=== PATIENT | male | born 1960 | race Caucasian/White ===

== ENCOUNTER 2016-10-20 00:04 | Inpatient (IN) | payer OTHER ==
[2016-10-20] VITALS (7 sets, daily range): BP systolic 72–180; BP diastolic 50–110
[~2016-10-20] VITALS: Ht 182.9 cm; Wt 85.7 kg
[~2016-10-20 00:04] MED LIST: FLUOXETINE HCL20 M2 PO; GABAPENTIN300 M2 PO; HYDROCHLOROTHIA25 M1 PO; HYDROXYZINE PAM25 M2 PO; LISINOPRIL40 M1 PO; MOTRIN IB200 M1 PO; NORVASC10 M1 PO; PERCOCET 5-3251 EACH PO; UNASYN 3 GM VIAL3 GM IV
--- NOTE | 2016-10-20 00:13 | NUR ---
PT MEDICATED WITH 4MG ATIVAN IV PER EMAR FOR SEIZURE
--- NOTE | 2016-10-20 00:13 | ED AMS/SEIZURE/WEAK/DIZZY ---
History of Present Illness General Chief Complaint: Seizure Stated Complaint: "BIBA SEIZURE" Source: EMS Exam Limitations: unable to give history Vital Signs & Intake/Output Vital Signs & Intake/Output Vital Signs Date Time Temp Pulse Resp B/P Pulse O2 O2 Flow FiO2 Ox Delivery Rate 10/20 0242 96.8 93 20 146/86 99 Nasal 4.0L Cannula 10/20 0123 96.6 108 20 153/99 94 Nasal 4.0L Cannula 10/20 0055 110 20 159/93 97 Nasal 2.0L Cannula 10/20 0018 96.6 152 24 212/122 98 Nasal 5.0L Cannula 10/20 000 98 Nasal 4.0L Cannula 10/20 000 99 Nasal 4.0L Cannula Allergies Coded Allergies: NO KNOWN ALLERGIES (03/31/16) Reconcile Medications Amlodipine Besylate (Norvasc) 10 MG TABLET 1 TAB PO DAILY BLOOD PRESSURE Fluoxetine HCl 20 MG CAPSULE 1 CAP PO DAILY ANXIETY (Reported) Gabapentin 300 MG CAPSULE 2 CAP PO BID PERIPHERAL NEUROPATHY (Reported) Hydrochlorothiazide 25 MG TABLET 1 TAB PO DAILY BLOOD PRESSURE Hydroxyzine Pamoate 25 MG CAPSULE 1 CAP PO TIDPRN ANXIETY (Reported) Lisinopril 40 MG TABLET 1 TAB PO DAILY HIGH BLOOD PRESSURE (Reported) Triage Nurses Notes Reviewed? yes HPI: According to EMS the patient presents for evaluation of alcohol withdrawal seizures. Patient himself is unable to provide history as he had a seizure on the EMS stretcher as he was being placed onto the ED stretcher. Past History Travel History Traveled to [place] past 21 day No Medical History Any Pertinent Medical History? 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 No Review of Systems Review of Systems Constitutional: Reports: see HPI. 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 Eyes: Normal inspection bilaterally Ears: Normal inspection bilaterally Nose: Normal inspection Throat/mouth : Moist mucosa Neck: Supple, full range of motion, no goiter Heart: Regular rate and rhythm, no murmurs rubs or gallops Lungs: Clear to auscultation bilaterally with normal air entry Chest: Nontender Back: Normal range of motion Abdomen: nondistended, normal bowel sounds Extremities: Normal range of motion grossly, equal radial pulses, no cyanosis clubbing or edema Neurologic: Cranial nerves grossly intact, unable to assess speech Skin: Diaphoretic Psychiatric: Unable to assess Core Measures ACS in differential dx? No CVA/TIA Diagnosis: No Severe Sepsis Present: No Septic Shock Present: No Progress Differential Diagnosis: DELIRIUM TREMENS, HEAD TRAUMA, cva, INTRACRANIAL BLEED, OVERDOSE Plan of Care: Orders Procedure Date/time Status Admit to inpatient 10/20 245 Active Saline Lock 10/20 10 Active Patient Safety Monitor 10/20 10 Active Seizure Precautions 10/20 10 Active URINE DRUG SCREEN FOR ER ONLY 10/20 10 Complete URINALYSIS 10/20 10 Complete ACETOMINOPHEN 10/20 10 Complete THYROID STIMULATING HORMONE 10/20 10 Complete SALICYLATE 10/20 10 Complete PHOSPHORUS 10/20 10 Complete MAGNESIUM 10/20 10 Complete ETHANOL 10/20 10 Complete COMPREHENSIVE METABOLIC PANEL 10/20 10 Complete CBC WITHOUT DIFFERENTIAL 10/20 10 Complete EKG 10/20 0005 Active Current Medications Sig/Nora Start time Last Medication Dose Stop Time Status Admin Lorazepam 50 MG ONCE ONE 10/20 244 UNir (Ativan Drip) 10/20 245 Sodium Chloride 500 ML (Normal Saline 0.9%) Laboratory Tests 10/20/16 0050: Urine Opiates Screen < 100.00, Methadone Screen < 40, Barbiturate Screen < 60, Ur Phencyclidine Scrn < 6.00, Amphetamines Screen < 100, U Benzodiazepines Scrn < 85, Urine Cocaine Screen < 50, Urine Cannabis Screen < 5.00 10/20/16 0050: Anion Gap 24 H, Estimated GFR > 60, BUN/Creatinine Ratio 15.7, Glucose 191 H, Calcium 9.4, Phosphorus 3.5, Magnesium 1.7, Total Bilirubin 1.4 H, AST 138 H, ALT 49, Alkaline Phosphatase 152 H, Total Protein 8.5 H, Albumin 4.6, Globulin 3.9, Albumin/Globulin Ratio 1.2, TSH 1.220, CBC w Diff NO MAN DIFF REQ, RBC 4.32 L, MCV 106.8 H, MCH 35.7 H, RDW 16.0 H, MPV 9.4, Gran % 87.9 H, Lymphocytes % 5.5 L, Monocytes % 6.0, Eosinophils % 0, Basophils % 0.6, Absolute Granulocytes 9.4 H, Absolute Lymphocytes 0.6 L, Absolute Monocytes 0.6, Absolute Eosinophils 0, Absolute Basophils 0.1, PUBS MCHC 33.4, Salicylates < 1.0, Acetaminophen < 10.0 L, Serum Alcohol < 10.0, Urinalysis MOD H, Urine Color YEL, Urine Clarity CLEAR, Urine pH 7.0, Ur Specific Brenham 1.025, Urine Protein >=300 H, Urine Ketones 40 H, Urine Nitrite NEG, Urine Bilirubin NEG, Urine Urobilinogen 2.0 H, Ur Leukocyte Esterase NEG, Ur Microscopic SEDIMENT EXAMINED, Urine RBC 1-3, Urine WBC 3-5 H, Ur Epithelial Cells FEW, Urine Bacteria FEW H, Urine Hemoglobin MOD H, Urine Glucose NEG Diagnostic Imaging: Discussed w/RAD: CT Scan. Radiology Impression: PATIENT: ALBA BURTON PRESENT AGE: 56 PATIENT ACCOUNT NO: [id number] : 62 LOCATION: [facility] ORDERING PHYSICIAN: LUCIANA LOAIZA MD SERVICE DATE: 10/20/16 EXAM TYPE: CAT - CT HEAD WO IV CONTRAST EXAMINATION: CT HEAD WITHOUT CONTRAST CLINICAL INFORMATION: Trauma. COMPARISON: CT head 05/07/2016 TECHNIQUE: Contiguous axial imaging was performed from the skull base to vertex without intravenous administration of contrast. DLP: 672.25 mGy-cm FINDINGS: There is no evidence of acute intracranial hemorrhage or territorial infarction. No abnormal mass effect or midline shift is seen. [place] to white matter differentiation is well preserved. No extra-axial fluid collections are identified. The ventricles are normal in size. There is no abnormal attenuation within the brain parenchyma. The osseous structures and soft tissues are normal. Small amount of fluid in the left mastoid air cells similar prior CAT scan IMPRESSION: No acute intracranial pathology. 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 <Electronically signed in Other Vendor System> SIGNED BY: KRISTA VICTORIA MD 10/20/16 0251 Initial ED EKG: SINUS TACHYCARDIA WITH HR OF 105, NS ST CHANGES Prior EKG: changed (NOT TACHY ON PRIOR) Comments: 10/20/2016 12:50:42 AM after a total of 6 mg of Ativan, IM Haldol and IV Benadryl the patient has now settled down and is no longer resisting treatment. 10/20/2016 2:48:41 AM other than a 2 mg IV Versed dose for compliance with CAT scan, patient has remained stable and without signs of seizures. His mental status is improving despite generous doses of IV Ativan. Departure Departure Disposition: STILL A PATIENT Condition: Stable Clinical Impression Primary Impression: Delirium tremens Secondary Impressions: Alcohol withdrawal seizure Qualifiers: Complication of substance-induced condition: with delirium Qualified Code: F10.231 - Alcohol dependence with withdrawal delirium Referrals: JUAN FRANCISCO ESCALANTE MD (PCP/Family) Departure Forms: Customer Survey General Discharge Information Admission Note Spoke With: TAWNY ALVAREZ MD Documentation of Exam: Documentation of any treatments & extenuating circumstances including Concerns Regarding Discharge (functional status, medication knowledge or non-compliance, living conditions, etc.) that warrant an admission rather than observation: Patient has suffered alcohol withdrawal seizures and appears to be currently experiencing delirium tremens. This patient has a high mortality risk now requires ICU level care, Ativan drip and close clinical monitoring of neurological status. He will need a tapering dose of Ativan to prevent further withdrawal seizures and to detoxify him from alcohol. He will be at high risk of withdrawal seizures and DTs for the next 3-5 days. I do not feel he can be adequately treated as an outpatient under the circumstances. He would likely return in worse clinical condition. This patient will require a multiple day hospitalization. Critical Care Note Critical Care Note Critical Care Time: 30-74 min
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
--- NOTE | 2016-10-20 00:30 | NUR ---
PT MEDICATED WITH 2MG ATIVAN IV PER EMAR.
--- NOTE | 2016-10-20 00:45 | NUR ---
PT MEDICATED WITH 50MG BENADRYL IV AND 10MG HALDOL IV PER EMAR FOR AGGRESSIVE/SEIZURE BEHAVIOR PER EMAR BY ALEJANDRA COCHRAN.
--- NOTE | 2016-10-20 00:46 | NUR ---
IV ACCESS ESTABLISHED BY THIS RN #18 RFA, LABS DRAWN (SST, BRAUN, BLUE, LAV) OJEDA CATHETER IN PLACE 14FR, URINE TRIO SENT TO LAB.
[2016-10-20 00:58] LABS: ABSOLUTE BASOPHIL COUNT 0.1 /CUMM (0.0-0.2); ABSOLUTE EOSINOPHIL COUNT 0 /CUMM (0.0-0.7); ABSOLUTE GRANULOCYTE CT 9.4 /CUMM (1.4-6.5); ABSOLUTE LYMPH COUNT 0.6 /CUMM (1.2-3.4); ABSOLUTE MONOCYTE COUNT 0.6 /CUMM (0.10-0.60); BASOPHIL % 0.6 % (0.0-2.0); EOSINOPHIL % 0 % (0-5); HEMATOCRIT 46.1 % (42-52); MEAN CORPUSCULAR HGB 35.7 PG (27.0-31.0); MEAN CORPUSCULAR HGB CONC 33.4 G/DL (33.0-37.0); MEAN CORPUSCULAR VOLUME 106.8 FL (80.0-94.0); MEAN PLATELET VOLUME 9.4 FL (7.4-10.4); PLATELET COUNT 143 /CUMM (130-400); RED BLOOD CELL CT 4.32 /CUMM (4.70-6.10)
[2016-10-20 00:59] LABS: GRANULOCYTE % 87.9 % (42.2-75.2)
--- NOTE | 2016-10-20 01:11 | NUR ---
DR LOAIZA REMOVED PTS SOFT RESTRAINTS ON ANKLES, PT HAS 2 SOFT RESTRAINTS ON BILATERAL WRISTS FOR SAFETY OF STAFF, PT AND IV INTERVENTIONS.
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
--- NOTE | 2016-10-20 01:18 | NUR ---
PT NOTED TO BE SEIZING AT THIS TIME, PALE, DIAPHORETIC.
--- NOTE | 2016-10-20 01:22 | NUR ---
PTS BLOOD SUGAR 136, PT HAS RED FALL WRIST BAND APPLIED AND RED FALL RISK SOCKS,
[2016-10-20 01:29] LABS: WHITE BLOOD CELL COUNT 10.7 /CUMM (4.8-10.8)
--- NOTE | 2016-10-20 01:35 | NUR ---
PTS CALLED JULIENNE ([phone])
--- NOTE | 2016-10-20 01:35 | History & Physical ---
General Information and HPI Allergies/Medications Allergies: Coded Allergies: NO KNOWN ALLERGIES (03/31/16) Home Med list Amlodipine Besylate (Norvasc) 10 MG TABLET 1 TAB PO DAILY BLOOD PRESSURE Fluoxetine HCl 20 MG CAPSULE 1 CAP PO DAILY ANXIETY (Reported) Gabapentin 300 MG CAPSULE 2 CAP PO BID PERIPHERAL NEUROPATHY (Reported) Hydrochlorothiazide 25 MG TABLET 1 TAB PO DAILY BLOOD PRESSURE Hydroxyzine Pamoate 25 MG CAPSULE 1 CAP PO TIDPRN ANXIETY (Reported) Lisinopril 40 MG TABLET 1 TAB PO DAILY HIGH BLOOD PRESSURE (Reported) Past History Travel History Traveled to [place] past 21 day No Medical History Neurological: peripheral neuropathy EENT: NONE Cardiovascular: hypertension Respiratory: NONE Gastrointestinal: NONE Hepatic: NONE Renal: NONE Musculoskeletal: osteomyelitis of the left femur treated with 4 weeks of IV antibiotics four years prior to admission Psychiatric: anxiety Endocrine: NONE Blood Disorders: NONE Cancer(s): NONE 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
--- NOTE | 2016-10-20 02:12 | NUR ---
PT AT CT SCAN AT THIS TIME.
--- NOTE | 2016-10-20 02:20 | NUR ---
PT MEDICATED WITH 2MG ATIVAN IV PER EMAR FOR AGGRESSIVE BEHAVIOR ON THE CT SCAN TABLE, THIS RN WITH PT AND PLACED ON MONITOR, PT HAS BANANA BAG INFUSING AT 125ML/HR PER EMAR. PT HAS (1) VALUABLES BAG LOCKED IN MED RM SAFE.
--- NOTE | 2016-10-20 02:30 | NUR ---
PT MEDICATED WITH 2MG VERSED PER EMAR FOR AGGRESSIVE BEHAVIOR SINCE ATIVAN WAS NOT EFFECTIVE.
--- NOTE | 2016-10-20 02:42 | NUR ---
PT COMPLETED CT SCAN, BACK IN AWAITING HOUSE STAFF EVAL
--- NOTE | 2016-10-20 02:51 | CT SCAN REPORT ---
EXAMINATION: CT HEAD WITHOUT CONTRAST CLINICAL INFORMATION: Trauma. COMPARISON: CT head 05/07/2016 TECHNIQUE: Contiguous axial imaging was performed from the skull base to vertex without intravenous administration of contrast. DLP: 672.25 mGy-cm FINDINGS: There is no evidence of acute intracranial hemorrhage or territorial infarction. No abnormal mass effect or midline shift is seen. [place] to white matter differentiation is well preserved. No extra-axial fluid collections are identified. The ventricles are normal in size. There is no abnormal attenuation within the brain parenchyma. The osseous structures and soft tissues are normal. Small amount of fluid in the left mastoid air cells similar prior CAT scan IMPRESSION: No acute intracranial pathology.
--- NOTE | 2016-10-20 02:57 | NUR ---
PHARMACY CALLED FOR RICHARD LARRY
--- NOTE | 2016-10-20 03:04 | History & Physical ---
JEANETH MOHAN,[facility] 10/20/16 0303: General Information and HPI MD Statement: I have seen and personally examined ALBA BURTON and documented this H&P. The patient is a 56 year old M who presented with a patient stated chief complaint of [altered mental status and alcohol withdrawal seizure]. Source of Information: EMS, records from the ED, also ED staff. Exam Limitations: unable to give history, not alert/orientated, clinical condition, confusion History of Present Illness: Patient is a 56-year-old gentleman with PMH of alcoholism, hypertension, peripheral neuropathy, anxiety, recent hospitalization for left foot osteomyelitis after a dog bite in March 2016, who was brought in by EMS when his girlfriend found him unresponsive on the floor at home and seizing. When we saw the patient he was not responding to verbal, tactile or painful stimuli. ( We tried to contact her girlfriend but was unsuccessful, the phone number in the system did not go through) According to the records and information obtained from the ED staff, the patient had tonic-clonic seizures on the way to the hospital. He has been drinking a pint of vodka daily until two days ago when started to feel unwell and threw up. Since then he has not been able to drink. He also had a dog bite that happened about two days ago on the right hand. Patient became more alert after 1 hour in the ED and partially responded to a few of the questions. He denied chest pain, palpitation, SOB, abdominal pain, nausea, vomiting. Allergies/Medications Allergies: Coded Allergies: NO KNOWN ALLERGIES (03/31/16) Home Med list Amlodipine Besylate (Norvasc) 10 MG TABLET 1 TAB PO DAILY BLOOD PRESSURE Fluoxetine HCl 20 MG CAPSULE 1 CAP PO DAILY ANXIETY (Reported) Gabapentin 300 MG CAPSULE 2 CAP PO BID PERIPHERAL NEUROPATHY (Reported) Hydrochlorothiazide 25 MG TABLET 1 TAB PO DAILY BLOOD PRESSURE Hydroxyzine Pamoate 25 MG CAPSULE 1 CAP PO TIDPRN ANXIETY (Reported) Lisinopril 40 MG TABLET 1 TAB PO DAILY HIGH BLOOD PRESSURE (Reported) Past History Travel History Traveled to [place] past 21 day No Medical History Neurological: peripheral neuropathy EENT: NONE Cardiovascular: hypertension Respiratory: NONE Gastrointestinal: NONE Hepatic: NONE Renal: NONE Musculoskeletal: osteomyelitis of the left femur treated with 4 weeks of IV antibiotics four years prior to admission Psychiatric: anxiety Endocrine: NONE Blood Disorders: NONE Cancer(s): NONE AIRCRAFT REFUELLER/Reproductive: NONE History of MRSA: No History of VRE: No History of CDIFF: No Isolation History: Standard Tetanus Vaccine: 03/31/16 Surgical History Surgical History: non-contributory Past Family/Social History Family History Relations & Conditions if any Relation not specified for: *No pertinent family history Psychosocial History Services at Home: None ETOH Use: heavy use Review of Systems Review of Systems Constitutional: Denies: chills, fever. Cardiovascular: Denies: chest pain, palpitations. Respiratory: Denies: cough, short of breath. GI: Denies: abdominal pain, changes in stool. Genitourinary: Reports: no symptoms. Musculoskeletal: Reports: no symptoms. Exam & Diagnostic Data Last 24 Hrs of Vital Signs/I&O Vital Signs Date Time Temp Pulse Resp B/P Pulse O2 O2 Flow FiO2 Ox Delivery Rate 10/20 0514 100 190/107 10/20 0439 97.7 90 20 161/97 10/20 0438 97.7 90 20 161/97 98 Nasal 4.0L Cannula 10/20 0436 86 162/98 10/20 0434 84 158/96 10/20 0432 83 156/107 10/20 0422 97.2 89 20 164/108 99 Nasal 4.0L Cannula 10/20 0242 96.8 93 20 146/86 99 Nasal 4.0L Cannula 10/20 0123 96.6 108 20 153/99 94 Nasal 4.0L Cannula 10/20 0055 110 20 159/93 97 Nasal 2.0L Cannula 10/20 0018 96.6 152 24 212/122 98 Nasal 5.0L Cannula 10/20 0007 98 Nasal 4.0L Cannula 10/20 0006 99 Nasal 4.0L Cannula Intake & Output 10/20 0800 10/20 0000 10/19 1600 Intake Total 0 Output Total 50 Balance -50 Intake, Oral 0 Output, Urine 50 Physical Exam General Appearance Mild Distress, diaphoretic Skin cold, diaphoretic on the forehead. HEENT PERRLA, Mucous Membr. moist/pink Neck Supple, No JVD Cardiovascular Regular Rate, Normal S1, Normal S2, No Murmurs Lungs Clear to Auscultation, Normal Air Movement Abdomen Soft, No Tenderness, non distended Neurological Normal Tone, not able to cooperate for a neurologic examination Extremities lacerations on the palmar and dorsal aspects of the right hand Vascular Pulses Symmetrical Last 24 Hrs of Labs/Edi: Laboratory Tests 10/20/16 0545: Anion Gap 11, Estimated GFR > 60, Glucose 92, Calcium 9.2, Phosphorus 2.1 L, Magnesium 2.0, Total Bilirubin 1.2, AST 92 H, ALT 46, Albumin 4.2, CBC w Diff NO MAN DIFF REQ, RBC 4.03 L, MCV 105.8 H, MCH 35.6 H, RDW 15.7 H, MPV 9.2, Gran % 84.0 H, Lymphocytes % 7.0 L, Monocytes % 8.7, Eosinophils % 0, Basophils % 0.3, Absolute Granulocytes 7.1 H, Absolute Lymphocytes 0.6 L, Absolute Monocytes 0.7 H, Absolute Eosinophils 0, Absolute Basophils 0, PUBS MCHC 33.6 10/20/16 0050: Urine Opiates Screen < 100.00, Methadone Screen < 40, Barbiturate Screen < 60, Ur Phencyclidine Scrn < 6.00, Amphetamines Screen < 100, U Benzodiazepines Scrn < 85, Urine Cocaine Screen < 50, Urine Cannabis Screen < 5.00 10/20/16 0050: Anion Gap 24 H, Estimated GFR > 60, BUN/Creatinine Ratio 15.7, Glucose 191 H, Calcium 9.4, Phosphorus 3.5, Magnesium 1.7, Total Bilirubin 1.4 H, AST 138 H, ALT 49, Alkaline Phosphatase 152 H, Troponin I < 0.01, Total Protein 8.5 H, Albumin 4.6, Globulin 3.9, Albumin/Globulin Ratio 1.2, Lipase 67, Vitamin B12 443, Folate 3.9, TSH 1.220, CBC w Diff NO MAN DIFF REQ, RBC 4.32 L, MCV 106.8 H, MCH 35.7 H, RDW 16.0 H, MPV 9.4, Gran % 87.9 H, Lymphocytes % 5.5 L, Monocytes % 6.0, Eosinophils % 0, Basophils % 0.6, Absolute Granulocytes 9.4 H, Absolute Lymphocytes 0.6 L, Absolute Monocytes 0.6, Absolute Eosinophils 0, Absolute Basophils 0.1, PUBS MCHC 33.4, Salicylates < 1.0, Acetaminophen < 10.0 L, Serum Alcohol < 10.0, Urinalysis MOD H, Urine Color YEL, Urine Clarity CLEAR , Urine pH 7.0, Ur Specific [place] 1.025, Urine Protein >=300 H, Urine Ketones 40 H, Urine Nitrite NEG, Urine Bilirubin NEG, Urine Urobilinogen 2.0 H, Ur Leukocyte Esterase NEG, Ur Microscopic SEDIMENT EXAMINED, Urine RBC 1-3, Urine WBC 3-5 H, Ur Epithelial Cells FEW, Urine Bacteria FEW H, Urine Hemoglobin MOD H, Urine Glucose NEG Microbiology 10/20 640 URINE ROUT: Urine Culture - ORD 10/20 640 BLOOD: Blood Culture - ORD 10/20 640 BLOOD: Blood Culture - ORD Assessment/Plan Assessment: Patient is a 56-year-old male with PMH of alcoholism, hypertension, peripheral neuropathy, anxiety, recent osteomyelitis of left foot after a dog bite in March 2016, who is brought in by EMS after he was found unresponsive and seizing at home. Patient was given ativan, benadryl, haldol and midazolam in the ED. He is admitted to the ICU on ativan drip for close monitoring Altered mental status with seizures Most likely etiology is alcohol intoxication CT of the head negative for acute intracranial pathology. MCV of 106, anion gap of 24, bicarbonate 20, total bilirubin 1.4, elevated AST 138 (>2 times AST), elevated alkaline phosphatase (152), urine analysis is positive for proteins and ketones, urine toxicology WNL, low serum alcohol level. * NPO * neurochecks Q2 hours * seizure precautions * continue ativan drip * IV multivitamins, folic acid, high dose thiamine * neurology consult placed for the morning * BEP check and replete electrolytes accordingly * check lipase * monitor LFTs, consider RUQ US * CXR Metabolic acidosis with elevated anion gap, increased ketones in the urine. possible etiology is starvation ketosis * check lactic acid * continue IV fluids Right hand cellulitis Reported dog bite 2 days ago. currently afebrile. Work up in the ED showed slightly elevated WBC of 10.7 with left shift (granulocyte 87%). * blood culture * IV unasyn * tetanus vaccine and Immunoglobulin if he has not received within past five years or unknown * hand Xray * plastic sx consult placed Full code (code status will need to be confirmed later when the patient becomes more alert or his NOK - female friend - is available) As Ranked By This Provider Problem List: 1. Alcohol withdrawal seizure Qualifiers Complication of substance-induced condition: with delirium Qualified Code: F10.231 - Alcohol dependence with withdrawal delirium 2. Dog bite Core Measures/Miscellaneous Acute Coronary Syndrome ACS Diagnosis: No Cerebrovascular Accident CVA/TIA Diagnosis: No Congestive Heart Failure CHF Diagnosis: No Venous Thromboembolism VTE Risk Factors: Acute medical illness, Age > 40 No [facility] VTE prophylaxis d/t: No contraindications No VTE Pharm Prophylaxis d/t: No contraindications VTE Diagnosis: No VTE Type: NONE VTE Confirmed by (Test): NONE Severe Sepsis Severe Sepsis Present: No Septic Shock Septic Shock Present: No Miscellaneous Documentation Attending Case Discussed With: TAWNY ALVAREZ MD Primary Care Physician: JUAN FRANCISCO ESCALANTE MD Patient sees these Specialists none Level of Patient Care: Critical Care (CRI) LAYO ZAMORA 10/20/16 0329: Resident Review Statement Resident Statement: examined this patient, discussed with wireless internet installer, agreed with wireless internet installer, reviewed EMR data (avail), discussed with nursing, reviewed images, amended to note Other Findings: This is 56-year-old man last medical history of hypertension, left fourth osteomyelitis was treated with IV Unasyn for total of 4 week on 2015, anxiety, peripheral neuropathy. Presented to the emergency department via EMS. His girlfriend found him unresponsive followed by having seizures. Patient is not providing details. According to his girlfriend Patient drinks 1 pint of vodka almost every day, did not drink since last 2 days, not feeling well, today he tried to drink some and had vomiting. The history that was gathered from the patient girlfriend done by the ED team, we try to contact the his girlfriend over the phone but wasn't successful. Also the EMS report that the patient had tonic-clonic seizure when he was transferred from home to the ED. Physical examination, imaging and lab as above Assessment: -Encephalopathy: Most likely due to alcohol withdrawal, as the patient presented to the emergency department with a seizure. Patient will need Ativan drip as the patient received multiple IV Ativan dose in the ED without any significant effect. -Seizure: Most likely secondary to the alcohol withdrawal, patient will need neurology consultation the morning, also he will need to be on seizure precaution. -Anion gap metabolic acidosis: This could be secondary to starvation ketoacidosis -Right hand wound with cellulitis: The patient admits to do bite happened couple of days ago, patient will need antibiotic coverage with consultation, as the patient had history of recent left fourth osteomyelitis that was treated with Unasyn. Plan: -Admit patient to the ICU -Vitals every shift, strict LEXIE's, seizure and aspiration precaution -Continue the patient Ativan drip -Continue banana bag, start the patient on high-thiamine dose -Start the patient on IV Unasyn 3 g every 6 -Obtain blood, urine culture and chest x-ray, check lactic acid -Obtain right hand x-ray, plastic surgery consultation -Keep patient nothing by mouth -The patient 1 g of magnesium supplement and check the patient basic panel electrolyte a.m. replete accordingly -Neurology consultation a.m. -Repeat CBC and ICU bundle in a.m. -Pain pathway -DVT prophylaxis: Subcutaneous heparin -Full code ANTONIO,AARTEE 10/20/16 0438: Attending MD Review Statement Attending Statement Attending MD Statement: examined this patient, discuss w/resident/PA/AUTOMATIC SHIRRING MACHINE OPERATOR, agreed w/resident/PA/AUTOMATIC SHIRRING MACHINE OPERATOR, reviewed EMR data (avail), reviewed images, amended to note Attending Assessment/Plan: CC: Seizure PMH: HTN Patient was brought to ER through EMS because his girlfriend found him unresponsive followed by having seizures. Patient is not providing details, nods his head occasionally for some questions, history provided by girlfriend to ER nurse. Patient drinks 1 pint of vodka almost every day, did not drink since last 2 days, not feeling well, today he tried to drink some and had vomiting. Otherwise patient was not complaining anything to girlfriend. On ROS patient denied any chest pain, abdominal pain, urinary symptoms, headache, nausea, vomiting. Vitals: Afebrile, temperature 96.6, tachycardic at 150 at presentation decreased up to 93, tachypneic at 24, blood pressure 212/122 decreased to 146/86, saturating 98% on 2 L nasal cannula. On exam: Arousable with deep pain, follows instructions after waking up, pupils dilated, reactive, neck supple, no lymphadenopathy, mucosa dry, no obvious tongue bites, no ear discharge, eardrum normal. CVS: S1-S2, RRR. RS: Clear to auscultate bilaterally basis. Abdomen: Soft, NT, ND, no guarding, no rigidity, no Rodriges sign, bowel sounds present. Difficult to do neuro examination secondary to patient's mental status, spontaneously moves all extremities. Currently under 4 point Restraints, patient has 2 lacerations wants one on the palmar and one on the dorsal aspect of right hand near thenar eminence (this appears 1-2 day old bite), dirty, and healing scars on wrist. With secondary redness, warmth of hand, joint movements normal. Labs: WBC 10.7, granulocyte 87%, MCV 106, bicarbonate 20, anion gap 24, glucose 191, total bilirubin 1.4, AST 138, AST 49, alkaline phosphatase 152, total protein 8.5. Urine positive for proteins and ketones, U tox unremarkable. Alcohol level less than 10. CT head: No acute intracranial pathology. A and P #1 Encephalopathy: Probably Alcohol withdrawal, patient did not drink alcohol in the last 2 days. Patient was having seizure in ER, followed by aggressive and combative behavior. Patient received 10 mg haloperidol, 6 mg Ativan. It was followed by another 2 mg of IV Ativan and 2 mg of IV midazolam for CT scan as patient was still combative, in this situation patient would benefit from IV Ativan drip, ICU admission, closely monitoring vitals, high-dose thiamine, banana bag, nothing by mouth, chest x-ray, obtain blood cultures, UA urine cultures. Neck is supple, no obvious ear or nose discharge, no signs of meningeal irritation. #2 seizures: Probable Alcohol related. No other cause identified at this point, CT head negative, obtain EEG in a.m., continue Ativan drip, when necessary Ativan pushes if patient has repeat seizures, neurologic consult in a.m. #3 right hand laceration wound with secondary cellulitis: Upon probing patient admits a dog bite happened couple of days back, but patient is still altered and unreliable historian. The wounds look Dirty, wound irrigation, blood culture, IV Unasyn, x-ray right hand, plastic surgery consult in a.m., wound care consult. Vaccination status of the dog is unknown that is to be confirmed, check history of tetanus vaccination, if not recent patient with need to tetanus vaccine. ( Multiple dog bites in the past, requiring left toe amputation) #4 unknown gap metabolic acidosis: Gap 24, patient is negative for alcohol level in blood, urine ketone positive, ? Starvation ketosis, check lactic acid, continue IV hydration, check urine culture blood culture. #5 transaminitis with elevated bilirubin: Probably secondary to alcohol again, repeat BMP, LFT in morning, if alkaline phosphatase persistently trending up, obtain limited right upper quadrant ultrasound. TTS: 40 min
--- NOTE | 2016-10-20 04:15 | NUR ---
ATIVAN DRIP ADMINISTERED BY THIS RN, ALEJANDRA COCHRAN WAS THE SECOND RN TO CHECK THE DOSE AND RATE. DR ALVAREZ AND DR LOAIZA BOTH STATED THAT THE ATIVAN DRIP SHOULD BE STARTED AT 2MG/HR INFUSING AT 20ML/HR.
--- NOTE | 2016-10-20 04:18 | NUR ---
THIS RN SPOKE WITH RESIDENT VASQUES WHO STATED THAT PT NO LONGER NEEDS A SITTER DUE TO NO MORE AGGRESSIVE OR COMBATIVE BEHAVIOR. SITTER ORDER WILL BE D/C'D.
--- NOTE | 2016-10-20 04:32 | NUR ---
PT MEDICATED WITH 1.25MG VASOTEC PER EMAR FOR HTN.
--- NOTE | 2016-10-20 04:40 | Admission Certification ---
Admission Certification Certification Statement - As attending physician, I certify that at the time of - admission, based on clinical presentation, severity of - symptoms, need for further diagnostic testing and - therapeutic interventions, and risk of adverse outcomes - without in-hospital treatment, in my clinical assessment, - this patient requires an acute hospital stay for a minimum - of two nights or longer. I have also considered psychsocial - factors such as support system, advanced age, financial - issues, cognitive issues, and failed out-patient treatments, - past re-admission history, safety of patient, and lack of - compliance as applicable. Specific rationale supporting this admission is: Encephalopathy, seizure, alcohol withdrawal, right hand wound
--- NOTE | 2016-10-20 04:47 | RADIOLOGY REPORT ---
EXAMINATION: XR HAND, RIGHT CLINICAL INFORMATION: Dog bite. Wound. Colitis. COMPARISON: None TECHNIQUE: AP and lateral views of the right hand. FINDINGS: No osseous abnormality. Bone and joints are normal. No radiopaque foreign body. No air in the soft tissues. IMPRESSION: Normal right hand.
[2016-10-20 06:03] LABS: ABSOLUTE BASOPHIL COUNT 0 /CUMM (0.0-0.2); ABSOLUTE EOSINOPHIL COUNT 0 /CUMM (0.0-0.7); ABSOLUTE GRANULOCYTE CT 7.1 /CUMM (1.4-6.5); ABSOLUTE LYMPH COUNT 0.6 /CUMM (1.2-3.4); ABSOLUTE MONOCYTE COUNT 0.7 /CUMM (0.10-0.60); BASOPHIL % 0.3 % (0.0-2.0); EOSINOPHIL % 0 % (0-5); HEMATOCRIT 42.7 % (42-52); MEAN CORPUSCULAR HGB 35.6 PG (27.0-31.0); MEAN CORPUSCULAR HGB CONC 33.6 G/DL (33.0-37.0); MEAN CORPUSCULAR VOLUME 105.8 FL (80.0-94.0); MEAN PLATELET VOLUME 9.2 FL (7.4-10.4); PLATELET COUNT 137 /CUMM (130-400); RBC DISTRIBUTION WIDTH 15.7 % (11.5-14.5); RED BLOOD CELL CT 4.03 /CUMM (4.70-6.10)
--- NOTE | 2016-10-20 06:03 | NUR ---
REPORT GIVEN TO ALEJANDRA VENTURA.
--- NOTE | 2016-10-20 06:08 | NUR ---
PT MEDIATED WITH 10MG NORVASC PO PER RESIDENT LAYO EVEN THOUGH MEDICATION SCHEDULED FOR 1000.
[2016-10-20 06:30] LABS: WHITE BLOOD CELL COUNT 8.4 /CUMM (4.8-10.8)
--- NOTE | 2016-10-20 07:54 | NUR ---
pt received from er at 0615. blue but not to command yesika ativan gtt at 2mg/hour. monitor st bp 205/105 dr mirza aware. blood cultures x 2 done urine c/s obtained from rachel draining paula urine. 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 Dr mirza aware of wounds on r arm dog bite.
--- NOTE | 2016-10-20 08:03 | Cons- CRCU ---
NICOLÁS ZAVALA MD 10/20/16 0803: General Information and HPI Consulting Request Date of Consult: 10/20/16 Requested By: Dr. Calixto Reason for Consult: Alcohol withdrawal seizure Source of Information: patient, old records Exam Limitations: not alert/orientated History of Present Illness: Pt was found seizing at home by his fiance, Nancy. He is currently on ativan drip. Still confused and not oriented. He was started on unasyn for dog bite on the right hand. Noted edematous tongue, ENT was called. Dr. Tejada came to evaluate the patient (note on the chart). Noted 2 sites where he bit his tongue, drooling blood tinged saliva. He cannot speak most likely due to tongue swelling and disorientation. Although currently he is in no respiratory distress, the likelihood that he will deteriorate is high. I spoke to his fiance, Nancy, on the phone and she would like to go ahead with the intubation. Anesthesia was called and pt was taken to the OR for intubation and possible trachetomy. Pt has now been successfully intubated, and will be sedated with propofol. Lab reviewed this morning wbc 10.7 to 8.4, na 138 to 136, k 4.4 to 3.5, phos 3.5 to 2.1, alk phos 152 to 130, ast 138 to 92, t bili 1.4 to 1.2. K phos given. Allergies/Medications Allergies: Coded Allergies: NO KNOWN ALLERGIES (03/31/16) Home Med List: Amlodipine Besylate (Norvasc) 10 MG TABLET 1 TAB PO DAILY BLOOD PRESSURE Fluoxetine HCl 20 MG CAPSULE 1 CAP PO DAILY ANXIETY (Reported) Gabapentin 300 MG CAPSULE 2 CAP PO BID PERIPHERAL NEUROPATHY (Reported) Hydrochlorothiazide 25 MG TABLET 1 TAB PO DAILY BLOOD PRESSURE Hydroxyzine Pamoate 25 MG CAPSULE 1 CAP PO TIDPRN ANXIETY (Reported) Lisinopril 40 MG TABLET 1 TAB PO DAILY HIGH BLOOD PRESSURE (Reported) Review of Systems Review of Systems Constitutional: Reports: see HPI. Past History Travel History Traveled to [place] past 21 day No Medical History Neurological: peripheral neuropathy EENT: NONE Cardiovascular: hypertension Respiratory: NONE Gastrointestinal: NONE Hepatic: NONE Renal: NONE Musculoskeletal: osteomyelitis of the left femur treated with 4 weeks of IV antibiotics four years prior to admission Psychiatric: anxiety Endocrine: NONE Blood Disorders: NONE Cancer(s): NONE SEPARATIONS SCIENTIST/Reproductive: NONE Surgical History Surgical History: non-contributory Family History Relations & Conditions If Any: Relation not specified for: *No pertinent family history Psychosocial History Services at Home: None ETOH Use: heavy use Exam & Diagnostic Data Last 24 Hrs of Vital Signs/I&O Vital Signs Date Time Temp Pulse Resp B/P Pulse O2 O2 Flow FiO2 Ox Delivery Rate 10/20 0514 100 190/107 10/20 0439 97.7 90 20 161/97 10/20 0438 97.7 90 20 161/97 98 Nasal 4.0L Cannula 10/20 0436 86 162/98 10/20 0434 84 158/96 10/20 0432 83 156/107 10/20 0422 97.2 89 20 164/108 99 Nasal 4.0L Cannula 10/20 0242 96.8 93 20 146/86 99 Nasal 4.0L Cannula 10/20 0123 96.6 108 20 153/99 94 Nasal 4.0L Cannula 10/20 0055 110 20 159/93 97 Nasal 2.0L Cannula 10/20 0018 96.6 152 24 212/122 98 Nasal 5.0L Cannula 10/20 0007 98 Nasal 4.0L Cannula 10/20 0006 99 Nasal 4.0L Cannula Intake & Output 10/20 1600 10/20 0800 10/20 0000 Intake Total 0 Output Total 50 Balance -50 Intake, Oral 0 Output, Urine 50 Physical Exam General Appearance: not oriented confused unable to speak Head: edematous tongue , drooling blood tinged saliva Respiratory: normal breath sounds Cardiovascular: regular rate/rhythm Last 48 Hrs of Labs/Edi: Laboratory Tests 10/20/16 0545: Anion Gap 11, Estimated GFR > 60, Glucose 92, Calcium 9.2, Phosphorus 2.1 L, Magnesium 2.0, Total Bilirubin 1.2, AST 92 H, ALT 46, Alkaline Phosphatase 130 H, Albumin 4.2, CBC w Diff NO MAN DIFF REQ, RBC 4.03 L, MCV 105.8 H, MCH 35.6 H, RDW 15.7 H, MPV 9.2, Gran % 84.0 H, Lymphocytes % 7.0 L, Monocytes % 8.7, Eosinophils % 0, Basophils % 0.3, Absolute Granulocytes 7.1 H, Absolute Lymphocytes 0.6 L, Absolute Monocytes 0.7 H, Absolute Eosinophils 0, Absolute Basophils 0, PUBS MCHC 33.6 10/20/16 0050: Urine Opiates Screen < 100.00, Methadone Screen < 40, Barbiturate Screen < 60, Ur Phencyclidine Scrn < 6.00, Amphetamines Screen < 100, U Benzodiazepines Scrn < 85, Urine Cocaine Screen < 50, Urine Cannabis Screen < 5.00 10/20/16 0050: Anion Gap 24 H, Estimated GFR > 60, BUN/Creatinine Ratio 15.7, Glucose 191 H, Calcium 9.4, Phosphorus 3.5, Magnesium 1.7, Total Bilirubin 1.4 H, AST 138 H, ALT 49, Alkaline Phosphatase 152 H, Troponin I < 0.01, Total Protein 8.5 H, Albumin 4.6, Globulin 3.9, Albumin/Globulin Ratio 1.2, Lipase 67, Vitamin B12 443, Folate 3.9, TSH 1.220, CBC w Diff NO MAN DIFF REQ, RBC 4.32 L, MCV 106.8 H, MCH 35.7 H, RDW 16.0 H, MPV 9.4, Gran % 87.9 H, Lymphocytes % 5.5 L, Monocytes % 6.0, Eosinophils % 0, Basophils % 0.6, Absolute Granulocytes 9.4 H, Absolute Lymphocytes 0.6 L, Absolute Monocytes 0.6, Absolute Eosinophils 0, Absolute Basophils 0.1, PUBS MCHC 33.4, Salicylates < 1.0, Acetaminophen < 10.0 L, Serum Alcohol < 10.0, Urinalysis MOD H, Urine Color YEL, Urine Clarity CLEAR , Urine pH 7.0, Ur Specific [place] 1.025, Urine Protein >=300 H, Urine Ketones 40 H, Urine Nitrite NEG, Urine Bilirubin NEG, Urine Urobilinogen 2.0 H, Ur Leukocyte Esterase NEG, Ur Microscopic SEDIMENT EXAMINED, Urine RBC 1-3, Urine WBC 3-5 H, Ur Epithelial Cells FEW, Urine Bacteria FEW H, Urine Hemoglobin MOD H, Urine Glucose NEG Assessment/Plan Impression/Plan: 56-year-old male with PMH of alcoholism, hypertension, peripheral neuropathy, anxiety, recent osteomyelitis of left foot after a dog bite in March 2016, who is brought in by EMS after he was found unresponsive and seizing at home, drinks 1 pint vodka a day, last alcohol drink 48 hours prior to admission. Patient was having seizure in ER, followed by aggressive and combative behavior. Patient received 10 mg haloperidol, 6 mg Ativan. It was followed by another 2 mg of IV Ativan and 2 mg of IV midazolam for CT scan as patient was still combative. He was admitted to the ICU on ativan drip for close monitoring. Tongue was noted to be edematous with laceration most likely due to tongue biting during his seizure episode. ENT called and pt was subsequently intubated due to high risk of respiratory failure and challenging intubation if his swelling were to progress. Pt successfully intubated in the OR on 10/20/16 with consent obtained from his nikoanceNancy. Problem list: # Alcohol withdrawal seizure # Tongue laceration secondary to seizure # Hypertensive urgency # Right hand cellulitis due to dog bite Uriarte day #1 Intubated day # 1 UE restrain day # 1 # Alcohol withdrawal seizure - CT of the head negative for acute intracranial pathology. - Work up in the ED showed slightly elevated WBC of 10.7 with left shift ( granulocyte 87%), MCV of 106, anion gap of 24, bicarbonate 20, total bilirubin 1.4, elevated AST 138 (>2 times AST), elevated alkaline phosphatase (152), urine analysis is positive for proteins and ketones, urine toxicology WNL, low serum alcohol level (last drink reportedly 48 hours prior to presentation) * Continue ativan drip , propofol started, will wean down ativan if OK with propofol * Neurology consulted * Continue banana bag and thiamine * Replete electrolytes as needed * Aspiration precaution # Tongue laceration secondary to seizure, causing severe tongue swelling - Intubated on 10/20/2016 in the OR * ENT on board, will follow * IV ppi started * NO OG TUBE as it might dislodge the ET tube if misplaced * Benadryl around the clock. If the patient's tongue swelling worsens, we'll start IV steroids. # Hypertensive urgency * Give IV pushes of hydralazine if needed # Right hand cellulitis due to dog bite - Right hand laceration wound with secondary cellulitis, patient admits a dog bite happened couple of days back, but patient was altered and unreliable historian. The wounds look dirty. 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 Continue unaysn day # 1 * Plastic surgery consulted * F/U cultures * F/U hand xray * Wound irrigation and wound care consult Diet: NPO (intubated) IVF: D51/2Ns + 20meq KCl at 100ml/hr DVT ppx: alps , heparin FULL CODE Consult Acknowledgment - Thank you for your consult request. Bernabe RAMIREZ MD RAYNA 10/20/16 1248: General Information and HPI Consulting Request Date of Consult: 10/20/16 Allergies/Medications Current Medications: Current Medications Sig/Nora Start time Last Medication Dose Route Stop Time Status Admin Acetaminophen 500 MG Q24 PRN 10/20 0330 AC IV Amlodipine Besylate 10 MG DAILY 10/20 1000 AC 10/20 PO 0607 Amlodipine Besylate 0 .STK-MED ONE 10/20 0608 DC PO Ampicillin Sodium/ 3,000 MG Q6 10/20 0600 AC 10/20 Sulbactam Sodium IV 0807 Sodium Chloride 100 ML Cyanocobalamin/ 1 BAG ONCE ONE 10/20 0145 DC 10/20 Thiamine/Pyridoxine IV 10/20 0944 0239 Sodium Chloride 1,000 ML Dextrose 25 GM ONCE ONE 10/20 1130 DC 10/20 IV 10/20 1131 1123 Diphenhydramine HCl 0 .STK-MED ONE 10/20 0046 DC .ROUTE Diphenhydramine HCl 50 MG ONCE ONE 10/20 0045 DC / IV 10/20 0046 0045 Enalaprilat 0 .STK-MED ONE 10/20 0432 DC IV Enalaprilat 1.25 MG ONCE ONE 10/20 0430 DC 10/20 IV 10/20 0431 0439 Haloperidol 10 MG ONCE ONE 10/20 0045 DC 04/ IM 10/20 0046 0045 Haloperidol 0 .STK-MED ONE 10/20 0042 DC .ROUTE Heparin Sodium 5,000 UNIT Q8 10/20 0600 AC 10/20 (Porcine) SC 0807 Hydralazine HCl 50 MG ONCE ONE 10/20 1215 CAN IV 10/20 1216 Lorazepam 50 MG ONCE ONE 10/20 0330 DC 10/20 Sodium Chloride 500 ML IV 10/21 0329 0415 Lorazepam 50 MG Q24H 10/20 0330 AC Dextrose/Water 500 ML IV Lorazepam 2 MG ONE ONE 10/20 0230 DC / IV 10/20 0231 0239 Lorazepam 0 .STK-MED ONE 10/20 0222 DC .ROUTE Lorazepam 0 .STK-MED ONE 10/20 0033 DC .ROUTE Lorazepam 2 MG ONE ONE 10/20 0030 DC 04/ IV 10/20 0031 0030 Lorazepam 2 MG ONE ONE 10/20 0015 DC / IV 10/20 0016 0012 Lorazepam 2 MG ONE ONE 10/20 0015 DC / IV 10/20 0016 0012 Lorazepam 0 .STK-MED ONE 10/20 0009 DC .ROUTE Magnesium Sulfate 1 GM ONCE ONE 10/20 0330 DC Dextrose/Water 100 ML IV 10/20 0729 Midazolam HCl 2 MG ONCE ONE 10/20 0230 DC 10/20 IV 10/20 023 023 Morphine Sulfate 2 MG Q4P PRN 10/20 033 AC IV Non-Formulary 0 SEE ADMIN CRITERIA 10/20 1030 DC Medication ANY Potassium Chloride 20 MEQ Q10H 10/20 0800 AC Dextrose/Sodium 1,000 ML IV Chloride Potassium Phosphate 15 mMol ONE ONE 10/20 0800 DC 10/20 Dextrose/Water 250 ML IV 10/20 1203 1212 Propofol 1,000 MG Q12H 10/20 1200 AC 10/20 N/A 100 ML IV 1211 Thiamine HCl 500 MG TID 10/20 1000 AC 10/20 Sodium Chloride 100 ML IV 10/22 2302 1113 Thiamine HCl 0 .STK-MED ONE 10/20 0200 DC .ROUTE Review of Systems Comments Review of systems is unable to be obtained due to clinical status and airway issue. Exam & Diagnostic Data Last 24 Hrs of Vital Signs/I&O Vital Signs Date Time Temp Pulse Resp B/P Pulse O2 O2 Flow FiO2 Ox Delivery Rate 10/20 1114 40 10/20 0514 100 190/107 10/20 043 97.7 90 20 161/97 10/20 0438 97.7 90 20 161/97 98 Nasal 4.0L Cannula 10/20 0436 86 162/98 10/20 0434 84 158/96 10/20 043 83 156/107 10/20 0422 97.2 89 20 164/108 99 Nasal 4.0L Cannula 10/20 024 96.8 93 20 146/86 99 Nasal 4.0L Cannula 10/20 0123 96.6 108 20 153/99 94 Nasal 4.0L Cannula 10/20 0055 110 20 159/93 97 Nasal 2.0L Cannula 10/20 0018 96.6 152 24 212/122 98 Nasal 5.0L Cannula 10/20 0007 98 Nasal 4.0L Cannula 10/20 0006 99 Nasal 4.0L Cannula Intake & Output 10/20 1600 10/20 0800 10/20 0000 Intake Total 0 Output Total 50 Balance -50 Intake, Oral 0 Output, Urine 50 Patient 190 lb Weight Assessment/Plan Other Findings/Comments: I have personally seen and examined the patient and agree with the resident's assessment, exam and plan as above. The history is taken from the chart due to the patient's clinical condition. The patient is a 56-year-old male with a past medical history significant for alcoholism, hypertension, peripheral neuropathy, anxiety, and osteomyelitis of the left foot following a dog bite (March 2016 ). The patient drinks 1 pint of vodka per day. His last alcohol intake was 48 hours prior to admission. The patient was found unresponsive at home and seizing. The patient was brought to the emergency department by EMS, and it was reported he was seizing in the ambulance. The patient was also seizing in the emergency department. He reportedly also demonstrated very agitated and aggressive behavior noting the patient received 10 mg of haloperidol and 8 mg of IV and 2 mg of midazolam. He then required an Ativan drip for control. The patient also was reported to sustain a dog bite (his own dog at home, rabies vaccinated) (patient's tetnus shot is up to date) to the right wrist 2 days prior to admission. The patient had a head CT that was negative for any acute intracranial pathology. He was placed on IV Unasyn. The patient was eventually transferred up to the critical care unit for an Ativan drip. Upon my evaluation earlier this morning, the patient was somnolent and not able to provide any history. During my evaluation, I found the patient to have severe tongue swelling secondary which appeared to be secondary to trauma during his seizure. An urgent ENT consult was called. After the ENT evaluation, the patient was taken to the OR and successfully intubated without the necessity of a tracheostomy which they were prepared for. The patient currently is intubated, sedated on propofol, and remained hemodynamically stable. A plastic surgery consult was called for the right wrist dog bite as well. Impression: 1. Alcohol withdrawal seizures. 2. Tongue laceration and severe swelling with airway compromise secondary to tongue biting. 3. Hypertensive urgency, improved on sedation. 4. Right hand cellulitis due to dog bite. The patient's dog is vaccinated against rabies and his tetanus vaccine is up-to-date. Hand x-ray showed no air in the soft tissues or and was normal overall. Previous cultures were positive for pasteurella staph aureus. 5. Transaminitis, likely related to EtOH. 6. Elevated AG acidosis, likely related to seizures, improved. Plan: * Continue propofol for an SAS of 2-3. * Continue current ventilator settings. * Monitor for seizures. * Neurology consult requested. * Please call neurology to notify them if seizures recur. * Replete electrolytes as needed. * IV hydralazine as needed for blood pressure control. * Continue empiric IV Unasyn, ensure the patient has been pancultured (include sputum due to possible aspiration). * Give 1 dose of vancomycin today. * Give IV Benadryl 25 mg [id number]. * If the patient's tongue swelling worsens, we'll start IV steroids. Will hold off for now as the patient's airway is secured and he has probable cellulitis. * Continue multivitamin, thiamine and folate. * Plastic surgery was consulted for evaluation of the right wrist and hand dog bite. * Per anesthesia, avoid placing an OG tube due to increased risk of dislodging the endotracheal tube. * While the patient is nothing by mouth, start D5 normal saline at 100 ml per hour. * Begin ventilator bundle with DVT and GI prophylaxis. * Will follow-up ENT and neurology recommendations, appreciate input. * Monitor closely, the patient has potential for decompensation. * I discussed the plan of care with the housestaff and asked him to contact me should the patient's condition change or deteriorate. * The patient's family was updated by housestaff. TTS 180 Consult Acknowledgment - Thank you for your consult request.
--- NOTE | 2016-10-20 10:05 | NUR ---
PT NOTED TO HAVE LARGE SWELLING TONGUE, ENT AT BEDSIDE REQUESTING PT BE INTUBATED WITH POSSIBLE NEED FOR TRACH, ANESTHESIA CALLED TO BEDSIDE, PT TO O.R FOR INTUBATION WITH POSSIBLE TRACH PLACEMENT WITH ENT AND ANESTHESIA. WILL MONITOR.
--- NOTE | 2016-10-20 11:23 | NUR ---
PT'S BLOOD SUGAR 69. 1 AMP D50 GIVEN AT THIS TIME, WILL MONITOR.
--- NOTE | 2016-10-20 12:25 | RADIOLOGY REPORT ---
EXAMINATION: XR PORTABLE CHEST CLINICAL INFORMATION: 56-year-old man post intubation. COMPARISON: 10/20/2016 chest radiograph TECHNIQUE: Portable AP view of the chest was obtained. FINDINGS: There has been interval placement of an endotracheal tube, the tip of which projects over the trachea about 7 cm above the karoline. Visualized portions of the lungs are well expanded and clear. IMPRESSION: A new endotracheal tube is noted with the tip seen about 7 cm above the karoline.
--- NOTE | 2016-10-20 13:32 | RADIOLOGY REPORT ---
EXAMINATION: XR PORTABLE CHEST CLINICAL INFORMATION: Seizures. Aspiration. COMPARISON: May 07, 2016 and studies dating back October 31, 2014 TECHNIQUE: Portable AP portable view of the chest was obtained. FINDINGS: No significant abnormality is noted involving the heart, lungs, mediastinum, bony thorax or soft tissues. Most lateral aspect costophrenic angles not included on study. IMPRESSION: No acute disease.
[2016-10-20 16:05] LABS: PTT 33 SEC (25-37)
--- NOTE | 2016-10-20 19:46 | NUR ---
SHIFT NOTE [id number]: RECEIVED PT IN BED. DROWSY AROUSABLE, FOLLOWING COMMANDS. SAS 4-5. ST ON MONITOR. B/P HIGH 180/110, MD ZAVALA AWARE. AFEBRILE. LUNGS CLEAR, ON 2L NC, PT NOTED TO HAVE LOTS OF ORAL SECRETIONS, UPON EXAMINING MOUTH WITH DR RAMIREZ, PT'S TONGUE NOTED TO BE GROSSLY SWOLLEN WITH 2 SMALL BITE BANDA ON THE BOTTOM. ENT CONSULT CALLED. ENT CART PLACED OUTSIDE OF ROOM. ABDOMEN D/S +BS, UNKNOWN LAST BM. OJEDA IN PLACE DRAINING TEA/JOSE MARIA COLORED URINE. RIGHT HAND/WRIST PUNCTURES FROM DOG BITE. DRESSING PLACED TO RIGHT WRIST, XEROFORM/TELFA AND PAPER TAPE. RIGHT HAND NOTED TO BE WARM/RED/SWOLLEN. REDNESS EXTENDING UP TO FOREARM. SKIN OTHERWISE INTACT. BED ALARM IN PLACE. ALPS ON. UPON ENT ASSESSMENT PT TAKEN TO O.R FOR SUCCESSFUL INTUBATION. #8 TO THE RIGHT AT 23CM, SEE FLOW SHEET FOR VENT SETTINGS. ANESTHESIA ATTEMPTED 5 TIMES TO GET AN NGT IN PLACE, PER ANESTHESIA AND DR RAMIREZ NO ONE IS TO TRY AND ATTEMPT TO PLACE AN NGT OR AN OGT DUE TO PT'S SWOLLEN TONGUE. PER DR RAMIREZ KEEP PT'S SAS BETWEEN 2-3. ATIVAN GTT RUNNING AT 1MG/HR, PROPOFOL TITRATED, SEE FLOW SHEET, AT END OF SHIFT PROPOFOL AT 30MCG OR 15.5ML. PER DR RAMIREZ TITRATE PROPOFOL BEFORE ATIVAN. PT ALSO RECEIVED A BANANA BAG, IV UNASYN, IV THIAMINE, 1 TIME IV VANCO, D5 1/2NS W/20 MEQ KCL @ 100. [address], 1 PRE [facility] TO . PT RECEIVED ONE DOSE OF K PHOS. 3 AMPS OF D-50. PT'S BLOOD SUGAR REMAINS LOW, 69-102. SEE FINGERSTICK INTERVENTION FOR BLOOD SUGARS. KOFI'S PHONE NUMBER IS ON THE FRONT OF THE CHART IF SHE NEEDS TO BE CONTACTED FOR ANYTHING. WRIST RESTRAINTS IN PLACE PT WAS TRYING TO GRAB ETT. SEIZURE PRECATIONS IN PLACE. SUCTION AT BEDSIDE. REPORT GIVEN TO NIGHT RN.
[2016-10-21] VITALS (12 sets, daily range): BP systolic 121–151; BP diastolic 52–91
--- NOTE | 2016-10-21 02:25 | NUR ---
PT SEDATED ON ATIVAN AND PROPOFOL GTTS HENSON SPONTANEOUSLY NOT TO COMMAND, OJEDA DRAINING SMALL AMT DR ERIC AWARE 250ML FLUID BOLUS GIVEN WITH SL U/O IMPROVEMENT. NO SEIZURE ACTIVITY NOTED. R ARM WARM AND MORE EDEMATOUS THAN LEFT ELEVATED ON PILLOW. NO DRAINAGE ON DRSG.
[2016-10-21 05:37] LABS: ABSOLUTE BASOPHIL COUNT 0 /CUMM (0.0-0.2); ABSOLUTE EOSINOPHIL COUNT 0.1 /CUMM (0.0-0.7); ABSOLUTE GRANULOCYTE CT 4.1 /CUMM (1.4-6.5); ABSOLUTE LYMPH COUNT 1.1 /CUMM (1.2-3.4); ABSOLUTE MONOCYTE COUNT 0.4 /CUMM (0.10-0.60); BASOPHIL % 0.3 % (0.0-2.0); EOSINOPHIL % 1.6 % (0-5); GRANULOCYTE % 72.7 % (42.2-75.2); MEAN CORPUSCULAR HGB 35.3 PG (27.0-31.0); MEAN CORPUSCULAR VOLUME 106.8 FL (80.0-94.0); MEAN PLATELET VOLUME 9.5 FL (7.4-10.4); PLATELET COUNT 113 /CUMM (130-400); RED BLOOD CELL CT 3.56 /CUMM (4.70-6.10); WHITE BLOOD CELL COUNT 5.6 /CUMM (4.8-10.8)
--- NOTE | 2016-10-21 07:04 | PN- Resident CRCU ---
Subjective HPI/CRCU Issues: Neurology and plastic surgery have been called again this morning to see the patient. Pt remained sedated and intubated. He is on propofol 30mcg/kg/min and ativan at 1mg/hr. He woke up when the ativan was discontinued. Current vent settings 16/ 550/30/5. Night housestaff reported low UO (down to 10ml/hr) despite being on IVF 100ml/hr , and he was given [id number] bolus. BUn/cr remains stable. 24 hr data: max temp 98.2 HR 53-102. SB-ST RR 16 sytolic bp 72-227 diastolic bp 50-126 his bp is mostly in the 110-140/ 70-80 wbc 8.4 to 5.6 hb 14.4 to 12.6 platelet 13.7 to 11.3 k 3.5 to 2.9 phos 2.1 to 2.3 10meq kclX2, kphos X1, changed fluids to 40meq kcl d5ns at 125ml/hr mag 2 to 1.8, given 1x mag sulf ast 92 to 52 alt 46 to 35 tbili 1.2, direct bili 0.6 blood sugar 96,81,76 When seen this morning, he was sedated. noted the right hand wound from the dog bite. Tongue remains edematous. CXR reviewed, ET tube in place. Cultures are pending. In Mar 2016, he grew MSSA, and pasteurella multicoda. He was given 1X vancomycin yesterday. Objective Vital Signs & I&O Last 8 Hrs of Vitals and I&O: Intake & Output 10/21 1600 10/21 0800 10/21 0000 Intake Total 1254 2237 Output Total 170 190 Balance 1084 2047 Intake, IV 1254 2237 Output, Urine 170 190 Laboratory Tests 10/21 10/20 0500 1352 Chemistry Sodium (137 - 145 mmol/L) 137 Potassium (3.5 - 5.1 mmol/L) 2.9 *L Chloride (98 - 107 mmol/L) 104 Carbon Dioxide (22 - 30 mmol/L) 27 Anion Gap (5 - 16) 6 BUN (9 - 20 mg/dL) 14 Creatinine (0.7 - 1.2 mg/dL) 0.7 Estimated GFR (>60 ml/min) > 60 Glucose (65 - 99 mg/dL) 96 Lactic Acid (0.7 - 2.1 mmol/L) 0.9 Calcium (8.4 - 10.2 mg/dL) 8.1 L Phosphorus (2.5 - 4.5 mg/dL) 2.3 L Magnesium (1.6 - 2.3 mg/dL) 1.8 Total Bilirubin (0.2 - 1.3 mg/dL) 1.2 Direct Bilirubin (< 0.4 mg/dL) 0.6 H AST (17 - 59 U/L) 52 ALT (21 - 72 U/L) 35 Albumin (3.5 - 5.0 g/dL) 3.2 L Coagulation PT (9.4 - 12.5 SEC) 10.0 INR (0.90 - 1.17) 0.95 APTT (25 - 37 SEC) 33 Hematology CBC w Diff NO MAN DIFF REQ WBC (4.8 - 10.8 /CUMM) 5.6 RBC (4.70 - 6.10 /CUMM) 3.56 L Hgb (14.0 - 18.0 G/DL) 12.6 L Hct (42 - 52 %) 38.0 L MCV (80.0 - 94.0 FL) 106.8 H MCH (27.0 - 31.0 PG) 35.3 H RDW (11.5 - 14.5 %) 16.0 H Plt Count (130 - 400 /CUMM) 113 L MPV (7.4 - 10.4 FL) 9.5 Gran % (42.2 - 75.2 %) 72.7 Lymphocytes % (20.5 - 51.1 %) 19.1 L Monocytes % (1.7 - 9.3 %) 6.3 Eosinophils % (0 - 5 %) 1.6 Basophils % (0.0 - 2.0 %) 0.3 Absolute Granulocytes (1.4 - 6.5 /CUMM) 4.1 Absolute Lymphocytes (1.2 - 3.4 /CUMM) 1.1 L Absolute Monocytes (0.10 - 0.60 /CUMM) 0.4 Absolute Eosinophils (0.0 - 0.7 /CUMM) 0.1 Absolute Basophils (0.0 - 0.2 /CUMM) 0 PUBS MCHC (33.0 - 37.0 G/DL) 33.0 04/02 1130 Blood Gas pH (7.35 - 7.45 PH) 7.41 pCO2 (35 - 45 TORR) 40 pO2 (80 - 100 TORR) 91 HCO3 (21 - 28 MEQ/L) 25 ABG O2 Sat (Measured) (>96.0 %) 97.0 Carboxyhemoglobin (1.5 - 5.0 %) 1.4 L O2 Concentration % 40% Respiration Rate (BPM) 16 O2 Delivery Method VENT AV VC Vent Mode VC Expiratory Pressure (CMH2O/P) 5 Tidal Volume (CC) 550 Miscellaneous Phlebotomy Draw Site RIGHT BRACHIAL Laboratory Tests 10/21/16 0500: Anion Gap 6, Estimated GFR > 60, Glucose 96, Calcium 8.1 L, Phosphorus 2.3 L, Magnesium 1.8, Total Bilirubin 1.2, Direct Bilirubin 0.6 H, AST 52, ALT 35, Albumin 3.2 L, CBC w Diff NO MAN DIFF REQ, RBC 3.56 L, MCV 106.8 H, MCH 35.3 H, RDW 16.0 H, MPV 9.5, Gran % 72.7, Lymphocytes % 19.1 L, Monocytes % 6.3, Eosinophils % 1.6, Basophils % 0.3, Absolute Granulocytes 4.1, Absolute Lymphocytes 1.1 L, Absolute Monocytes 0.4, Absolute Eosinophils 0.1, Absolute Basophils 0, PUBS MCHC 33.0 10/20/16 1352: Lactic Acid 0.9, PT 10.0, INR 0.95, APTT 33 10/20/16 1130: pH 7.41, pCO2 40, pO2 91, HCO3 25, ABG O2 Sat (Measured) 97.0, Carboxyhemoglobin 1.4 L, O2 Concentration % 40%, Respiration Rate 16, O2 Delivery Method VENT AV VC, Vent Mode VC, Expiratory Pressure 5, Tidal Volume 550, Phlebotomy Draw Site RIGHT BRACHIAL Microbiology Date/Time Procedure - Status Source Growth 10/20 160 Respiratory Culture - RES LOWER RESP 10/20 160 Gram Stain - RES LOWER RESP Vital Signs Date Time Temp Pulse Resp B/P Pulse O2 O2 Flow FiO2 Ox Delivery Rate 10/21 0600 97.5 55 16 151/87 10/21 0550 30 10/21 0400 97.5 53 16 130/52 10/21 0400 97 Ventilator 30% 10/21 0327 30 10/21 0324 40 10/21 0200 98.1 58 16 131/73 04/03 0130 40 04/03 0000 98.1 58 16 121/70 04/03 0000 100 Ventilator 40% 04/03 0000 98.1 58 16 121/70 100 Ventilator 40% 04/02 2200 40 04/02 2200 98.6 68 16 115/75 04/02 2043 40 04/02 2000 98.6 64 16 120/80 04/02 2000 99 Ventilator 40% 04/02 1604 40 04/02 1600 98.1 76 16 136/90 04/02 1600 97 Ventilator 40% 04/02 1600 98.1 76 16 136/90 97 Ventilator 40% 04/02 1419 40 04/02 1400 88 16 129/82 04/02 1200 98.2 120 16 140/90 04/02 1200 98 Ventilator 40% 04/02 1114 40 04/ 1000 98.3 98 16 72/50 Exam General Appearance: sedated, intubated Respiratory: normal breath sounds Cardiovascular: regular rate/rhythm, bradycardia Gastrointestinal: normal bowel sounds, soft, non-tender Extremities: wound on the right hand with some edema Current Medications: Current Medications Sig/Nora Start time Last Medication Dose Route Stop Time Status Admin Acetaminophen 500 MG Q24 PRN 10/20 0330 AC IV Amlodipine Besylate 10 MG DAILY 10/20 1000 AC 04/ PO 0607 Ampicillin Sodium/ 3,000 MG Q6 10/20 0600 AC 10/21 Sulbactam Sodium IV 0535 Sodium Chloride 100 ML Cyanocobalamin/ 1 BAG ONCE ONE 10/20 0145 DC 10/20 Thiamine/Pyridoxine IV 10/20 0944 0239 Sodium Chloride 1,000 ML Dextrose 25 GM ONCE ONE 10/20 1915 DC 04/ IV 10/20 1916 1907 Dextrose 25 GM ONCE ONE 10/20 1330 DC 04/ IV 10/20 1331 1325 Dextrose 25 GM ONCE ONE 10/20 1130 DC 04/ IV 10/20 1131 1123 Diphenhydramine HCl 25 MG Q6 10/20 1345 AC 04 IV 0534 Fentanyl Citrate 250 MCG .STK-MED ONE 10/20 1007 DC IM 10/20 1008 Heparin Sodium 5,000 UNIT Q8 10/20 0600 AC 10/21 (Porcine) SC 0533 Hydralazine HCl 50 MG ONCE ONE 10/20 1215 CAN IV 10/20 1216 Hydromorphone HCl 2 MG .STK-MED ONE 10/20 1006 DC IM 10/20 1007 Lorazepam 50 MG Q24H 10/20 0330 AC 10/21 Dextrose/Water 500 ML IV 0402 Magnesium Sulfate 1 GM ONCE ONE 10/21 0800 AC Dextrose/Water 100 ML IV 10/21 1159 Morphine Sulfate 2 MG Q4P PRN 10/20 0330 AC IV Non-Formulary 0 SEE ADMIN CRITERIA 10/20 1030 DC Medication ANY Pantoprazole Sodium 40 MG DAILY 10/20 1345 AC 10/20 IV 1345 Potassium Chloride 40 MEQ Q8H 10/21 0800 AC Dextrose/Sodium 1,000 ML IV Chloride Potassium Chloride 10 MEQ Q1H 10/21 0800 AC IV 10/21 0901 Potassium Chloride 20 MEQ Q10H 10/20 0800 DC 10/21 Dextrose/Sodium 1,000 ML IV 0403 Chloride Potassium Phosphate 15 mMol ONE ONE 10/21 0645 AC Dextrose/Water 250 ML IV 10/21 1048 Potassium Phosphate 15 mMol ONE ONE 10/20 0800 DC 10/20 Dextrose/Water 250 ML IV 10/20 1203 1212 Propofol 1,000 MG Q12H 10/20 1200 AC 10/20 N/A 100 ML IV 1840 Propofol 1,000 MG .STK-MED ONE 10/20 1008 DC IV 10/20 1009 Sodium Chloride 250 ML BOLUS ONE 10/21 0530 DC 10/21 IV 10/21 0629 0522 Sodium Chloride 250 ML BOLUS ONE 10/20 2215 DC 10/20 IV 10/20 2314 2207 Thiamine HCl 500 MG TID 10/20 1000 AC 10/20 Sodium Chloride 100 ML IV 10/22 2302 2244 Vancomycin HCl 1,000 MG ONCE ONE 10/20 1330 DC 10/20 Sodium Chloride 250 ML IV 10/20 1429 1610 Impression/Plan Impression/Problem List Impression: 56-year-old male with PMH of alcoholism, hypertension, peripheral neuropathy, anxiety, recent osteomyelitis of left foot after a dog bite in March 2016, who is brought in by EMS after he was found unresponsive and seizing at home, drinks 1 pint vodka a day, last alcohol drink 48 hours prior to admission. Patient was having seizure in ER, followed by aggressive and combative behavior. Patient received 10 mg haloperidol, 6 mg Ativan. It was followed by another 2 mg of IV Ativan and 2 mg of IV midazolam for CT scan as patient was still combative. He was admitted to the ICU on ativan drip for close monitoring. Tongue was noted to be edematous with laceration most likely due to tongue biting during his seizure episode. ENT called and pt was subsequently intubated due to high risk of respiratory failure and challenging intubation if his swelling were to progress. Pt successfully intubated in the OR on 10/20/16 with consent obtained from his fianceNancy. Problem list: # Alcohol withdrawal seizure # Tongue laceration secondary to seizure # Hypertensive urgency # Right hand cellulitis due to dog bite # Hypokalemia # Hypophosphatemia # Hypomagnesiumia Uriarte day #2 Intubated day # 2 UE restrain day # 2 Respiratory # Tongue laceration secondary to seizure, causing severe tongue swelling - Intubated on 10/20/2016 in the OR * ENT on board, will follow * IV ppi started * NO OG TUBE as it might dislodge the ET tube if misplaced * Benadryl around the clock. If the patient's tongue swelling worsens, we'll start IV steroids. Neuro # Alcohol withdrawal seizure - CT of the head negative for acute intracranial pathology. - Work up in the ED showed slightly elevated WBC of 10.7 with left shift ( granulocyte 87%), MCV of 106, anion gap of 24, bicarbonate 20, total bilirubin 1.4, elevated AST 138 (>2 times AST), elevated alkaline phosphatase (152), urine analysis is positive for proteins and ketones, urine toxicology WNL, low serum alcohol level (last drink reportedly 48 hours prior to presentation) * Continue ativan drip , propofol started, will wean down ativan if OK with propofol * Neurology consulted * Continue banana bag and thiamine * Replete electrolytes as needed * Aspiration precaution Metabolic # Hypokalemia # Hypophosphatemia # Hypomagnesiumia * Monitor electrolytes, replete as needed Cardiovascular # Hypertensive urgency * Give IV pushes of hydralazine if needed * Resume home meds when he can take PO meds Skin # Right hand cellulitis due to dog bite - Right hand laceration wound with secondary cellulitis, patient admits a dog bite happened couple of days back, but patient was altered and unreliable historian. The wounds look dirty. 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 * He was given 1X vancomycin 10/20/16 and 10/31/16 pending cx. Continue unaysn day # 2 * Plastic surgery consulted - [facility] moist dressing * F/U cultures * hand xray normal * Wound irrigation and wound care consult Diet: NPO (intubated). NO OG TUBE! IVF: 40meq kcl d5ns @ 125ml/hr DVT ppx: alps , heparin FULL CODE Problem List: 1. Alcohol withdrawal seizure 2. Dog bite Pain Ratin Tomorrow's Labs & Rationales: ICU and cbc critically ill Plan DVT/Prophylaxis: mechanical, pharmacological
--- NOTE | 2016-10-21 08:19 | RADIOLOGY REPORT ---
EXAMINATION: XR PORTABLE CHEST CLINICAL INFORMATION: Status post endotracheal tube placement. COMPARISON: 10/20/2016 TECHNIQUE: Portable AP view of the chest was obtained. FINDINGS: Endotracheal tube appears unchanged in position approximately 7 cm proximal to the karoline. Lungs are well-expanded and clear. IMPRESSION: Stable appearing chest x-ray.
--- NOTE | 2016-10-21 11:26 | NUR ---
Patient is sedated on a propofol gtt infusing at 30mcg/kg/min and an ativan gtt is infusing at 2mg/hr- SAS ranging from 2-4- can move all extemities but not to command. Soft bilateral wrist restraints in place. NSR-SB on tele monitor, HR= 48-60's. SBP: 130-140's- + pulses. No s/s of cardiac distress noted. Remains intubated with a #8 to the right at 23cm, Vent settings currently AC: 16/550/30/5- Scant amounts of thick white secretions noted to the ETT when suctioning. Lungs clear with scant rhonchi to the bilateral upper libes. Tongue remains swollen and ENT to follow up today. Abdomen is soft non tender with + bowel sounds. NO OGT to be placed. Uriarte in place draining clear paula colored urine. BUE +1 edema noted. Dressing to r. hand was changed- awaiting plastic to evaluate- pucture wounds noted r/t a dog bite with purulent output and redness and swelling noted. IV K and mag repleted per order. DNS w\ 40meq kcl infusing at 125mls. No s/s of pain are currently noted. Vitals are stable at this time. Will continue to closely monitor patient. 1200 labs ordered.
--- NOTE | 2016-10-21 13:21 | PN- CRCU ---
Subjective HPI/Critical Care Issues: The patient remains intubated and sedated, on mechanical ventilation. He remains on propofol with an SAS of 3. His urine output has diminished over the past shift. His oxygen saturation is in the high 90s with his oxygen level at 30 %. Objective Current Medications: Current Medications Sig/Nora Start time Last Medication Dose Route Stop Time Status Admin Acetaminophen 500 MG Q24 PRN 10/20 0330 AC IV Amlodipine Besylate 10 MG DAILY 10/20 1000 AC 10/20 PO 0607 Ampicillin Sodium/ 3,000 MG Q6 10/20 0600 AC 10/21 Sulbactam Sodium IV 0535 Sodium Chloride 100 ML Cyanocobalamin/ 1 BAG ONCE ONE 10/20 0145 DC 10/20 Thiamine/Pyridoxine IV 10/20 0944 0239 Sodium Chloride 1,000 ML Dextrose 25 GM ONCE ONE 10/20 1915 DC 10/20 IV 10/20 1916 1907 Dextrose 25 GM ONCE ONE 10/20 1330 DC 10/20 IV 10/20 1331 1325 Dextrose 25 GM ONCE ONE 10/20 1130 DC 04 IV 10/20 1131 1123 Diphenhydramine HCl 25 MG Q6 10/20 1345 AC 10/21 IV 0534 Fentanyl Citrate 250 MCG .STK-MED ONE 10/20 1007 DC IM 10/20 1008 Heparin Sodium 5,000 UNIT Q8 10/20 0600 AC 10/21 (Porcine) SC 0533 Hydralazine HCl 50 MG ONCE ONE 10/20 1215 CAN IV 10/20 1216 Hydromorphone HCl 2 MG .STK-MED ONE 10/20 1006 DC IM 10/20 1007 Lorazepam 50 MG Q24H 10/20 0330 AC 10/21 Dextrose/Water 500 ML IV 0402 Magnesium Sulfate 1 GM ONCE ONE 10/21 0800 AC Dextrose/Water 100 ML IV 10/21 1159 Morphine Sulfate 2 MG Q4P PRN 10/20 0330 AC IV Non-Formulary 0 SEE ADMIN CRITERIA 10/20 1030 DC Medication ANY Pantoprazole Sodium 40 MG DAILY 10/20 1345 AC 10/20 IV 1345 Potassium Chloride 40 MEQ Q8H 10/21 0800 AC Dextrose/Sodium 1,000 ML IV Chloride Potassium Chloride 10 MEQ Q1H 10/21 0800 AC IV 10/21 0901 Potassium Chloride 20 MEQ Q10H 04/02 0800 DC 04/03 Dextrose/Sodium 1,000 ML IV 0403 Chloride Potassium Phosphate 15 mMol ONE ONE 04/ 0645 AC Dextrose/Water 250 ML IV 04/ 1048 Potassium Phosphate 15 mMol ONE ONE 04/ 0800 DC 04/02 Dextrose/Water 250 ML IV 04/02 1203 1212 Propofol 1,000 MG Q12H 04/ 1200 AC 04/02 N/A 100 ML IV 1840 Propofol 1,000 MG .STK-MED ONE 04/ 1008 DC IV 04/ 1009 Sodium Chloride 250 ML BOLUS ONE 10/21 0530 DC 04/03 IV 04/ 0629 0522 Sodium Chloride 250 ML BOLUS ONE 10/20 2215 DC 04/ IV 04/ 2314 2207 Thiamine HCl 500 MG TID 04/ 1000 AC / Sodium Chloride 100 ML IV 10/22 2302 2244 Vancomycin HCl 1,000 MG ONCE ONE 10/20 1330 DC 04/ Sodium Chloride 250 ML IV 04 1429 1610 Vital Signs & I&O Last 24 Hrs of Vitals and I&O: Vital Signs Date Time Temp Pulse Resp B/P Pulse O2 O2 Flow FiO2 Ox Delivery Rate 04/03 0805 30 04/03 0600 97.5 55 16 151/87 04/03 0550 30 04/03 0400 97.5 53 16 130/52 04/03 0400 97 Ventilator 30% 04/03 0327 30 04/03 0324 40 04/03 0200 98.1 58 16 131/73 04/03 0130 40 04/03 0000 98.1 58 16 121/70 04/03 0000 100 Ventilator 40% 04/03 0000 98.1 58 16 121/70 100 Ventilator 40% 04/02 2200 40 04/02 2200 98.6 68 16 115/75 04/02 2043 40 04/02 1999 98.6 64 16 120/80 04/02 1999 99 Ventilator 40% 04/02 1604 40 04/02 1600 98.1 76 16 136/90 04/02 1600 97 Ventilator 40% 04/02 1600 98.1 76 16 136/90 97 Ventilator 40% 04/02 1419 40 04/02 1400 88 16 129/82 04/02 1200 98.2 120 16 140/90 04/02 1200 98 Ventilator 40% 04/02 1114 40 04/02 1000 98.3 98 16 72/50 Intake & Output 10/21 1600 10/21 0800 10/21 0000 Intake Total 1254 2237 Output Total 170 190 Balance 1084 2047 Intake, IV 1254 2237 Output, Urine 170 190 Physical Exam General Appearance intubated, sedated Skin warm and dry HEENT PERRLA Neck Supple, No JVD Cardiovascular Regular Rate, Normal S1, Normal S2, No Murmurs Lungs bilateral scattered ronchi Abdomen soft, nontender, non distended Extremities lacerations on the palmar and dorsal aspects of the right hand, no lower extremity edema Results Last 24 Hrs of Lab Results: Laboratory Tests 10/21/16 0500: Anion Gap 6, Estimated GFR > 60, Glucose 96, Calcium 8.1 L, Phosphorus 2.3 L, Magnesium 1.8, Total Bilirubin 1.2, Direct Bilirubin 0.6 H, AST 52, ALT 35, Albumin 3.2 L, CBC w Diff NO MAN DIFF REQ, RBC 3.56 L, MCV 106.8 H, MCH 35.3 H, RDW 16.0 H, MPV 9.5, Gran % 72.7, Lymphocytes % 19.1 L, Monocytes % 6.3, Eosinophils % 1.6, Basophils % 0.3, Absolute Granulocytes 4.1, Absolute Lymphocytes 1.1 L, Absolute Monocytes 0.4, Absolute Eosinophils 0.1, Absolute Basophils 0, PUBS MCHC 33.0 10/20/16 1352: Lactic Acid 0.9, PT 10.0, INR 0.95, APTT 33 10/20/16 1130: pH 7.41, pCO2 40, pO2 91, HCO3 25, ABG O2 Sat (Measured) 97.0, Carboxyhemoglobin 1.4 L, O2 Concentration % 40%, Respiration Rate 16, O2 Delivery Method VENT AV VC, Vent Mode VC, Expiratory Pressure 5, Tidal Volume 550, Phlebotomy Draw Site RIGHT BRACHIAL Diagnostic Data CXR Findings: Endotracheal tube appears unchanged in position approximately 7 cm proximal to the karoline. Lungs are well-expanded and clear. Impression/Plan Impression/Plan Impression/Plan: 1. Alcohol withdrawal seizures. 2. Tongue laceration and severe swelling with airway compromise secondary to tongue biting. 3. Hypertensive urgency, improved on sedation. 4. Right hand cellulitis due to dog bite. The patient's dog is vaccinated against rabies and his tetanus vaccine is up-to-date. Hand x-ray showed no air in the soft tissues or and was normal overall. Previous cultures were positive for pasteurella staph aureus. 5. Transaminitis, likely related to EtOH. 6. Elevated AG acidosis, likely related to seizures, improved. 7. Acute hypoxemic respiratory failure. Recommendations: * Aggressive electrolyte repletion underway. Repeat potassium level after repletion. * Continue propofol for an SAS of 2-3. * Continue current ventilator settings. * Monitor for seizures. * Neurology consult requested. * Please call neurology to notify them if seizures recur. * IV hydralazine as needed for blood pressure control. * Continue empiric IV Unasyn, ensure the patient has been pancultured (include sputum due to possible aspiration). * Give 1 dose of vancomycin today - repeat, pending cultures. * Give IV Benadryl 25 mg [id number]. * Continue multivitamin, thiamine and folate. * DVT/GI prophylaxis at all times. * Await ENT and plastic surgery recommendations.
[2016-10-21 13:29] LABS: ABSOLUTE BASOPHIL COUNT 0 /CUMM (0.0-0.2); ABSOLUTE EOSINOPHIL COUNT 0.1 /CUMM (0.0-0.7); ABSOLUTE GRANULOCYTE CT 3.2 /CUMM (1.4-6.5); ABSOLUTE MONOCYTE COUNT 0.4 /CUMM (0.10-0.60); BASOPHIL % 0.5 % (0.0-2.0); EOSINOPHIL % 2.4 % (0-5); HEMATOCRIT 35.7 % (42-52); MEAN CORPUSCULAR HGB 35.6 PG (27.0-31.0); MEAN CORPUSCULAR HGB CONC 33.5 G/DL (33.0-37.0); MEAN CORPUSCULAR VOLUME 106.1 FL (80.0-94.0); MEAN PLATELET VOLUME 9.2 FL (7.4-10.4); PLATELET COUNT 112 /CUMM (130-400); RBC DISTRIBUTION WIDTH 16.4 % (11.5-14.5); RED BLOOD CELL CT 3.36 /CUMM (4.70-6.10); WHITE BLOOD CELL COUNT 4.7 /CUMM (4.8-10.8)
--- NOTE | 2016-10-21 13:38 | Cons- Plastic Surgery ---
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 Also found to have a older right hand injury secondary to dog bite. Consultation is requested for evaluation patient is currently intubated spoke with the nurse and resident and reviewed the chart Allergies/Medications Allergies: Coded Allergies: NO KNOWN ALLERGIES (03/31/16) Home Med List: Amlodipine Besylate (Norvasc) 10 MG TABLET 1 TAB PO DAILY BLOOD PRESSURE Fluoxetine HCl 20 MG CAPSULE 1 CAP PO DAILY ANXIETY (Reported) Gabapentin 300 MG CAPSULE 2 CAP PO BID PERIPHERAL NEUROPATHY (Reported) Hydrochlorothiazide 25 MG TABLET 1 TAB PO DAILY BLOOD PRESSURE Hydroxyzine Pamoate 25 MG CAPSULE 1 CAP PO TIDPRN ANXIETY (Reported) Lisinopril 40 MG TABLET 1 TAB PO DAILY HIGH BLOOD PRESSURE (Reported) Past History Medical History Neurological: peripheral neuropathy EENT: NONE Cardiovascular: hypertension Respiratory: NONE Gastrointestinal: NONE Hepatic: NONE Renal: NONE Musculoskeletal: osteomyelitis of the left femur treated with 4 weeks of IV antibiotics four years prior to admission Psychiatric: anxiety Endocrine: NONE Blood Disorders: NONE Cancer(s): NONE 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 Home Services at Home: None Smoking Status: Current Everyday Smoker ETOH Use: heavy use Review of Systems Review of Systems: Patient intubated nonverbal sedated Exam & Diagnostic Data Vital Signs and I&O Vital Signs Date Time Temp Pulse Resp B/P Pulse O2 O2 Flow FiO2 Ox Delivery Rate / 1200 97.4 60 18 138/84 04/ 1200 98 Ventilator 30% 04/ 1155 30 04/03 1000 68 18 138/84 04/03 0805 30 04/03 0800 97.1 52 16 144/90 04/03 0800 97.1 52 16 144/90 99 Ventilator 30% 04/03 0800 99 Ventilator 30% / 0600 97.5 55 16 151/87 04/03 0550 30 04/ 0400 97.5 53 16 130/52 04/03 0400 97 Ventilator 30% / 0327 30 04/03 0324 40 04/03 0200 98.1 58 16 131/73 04/03 0130 40 04/03 0000 98.1 58 16 121/70 04/03 0000 100 Ventilator 40% 04/03 0000 98.1 58 16 121/70 100 Ventilator 40% 04/02 2200 40 04/02 2200 98.6 68 16 115/75 04/02 2043 40 04/ 2000 98.6 64 16 120/80 04/ 2000 99 Ventilator 40% 04/02 1604 40 04/ 1600 98.1 76 16 136/90 04/02 1600 97 Ventilator 40% 04/02 1600 98.1 76 16 136/90 97 Ventilator 40% 04/02 1419 40 04/ 1400 88 16 129/82 Intake & Output / 1600 04/ 0800 04/ 0000 04/ 1600 04/ 0800 04/ 0000 Intake Total 1254 2237 1536 0 Output Total 170 190 300 50 Balance 1084 2047 1236 -50 Intake, IV 1254 2237 1536 Intake, Oral 0 Number 0 Bowel Movements Output, Urine 170 190 300 50 Patient 190 lb 190 lb Weight Physical Exam: Right hand with puncture site right thenar eminence was no crepitance no active drainage dorsal puncture site is well a few millimeters in width findings other than full thickness injury. X-ray negative Assessment/Plan Assessment/Plan dog bite injury with open wounds appear to be clinically noninfected without injury to deeper structures apparent. Would continue with a 7-10 day course of antibiotics. Continue with local wound care consisting of daily soap and water followed by moist application of either bacitracin and bandage or nonstick gauze such as Xeroform O petroleum can elevate hand to control some mild soft tissue edema. No limitations on use. Follow up as outpatient if necessary. Consult Acknowledgment - Thank you for your consult request. Attending MD Review Statement Attending Statement Attending MD Statement: examined this patient
--- NOTE | 2016-10-21 14:19 | NUR ---
Referral received this am via electronic brand recorder. This patient is a 56 year old man, admitted to the hospital on 10/20/16 with an alcohol withdrawal seizure. Patient placed on ETOH withdrawal prevention protocol; is intubated and on propofol in [facility]. Will follow and assess when medically stable for aftercare needs.
[2016-10-22] VITALS (11 sets, daily range): BP systolic 124–155; BP diastolic 76–104
--- NOTE | 2016-10-22 | NUR ---
PATIENT INTUBATED WITH VENTILATOR AT 30%.RAO. WILL MOVE ALL EXTREMITIES.WILL FOLLOW COMMANDS.ATIVAN DRIP AT 3 MG/HR,PROPOFOL AT 30 MCG/KG/MIN.SEDATED BUT REACTS TO STIMULI.MONITOR SINUS RHYTHM TO SINUS BRADYCARDIA.BP STABLE.URINE OUTPUT DARK JOSE MARIA IN COLOR.
[2016-10-22 05:48] LABS: ABSOLUTE BASOPHIL COUNT 0 /CUMM (0.0-0.2); ABSOLUTE EOSINOPHIL COUNT 0.2 /CUMM (0.0-0.7); ABSOLUTE GRANULOCYTE CT 2.4 /CUMM (1.4-6.5); ABSOLUTE LYMPH COUNT 1.5 /CUMM (1.2-3.4); ABSOLUTE MONOCYTE COUNT 0.4 /CUMM (0.10-0.60); BASOPHIL % 0.7 % (0.0-2.0); EOSINOPHIL % 3.9 % (0-5); HEMATOCRIT 35.8 % (42-52); MEAN CORPUSCULAR HGB 35.4 PG (27.0-31.0); MEAN CORPUSCULAR HGB CONC 32.9 G/DL (33.0-37.0); MEAN CORPUSCULAR VOLUME 107.6 FL (80.0-94.0); MEAN PLATELET VOLUME 9.4 FL (7.4-10.4); PLATELET COUNT 119 /CUMM (130-400); RBC DISTRIBUTION WIDTH 16.6 % (11.5-14.5); RED BLOOD CELL CT 3.33 /CUMM (4.70-6.10); WHITE BLOOD CELL COUNT 4.5 /CUMM (4.8-10.8)
--- NOTE | 2016-10-22 06:36 | RADIOLOGY REPORT ---
EXAMINATION: XR PORTABLE CHEST CLINICAL INFORMATION: Intubation. COMPARISON: None TECHNIQUE: Portable AP view of the chest was obtained. FINDINGS: Endotracheal tube in good position. Catheter tip about 5 cm above the karoline . Hazy density at right lung base of atelectasis or early infiltrate. This is new since prior chest x-ray. Left lung remains clear. No pulmonary vascular congestion. No pleural effusion. No pneumothorax. IMPRESSION: 1. endotracheal tube catheter tip in good position about 5 cm above the karoline. 2. Hazy opacity right lung base of early infiltrate or atelectasis.
--- NOTE | 2016-10-22 07:29 | PN- Resident CRCU ---
Subjective HPI/CRCU Issues: Pt seen today, remains sedated with ativan and propofor and intubated. Tongue swelling appears improved. He did iva down to 44. 24 hr data: max temp 97.8 HR 44-68 RR 16-22 systolic bp 124-155 diastolic bp 72-95 uo 10-40ml/hr , total uo 525 ml/hr IVF 125ml/hr Labs: platelet 137 to 119 (on heparin for dvt ppx), na 135 to 142, k 3.6 to 4, phos 2.2, mag 1.9. Plan to wean off propofol and go up on ativan as needed. ENT has been called to follow up on the patient for plans to extubate. Otherwise, would need to consider starting tube feeds. Objective Vital Signs & I&O Last 8 Hrs of Vitals and I&O: Intake & Output 10/22 1600 10/22 0800 10/22 0000 Intake Total 1304 1644 Output Total 145 132 Balance 1159 1512 Intake, IV 1304 1644 Output, Urine 145 132 Laboratory Tests 10/22 10/21 0515 1220 Chemistry Sodium (137 - 145 mmol/L) 142 135 L Potassium (3.5 - 5.1 mmol/L) 4.0 3.6 Chloride (98 - 107 mmol/L) 111 H 105 Carbon Dioxide (22 - 30 mmol/L) 23 24 Anion Gap (5 - 16) 9 6 BUN (9 - 20 mg/dL) 10 12 Creatinine (0.7 - 1.2 mg/dL) 0.7 0.6 L Estimated GFR (>60 ml/min) > 60 > 60 Glucose (65 - 99 mg/dL) 98 100 H Calcium (8.4 - 10.2 mg/dL) 7.8 L 7.6 L Phosphorus (2.5 - 4.5 mg/dL) 2.2 L 3.0 Magnesium (1.6 - 2.3 mg/dL) 1.9 2.1 Total Bilirubin (0.2 - 1.3 mg/dL) 0.8 0.9 AST (17 - 59 U/L) 55 47 ALT (21 - 72 U/L) 36 38 Albumin (3.5 - 5.0 g/dL) 3.0 L 2.8 L Hematology CBC w Diff MAN DIFF ORDERED NO MAN DIFF REQ WBC (4.8 - 10.8 /CUMM) 4.5 L 4.7 L RBC (4.70 - 6.10 /CUMM) 3.33 L 3.36 L Hgb (14.0 - 18.0 G/DL) 11.8 L 12.0 L Hct (42 - 52 %) 35.8 L 35.7 L MCV (80.0 - 94.0 FL) 107.6 H 106.1 H MCH (27.0 - 31.0 PG) 35.4 H 35.6 H RDW (11.5 - 14.5 %) 16.6 H 16.4 H Plt Count (130 - 400 /CUMM) 119 L 112 L MPV (7.4 - 10.4 FL) 9.4 9.2 Gran % (42.2 - 75.2 %) 53.0 68.0 Lymphocytes % (20.5 - 51.1 %) 32.7 21.1 Monocytes % (1.7 - 9.3 %) 9.7 H 8.0 Eosinophils % (0 - 5 %) 3.9 2.4 Basophils % (0.0 - 2.0 %) 0.7 0.5 Absolute Granulocytes (1.4 - 6.5 /CUMM) 2.4 3.2 Segmented Neutrophils (42.2 - 75.2 %) 49 Band Neutrophils (0.0 - 5.0 %) 1 Absolute Lymphocytes (1.2 - 3.4 /CUMM) 1.5 1.0 L Lymphocytes (20.5 - 51.1 %) 41 Monocytes (1.7 - 9.3 %) 4 Absolute Monocytes (0.10 - 0.60 /CUMM) 0.4 0.4 Eosinophils (0 - 5.0 %) 5 Absolute Eosinophils (0.0 - 0.7 /CUMM) 0.2 0.1 Absolute Basophils (0.0 - 0.2 /CUMM) 0 0 Platelet Estimate (ADEQUATE) DECREASED Hypochromic-Microcytic 1+ PUBS MCHC (33.0 - 37.0 G/DL) 32.9 L 33.5 Laboratory Tests 10/22/16 0515: Anion Gap 9, Estimated GFR > 60, Glucose 98, Calcium 7.8 L, Phosphorus 2.2 L, Magnesium 1.9, Total Bilirubin 0.8, AST 55, ALT 36, Albumin 3.0 L, CBC w Diff MAN DIFF ORDERED, RBC 3.33 L, MCV 107.6 H, MCH 35.4 H, RDW 16.6 H, MPV 9.4, Gran % 53.0, Lymphocytes % 32.7, Monocytes % 9.7 H, Eosinophils % 3.9, Basophils % 0.7, Absolute Granulocytes 2.4, Segmented Neutrophils 49, Band Neutrophils 1, Absolute Lymphocytes 1.5, Lymphocytes 41, Monocytes 4, Absolute Monocytes 0.4, Eosinophils 5, Absolute Eosinophils 0.2, Absolute Basophils 0, Platelet Estimate DECREASED, Hypochromic-Microcytic 1+, PUBS MCHC 32.9 L 10/21/16 1220: Anion Gap 6, Estimated GFR > 60, Glucose 100 H, Calcium 7.6 L, Phosphorus 3.0, Magnesium 2.1, Total Bilirubin 0.9, AST 47, ALT 38, Albumin 2.8 L, CBC w Diff NO MAN DIFF REQ, RBC 3.36 L, MCV 106.1 H, MCH 35.6 H, RDW 16.4 H, MPV 9.2, Gran % 68.0, Lymphocytes % 21.1, Monocytes % 8.0, Eosinophils % 2.4, Basophils % 0.5, Absolute Granulocytes 3.2, Absolute Lymphocytes 1.0 L, Absolute Monocytes 0.4, Absolute Eosinophils 0.1, Absolute Basophils 0, PUBS MCHC 33.5 Vital Signs Date Time Temp Pulse Resp B/P Pulse O2 O2 Flow FiO2 Ox Delivery Rate / 0800 30 10/22 0600 97.5 57 16 134/76 04/04 0556 30 10/22 0400 97.5 84 16 124/86 / 0400 97 Ventilator 30% / 0227 30 /04 0031 30 04/04 0000 97.7 85 22 140/76 04/04 0000 97.7 85 22 140/90 96 Ventilator 30% 04/04 0000 96 Ventilator 30% 04/03 2229 30 04/03 2200 63 17 134/79 04/03 1999 97.1 56 17 140/90 04/03 2000 98 Ventilator 30% 04/03 1930 30 04/03 1800 64 18 141/85 04/03 1615 30 04/03 1600 97.8 53 16 148/90 04/03 1600 97.8 53 16 148/90 98 Ventilator 30% 04/ 1600 98 Ventilator 30% 04/03 1400 56 18 142/91 04/03 1356 30 04/ 1200 97.4 60 18 138/84 04/ 1200 98 Ventilator 30% 04/ 1155 30 04/03 1000 68 18 138/84 Exam General Appearance: sedated, intubated Respiratory: normal breath sounds Cardiovascular: regular rate/rhythm Gastrointestinal: normal bowel sounds Current Medications: Current Medications Sig/Nora Start time Last Medication Dose Route Stop Time Status Admin Acetaminophen 500 MG Q24 PRN 10/20 0330 AC IV Amlodipine Besylate 10 MG DAILY 10/20 1000 AC 10/20 PO 0607 Ampicillin Sodium/ 3,000 MG Q6 10/20 0600 AC 10/22 Sulbactam Sodium IV 0649 Sodium Chloride 100 ML Diphenhydramine HCl 25 MG Q6 10/20 1345 AC 10/22 IV 0650 Heparin Sodium 5,000 UNIT Q8 10/20 0600 AC 10/22 (Porcine) SC 0711 Lorazepam 50 MG Q24H 10/20 0330 AC 10/21 Dextrose/Water 500 ML IV 1519 Magnesium Sulfate 1 GM ONCE ONE 10/21 0800 DC 10/21 Dextrose/Water 100 ML IV 10/21 1159 0843 Morphine Sulfate 2 MG Q4P PRN 10/20 0330 IV Pantoprazole Sodium 40 MG DAILY 10/20 1345 AC 10/21 IV 0850 Patient Medication 1 UNIT ONE NR 10/21 1345 KS Teaching ED 10/21 1945 Potassium Chloride 40 MEQ Q8H / 0800 AC 10/22 Dextrose/Sodium 1,000 ML IV 0637 Chloride Potassium Chloride 10 MEQ Q1H 10/21 0800 DC 10/21 IV 10/21 0901 1027 Potassium Phosphate 15 mMol ONE ONE 10/22 0815 AC Dextrose/Water 250 ML IV 10/22 1218 Potassium Phosphate 15 mMol ONE ONE 10/21 0645 DC 10/21 Dextrose/Water 250 ML IV 10/21 1048 0842 Propofol 1,000 MG Q6H / 1300 AC 10/22 N/A 100 ML IV 0642 Propofol 1,000 MG .STK-MED ONE 10/21 1242 DC IV 10/21 1243 Propofol 1,000 MG Q12H / 1200 DC 04 N/A 100 ML IV 10/21 1259 0800 Thiamine HCl 500 MG TID 10/20 1000 AC 10/21 Sodium Chloride 100 ML IV 10/22 2302 2105 Vancomycin HCl 1,000 MG ONCE ONE 10/21 1345 DC 10/21 Sodium Chloride 250 ML IV 10/21 1444 2908 Impression/Plan Impression/Problem List Impression: 56-year-old male with PMH of alcoholism, hypertension, peripheral neuropathy, anxiety, recent osteomyelitis of left foot after a dog bite in March 2016, who is brought in by EMS after he was found unresponsive and seizing at home, drinks 1 pint vodka a day, last alcohol drink 48 hours prior to admission. Patient was having seizure in ER, followed by aggressive and combative behavior. Patient received 10 mg haloperidol, 6 mg Ativan. It was followed by another 2 mg of IV Ativan and 2 mg of IV midazolam for CT scan as patient was still combative. He was admitted to the ICU on ativan drip for close monitoring. Tongue was noted to be edematous with laceration most likely due to tongue biting during his seizure episode. ENT called and pt was subsequently intubated due to high risk of respiratory failure and challenging intubation if his swelling were to progress. Pt successfully intubated in the OR on 10/20/16 with consent obtained from his Nnacy hassan. Problem list: # Alcohol withdrawal seizure # Tongue laceration secondary to seizure # Hypertensive urgency # Right hand cellulitis due to dog bite # Hypokalemia # Hypophosphatemia # Hypomagnesiumia Uriarte day #3 Intubated day #3 UE restrain day #3 NG tube day # 1 Respiratory # Tongue laceration secondary to seizure, causing severe tongue swelling - Intubated on 10/20/2016 in the OR * ENT on board, will follow * IV ppi started * Benadryl around the clock --> PRN. If the patient's tongue swelling worsens, we'll start IV steroids. Neuro # Alcohol withdrawal seizure - CT of the head negative for acute intracranial pathology. - Work up in the ED showed slightly elevated WBC of 10.7 with left shift ( granulocyte 87%), MCV of 106, anion gap of 24, bicarbonate 20, total bilirubin 1.4, elevated AST 138 (>2 times AST), elevated alkaline phosphatase (152), urine analysis is positive for proteins and ketones, urine toxicology WNL, low serum alcohol level (last drink reportedly 48 hours prior to presentation) * Continue ativan drip , propofol started, will wean as tolerated * Neurology consulted * Continue banana bag and thiamine * Replete electrolytes as needed * Aspiration precaution Metabolic # Hypokalemia # Hypophosphatemia # Hypomagnesiumia * Monitor electrolytes, replete as needed Cardiovascular # Hypertensive urgency * Give IV pushes of hydralazine if needed * Resume home meds when he can take PO meds Skin # Right hand cellulitis due to dog bite - Right hand laceration wound with secondary cellulitis, patient admits a dog bite happened couple of days back, but patient was altered and unreliable historian. The wounds look dirty. 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 - hand xray normal * He was given 1X vancomycin 10/20/16 and 10/31/16 pending cx. Continue unaysn day #3 * Plastic surgery consulted - recc moist dressing * F/U cultures * Wound irrigation and wound care consult Diet: NPO (intubated). tube feed as per nutrition IVF: 40meq kcl d5ns @ 125ml/hr DVT ppx: alps , heparin FULL CODE Problem List: 1. Alcohol withdrawal seizure 2. Dog bite Pain Ratin Tomorrow's Labs & Rationales: icu and cbc critically ill, abnormal electrolytes Plan DVT/Prophylaxis: mechanical, pharmacological
--- NOTE | 2016-10-22 08:15 | NUR ---
Patient is sedated on a fentanyl gtt infusing at 30mcg/min/kg and an ativan gtt infusing at 2mg/hr. SAS-3- He is able to move all extremities but not to command. Soft bilateral wrist restraints in place. SB-NSR on tele monitor, HR= 50-60's. SBP: 140's. Remains intubated with a #8 to the right at 23cm- Vent settings currently: AC 16/550/30/5. White thick secretions noted from the ETT- mouth care provided- Tongue remains swollen with no change from yesterdays assessment. NPO- + bowel sounds sounds, last BM unknown. #14 F Uriarte catheter draining clear anber colored urine with approx 10-20mls.hr. Puncture wound to the right hand r/t a dog bite dressed with adaptic FB a DPD. +1 BUE edema noted. Fluid filled blisters noted- D5NS w/ 40meq kcl infusing @ 125mls/hr. No s/s of pain are currently noted. Pt to receive a K-phos bolus. Plan is to d/c propofol and increase ativan per Dr. Oliveros- Will continue to closely monitor patient.
--- NOTE | 2016-10-22 09:06 | PN- CRCU ---
Subjective HPI/Critical Care Issues: The patient's remains intubated and sedated. He remains on both propofol and Ativan, with an SAS of 3. The patient remains afebrile. His oxygen saturations are in the high 90s on 30% oxygen. There is no evidence of compartment syndrome as per plastic surgery and only dressings are recommended. The patient continues to be nothing by mouth noting he does not have a feeding tube. His urine output has improved but remains on the lower side despite IV fluid resuscitation. The patient continues to require significant electrolyte repletion. Objective Current Medications: Current Medications Sig/Nora Start time Last Medication Dose Route Stop Time Status Admin Acetaminophen 500 MG Q24 PRN 10/20 0330 AC IV Amlodipine Besylate 10 MG DAILY 10/20 1000 AC 10/20 PO 0607 Ampicillin Sodium/ 3,000 MG Q6 10/20 0600 AC 10/22 Sulbactam Sodium IV 0649 Sodium Chloride 100 ML Diphenhydramine HCl 25 MG Q6 10/20 1345 AC 10/22 IV 0650 Heparin Sodium 5,000 UNIT Q8 10/20 0600 AC 10/22 (Porcine) SC 0711 Lorazepam 50 MG Q24H 10/20 0330 AC 10/21 Dextrose/Water 500 ML IV 1519 Magnesium Sulfate 1 GM ONCE ONE 10/21 0800 PR 10/21 Dextrose/Water 100 ML IV 10/21 1159 0843 Morphine Sulfate 2 MG Q4P PRN 10/20 0330 AC IV Pantoprazole Sodium 40 MG DAILY 10/20 1345 AC 10/21 IV 0850 Patient Medication 1 UNIT ONE NR 10/21 1345 DC Teaching ED 10/21 1945 Potassium Chloride 40 MEQ Q8H 10/21 0800 AC 10/22 Dextrose/Sodium 1,000 ML IV 0637 Chloride Potassium Chloride 10 MEQ Q1H 10/21 0800 DC 10/21 IV 10/21 0901 1027 Potassium Phosphate 15 mMol ONE ONE 10/22 0815 AC Dextrose/Water 250 ML IV 10/22 1218 Potassium Phosphate 15 mMol ONE ONE 10/21 0645 DC 10/21 Dextrose/Water 250 ML IV 10/21 1048 0842 Propofol 1,000 MG Q6H 10/21 1300 AC 10/22 N/A 100 ML IV 0642 Propofol 1,000 MG .STK-MED ONE 10/21 1242 DC IV 10/21 1243 Propofol 1,000 MG Q12H 10/20 1200 DC 10/21 N/A 100 ML IV 10/21 1259 0800 Thiamine HCl 500 MG TID 10/20 1000 AC 10/21 Sodium Chloride 100 ML IV 10/22 2302 2105 Vancomycin HCl 1,000 MG ONCE ONE 10/21 1345 DC 10/21 Sodium Chloride 250 ML IV 10/21 1444 1538 Vital Signs & I&O Last 24 Hrs of Vitals and I&O: Vital Signs Date Time Temp Pulse Resp B/P Pulse O2 O2 Flow FiO2 Ox Delivery Rate 10/22 0800 30 10/22 0600 97.5 57 16 134/76 0404 0556 30 10/22 0400 97.5 84 16 124/86 10/22 0400 97 Ventilator 30% 10/22 0227 30 10/22 0031 30 10/22 0000 97.7 85 22 140/76 04/04 0000 97.7 85 22 140/90 96 Ventilator 30% 10/22 0000 96 Ventilator 30% 10/21 2229 30 10/21 2200 63 17 134/79 04/1999 97.1 56 17 140/90 04/ 2000 98 Ventilator 30% 04/03 1930 30 04/03 1800 64 18 141/85 04/03 1615 30 04/03 1600 97.8 53 16 148/90 04/03 1600 97.8 53 16 148/90 98 Ventilator 30% 04/03 1600 98 Ventilator 30% 04/03 1400 56 18 142/91 04/03 1356 30 04/03 1200 97.4 60 18 138/84 04/03 1200 98 Ventilator 30% /03 1155 30 /03 1000 68 18 138/84 Intake & Output 10/22 1600 04 0800 04 0000 Intake Total 1304 1644 Output Total 145 132 Balance 1159 1512 Intake, IV 1304 1644 Output, Urine 145 132 Physical Exam General Appearance intubated, sedated Skin warm and dry HEENT PERRLA Neck Supple, No JVD Cardiovascular Regular Rate, Normal S1, Normal S2, No Murmurs Lungs bilateral scattered ronchi Abdomen soft, nontender, non distended Extremities lacerations on the palmar and dorsal aspects of the right hand, no lower extremity edema Results Last 24 Hrs of Lab Results: Laboratory Tests 10/22/16 0515: Anion Gap 9, Estimated GFR > 60, Glucose 98, Calcium 7.8 L, Phosphorus 2.2 L, Magnesium 1.9, Total Bilirubin 0.8, AST 55, ALT 36, Albumin 3.0 L, CBC w Diff MAN DIFF ORDERED, RBC 3.33 L, MCV 107.6 H, MCH 35.4 H, RDW 16.6 H, MPV 9.4, Gran % 53.0, Lymphocytes % 32.7, Monocytes % 9.7 H, Eosinophils % 3.9, Basophils % 0.7, Absolute Granulocytes 2.4, Segmented Neutrophils 49, Band Neutrophils 1, Absolute Lymphocytes 1.5, Lymphocytes 41, Monocytes 4, Absolute Monocytes 0.4, Eosinophils 5, Absolute Eosinophils 0.2, Absolute Basophils 0, Platelet Estimate DECREASED, Hypochromic-Microcytic 1+, PUBS MCHC 32.9 L 10/21/16 1220: Anion Gap 6, Estimated GFR > 60, Glucose 100 H, Calcium 7.6 L, Phosphorus 3.0, Magnesium 2.1, Total Bilirubin 0.9, AST 47, ALT 38, Albumin 2.8 L, CBC w Diff NO MAN DIFF REQ, RBC 3.36 L, MCV 106.1 H, MCH 35.6 H, RDW 16.4 H, MPV 9.2, Gran % 68.0, Lymphocytes % 21.1, Monocytes % 8.0, Eosinophils % 2.4, Basophils % 0.5, Absolute Granulocytes 3.2, Absolute Lymphocytes 1.0 L, Absolute Monocytes 0.4, Absolute Eosinophils 0.1, Absolute Basophils 0, PUBS MCHC 33.5 Diagnostic Data CXR Findings: 1. endotracheal tube catheter tip in good position about 5 cm above the karoline. 2. Hazy opacity right lung base of early infiltrate or atelectasis. Impression/Plan Impression/Plan Impression/Plan: 1. Alcohol withdrawal seizures. 2. Tongue laceration and severe swelling with airway compromise secondary to tongue biting. 3. Hypertensive urgency, improved on sedation. 4. Right hand cellulitis due to dog bite. The patient's dog is vaccinated against rabies and his tetanus vaccine is up-to-date. Hand x-ray showed no air in the soft tissues or and was normal overall. Previous cultures were positive for pasteurella staph aureus. 5. Thrombocytopenia secondary to ETOH. 6. Acute hypoxemic respiratory failure secondary to aspiration pneumonia versus pneumonitis. Recommendations: * Aggressive electrolyte repletion underway. * Wean propofol down to off if able today. * Increase Ativan as needed for an SAS of 3. * Continue current ventilator settings. * Will continue mechanical ventilation until the patient's tongue swelling improves and he is cleared by ENT. * Monitor for seizures. * Neurology consult requested. * Please call neurology to notify them if seizures recur. * Continue Norvasc for blood pressure control. * Continue empiric IV Unasyn. * Follow up cultures. * Change Benedryl to PRN. * Continue multivitamin, thiamine and folate. * Continue maintenance IV fluids. * DVT/GI prophylaxis at all times - continue ventilator bundle. * Will follow up ENT and plastic surgery recommendations. * Discussed with anesthesia - because the patient's tongue swelling has improved , we will reattempt an NG tube. If an NG tube is able to be placed, we will start the patient on tube feeds.
--- NOTE | 2016-10-22 10:32 | RADIOLOGY REPORT ---
EXAMINATION: XR PORTABLE CHEST CLINICAL INFORMATION: OT tube placement COMPARISON: 10/22/2016, 6:00 AM TECHNIQUE: Portable AP view of the chest was obtained. FINDINGS: Technically limited study due to underpenetration. The tip of the oral gastric tube appears to terminate within the stomach. The endotracheal tube terminates 4.8 cm above the karoline. Persistent right basilar opacity, not significantly changed. IMPRESSION: Gastric tube terminates in the stomach. Endotracheal tube 4.8 cm above the karoline. Persistent right basilar opacity.
--- NOTE | 2016-10-22 15:30 | NUR ---
PATIENT AWAKE, RESTLESS PULLING ON RESTRAINTS AND ATTEMPTING TO SIT UP. UNCONSOLEABLE AT THIS TIME. DR RAMIREZ AWARE AND PROPOFOL RESTARTED AT 5MCK/KG/MIN. RAO DOES NOT FOLLOW COMMANDS BUT RESPONDS TO NAME CALL. MOVES ALL EXTREMITIES. BILATERAL SOFT WRIST RESTRAINTS INTACT. LUNGS CLEAR, MONITOR NSR IN THE 80'S WITH INCREASED RESTLESSNESS. ABD SOFT NON TENDER, OJEDA INTACT DRAINING CLEAR URINE. SKIN INTACT, DOG BITE TO R HAND DRESSING INTACT UPPER EXTREMITY EDEMA WITH BLISTERS CONTINUES, ELEVATED ON PILLOWS. PATIENT REMAINS INTUBATED ON VENT WITH MINIMAL SECRETIONS. UNABLE TO VISUALIZE AIRWAY DUE TO TONGUE SWELLING. OG INTACT.
--- NOTE | 2016-10-22 15:45 | NUR ---
PATIENT REMAINS RESTLESS, PROPOFOL INCREASED TO 10MCG/KG/MIN WITH IMPROVEMENT.
--- NOTE | 2016-10-22 17:02 | NUR ---
At 1315, propofol gtt was titrated to off per order- Ativan gtt has been increased per Dr. Pryor and is now infusing at 10mg/hr. SAS currently 3/4, patient is easily arousable, able to follow commands and shake head yes and no appropriately to questions. HR= 60's and SBP: 140's. He currently denies pain. He will get anxious at times however is easily reoriented and remains cooperative. At 1420, SAS=5, patient is agitated and thrashing head back and forth in bed, unable to be calmed with verbal direction. Dr. Pryor at the bedside at ativan gtt increased to 15mg/hr and a 2mg ativan bolus was given per order. At 1440 50mcg given per order for an SAS of 6. The propofol gtt was turned back on at [address] Oliveros was contacted- patient remains restless and agitated- HR increasing to the 90's. SBP: 150-160's. Tube feeds to remain on hold at this time due to risk for aspiration- OGT was placed earlier this morning and CXR done for confirmation. Will continue to closely monitor patient.
[2016-10-23] VITALS (11 sets, daily range): BP systolic 109–159; BP diastolic 60–103
--- NOTE | 2016-10-23 01:27 | NUR ---
0000 PATIENT RECEIVED COMFORTABLY SEDATED- DROWSY BUT OPENS EYES TO NAME, DOES NOT FOLLOW COMMANDS BUT SEEN TO MOVE ALL 4 EXTREMITIES, PUPILS EQUAL AT 5 MM AND SLUGGISHLY REACTIVE TO LIGHT, ATIVAN DRIP INFUSING AT 15 MG/HR AND PROPOFAL DRIP AT 10.1 MCG/KG/MIN, SKIN PINK, WARM AND DRY, CALLISTHENICS INSTRUCTOR SINUS WITH HEART RATE HIGH 60'S/MIN WITH STIMULI, SINUS BRADYCARDIA LOW 50'S/MIN WHEN AT REST, NO ECTOPY NOTED, ETT TO VENTILATOR WIT FIO2 30%, CONTINUOUS O2 SAT 96 TO 99%, BREATHE SOUNDS CLEAR BILATERALLY, OGT IN PLACE- GASTRIC RESIDUAL 3ML. ABDOMEN SOFT, +BS, HOB ELEVATED, TF INCREASED TO 30 ML/HR X8HR ORDERED, OJEDA TO GRAVITY DRAINAGE WITH LARGE UO AFTER EARLIER LASIX DOSE 0100 UO 2100 ML SINCE LASIX DOSE- DR ERIC MADE AWARE, NO CHANGES IN ORDERS AT THIS TIME
--- NOTE | 2016-10-23 04:03 | NUR ---
PATIENT INTERMITTENTLY BECOMES RESTLESS- CALMS WITH VERBAL REASSURANCE, FREQUENTLY RE-ORIENTED TO SURROUNDINGS
[2016-10-23 04:06] LABS: HEMATOCRIT 35.5 % (42-52); MEAN CORPUSCULAR HGB 35.3 PG (27.0-31.0); MEAN CORPUSCULAR HGB CONC 32.7 G/DL (33.0-37.0); MEAN PLATELET VOLUME 8.9 FL (7.4-10.4); PLATELET COUNT 119 /CUMM (130-400); RBC DISTRIBUTION WIDTH 16.5 % (11.5-14.5); RED BLOOD CELL CT 3.29 /CUMM (4.70-6.10); WHITE BLOOD CELL COUNT 4.5 /CUMM (4.8-10.8)
--- NOTE | 2016-10-23 04:41 | NUR ---
PATIENT MORE AWAKE, MORE RESTLESS, ATTEMPTING TO SIT UP IN BED - DR VASQUES MADE AWARE- PROPOFAL DRIP INCREASED TO 15 MCG/KG/MIN WITH IMPROVED SEDATION
--- NOTE | 2016-10-23 06:21 | NUR ---
PATIENT AGAIN MORE AWAKE AND RESTLESS- BITING ETT, ATTEMPTING TO SIT UP IN BED, COMFORT CARE AND VERBAL REASSURANCES INEFFECTIVE- DR ZAMORA MADE AWARE AND PROPOFAL DRIP INCREASED TO 20 MCG/KG/MIN WITH GOOD EFFECT- PATIENT DROWSY BUT AROUSABLE TO NAME-RETURNS TO SLEEP WHEN STIMULI CEASES, VSS, AWAITING AM MD ROUNDS
--- NOTE | 2016-10-23 07:16 | NUR ---
PORTABLE CXR DONE- PATIENT VERY SEDATED WITH INCREASED PROPOFOL- DRIP DECREASED TO 15 MCG/KG/MIN- DR FONG MADE AWARE
--- NOTE | 2016-10-23 08:13 | PN- Resident CRCU ---
Subjective HPI/CRCU Issues: ENT service called me yesterday evening letting me know that ENT will come see the patient today (10/23/16). Neurology service was called yesterday as well. We tried to wean him off the propofol however he was wide awake on 15mg/hr of ativan so propofol was restarted. Overnight, he was biting the ET tube and ativan had to be increased to 20. This morning, he was on propofol 15 mcg/kg/min and ativan at 15mg/hr. 1X20 mg IV lasix given last night, IVF discontinued this morning as he is tolerating tube feeds well will good urine output after the lasix. labs reviewed, wbc stable at 4.5, hb 11.6, plateley 119, ast up from 55 to 97, bun/cr stable 6/0.7. 24 hr data: max temp 98.3 pr 50-66 rr 16-24 systolic bp 130-159 diastolic bp 71-97 sas 3-4 +4786 - 6056 Objective Vital Signs & I&O Last 8 Hrs of Vitals and I&O: Intake & Output 10/23 1600 10/23 0800 04/ 0000 Intake Total 2491 2860 Output Total 3340 325 Balance -849 2535 Intake, IV 1966 2613 Intake, Tube 225 97 Feeding Intake, Tube 300 150 Irrigant Number 0 Bowel Movements Output, Urine 3340 325 Laboratory Tests 10/23 04/ 0500 0340 Chemistry Sodium (137 - 145 mmol/L) Cancelled 137 Potassium (3.5 - 5.1 mmol/L) Cancelled 4.1 Chloride (98 - 107 mmol/L) Cancelled 107 Carbon Dioxide (22 - 30 mmol/L) Cancelled 23 Anion Gap (5 - 16) Cancelled 7 BUN (9 - 20 mg/dL) Cancelled 6 L Creatinine (0.7 - 1.2 mg/dL) Cancelled 0.7 Estimated GFR (>60 ml/min) > 60 BUN/Creatinine Ratio Cancelled Glucose (65 - 99 mg/dL) 112 H Calcium (8.4 - 10.2 mg/dL) 8.0 L Phosphorus (2.5 - 4.5 mg/dL) 3.2 Magnesium (1.6 - 2.3 mg/dL) 1.6 Total Bilirubin (0.2 - 1.3 mg/dL) 0.7 AST (17 - 59 U/L) 97 H ALT (21 - 72 U/L) 59 Albumin (3.5 - 5.0 g/dL) 2.9 L Hematology CBC w Diff MAN DIFF ORDERED WBC (4.8 - 10.8 /CUMM) 4.5 L RBC (4.70 - 6.10 /CUMM) 3.29 L Hgb (14.0 - 18.0 G/DL) 11.6 L Hct (42 - 52 %) 35.5 L MCV (80.0 - 94.0 FL) 108.0 H MCH (27.0 - 31.0 PG) 35.3 H RDW (11.5 - 14.5 %) 16.5 H Plt Count (130 - 400 /CUMM) 119 L MPV (7.4 - 10.4 FL) 8.9 Segmented Neutrophils (42.2 - 75.2 %) 47 Band Neutrophils (0.0 - 5.0 %) 1 Lymphocytes (20.5 - 51.1 %) 40 Monocytes (1.7 - 9.3 %) 8 Eosinophils (0 - 5.0 %) 3 Metamyelocytes (0.0 - 1.0 %) 1 Platelet Estimate (ADEQUATE) ADEQUATE Polychromasia 1+ Hypochromic-Microcytic 1+ Poikilocytosis 1+ Ovalocytes 1+ PUBS MCHC (33.0 - 37.0 G/DL) 32.7 L Other Body Source Fld Total RBCs Counted (%) 100 10/22 1630 Blood Gas pH (7.35 - 7.45 PH) 7.43 pCO2 (35 - 45 TORR) 31 L pO2 (80 - 100 TORR) 95 HCO3 (21 - 28 MEQ/L) 20 L ABG O2 Sat (Measured) (>96.0 %) 96.0 P-50 (Temp Corrected) N Carboxyhemoglobin (1.5 - 5.0 %) 0.7 L O2 Concentration % 30% Temperature (97.0 - 100.0 FARH) 98.1 Respiration Rate (BPM) 16 O2 Delivery Method ESPRIT Vent Mode AC Expiratory Pressure (CMH2O/P) 5 Tidal Volume (CC) 550 Miscellaneous Phlebotomy Draw Site RIGHT RADIAL Laboratory Tests 10/23/16 0500: Sodium Cancelled, Potassium Cancelled, Chloride Cancelled, Carbon Dioxide Cancelled, Anion Gap Cancelled, BUN Cancelled, Creatinine Cancelled, BUN/ Creatinine Ratio Cancelled 10/23/16 0340: Anion Gap 7, Estimated GFR > 60, Glucose 112 H, Calcium 8.0 L, Phosphorus 3.2, Magnesium 1.6, Total Bilirubin 0.7, AST 97 H, ALT 59, Albumin 2.9 L, CBC w Diff MAN DIFF ORDERED, RBC 3.29 L, MCV 108.0 H, MCH 35.3 H, RDW 16.5 H, MPV 8.9, Segmented Neutrophils 47, Band Neutrophils 1, Lymphocytes 40, Monocytes 8, Eosinophils 3, Metamyelocytes 1, Platelet Estimate ADEQUATE, Polychromasia 1+, Hypochromic-Microcytic 1+, Poikilocytosis 1+, Ovalocytes 1+, PUBS MCHC 32.7 L, Fld Total RBCs Counted 100 10/22/16 1630: pH 7.43, pCO2 31 L, pO2 95, HCO3 20 L, ABG O2 Sat (Measured) 96.0, P-50 (Temp Corrected) N, Carboxyhemoglobin 0.7 L, O2 Concentration % 30%, Temperature 98.1 , Respiration Rate 16, O2 Delivery Method ESPRIT, Vent Mode AC, Expiratory Pressure 5, Tidal Volume 550, Phlebotomy Draw Site RIGHT RADIAL Vital Signs Date Time Temp Pulse Resp B/P Pulse O2 O2 Flow FiO2 Ox Delivery Rate 10/23 0600 63 20 138/103 04/05 0535 30 04/ 0400 97.7 55 16 130/80 04/05 0400 100 Ventilator 30% 04/ 0342 30 04/ 0200 66 16 159/76 04/05 0122 30 04/ 0000 97.1 53 16 148/90 04/05 0000 98 Ventilator 30% 04/05 0000 97.1 53 16 148/90 98 Ventilator 30% 04/04 2228 30 04/04 2200 52 16 143/80 04/04 1999 98.5 94 24 140/80 04/04 1999 96 Ventilator 30% 04/04 1900 30 04/04 1800 50 16 154/86 04/04 1610 54 145/87 04/04 1600 30 04/04 1600 98.1 56 16 145/87 04/04 1600 98 Ventilator 30% 04/04 1600 98.1 56 16 147/84 98 Ventilator 30% 04/04 1440 30 04/04 1400 66 20 155/97 04/04 1200 98.3 72 22 152/104 10/22 1200 98 Ventilator 30% 10/22 1125 30 10/22 1000 55 16 144/81 10/22 0911 55 155/82 Exam General Appearance: sedated, intubated Respiratory: normal breath sounds, no respiratory distress Cardiovascular: regular rate/rhythm, bradycardia Gastrointestinal: normal bowel sounds, soft, non-tender Extremities: edematous hands Current Medications: Current Medications Sig/Nora Start time Last Medication Dose Route Stop Time Status Admin Acetaminophen 500 MG Q24 PRN 10/20 0330 IV Amlodipine Besylate 10 MG DAILY 10/20 1000 AC 10/22 PO 1610 Ampicillin Sodium/ 3,000 MG Q6 10/20 0600 AC 10/23 Sulbactam Sodium IV 0539 Sodium Chloride 100 ML Cyanocobalamin/ 1 BAG ONCE ONE 10/22 1345 DC 10/22 Thiamine/Pyridoxine IV 10/22 2144 1548 Sodium Chloride 1,000 ML Diphenhydramine HCl 25 MG Q6P PRN 10/22 1054 AC 10/22 IV 1327 Diphenhydramine HCl 25 MG Q6 10/20 1345 DC 10/22 IV 0650 Fentanyl Citrate 50 MCG ONCE ONE 10/22 1445 DC 10/22 IV 10/22 1446 1441 Fentanyl Citrate 100 MCG .STK-MED ONE 10/22 1436 DC IM 10/22 1437 Furosemide 20 MG ONCE ONE 10/22 2230 DC 10/22 IV 10/22 2231 2233 Heparin Sodium 5,000 UNIT Q8 10/20 0600 AC 10/23 (Porcine) SC 0543 Lorazepam 100 MG Q6H 10/22 1530 AC 10/23 Dextrose/Water 1,000 ML IV 0632 Lorazepam 2 MG ONE ONE 10/22 1430 DC 10/22 IV 10/22 1431 1425 Lorazepam 50 MG Q24H 10/20 0330 DC 10/22 Dextrose/Water 500 ML IV 1258 Morphine Sulfate 2 MG Q4P PRN 10/20 0330 AC IV Pantoprazole Sodium 40 MG DAILY 10/20 1345 AC 10/22 IV 0909 Potassium Chloride 40 MEQ Q8H 10/21 0800 DC 04 Dextrose/Sodium 1,000 ML IV 0000 Chloride Potassium Phosphate 15 mMol ONE ONE 10/22 0815 DC 10/22 Dextrose/Water 250 ML IV 10/22 1218 0909 Propofol 1,000 MG Q12H 10/22 1530 AC 10/23 N/A 100 ML IV 0016 Propofol 1,000 MG Q6H 10/22 1445 CAN N/A 100 ML IV Propofol 1,000 MG .STK-MED ONE 10/22 1429 DC IV 10/22 1430 Propofol 1,000 MG Q6H 10/21 1300 DC 10/22 N/A 100 ML IV 0642 Thiamine HCl 500 MG TID 10/20 1000 DC 10/22 Sodium Chloride 100 ML IV 10/22 2302 2208 Impression/Plan Impression/Problem List Impression: 56-year-old male with PMH of alcoholism, hypertension, peripheral neuropathy, anxiety, recent osteomyelitis of left foot after a dog bite in March 2016, who is brought in by EMS after he was found unresponsive and seizing at home, drinks 1 pint vodka a day, last alcohol drink 48 hours prior to admission. Patient was having seizure in ER, followed by aggressive and combative behavior. Patient received 10 mg haloperidol, 6 mg Ativan. It was followed by another 2 mg of IV Ativan and 2 mg of IV midazolam for CT scan as patient was still combative. He was admitted to the ICU on ativan drip for close monitoring. Tongue was noted to be edematous with laceration most likely due to tongue biting during his seizure episode. ENT called and pt was subsequently intubated due to high risk of respiratory failure and challenging intubation if his swelling were to progress. Pt successfully intubated in the OR on 10/20/16 with consent obtained from his fianceNancy. Problem list: # Alcohol withdrawal seizure # Tongue laceration secondary to seizure # Hypertensive urgency # Right hand cellulitis due to dog bite # Hypokalemia # Hypophosphatemia # Hypomagnesiumia Uriarte day #4 Intubated day #4 UE restrain day #4 OG tube day # 2 Respiratory # Tongue laceration secondary to seizure, causing severe tongue swelling - Intubated on 10/20/2016 in the OR * ENT on board, will follow * IV ppi started * Benadryl around the clock --> PRN. If the patient's tongue swelling worsens, we'll start IV steroids. Neuro # Alcohol withdrawal seizure - CT of the head negative for acute intracranial pathology. - Work up in the ED showed slightly elevated WBC of 10.7 with left shift ( granulocyte 87%), MCV of 106, anion gap of 24, bicarbonate 20, total bilirubin 1.4, elevated AST 138 (>2 times AST), elevated alkaline phosphatase (152), urine analysis is positive for proteins and ketones, urine toxicology WNL, low serum alcohol level (last drink reportedly 48 hours prior to presentation) * Continue ativan drip and propofol, try to wean down if able * Neurology consulted * Given banana bag and thiamine * Replete electrolytes as needed * Aspiration precaution * GNR in sputum Metabolic # Hypokalemia # Hypophosphatemia # Hypomagnesiumia * Monitor electrolytes, replete as needed Cardiovascular # Hypertensive urgency , hx of htn * Continue home amlodipine Skin # Right hand cellulitis due to dog bite - Right hand laceration wound with secondary cellulitis, patient admits a dog bite happened couple of days back, but patient was altered and unreliable historian. The wounds look dirty. 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 - hand xray normal * He was given 1X vancomycin 10/20/16 and 10/31/16 pending cx. Continue unasyn day #4 * Plastic surgery consulted - recc moist dressing * F/U cultures * Wound irrigation and wound care consult Diet: NPO (intubated). tube feed as per nutrition IVF: off DVT ppx: alps , heparin FULL CODE Problem List: 1. Alcohol withdrawal seizure 2. Dog bite Pain Ratin Tomorrow's Labs & Rationales: icu cbc critically ill Plan DVT/Prophylaxis: mechanical, pharmacological
--- NOTE | 2016-10-23 08:42 | RADIOLOGY REPORT ---
EXAMINATION: XR PORTABLE CHEST CLINICAL INFORMATION: 56-year-old male status post ET tube placement. COMPARISON: Chest radiograph done on 10/22/2016. TECHNIQUE: Portable AP view of the chest was obtained. FINDINGS: The tip of the endotracheal tube is located approximately 6.9 cm above the level of the karoline. The tip of the enteric tube is not well visualized, appear to be infradiaphragmatic. There is improved aeration noted at both lung bases (right greater than left) since the prior study dated 10/22/2016. No other significant interval change within the lung haley. The cardiomediastinal silhouette is within normal limits. There is no pleural effusion present. IMPRESSION: 1. The tip of the endotracheal tube is located approximately 6.9 cm above the level of the karoline. 2. Improved aeration at both lung bases since the prior study (right greater than left).
--- NOTE | 2016-10-23 09:39 | PN- CRCU ---
Subjective HPI/Critical Care Issues: The patient remains intubated and sedated. We attempted to discontinue propofol yesterday however, the patient was agitated and despite 15 mg of Ativan per hour , the propofol needed to be turned back on. There is no report of seizure activity. His urine output has improved with IVFs. His respiratory status remains stable, on 30%. There were no overnight events reported. Objective Current Medications: Current Medications Sig/Nora Start time Last Medication Dose Route Stop Time Status Admin Acetaminophen 500 MG Q24 PRN 10/20 0330 AC IV Amlodipine Besylate 10 MG DAILY 10/20 1000 AC 10/22 PO 1610 Ampicillin Sodium/ 3,000 MG Q6 10/20 0600 AC 10/23 Sulbactam Sodium IV 0539 Sodium Chloride 100 ML Cyanocobalamin/ 1 BAG ONCE ONE 10/22 1345 DC 10/22 Thiamine/Pyridoxine IV 10/22 2144 1548 Sodium Chloride 1,000 ML Diphenhydramine HCl 25 MG Q6P PRN 10/22 1054 AC 10/22 IV 1327 Diphenhydramine HCl 25 MG Q6 10/20 1345 DC 10/22 IV 0650 Fentanyl Citrate 50 MCG ONCE ONE 10/22 1445 DC 10/22 IV 10/22 1446 1441 Fentanyl Citrate 100 MCG .STK-MED ONE 10/22 1436 DC IM 10/22 1437 Furosemide 20 MG ONCE ONE 10/22 2230 DC 10/22 IV 10/22 2231 2233 Heparin Sodium 5,000 UNIT Q8 10/20 0600 AC 10/23 (Porcine) SC 0543 Lorazepam 100 MG Q6H 10/22 1530 AC 10/23 Dextrose/Water 1,000 ML IV 0632 Lorazepam 2 MG ONE ONE 10/22 1430 DC 10/22 IV 10/22 1431 1425 Lorazepam 50 MG Q24H 10/20 0330 DC 10/22 Dextrose/Water 500 ML IV 1258 Morphine Sulfate 2 MG Q4P PRN 10/20 0330 AC IV Pantoprazole Sodium 40 MG DAILY 10/20 1345 AC 10/22 IV 0909 Polyethylene Glycol 17 GM DAILY 10/23 1000 UNVr PO Potassium Chloride 40 MEQ Q8H 10/21 0800 DC 10/23 Dextrose/Sodium 1,000 ML IV 0000 Chloride Potassium Phosphate 15 mMol ONE ONE 10/22 0815 DC 10/22 Dextrose/Water 250 ML IV 10/22 1218 0909 Propofol 1,000 MG Q12H 10/22 1530 AC / N/A 100 ML IV 0016 Propofol 1,000 MG Q6H 10/22 1445 CAN N/A 100 ML IV Propofol 1,000 MG .STK-MED ONE 10/22 1429 DC IV 10/22 1430 Propofol 1,000 MG Q6H 10/21 1300 DC 10/22 N/A 100 ML IV 0642 Thiamine HCl 500 MG TID 10/20 1000 DC 10/22 Sodium Chloride 100 ML IV 10/22 2302 2208 Vital Signs & I&O Last 24 Hrs of Vitals and I&O: Vital Signs Date Time Temp Pulse Resp B/P Pulse O2 O2 Flow FiO2 Ox Delivery Rate / 0846 30 04/ 0800 97.1 54 16 142/80 04/05 0800 97.1 54 16 142/80 98 Ventilator 30% 04/05 0600 63 20 138/103 04/05 0535 30 04/05 0400 97.7 55 16 130/80 04/05 0400 100 Ventilator 30% 04/05 0342 30 04/05 0200 66 16 159/76 04/05 0122 30 04/05 0000 97.1 53 16 148/90 04/05 0000 98 Ventilator 30% 04/05 0000 97.1 53 16 148/90 98 Ventilator 30% 04/04 2228 30 04/04 2200 52 16 143/80 04/04 1999 98.5 94 24 140/80 04/04 2000 96 Ventilator 30% 04/04 1900 30 04/04 1800 50 16 154/86 04/04 1610 54 145/87 04/04 1600 30 04/04 1600 98.1 56 16 145/87 04/04 1600 98 Ventilator 30% 04/04 1600 98.1 56 16 147/84 98 Ventilator 30% 04/04 1440 30 04/04 1400 66 20 155/97 04/04 1200 98.3 72 22 152/104 04/04 1200 98 Ventilator 30% 04/04 1125 30 04/04 1000 55 16 144/81 04/04 0911 55 155/82 Intake & Output 04/05 1600 04/05 0800 04/05 0000 Intake Total 2491 2860 Output Total 3340 325 Balance -849 2535 Intake, IV 1966 2613 Intake, Tube 225 97 Feeding Intake, Tube 300 150 Irrigant Number 0 Bowel Movements Output, Urine 3340 325 Physical Exam General Appearance intubated, sedated Skin warm and dry HEENT PERRLA Neck Supple, No JVD Cardiovascular Regular Rate, Normal S1, Normal S2, No Murmurs Lungs bilateral scattered ronchi Abdomen soft, nontender, non distended Extremities lacerations on the palmar and dorsal aspects of the right hand, no lower extremity edema Results Last 24 Hrs of Lab Results: Laboratory Tests 10/23/16 0500: Sodium Cancelled, Potassium Cancelled, Chloride Cancelled, Carbon Dioxide Cancelled, Anion Gap Cancelled, BUN Cancelled, Creatinine Cancelled, BUN/ Creatinine Ratio Cancelled 10/23/16 0340: Anion Gap 7, Estimated GFR > 60, Glucose 112 H, Calcium 8.0 L, Phosphorus 3.2, Magnesium 1.6, Total Bilirubin 0.7, AST 97 H, ALT 59, Albumin 2.9 L, CBC w Diff MAN DIFF ORDERED, RBC 3.29 L, MCV 108.0 H, MCH 35.3 H, RDW 16.5 H, MPV 8.9, Segmented Neutrophils 47, Band Neutrophils 1, Lymphocytes 40, Monocytes 8, Eosinophils 3, Metamyelocytes 1, Platelet Estimate ADEQUATE, Polychromasia 1+, Hypochromic-Microcytic 1+, Poikilocytosis 1+, Ovalocytes 1+, PUBS MCHC 32.7 L, Fld Total RBCs Counted 100 10/22/16 1630: pH 7.43, pCO2 31 L, pO2 95, HCO3 20 L, ABG O2 Sat (Measured) 96.0, P-50 (Temp Corrected) N, Carboxyhemoglobin 0.7 L, O2 Concentration % 30%, Temperature 98.1 , Respiration Rate 16, O2 Delivery Method ESPRIT, Vent Mode AC, Expiratory Pressure 5, Tidal Volume 550, Phlebotomy Draw Site RIGHT RADIAL Impression/Plan Impression/Plan Impression/Plan: 1. Alcohol withdrawal seizures. 2. Tongue laceration and severe swelling with airway compromise secondary to tongue biting. 3. Hypertensive urgency, improved on sedation. 4. Right hand cellulitis due to dog bite. Plastic surgery input appreciated. 5. Thrombocytopenia secondary to ETOH. 6. Acute hypoxemic respiratory failure secondary to aspiration pneumonia versus pneumonitis. Recommendations: * Aggressive electrolyte repletion to continue. * Wean propofol down to off if able today. * Start a fentanyl drip to maintain an SAS of 3. * Ativan as needed for an SAS of 3. * Continue current ventilator settings. * Will continue mechanical ventilation until the patient's tongue swelling improves and he is cleared by ENT. * Monitor for seizures. * Neurology consult. * Continue Norvasc for blood pressure control. * Continue IV Unasyn. * Continue multivitamin, thiamine and folate. * Continue maintenance IV fluids - but decrease to 75 ml per hour. * Advance tube feeds to goal. * DVT/GI prophylaxis at all times - continue ventilator bundle. * Will follow up ENT and plastic surgery recommendations.
--- NOTE | 2016-10-23 10:45 | Cons- Neurology ---
General Information and HPI Consulting Request Date of Consult: 10/23/16 Requested By: TAWNY ALVAREZ MD History of Present Illness: 56-year-old male with history of chronic ethanolism, typically drinking 1 pint of vodka per day, admitted after being found unresponsive by his girlfriend, seizing, 2 days after abruptly having stopped his ethanol intake apparently due to nausea and vomiting. He reportedly had bitten his tongue and was intubated for airway protection. Since admission, he has been intermittently agitated requiring sedation, currently in the way of propofol and lorazepam. Allergies/Medications Allergies: Coded Allergies: NO KNOWN ALLERGIES (UNKNOWN 10/21/16) Home Med List: Amlodipine Besylate (Norvasc) 10 MG TABLET 1 TAB PO DAILY BLOOD PRESSURE Fluoxetine HCl 20 MG CAPSULE 1 CAP PO DAILY ANXIETY (Reported) Gabapentin 300 MG CAPSULE 2 CAP PO BID PERIPHERAL NEUROPATHY (Reported) Hydrochlorothiazide 25 MG TABLET 1 TAB PO DAILY BLOOD PRESSURE Hydroxyzine Pamoate 25 MG CAPSULE 1 CAP PO TIDPRN ANXIETY (Reported) Lisinopril 40 MG TABLET 1 TAB PO DAILY HIGH BLOOD PRESSURE (Reported) Review of Systems Review of Systems: Unobtainable due to sedation and endotracheal intubation. Past History Travel History Traveled to [place] past 21 day No Medical History Neurological: peripheral neuropathy EENT: NONE Cardiovascular: hypertension Respiratory: NONE Gastrointestinal: NONE Hepatic: NONE Renal: NONE Musculoskeletal: osteomyelitis of the left femur treated with 4 weeks of IV antibiotics four years prior to admission Psychiatric: anxiety Endocrine: NONE Blood Disorders: NONE Cancer(s): NONE [employer]EL[employer]/Reproductive: NONE Surgical History Surgical History: none (unknown) Family History Relations & Conditions If Any: Relation not specified for: *No pertinent family history Psychosocial History Where Do You Live? Home Services at Home: None Smoking Status: Current Everyday Smoker ETOH Use: heavy use Exam & Diagnostic Data Vital Signs and I&O Vital Signs Date Time Temp Pulse Resp B/P Pulse O2 O2 Flow FiO2 Ox Delivery Rate 10/23 0846 30 10/23 0800 97.1 54 16 142/80 / 0800 97.1 54 16 142/80 98 Ventilator 30% 10/23 0800 99 Ventilator 30% 10/23 0600 63 20 138/103 10/23 0535 30 10/23 0400 97.7 55 16 130/80 10/23 0400 100 Ventilator 30% 10/23 0342 30 04/05 0200 66 16 159/76 04/05 0122 30 04/05 0000 97.1 53 16 148/90 04/05 0000 98 Ventilator 30% 04/05 0000 97.1 53 16 148/90 98 Ventilator 30% 04/04 2228 30 04/04 2200 52 16 143/80 04/04 2000 98.5 94 24 140/80 04/04 2000 96 Ventilator 30% 04/04 1900 30 04/04 1800 50 16 154/86 04/04 1610 54 145/87 04/04 1600 30 04/04 1600 98.1 56 16 145/87 04/04 1600 98 Ventilator 30% 04/04 1600 98.1 56 16 147/84 98 Ventilator 30% 04/ 1440 30 04/04 1400 66 20 155/97 04/04 1200 98.3 72 22 152/104 04/04 1200 98 Ventilator 30% 04/ 1125 30 Intake & Output / 1600 04/05 0800 04/05 0000 Intake Total 2491 2860 Output Total 3340 325 Balance -849 2535 Intake, IV 1966 2613 Intake, Tube 225 97 Feeding Intake, Tube 300 150 Irrigant Number 0 Bowel Movements Output, Urine 3340 325 Middle-aged, sedated and intubated white male in the intensive care unit. He was unresponsive to verbal stimuli however would grimace to noxious stimuli. Pupils were 2 mm and reactive. Corneal reflexes were present. Face was grossly symmetric. There were no obvious lateralizing features however he was in soft restraints. Deep tendon reflexes were hypoactive. Plantar responses were flexor. Assessment/Plan Assessment: Timing and presentation perfectly consistent with ethanol withdrawal seizures. He is currently sedated and intubated making detailed neurological examination impossible. However, his CAT scan is normal and his examination is grossly nonfocal. We are hopeful for recovery to his baseline with further passage of time. Recommendations: Gradually taper sedation as per ICU team. Should there be suspicion of further seizure, EEG would be appropriate however, as above, his clinical presentation would suggest ethanol withdrawal and therefore anticonvulsants are typically not indicated. Please feel free to call with further questions. Consult Acknowledgment - Thank you for your consult request.
--- NOTE | 2016-10-23 11:50 | NUR ---
Patient is sedated on an ativan gtt infusing at 15mg/hr and a propofol gtt at 15mcg/kcg/min. SAS 3-5, can occasionally follow commands. Moves all extremities. Soft bilateral wrist restraints in place. SB-NSR on tele monitor, HR= 50-70's. SBP: 140's. Remains intubated with a #8 to the left at 23cm, Vent settings: AC 16/550/30/5- lungs clear. Scant amounts of thin white secretions noted when suctioning. Tongue remains slightly swollen- awaiting ENT followup for further recommendations. OGT in place with Jevity 1.5 infusing at 45mls/hr- 150ml water flush every 4 hours- No residuals noted. Abdomen is soft and non tender with + bowel sounds. Last BM unknown and Miralax to be given. Uriarte in place draining clear yellow urine with adequate output- pt received IV lasix yesterday evening. Puncture wound to r. hand remain unchanged r/t a dog bite prior to admission. BUE +1 edema- fluid filled blisters noted. NS infusing at 75mls/hr- Fentanyl gtt started at 1140 @ 50mcg/hr with the intentions to wean off the propofol. No s/s of pain are currently noted. Vitals currently stable. Neuro in to eval. Will continue to closely monitor patient.
--- NOTE | 2016-10-23 13:09 | PN- Plastic Surgery ---
Subjective Subjective: intubated sedated Objective Vital Signs and I&Os Vital Signs Date Time Temp Pulse Resp B/P Pulse O2 O2 Flow FiO2 Ox Delivery Rate 04/ 1235 60 130/75 04/05 1200 70 20 138/71 04/05 1200 98 Ventilator 30% 04/05 1111 30 04/05 1000 62 16 149/75 04/05 0846 30 04/05 0800 97.1 54 16 142/80 04/05 0800 97.1 54 16 142/80 98 Ventilator 30% 04/05 0800 99 Ventilator 30% 04/05 0600 63 20 138/103 04/05 0535 30 04/05 0400 97.7 55 16 130/80 04/05 0400 100 Ventilator 30% 04/05 0342 30 04/05 0200 66 16 159/76 04/05 0122 30 04/05 0000 97.1 53 16 148/90 04/05 0000 98 Ventilator 30% 04/05 0000 97.1 53 16 148/90 98 Ventilator 30% 04/04 2228 30 04/04 2200 52 16 143/80 04/04 1999 98.5 94 24 140/80 04/04 1999 96 Ventilator 30% 04/04 1900 30 04/04 1800 50 16 154/86 04/04 1610 54 145/87 04/04 1600 30 04/04 1600 98.1 56 16 145/87 04/04 1600 98 Ventilator 30% 04/04 1600 98.1 56 16 147/84 98 Ventilator 30% 04/04 1440 30 04/04 1400 66 20 155/97 Intake & Output / 1600 04/05 0800 04/05 0000 04/04 1600 04/04 0800 04/04 0000 Intake Total 2491 2860 1195 1304 1644 Output Total 3340 325 150 145 132 Balance -849 2535 1045 1159 1512 Intake, IV 1966 2613 1195 1304 1644 Intake, Tube 225 97 Feeding Intake, Tube 300 150 Irrigant Number 0 Bowel Movements Output, Urine 3340 325 150 145 132 Patient 189 lb Weight Physical Exam: intubated, right hand stable/improving. no need for surgical intervention Assessment/Plan Assessment/Plan animal bite right hand, stable/improving. continue local care, band aid and bacitracin acceptable QD wash soap and water prn.
--- NOTE | 2016-10-23 14:55 | NUR ---
Continue to monitor patients progress as it relates to his detox. He remains in the [facility] intubated on both ativan and fentanyl. Will follow to better assess for aftercare plans when appropriate.
--- NOTE | 2016-10-23 15:06 | NUR ---
Propofol gtt titrated to off per order and fentanyl gtt titrated up to 100mcg/hr according to the SAS score. SAS at this time 3, and patient is easily arousable to verbal stimuli- Bradycardic on the tele monitor. HR ranging from 46-[address]'s Dr. Pryor made aware. Will continue to closely monitor patient.
--- NOTE | 2016-10-23 16:00 | NUR ---
ASSUMED CARE OF PATIENT. PATIENT RESPONDS TO NAME CALL SAS 3/4 ON CURRENT SEDATION. RAO, ABLE TO MOVE ALL EXTREMITIES. MONITOR SB RATE OF 50'S. LUNGS DIMINISHED AT BASES, WITH MOD AMT WHITE THIN SECRETIONS VIA ET TUBE. PATIENT REMAINS INTUBATED ON VENT WITH OXGEN SAT 96%. ABD SOFT NON TENDER WITH GOOD BOWEL SOUNDS. UPPER EXTREMITY EDEMA DECREASED TO 1 PLUS. SKIN INTACT EXCEPT FOR DOG BITE R HAND, DRESSING TO HAND DRY AND INTACT. OJEDA INTACT DRAINING CLEAR URINE.
--- NOTE | 2016-10-23 18:52 | PN- Ear, Nose & Throat ---
Subjective Subjective: Patient seen in follow up for intubation and tongue laceration with severe edema with alcohol withdrawal and seizures. He remains on ventilator, intubated. Tongue swelling has been decreasing. Questions whether he can be extubated from airway obstruction standpoint. Review of Systems: Negative and noncontributory through 13 systems documented in chart. Objective Vital Signs and I&Os Vital Signs Date Time Temp Pulse Resp B/P Pulse O2 O2 Flow FiO2 Ox Delivery Rate / 1800 77 23 110/60 04/05 1600 96.9 53 16 132/70 04/05 1600 96 Ventilator 30% 04/05 1600 96.9 53 16 132/70 96 Ventilator 30% 04/05 1559 30 04/05 1345 30 04/05 1235 60 130/75 04/05 1200 70 20 138/71 04/05 1200 98 Ventilator 30% 04/05 1111 30 04/05 1000 62 16 149/75 04/05 0846 30 04/05 0800 97.1 54 16 142/80 04/05 0800 97.1 54 16 142/80 98 Ventilator 30% 04/05 0800 99 Ventilator 30% 04/05 0600 63 20 138/103 04/05 0535 30 04/05 0400 97.7 55 16 130/80 04/05 0400 100 Ventilator 30% 04/05 0342 30 04/05 0200 66 16 159/76 04/05 0122 30 04/05 0000 97.1 53 16 148/90 04/05 0000 98 Ventilator 30% 04/05 0000 97.1 53 16 148/90 98 Ventilator 30% 04/04 2228 30 04/04 2200 52 16 143/80 04/04 1999 98.5 94 24 140/80 04/04 1999 96 Ventilator 30% 04/04 1900 30 Intake & Output 04/ 1600 04/05 0800 04/05 0000 04/04 1600 04/04 0800 04/04 0000 Intake Total 2390 2491 2860 1195 1304 1644 Output Total 3340 325 150 145 132 Balance 2390 -849 2535 1045 1159 1512 Intake, IV 1750 1966 2613 1195 1304 1644 Intake, Tube 370 225 97 Feeding Intake, Tube 270 300 150 Irrigant Number 0 Bowel Movements Output, Urine 3340 325 150 145 132 Patient 189 lb Weight Physical Exam: Intubated in ICU Ears clear Nose clear OC/OP tongue is normal in size evidence of bite laceration anterior tongue healing wihtout infection Exam shows clear airway to posterior pharynx. No swelling floor of mouth Neck normal COR regular rate Abdomen soft Current Medications: Current Medications Sig/Nora Start time Last Medication Dose Route Stop Time Status Admin Acetaminophen 500 MG Q24 PRN 10/20 0330 IV Amlodipine Besylate 10 MG DAILY 10/20 1000 AC 10/23 PO 1235 Ampicillin Sodium/ 3,000 MG Q6 10/20 0600 10/23 Sulbactam Sodium IV 1223 Sodium Chloride 100 ML Cyanocobalamin/ 1 BAG ONCE ONE 10/22 1345 ND 10/22 Thiamine/Pyridoxine IV 10/22 2144 1548 Sodium Chloride 1,000 ML Diphenhydramine HCl 25 MG Q6P PRN 10/22 1054 AC 10/22 IV 1327 Fentanyl Citrate 1,000 MCG Q12H 10/23 1100 10/23 Dextrose/Water 250 ML IV 1140 Furosemide 20 MG ONCE ONE 10/22 2230 ND 10/22 IV 10/22 2231 2233 Heparin Sodium 5,000 UNIT Q8 10/20 0600 10/23 (Porcine) SC 1425 Lorazepam 100 MG Q6H 10/22 1530 AC 10/23 Dextrose/Water 1,000 ML IV 1346 Magnesium Sulfate 1 GM Q2H 10/23 1545 10/23 Dextrose/Water 100 ML IV 10/23 1944 1544 Morphine Sulfate 2 MG Q4P PRN 10/20 0330 IV Pantoprazole Sodium 40 MG DAILY 10/20 1345 10/23 IV 0951 Polyethylene Glycol 17 GM DAILY 10/23 1000 AC 10/23 PO 1233 Potassium Chloride 40 MEQ Q8H 10/21 0800 ND 10/23 Dextrose/Sodium 1,000 ML IV 0000 Chloride Propofol 1,000 MG Q12H 10/22 1530 10/23 N/A 100 ML IV 1028 Sodium Chloride 1,000 ML Q13H 10/23 1100 AC 10/23 IV 1111 Thiamine HCl 500 MG TID 10/20 1000 DC 10/22 Sodium Chloride 100 ML IV 10/22 2302 2208 Assessment/Plan Assessment/Plan Patient doing better after severe tongue bite and tongue edema after alcohol withdrawl which led to intubation. Tongue swelling now down to normal. Recommend: Tongue is normal in size and caliber with resolution of edema. Would proceed with extubatoin during daytime hours if felt to be ready from extubation from other standpoints. If concerned about need for re-intubation, would consider asking anesthesia to be present during extubation. Will f/u prn Thanks Brian Herbert MD, FACS Core Measures/Miscellaneous Venous Thromboembolism VTE Risk Factors: No Risk Factors VTE Contraindications: No Contraindications VTE Diagnosis: No VTE Type: NONE VTE Confirmed by (Test): NONE Beta Nina Is Beta Nina a Home Med? No Antibiotics Is Patient on Antibiotics? No
--- NOTE | 2016-10-23 22:45 | NUR ---
PATIENT TACHYCARDIC. TEMP RECHECKED AND PATIENT NOW FEBRILE WITH TEMP OF 100.5 ANDREEA MOHAN NOTIFIED. BLOOD CULTURES X2 DRAWN AND TYLENOL 1000MG PO GIVEN IV ORDERED.
--- NOTE | 2016-10-23 23:00 | NUR ---
SATS DROPPED TO 90% AND BP DOWN TO 98/60. DR NOTIFIED AND IN TO SEE PATIENT. PATIENT SUCTIONED WITH NO IMPROVEMENT.
--- NOTE | 2016-10-23 23:15 | NUR ---
SATS NOW 88% RESPIRATORY IN TO CHECK PATIENT. FIO2 INCREASED TO 35% WITH INCREASE IN SAT TO 92%. PORTABLE CXR DONE.
--- NOTE | 2016-10-23 23:15 | Event Note ---
Event Note Event Note: Brief : fever spike to 100.5, saturations reducing to 91, BP getting lower at 99 /70mmhg, patient UO in last 4 hours has been only 250cc ( last 8 hour shift : 700ml) Assesement : patient is sedated , on ativan and fentanyl and normal saline drips. last FS 130 Suctioned the NG tube. Plan : Will obtain stat cxray will send blood cultures x 2, sputum cultures and urine cultures. will also obtain icu buncle , cbc, troponin, lactic acid. If cxray shows signs on infection will review Ax, currently patient is on unasyn for aspiration pnuemonia. If cxray doesnt show any congestion, will give him one time normal saline bolus. patient is 2 litres positive on fluid balance. will follow above. Will hold tube feeds for now. Of note he does have a dogbite wound, which could be other source of infection. The plan was discussed and signed out to night float. They will follow the results of above, and continue to manage. Plan discussed with Dr. Keen.
--- NOTE | 2016-10-23 23:50 | RADIOLOGY REPORT ---
EXAMINATION: XR PORTABLE CHEST CLINICAL INFORMATION: Fever. Low blood pressure. Low O2 saturation. COMPARISON: Chest x-ray 10/23/2016, 6:45 AM TECHNIQUE: Portable AP portable view of the chest was obtained. 11:16 PM FINDINGS: Endotracheal tube catheter in place proximal 5.3 cm above the karoline. Nasogastric tube extends into the stomach. Lung volume low. This causes mild crowding of the bronchovascular markings. No significant pulmonary vascular congestion. No infiltrate or pleural effusion. No pneumothorax. IMPRESSION: No acute change of chest. Endotracheal tube and nasogastric tube in position.
[2016-10-24] VITALS (11 sets, daily range): BP systolic 90–120; BP diastolic 55–78
--- NOTE | 2016-10-24 | NUR ---
PATIENT WILL OPEN EYES TO TACTILE STIMULI.FENTANYL DRIP AT 100 MCG/HR.ATIVAN DRIP DECREASED TO 11 MG/HR.MONITOR SINUS RHYTHM AT RATE OF 85.
[2016-10-24 00:19] LABS: ABSOLUTE BASOPHIL COUNT 0 /CUMM (0.0-0.2); ABSOLUTE EOSINOPHIL COUNT 0.1 /CUMM (0.0-0.7); ABSOLUTE GRANULOCYTE CT 4.7 /CUMM (1.4-6.5); ABSOLUTE LYMPH COUNT 0.6 /CUMM (1.2-3.4); BASOPHIL % 0.3 % (0.0-2.0); EOSINOPHIL % 2.1 % (0-5); GRANULOCYTE % 72.6 % (42.2-75.2); MEAN CORPUSCULAR HGB 35.8 PG (27.0-31.0); MEAN CORPUSCULAR HGB CONC 33.9 G/DL (33.0-37.0); MEAN CORPUSCULAR VOLUME 105.7 FL (80.0-94.0); MEAN PLATELET VOLUME 9.2 FL (7.4-10.4); PLATELET COUNT 137 /CUMM (130-400); RBC DISTRIBUTION WIDTH 15.6 % (11.5-14.5); WHITE BLOOD CELL COUNT 6.4 /CUMM (4.8-10.8)
--- NOTE | 2016-10-24 01:00 | NUR ---
PATIENTS BP=90/60. AWARE.ATIVAN DRIP TITRATED TO 10 MG/HR.SAS=3 TUBE FEED ON HOLD FOR RESIDUAL OF 300 ML.
--- NOTE | 2016-10-24 02:10 | NUR ---
BP86/60,RECHECK THEN 76/60.250 NS BOLUS STARTED.PT REMAINS AROUSABLE TO TACTILE STIMULI.
--- NOTE | 2016-10-24 03:02 | NUR ---
URINE AND SPUTUM SPECIMEN SENT.ATIVAN DRIP DECREASED TO 8 MG/HR.FENTANYL DRIP CONTINUES AT 100 MCG/HR.PUPILS 2MM AND EQUAL.WILL OPEN EYES TO SPEECH.SHAKE HEAD TO QUESTIONING
--- NOTE | 2016-10-24 03:41 | NUR ---
BP=78/62 MANUAL.1000 ML BOLUS COMPLETE.IVF AT 200 ML/HR. LEVOPHED DRIP STARTED VIA #20 IV IN L WRIST. BP INCREASED TO 99/72 AT 0351
--- NOTE | 2016-10-24 04:24 | NUR ---
TLC INSERTION VIA RSC.
--- NOTE | 2016-10-24 05:00 | NUR ---
CXRAY CONFIRMS TLC IS NOT IN PLACE. REMOVED BY .SMALL AREA OF SWELLING NOTED ON R NECK. ICE PACK APPLIED.
--- NOTE | 2016-10-24 05:29 | RADIOLOGY REPORT ---
EXAMINATION: XR PORTABLE CHEST CLINICAL INFORMATION: Evaluate position of recently placed central line catheter COMPARISON: Chest x-ray 10/23/2016 TECHNIQUE: Portable AP view of the chest was obtained. 4:46 AM FINDINGS: Right IJ catheter has been placed. The catheter tip now projects over the right axillary region. The axillary vein. Catheter should be repositioned. This critical result was discussed with Dr. Stout on 5:25 AM and it was ascertained that the content and urgency of the report was understood at the time of direct communication. Endotracheal tube catheter 2.6 cm above karoline. Nasogastric tube passes below diaphragm into stomach. Low lung volume with crowding of the bronchovascular markings. No significant central pulmonary vascular congestion. No infiltrate or pleural effusion. No pneumothorax. IMPRESSION: Right IJ catheter tip in the right axillary vein. Catheter should be repositioned. No pneumothorax.
--- NOTE | 2016-10-24 05:37 | Proc Note Internal Medicine ---
Medicine Procedure Procedure Date: 10/24/16 Medical Procedure(s): central venous cath place Pre-Operative Diagnosis: Hypotension Post-Operative Diagnosis: Hypotension Estimated Blood Loss: 50ml to 100ml Anesthesia: patient on fentanyl drip Procedure Findings: Was me Iván MOHAN. under supervision of Chary Keen MD, the procedure was under sterile environment. 2 Attempt was done. there was subcutaneous hematoma from the first attempt and the guidewire was kinked. On the second attempt central line was placed in the right IJ. but after CXR was done it was misplaced in the right axillary vein, SO the line was removed. Surgical team was called for placement of central line either femoral or to the left IJ.
[2016-10-24 06:14] LABS: ABSOLUTE BASOPHIL COUNT 0 /CUMM (0.0-0.2); ABSOLUTE EOSINOPHIL COUNT 0.2 /CUMM (0.0-0.7); ABSOLUTE GRANULOCYTE CT 7.3 /CUMM (1.4-6.5); ABSOLUTE MONOCYTE COUNT 1.8 /CUMM (0.10-0.60); BASOPHIL % 0.5 % (0.0-2.0); EOSINOPHIL % 1.6 % (0-5); GRANULOCYTE % 70.2 % (42.2-75.2); HEMATOCRIT 37.2 % (42-52); MEAN CORPUSCULAR HGB 35.3 PG (27.0-31.0); MEAN CORPUSCULAR HGB CONC 32.8 G/DL (33.0-37.0); MEAN CORPUSCULAR VOLUME 107.5 FL (80.0-94.0); MEAN PLATELET VOLUME 9.4 FL (7.4-10.4); PLATELET COUNT 155 /CUMM (130-400); RBC DISTRIBUTION WIDTH 16.1 % (11.5-14.5); RED BLOOD CELL CT 3.46 /CUMM (4.70-6.10)
[2016-10-24 06:20] LABS: WHITE BLOOD CELL COUNT 10.3 /CUMM (4.8-10.8)
--- NOTE | 2016-10-24 07:07 | PN- Resident CRCU ---
Subjective HPI/CRCU Issues: Overnight, pt spiked temp to 100.5, and was hypotensive to 70/50. BCX2 drawn. He was given bolus with no improvement in BP. Subsequently levophed started. Central line attempted by housestaff, first one failed, second one went into axillary vein and was then removed. Surgical PA successfully placed central line (left IJ), with CXR confirming placement. He has been on unasyn for dog bite and possible aspiration pna when he was having a seizure. He was given 1000 mg vancomycin on friday and friday. Pt has been on the ventilator for 4 days. He has not had BM since admission, and his abdomen was rigid. As pt remains sedated and intubated, unable to give history/ report pain. No discomfort noticed when his abdomen was palpated. No bowel sounds can be appreciateded. Tube feed held, suctioned out 400 ml from his stomach this morning. Abdomen xray shows no obstruction. Will get CT chest/abd/ pelvis. Given 1X 1000 mg vanco and 2000 mg ceftaz this morning. ID consulted. 24 hr data: max temp 100.5 rr 16-22 systolic bp 70-149 diastolic bp 52-78 bs 114,130,117 sas 3-5 UO 0 - 400 ml/hr pt currently sedated with fentanyl 100mcg/hr and ativan at 8mg/hr. levophed running at 7.15 mcg/min. labs reviewed: wbc 6.4 to 10.3, platelet 119 to 155, na 137 to 133, k 4.2, bun/ cr: 6/0.7 to 6/1. Will closely watch for worsening kidney functions given decreasing UO, recent lasix, hypotension. 1000 mg vancomycin given, based on his weight he should have received 1275. Would avoid IV contrast for now. ENT has re-evaluated him and he is OK to be extubated from their standpoint as the tongue swelling has resolved. Objective Vital Signs & I&O Last 8 Hrs of Vitals and I&O: Intake & Output 10/24 1600 10/24 0800 04/ 0000 Intake Total 3101 3001 Output Total 402 645 Balance 2699 2356 Intake, IV 3101 2239 Intake, Other 300 Intake, Tube 462 Irrigant Output, Urine 402 645 Laboratory Tests 10/24 10/24 04/05 0600 0240 2350 Blood Gas pH (7.35 - 7.45 PH) 7.35 pCO2 (35 - 45 TORR) 28 L pO2 (80 - 100 TORR) 93 HCO3 (21 - 28 MEQ/L) 15 L ABG O2 Sat (Measured) (>96.0 %) 97.0 P-50 (Temp Corrected) Y O2 Concentration % 35% Temperature (97.0 - 100.0 FARH) 98.1 Respiration Rate (BPM) 16 O2 Delivery Method ESPRIT Vent Mode AC Expiratory Pressure (CMH2O/P) 5 Tidal Volume (CC) 550 Chemistry Sodium (137 - 145 mmol/L) 133 L Potassium (3.5 - 5.1 mmol/L) 4.2 Chloride (98 - 107 mmol/L) 105 Carbon Dioxide (22 - 30 mmol/L) 20 L Anion Gap (5 - 16) 9 BUN (9 - 20 mg/dL) 6 L Creatinine (0.7 - 1.2 mg/dL) 1.0 Estimated GFR (>60 ml/min) > 60 Glucose (65 - 99 mg/dL) 108 H Lactic Acid (0.7 - 2.1 mmol/L) 1.2 Calcium (8.4 - 10.2 mg/dL) 7.8 L Phosphorus (2.5 - 4.5 mg/dL) 4.0 Magnesium (1.6 - 2.3 mg/dL) 1.7 Total Bilirubin (0.2 - 1.3 mg/dL) 0.9 AST (17 - 59 U/L) 45 ALT (21 - 72 U/L) 48 Albumin (3.5 - 5.0 g/dL) 2.7 L Hematology CBC w Diff NO MAN DIFF REQ WBC (4.8 - 10.8 /CUMM) 10.3 RBC (4.70 - 6.10 /CUMM) 3.46 L Hgb (14.0 - 18.0 G/DL) 12.2 L Hct (42 - 52 %) 37.2 L MCV (80.0 - 94.0 FL) 107.5 H MCH (27.0 - 31.0 PG) 35.3 H RDW (11.5 - 14.5 %) 16.1 H Plt Count (130 - 400 /CUMM) 155 MPV (7.4 - 10.4 FL) 9.4 Gran % (42.2 - 75.2 %) 70.2 Lymphocytes % (20.5 - 51.1 %) 10.1 L Monocytes % (1.7 - 9.3 %) 17.6 H Eosinophils % (0 - 5 %) 1.6 Basophils % (0.0 - 2.0 %) 0.5 Absolute Granulocytes (1.4 - 6.5 /CUMM) 7.3 H Absolute Lymphocytes (1.2 - 3.4 /CUMM) 1.0 L Absolute Monocytes (0.10 - 0.60 /CUMM) 1.8 H Absolute Eosinophils (0.0 - 0.7 /CUMM) 0.2 Absolute Basophils (0.0 - 0.2 /CUMM) 0 PUBS MCHC (33.0 - 37.0 G/DL) 32.8 L Miscellaneous Phlebotomy Draw Site LEFT RADIAL 10/23 2350 Chemistry Sodium (137 - 145 mmol/L) 133 L Potassium (3.5 - 5.1 mmol/L) 4.0 Chloride (98 - 107 mmol/L) 103 Carbon Dioxide (22 - 30 mmol/L) 22 Anion Gap (5 - 16) 8 BUN (9 - 20 mg/dL) 4 L Creatinine (0.7 - 1.2 mg/dL) 0.8 Estimated GFR (>60 ml/min) > 60 Glucose (65 - 99 mg/dL) 100 H Calcium (8.4 - 10.2 mg/dL) 8.2 L Phosphorus (2.5 - 4.5 mg/dL) 3.2 Magnesium (1.6 - 2.3 mg/dL) 1.8 Total Bilirubin (0.2 - 1.3 mg/dL) 0.7 AST (17 - 59 U/L) 59 ALT (21 - 72 U/L) 50 Troponin I (<0.11 ng/ml) < 0.01 Albumin (3.5 - 5.0 g/dL) 3.0 L Hematology CBC w Diff MAN DIFF ORDERED WBC (4.8 - 10.8 /CUMM) 6.4 RBC (4.70 - 6.10 /CUMM) 3.50 L Hgb (14.0 - 18.0 G/DL) 12.6 L Hct (42 - 52 %) 37.0 L MCV (80.0 - 94.0 FL) 105.7 H MCH (27.0 - 31.0 PG) 35.8 H RDW (11.5 - 14.5 %) 15.6 H Plt Count (130 - 400 /CUMM) 137 MPV (7.4 - 10.4 FL) 9.2 Gran % (42.2 - 75.2 %) 72.6 Lymphocytes % (20.5 - 51.1 %) 9.7 L Monocytes % (1.7 - 9.3 %) 15.3 H Eosinophils % (0 - 5 %) 2.1 Basophils % (0.0 - 2.0 %) 0.3 Absolute Granulocytes (1.4 - 6.5 /CUMM) 4.7 Segmented Neutrophils (42.2 - 75.2 %) 67 Absolute Lymphocytes (1.2 - 3.4 /CUMM) 0.6 L Lymphocytes (20.5 - 51.1 %) 14 L Monocytes (1.7 - 9.3 %) 16 H Absolute Monocytes (0.10 - 0.60 /CUMM) 1.0 H Eosinophils (0 - 5.0 %) 3 Absolute Eosinophils (0.0 - 0.7 /CUMM) 0.1 Absolute Basophils (0.0 - 0.2 /CUMM) 0 Platelet Estimate (ADEQUATE) ADEQUATE Polychromasia 1+ Ovalocytes FEW Stomatocytes FEW PUBS MCHC (33.0 - 37.0 G/DL) 33.9 Other Body Source Fld Total RBCs Counted (%) 100 Laboratory Tests 10/24/16 0600: Anion Gap 9, Estimated GFR > 60, Glucose 108 H, Calcium 7.8 L, Phosphorus 4.0, Magnesium 1.7, Total Bilirubin 0.9, AST 45, ALT 48, Albumin 2.7 L, CBC w Diff NO MAN DIFF REQ, RBC 3.46 L, MCV 107.5 H, MCH 35.3 H, RDW 16.1 H, MPV 9.4, Gran % 70.2, Lymphocytes % 10.1 L, Monocytes % 17.6 H, Eosinophils % 1.6, Basophils % 0.5, Absolute Granulocytes 7.3 H, Absolute Lymphocytes 1.0 L, Absolute Monocytes 1.8 H, Absolute Eosinophils 0.2, Absolute Basophils 0, PUBS MCHC 32.8 L 10/24/16 0240: pH 7.35, pCO2 28 L, pO2 93, HCO3 15 L, ABG O2 Sat (Measured) 97.0, P-50 (Temp Corrected) Y, O2 Concentration % 35%, Temperature 98.1, Respiration Rate 16, O2 Delivery Method ESPRIT, Vent Mode AC, Expiratory Pressure 5, Tidal Volume 550, Phlebotomy Draw Site LEFT RADIAL 10/23/162349: Lactic Acid 1.2 10/23/162349: Anion Gap 8, Estimated GFR > 60, Glucose 100 H, Calcium 8.2 L, Phosphorus 3.2, Magnesium 1.8, Total Bilirubin 0.7, AST 59, ALT 50, Troponin I < 0.01, Albumin 3.0 L, CBC w Diff MAN DIFF ORDERED, RBC 3.50 L, MCV 105.7 H, MCH 35.8 H, RDW 15.6 H, MPV 9.2, Gran % 72.6, Lymphocytes % 9.7 L, Monocytes % 15.3 H, Eosinophils % 2.1, Basophils % 0.3, Absolute Granulocytes 4.7, Segmented Neutrophils 67, Absolute Lymphocytes 0.6 L, Lymphocytes 14 L, Monocytes 16 H, Absolute Monocytes 1.0 H, Eosinophils 3, Absolute Eosinophils 0.1, Absolute Basophils 0, Platelet Estimate ADEQUATE, Polychromasia 1+, Ovalocytes FEW, Stomatocytes FEW, PUBS MCHC 33.9, Fld Total RBCs Counted 100 Microbiology Date/Time Procedure - Status Source Growth 10/24 0300 Respiratory Culture - RES LOWER RESP 10/24 0300 Gram Stain - RES LOWER RESP 10/24 0230 Urine Culture - RECD URINE ROUT 10/23 2214 Blood Culture - RECD BLOOD 10/23 2199 Blood Culture - RECD BLOOD Vital Signs Date Time Temp Pulse Resp B/P Pulse O2 O2 Flow FiO2 Ox Delivery Rate 10/24 0816 35 / 0605 35 / 0600 66 16 106/70 04/06 0400 98.8 70 16 101/70 04/06 0400 98 Ventilator 35% / 0349 98.8 70 16 75/57 04/06 0307 35 04/06 0200 71 71 94/60 04/06 0013 35 04/06 0000 98.1 85 18 100/60 04/06 0000 98.1 85 18 100/60 92 Ventilator 35% 04/06 0000 98.1 85 18 100/60 92 Ventilator 35% / 2259 100.5 04/05 2210 30 04/05 2200 100.5 88 18 110/60 04/05 2009 30 04/05 2000 97.9 80 16 109/68 04/05 1800 77 23 110/60 04/05 1600 96.9 53 16 132/70 04/05 1600 96 Ventilator 30% 04/05 1600 96.9 53 16 132/70 96 Ventilator 30% 04/05 1559 30 04/05 1345 30 04/05 1235 60 130/75 04/05 1200 70 20 138/71 04/05 1200 98 Ventilator 30% 04/05 1111 30 04/05 1000 62 16 149/75 Exam General Appearance: sedated, intubated Respiratory: diffuse rhonchi Cardiovascular: regular rate/rhythm Gastrointestinal: abdomen rigid, no bowel sounds appreciated Current Medications: Current Medications Sig/Nora Start time Last Medication Dose Route Stop Time Status Admin Acetaminophen 1,000 MG ONCE ONE 10/23 2214 SC 10/23 N/A 1 UNIT IV 10/23 2229 2259 Acetaminophen 500 MG Q24 PRN 10/20 0330 AC IV Amlodipine Besylate 10 MG DAILY 10/20 1000 AC 10/23 PO 1235 Ampicillin Sodium/ 3,000 MG Q6 10/20 0600 10/24 Sulbactam Sodium IV 0636 Sodium Chloride 100 ML Ascorbic Acid 2,000 ML 10/24 0745 UNir IV Ceftazidime 2,000 MG ONCE ONE 10/24 0715 SC 10/24 Dextrose/Water 50 ML IV 10/24 0744 0848 Diphenhydramine HCl 25 MG Q6P PRN / 1054 AC 10/22 IV 1327 Fentanyl Citrate 1,000 MCG Q10H 10/24 0945 AC Dextrose/Water 250 ML IV Fentanyl Citrate 1,000 MCG Q12H / 1100 AC 10/23 Dextrose/Water 250 ML IV 10/24 0944 2257 Heparin Sodium 5,000 UNIT Q8 10/20 0600 10/24 (Porcine) SC 0636 Lorazepam 100 MG Q12H / 2100 AC Dextrose/Water 1,000 ML IV Lorazepam 100 MG Q6H / 1530 AC 04 Dextrose/Water 1,000 ML IV 10/24 2059 2129 Magnesium Sulfate 1 GM Q2H 10/24 0815 AC Dextrose/Water 100 ML IV 10/24 1214 Magnesium Sulfate 1 GM Q2H 10/23 1545 SC 10/23 Dextrose/Water 100 ML IV 10/23 1941999 Morphine Sulfate 2 MG Q4P PRN 10/20 0330 AC IV Norepinephrine 4 MG Q13H 10/24 0915 AC Sodium Chloride 250 ML IV Norepinephrine 4 MG Q24H 10/24 0330 DC 10/24 Sodium Chloride 250 ML IV 0349 Pantoprazole Sodium 40 MG DAILY 10/20 1345 AC / IV 0951 Polyethylene Glycol 17 GM DAILY 10/23 1000 AC 10/23 PO 1233 Propofol 1,000 MG Q12H 10/22 1530 DC 10/23 N/A 100 ML IV 1028 Sodium Chloride 1,000 ML BOLUS ONE 10/24 0245 DC 04/ IV 10/24 0344 0240 Sodium Chloride 250 ML BOLUS ONE 10/24 0230 DC 10/24 IV 10/24 0329 0220 Sodium Chloride 1,000 ML Q13H 10/23 1100 AC 10/23 IV 1111 Vancomycin HCl 1,000 MG ONCE ONE 10/24 0715 DC Sodium Chloride 250 ML IV 10/24 0814 Impression/Plan Impression/Problem List Impression: 56-year-old male with PMH of alcoholism, hypertension, peripheral neuropathy, anxiety, recent osteomyelitis of left foot after a dog bite in March 2016, who is brought in by EMS after he was found unresponsive and seizing at home, drinks 1 pint vodka a day, last alcohol drink 48 hours prior to admission. Patient was having seizure in ER, followed by aggressive and combative behavior. Patient received 10 mg haloperidol, 6 mg Ativan. It was followed by another 2 mg of IV Ativan and 2 mg of IV midazolam for CT scan as patient was still combative. He was admitted to the ICU on ativan drip for close monitoring. Tongue was noted to be edematous with laceration most likely due to tongue biting during his seizure episode. ENT called and pt was subsequently intubated due to high risk of respiratory failure and challenging intubation if his swelling were to progress. Pt successfully intubated in the OR on 10/20/16 with consent obtained from his fianceNancy. Post intubation, he was sedated with propofol, subsequently changed to ativan drip, however fentanyl had to be added due to inadequate sedation on ativan alone. On day #4, ENT re-evauated his tongue swelling and cleared him for extubation from their standpoint. Neurology also saw the patient and did not recommend EEG or putting the patient on antiepileptic as his seizure episodes were most likely due to alcohol withdrawal. He was recently bitten by his dog a couple days prior to admission, and was put on unasyn since admission. He was given vancomycin on day # 1 and 2 to cover for possible MRSA. On day #5 of admission, pt developed fever and hypotension, requiring placement of central line and pressor support with levophed. Problem list: # Septic shock # Alcohol withdrawal seizure # Tongue laceration secondary to seizure # Hypertensive urgency # Right hand cellulitis due to dog bite # Hypokalemia # Hypophosphatemia # Hypomagnesiumia Left IJ day #1 Uriarte day #5 Intubated day #5 UE restrain day #5 OG tube day #3 Respiratory # Tongue laceration secondary to seizure, causing severe tongue swelling - Intubated on 10/20/2016 in the OR * ENT on board, will follow * IV ppi started * Benadryl PRN * GNR in sputum ID # Hypotension and febrile on day # 5 of admission - LRC from 10/20/16 (day#1 of intubation) grew stenotrophomonas maltophilia, other cx from 10/20/16 NGTD - Given 1time vanco and ceftaz 10/24/16 * Central line placed, levophed started, wean levo as tolerated * Follow CT chest/abd/pelvis * Watch for NIDHI closely * Follow up cx * Abx as per ID: Recc Levaquin 500 mg (via the OG tube) every 24 hours on 10/24, but he seems to be having ileus, therefore we decided to give him cipro 400 q12 IV * f/u echo # Right hand cellulitis due to dog bite - Right hand laceration wound with secondary cellulitis, patient admits a dog bite happened couple of days back, but patient was altered and unreliable historian. The wounds look dirty. 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 - hand xray normal - CT right upper extremity 10/24/16: extensive subcutaneous tissue edema of the right hand, wrist, forearm and examined arm; findings suggest presence of cellulitis. * He was given 1X vancomycin 10/20/16 and 10/21/16 pending cx. Unasyn given for 4 days, subsequently changed to levaquin on day #5. * Plastic surgery consulted - recc moist dressing * F/U cultures * Wound irrigation and wound care consult Cardiovascular # Hypotension, most likely due to sepsis * As above # Hypertensive urgency on admission , hx of htn * Continue home amlodipine (hold if bp low) Heme # Thrombocytopenia (resolved) - Platelet 119-155 Metabolic # Hypokalemia # Hypophosphatemia # Hypomagnesiumia * Monitor electrolytes, replete as needed Alimentary * NPO, tube feeds Neuro # Alcohol withdrawal seizure - CT of the head negative for acute intracranial pathology. - Work up in the ED showed slightly elevated WBC of 10.7 with left shift ( granulocyte 87%), MCV of 106, anion gap of 24, bicarbonate 20, total bilirubin 1.4, elevated AST 138 (>2 times AST), elevated alkaline phosphatase (152), urine analysis is positive for proteins and ketones, urine toxicology WNL, low serum alcohol level (last drink reportedly 48 hours prior to presentation) * Sedated with ativan and fentanyl * Neurology consulted * Given banana bag and thiamine * Replete electrolytes as needed * Aspiration precaution Diet: NPO (intubated). tube feed as per nutrition IVF: 75ml/hr NS DVT ppx: alps , heparin FULL CODE Problem List: 1. Alcohol withdrawal seizure 2. Dog bite Pain Ratin Tomorrow's Labs & Rationales: icu and cbc critically ill Plan DVT/Prophylaxis: mechanical, pharmacological
--- NOTE | 2016-10-24 08:00 | Procedure ---
Minor Surgical Procedure Note Date of Procedure: 10/24/16 Procedure Note: Surgery , Lei Best MD , was consulted for placement of a central line in this patient. Resident in the ICU attempted twice at the right IJ and then abandoned the procedure after hematoma was noted. Patient is having alcohol withdrawal seizures and hypotension and he was currently started on Levaquin peripherally. Patient is medically stable at this time. Timeout was performed, unable to obtain consent from patient due to him being intubated Sedated from Medication, This Is a Emergent/Urgent Procedure Ultrasound guidance was used, transverse linear probe, direct visualization after sterile prep of the left side of the neck with chlorhexidine and administration of 5 mL of 1% plain lidocaine without epinephrine. The angiocatheter was inserted into the right IJ under direct ultrasound visualization. One attempt was made and was successful. The remainder of the procedure well without complications and a triple-lumen catheter was placed into the left IJ without difficulty, all lines had dark venous blood return and flushed with saline without difficulty and functioning well. Biopatch and sutures placed to secure the line. Tegaderm placed. A postprocedural chest x- ray was performed, read by myself, radiology read is pending, placement of the left IJ catheter in satisfactory position by the right atria. No pneumothorax. Lungs were clear after examination as well.. Discussed with Dr. Best. Please call us with any further concerns.
--- NOTE | 2016-10-24 08:27 | PN- CRCU ---
Subjective HPI/Critical Care Issues: Overnight events noted. The patient had a low-grade temperature around 10 PM. The patient was otherwise stable until approximately to 2 AM when he dropped his blood pressure to 86/60. The patient received a normal saline bolus of 250 ML without improvement. He received an additional liter of fluid however his blood pressure remained in the 80s. His sedation was turned down to see if this impacted his blood pressure. Because the patient's blood pressure did not improve, Levophed was started around 3:40 AM with improvement. The patient is currently on 7 g of Levophed with a blood pressure in the low 100s. 80%, and his oxygen requirement was increased from 30-35%. His saturations are currently 99%. A right IJ was attempted without success, and a hematoma at that site is noted. A left IJ was placed by surgery for access. Chest x-ray showed no significant change. The patient's urine output was adequate yesterday during the daytime, however it slightly decreased overnight but has picked back up with IV fluids. Tube feeds are on hold. The patient is arousable, and moving all extremities independently. The patient's sputum from 10/20 is positive for stenotrophomonas. All other cultures are negative to date. The patient was given one dose of empiric vancomycin and Ceftaz. He remains on IV Unasyn. Objective Current Medications: Current Medications Sig/Nora Start time Last Medication Dose Route Stop Time Status Admin Acetaminophen 1,000 MG ONCE ONE 10/23 2215 DC 10/23 N/A 1 UNIT IV 10/23 2229 2259 Acetaminophen 500 MG Q24 PRN 10/20 0330 AC IV Amlodipine Besylate 10 MG DAILY 10/20 1000 AC 10/23 PO 1235 Ampicillin Sodium/ 3,000 MG Q6 10/20 0600 AC 10/24 Sulbactam Sodium IV 0636 Sodium Chloride 100 ML Ascorbic Acid 2,000 ML 10/24 0745 UNir IV Ceftazidime 2,000 MG ONCE ONE 10/24 0715 DC Dextrose/Water 50 ML IV 10/24 0744 Diphenhydramine HCl 25 MG Q6P PRN 10/22 1054 AC 10/22 IV 1327 Fentanyl Citrate 1,000 MCG Q12H 10/23 1100 AC 10/23 Dextrose/Water 250 ML IV 2257 Heparin Sodium 5,000 UNIT Q8 10/20 0600 AC 10/24 (Porcine) SC 0636 Lorazepam 100 MG Q6H 10/22 1530 AC 10/23 Dextrose/Water 1,000 ML IV 2129 Magnesium Sulfate 1 GM Q2H 10/23 1545 DC 10/23 Dextrose/Water 100 ML IV 10/23 1941999 Morphine Sulfate 2 MG Q4P PRN 10/20 0330 AC IV Norepinephrine 4 MG Q24H 10/24 0330 AC 10/24 Sodium Chloride 250 ML IV 0349 Pantoprazole Sodium 40 MG DAILY 10/20 1345 AC 04 IV 0951 Polyethylene Glycol 17 GM DAILY 10/23 1000 AC 04/ PO 1233 Potassium Chloride 40 MEQ Q8H 10/21 0800 DC 10/23 Dextrose/Sodium 1,000 ML IV 0000 Chloride Propofol 1,000 MG Q12H 10/22 1530 DC 10/23 N/A 100 ML IV 1028 Sodium Chloride 1,000 ML BOLUS ONE 10/24 0245 DC 04/ IV / 0344 0240 Sodium Chloride 250 ML BOLUS ONE 10/24 0230 DC 10/24 IV 10/24 0329 0220 Sodium Chloride 1,000 ML Q13H 10/23 1100 AC 04/ IV 1111 Vancomycin HCl 1,000 MG ONCE ONE 10/24 0715 AC Sodium Chloride 250 ML IV 10/24 0814 Vital Signs & I&O Last 24 Hrs of Vitals and I&O: Vital Signs Date Time Temp Pulse Resp B/P Pulse O2 O2 Flow FiO2 Ox Delivery Rate 04/ 0605 35 04/06 0400 98.8 70 16 101/70 04/06 0349 98.8 70 16 75/57 04/06 0307 35 04/06 0200 71 71 94/60 04/06 0013 35 04/06 0000 98.1 85 18 100/60 04/06 0000 98.1 85 18 100/60 92 Ventilator 35% 04/05 2259 100.5 04/05 2210 30 04/05 2200 100.5 88 18 110/60 04/05 2009 30 04/05 2000 97.9 80 16 109/68 04/05 1800 77 23 110/60 04/05 1600 96.9 53 16 132/70 04/05 1600 96 Ventilator 30% 04/05 1600 96.9 53 16 132/70 96 Ventilator 30% 04/05 1559 30 04/05 1345 30 04/05 1235 60 130/75 04/05 1200 70 20 138/71 04/ 1200 98 Ventilator 30% 04/ 1111 30 10/23 1000 62 16 149/75 04/05 0846 30 04/ 0800 97.1 54 16 142/80 04/05 0800 97.1 54 16 142/80 98 Ventilator 30% 10/23 0800 99 Ventilator 30% Intake & Output 10/24 0800 04 0000 10/23 1600 Intake Total 3001 2390 Output Total 645 Balance 2356 2390 Intake, IV 2239 1750 Intake, Other 300 Intake, Tube 370 Feeding Intake, Tube 462 270 Irrigant Output, Urine 645 Physical Exam General Appearance intubated, sedated Skin warm and dry HEENT PERRLA Neck Supple, No JVD Cardiovascular Regular Rate, Normal S1, Normal S2, No Murmurs Lungs bilateral scattered ronchi Abdomen soft, nontender, non distended Extremities lacerations on the palmar and dorsal aspects of the right hand, no lower extremity edema Results Last 24 Hrs of Lab Results: Laboratory Tests 10/24/16 0600: Anion Gap 9, Estimated GFR > 60, Glucose 108 H, Calcium 7.8 L, Phosphorus 4.0, Magnesium 1.7, Total Bilirubin 0.9, AST 45, ALT 48, Albumin 2.7 L, CBC w Diff NO MAN DIFF REQ, RBC 3.46 L, MCV 107.5 H, MCH 35.3 H, RDW 16.1 H, MPV 9.4, Gran % 70.2, Lymphocytes % 10.1 L, Monocytes % 17.6 H, Eosinophils % 1.6, Basophils % 0.5, Absolute Granulocytes 7.3 H, Absolute Lymphocytes 1.0 L, Absolute Monocytes 1.8 H, Absolute Eosinophils 0.2, Absolute Basophils 0, PUBS MCHC 32.8 L 10/24/16 0240: pH 7.35, pCO2 28 L, pO2 93, HCO3 15 L, ABG O2 Sat (Measured) 97.0, P-50 (Temp Corrected) Y, O2 Concentration % 35%, Temperature 98.1, Respiration Rate 16, O2 Delivery Method ESPRIT, Vent Mode AC, Expiratory Pressure 5, Tidal Volume 550, Phlebotomy Draw Site LEFT RADIAL 10/23/162349: Lactic Acid 1.2 10/23/162349: Anion Gap 8, Estimated GFR > 60, Glucose 100 H, Calcium 8.2 L, Phosphorus 3.2, Magnesium 1.8, Total Bilirubin 0.7, AST 59, ALT 50, Troponin I < 0.01, Albumin 3.0 L, CBC w Diff MAN DIFF ORDERED, RBC 3.50 L, MCV 105.7 H, MCH 35.8 H, RDW 15.6 H, MPV 9.2, Gran % 72.6, Lymphocytes % 9.7 L, Monocytes % 15.3 H, Eosinophils % 2.1, Basophils % 0.3, Absolute Granulocytes 4.7, Segmented Neutrophils 67, Absolute Lymphocytes 0.6 L, Lymphocytes 14 L, Monocytes 16 H, Absolute Monocytes 1.0 H, Eosinophils 3, Absolute Eosinophils 0.1, Absolute Basophils 0, Platelet Estimate ADEQUATE, Polychromasia 1+, Ovalocytes FEW, Stomatocytes FEW, PUBS MCHC 33.9, Fld Total RBCs Counted 100 Diagnostic Data CXR Findings: Right IJ catheter tip in the right axillary vein. Catheter should be repositioned. No pneumothorax. Repeat CXR pending. Impression/Plan Impression/Plan Impression/Plan: 1. Alcohol withdrawal seizures - no current evidence of further seizures. 2. Acute hypotension, of unclear etiology. The patient has stenotrophomonas in the sputum but has not had any issue with copious secretions. All other cultures are negative. He had a low-grade fever, however has been treated with IV Unasyn. We will need to further evaluate for any source of infection other than his right hand and positive sputum culture. 3. Tongue laceration and severe swelling with airway compromise secondary to tongue biting. 4. Right hand cellulitis due to dog bite. Plastic surgery input appreciated. 5. Thrombocytopenia secondary to ETOH. 6. Acute hypoxemic respiratory failure secondary to aspiration pneumonia versus pneumonitis. Recommendations: * Aggressive electrolyte repletion to continue. * Attempt to minimize fentanyl and Ativan, keep SAS 3-4. * Continue current ventilator settings. * Check an echocardiogram. * Check a noncontrast CT scan of the chest abdomen and pelvis. * Attempt to wean the Levophed down to off, keep systolic blood pressure > than 90 mmHg. * Continue maintenance fluids at 75 ML per hour. Bolus as necessary for low urine output. * Monitor for seizures. * Continue Norvasc for blood pressure control. * Continue IV Unasyn. Follow up repeat cultures. * Will request an ID consult. * Continue multivitamin, thiamine and folate. * Will restart tube feeds once the patient is hemodynamically stable. * DVT/GI prophylaxis at all times - continue ventilator bundle. * The patient is critically ill and requires ongoing follow up.
--- NOTE | 2016-10-24 08:43 | RADIOLOGY REPORT ---
EXAMINATION: XR PORTABLE CHEST CLINICAL INFORMATION: Central line placement COMPARISON: Film done earlier TECHNIQUE: Portable portable image view of the chest was obtained. FINDINGS: There is a line entering from the left. Terminates in the superior vena cava. There is no pneumothorax. The line on the right is no longer visualized and may have been pulled. Correlation recommended here. The ET tube is 5.7 cm above the karoline. The NG tube is coursing in the stomach. No significant change in the lung haley bibasilar opacities left greater than right. No obvious failure. IMPRESSION: Catheter entering from the left terminates in the superior vena cava. No pneumothorax. Other tubes and catheters are in good position. Persistent bibasilar opacities left greater than right may be mild atelectasis infiltrate or fluid. No failure
--- NOTE | 2016-10-24 08:45 | RADIOLOGY REPORT ---
EXAMINATION: XR PORTABLE ABDOMEN CLINICAL INFORMATION: Evaluate for obstruction COMPARISON: None TECHNIQUE: Single view FINDINGS: No obstruction is seen here. Air in stomach and bowel nondilated IMPRESSION: Unremarkable gas pattern
--- NOTE | 2016-10-24 10:38 | Cons- Infect Disease ---
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 On admission he was afebrile with a white blood cell count of 11,000, BUN/creatinine of 11 and 0.7, bilirubin 1.4, alk phosphatase 152, AST/ALT 138 and 49. Urinalysis 1-3 RBC/3-5 WBCs. Chest x-ray was negative. X-ray of the right hand was negative. CT of the head was negative. He was begun on Unasyn and Ativan and admitted to the ICU. On the morning of October 20 his tongue was found to be edematous with lacerations, and he was taken to the OR for prophylactic intubation. He has remained intubated since then and remained afebrile with a normal white blood cell count on Unasyn until late on October 23 when he developed a low-grade fever to 100.5, dropped his blood pressure to 86/60, and required a slight increase in his FiO2. He was given fluids, Levophed, with a left IJ triple-lumen catheter inserted after unsuccessful attempts at placement of a right IJ, and 1 dose each of Vancomycin and Ceftazidime. He has been sedated and is unable to provide any history. Allergies/Medications Allergies: Coded Allergies: NO KNOWN ALLERGIES (UNKNOWN 10/21/16) Home Med List: Amlodipine Besylate (Norvasc) 10 MG TABLET 1 TAB PO DAILY BLOOD PRESSURE Fluoxetine HCl 20 MG CAPSULE 1 CAP PO DAILY ANXIETY (Reported) Gabapentin 300 MG CAPSULE 2 CAP PO BID PERIPHERAL NEUROPATHY (Reported) Hydrochlorothiazide 25 MG TABLET 1 TAB PO DAILY BLOOD PRESSURE Hydroxyzine Pamoate 25 MG CAPSULE 1 CAP PO TIDPRN ANXIETY (Reported) Lisinopril 40 MG TABLET 1 TAB PO DAILY HIGH BLOOD PRESSURE (Reported) Past History Travel History Traveled to [place] past 21 day No Medical History Neurological: peripheral neuropathy EENT: NONE Cardiovascular: hypertension Respiratory: NONE Gastrointestinal: NONE Hepatic: NONE Renal: NONE Musculoskeletal: osteomyelitis of the left femur treated with 4 weeks of IV antibiotics four years prior to admission Psychiatric: anxiety Endocrine: NONE Blood Disorders: NONE Cancer(s): NONE ENERGY TRADER/Reproductive: NONE History of MRSA: No History of VRE: No History of CDIFF: No Isolation History: Standard Tetanus Vaccine: 03/31/16 Surgical History Surgical History: status post left third toe amputation Family History Relations & Conditions If Any: Relation not specified for: *No pertinent family history Psychosocial History Where Do You Live? Home Services at Home: None Smoking Status: Current Everyday Smoker ETOH Use: heavy use Review of Systems Review of Systems GI: Reports: constipation. Comments Unobtainable Exam & Diagnostic Data Last 24 Hrs of Vital Signs/I&O Vital Signs Date Time Temp Pulse Resp B/P Pulse O2 O2 Flow FiO2 Ox Delivery Rate 10/24 0936 71 114/66 04/06 0816 35 04/06 0605 35 04/06 0600 66 16 106/70 04/06 0400 98.8 70 16 101/70 04/06 0400 98 Ventilator 35% 04/06 0349 98.8 70 16 75/57 04/06 0307 35 04/06 0200 71 71 94/60 04/06 0013 35 04/06 0000 98.1 85 18 100/60 04/06 0000 98.1 85 18 100/60 92 Ventilator 35% 04/06 0000 98.1 85 18 100/60 92 Ventilator 35% 04/05 2259 100.5 04/05 2210 30 04/05 2200 100.5 88 18 110/60 04/05 2009 30 04/05 2000 97.9 80 16 109/68 04/05 1800 77 23 110/60 04/05 1600 96.9 53 16 132/70 04/05 1600 96 Ventilator 30% 04/05 1600 96.9 53 16 132/70 96 Ventilator 30% 04/05 1559 30 04/05 1345 30 04/05 1235 60 130/75 04/05 1200 70 20 138/71 04/05 1200 98 Ventilator 30% 04/05 1111 30 Intake & Output 04/06 1600 04/06 0800 04/06 0000 Intake Total 3101 3001 Output Total 402 645 Balance 2699 2356 Intake, IV 3101 2239 Intake, Other 300 Intake, Tube 462 Irrigant Output, Urine 402 645 Physical Exam Other Physical Findings: He is sedated, mildly arousable, on the ventilator and appearing in no acute distress. MAXIMUM TEMPERATURE 100.5. Skin reveals no rash. HEENT exam is negative. Neck is supple with no adenopathy; left IJ triple-lumen catheter in place; right neck hematoma at the site of the recent attempt at right IJ placement. Lungs scattered rhonchi. Heart regular rhythm with no murmur. Abdomen is distended, with no obvious tenderness, positive bowel sounds. Back no CVA tenderness. Extremities right hand and forearm swelling, with several lacerations noted on the hand, with no erythema or drainage and no obvious tenderness; wrist with full range of motion. Neuro is without focality. Uriarte catheter is in place. Last 24 Hours of Lab Results: Laboratory Tests 10/24 10/24 04/ 0600 0240 2350 Blood Gas pH (7.35 - 7.45 PH) 7.35 pCO2 (35 - 45 TORR) 28 L pO2 (80 - 100 TORR) 93 HCO3 (21 - 28 MEQ/L) 15 L ABG O2 Sat (Measured) (>96.0 %) 97.0 P-50 (Temp Corrected) Y O2 Concentration % 35% Temperature (97.0 - 100.0 FARH) 98.1 Respiration Rate (BPM) 16 O2 Delivery Method ESPRIT Vent Mode AC Expiratory Pressure (CMH2O/P) 5 Tidal Volume (CC) 550 Chemistry Sodium (137 - 145 mmol/L) 133 L Potassium (3.5 - 5.1 mmol/L) 4.2 Chloride (98 - 107 mmol/L) 105 Carbon Dioxide (22 - 30 mmol/L) 20 L Anion Gap (5 - 16) 9 BUN (9 - 20 mg/dL) 6 L Creatinine (0.7 - 1.2 mg/dL) 1.0 Estimated GFR (>60 ml/min) > 60 Glucose (65 - 99 mg/dL) 108 H Lactic Acid (0.7 - 2.1 mmol/L) 1.2 Calcium (8.4 - 10.2 mg/dL) 7.8 L Phosphorus (2.5 - 4.5 mg/dL) 4.0 Magnesium (1.6 - 2.3 mg/dL) 1.7 Total Bilirubin (0.2 - 1.3 mg/dL) 0.9 AST (17 - 59 U/L) 45 ALT (21 - 72 U/L) 48 Albumin (3.5 - 5.0 g/dL) 2.7 L Hematology CBC w Diff NO MAN DIFF REQ WBC (4.8 - 10.8 /CUMM) 10.3 RBC (4.70 - 6.10 /CUMM) 3.46 L Hgb (14.0 - 18.0 G/DL) 12.2 L Hct (42 - 52 %) 37.2 L MCV (80.0 - 94.0 FL) 107.5 H MCH (27.0 - 31.0 PG) 35.3 H RDW (11.5 - 14.5 %) 16.1 H Plt Count (130 - 400 /CUMM) 155 MPV (7.4 - 10.4 FL) 9.4 Gran % (42.2 - 75.2 %) 70.2 Lymphocytes % (20.5 - 51.1 %) 10.1 L Monocytes % (1.7 - 9.3 %) 17.6 H Eosinophils % (0 - 5 %) 1.6 Basophils % (0.0 - 2.0 %) 0.5 Absolute Granulocytes (1.4 - 6.5 /CUMM) 7.3 H Absolute Lymphocytes (1.2 - 3.4 /CUMM) 1.0 L Absolute Monocytes (0.10 - 0.60 /CUMM) 1.8 H Absolute Eosinophils (0.0 - 0.7 /CUMM) 0.2 Absolute Basophils (0.0 - 0.2 /CUMM) 0 PUBS MCHC (33.0 - 37.0 G/DL) 32.8 L Miscellaneous Phlebotomy Draw Site LEFT RADIAL 10/23 2350 Chemistry Sodium (137 - 145 mmol/L) 133 L Potassium (3.5 - 5.1 mmol/L) 4.0 Chloride (98 - 107 mmol/L) 103 Carbon Dioxide (22 - 30 mmol/L) 22 Anion Gap (5 - 16) 8 BUN (9 - 20 mg/dL) 4 L Creatinine (0.7 - 1.2 mg/dL) 0.8 Estimated GFR (>60 ml/min) > 60 Glucose (65 - 99 mg/dL) 100 H Calcium (8.4 - 10.2 mg/dL) 8.2 L Phosphorus (2.5 - 4.5 mg/dL) 3.2 Magnesium (1.6 - 2.3 mg/dL) 1.8 Total Bilirubin (0.2 - 1.3 mg/dL) 0.7 AST (17 - 59 U/L) 59 ALT (21 - 72 U/L) 50 Troponin I (<0.11 ng/ml) < 0.01 Albumin (3.5 - 5.0 g/dL) 3.0 L Hematology CBC w Diff MAN DIFF ORDERED WBC (4.8 - 10.8 /CUMM) 6.4 RBC (4.70 - 6.10 /CUMM) 3.50 L Hgb (14.0 - 18.0 G/DL) 12.6 L Hct (42 - 52 %) 37.0 L MCV (80.0 - 94.0 FL) 105.7 H MCH (27.0 - 31.0 PG) 35.8 H RDW (11.5 - 14.5 %) 15.6 H Plt Count (130 - 400 /CUMM) 137 MPV (7.4 - 10.4 FL) 9.2 Gran % (42.2 - 75.2 %) 72.6 Lymphocytes % (20.5 - 51.1 %) 9.7 L Monocytes % (1.7 - 9.3 %) 15.3 H Eosinophils % (0 - 5 %) 2.1 Basophils % (0.0 - 2.0 %) 0.3 Absolute Granulocytes (1.4 - 6.5 /CUMM) 4.7 Segmented Neutrophils (42.2 - 75.2 %) 67 Absolute Lymphocytes (1.2 - 3.4 /CUMM) 0.6 L Lymphocytes (20.5 - 51.1 %) 14 L Monocytes (1.7 - 9.3 %) 16 H Absolute Monocytes (0.10 - 0.60 /CUMM) 1.0 H Eosinophils (0 - 5.0 %) 3 Absolute Eosinophils (0.0 - 0.7 /CUMM) 0.1 Absolute Basophils (0.0 - 0.2 /CUMM) 0 Platelet Estimate (ADEQUATE) ADEQUATE Polychromasia 1+ Ovalocytes FEW Stomatocytes FEW PUBS MCHC (33.0 - 37.0 G/DL) 33.9 Other Body Source Fld Total RBCs Counted (%) 100 Last 24 Hours of Edi Results: Blood cultures October 20 negative Blood cultures October 23 negative Sputum culture October 20 positive for Stenotrophomonas maltophilia sensitive to Bactrim and Levaquin Sputum culture October 24 pending, with gram stain revealing few white blood cells and few gram-negative rods Urine culture October 24 pending Diagnostic Data Recent Imaging Findings: Chest x-ray October 24, personally reviewed, reveals bibasilar densities Abdominal x-ray October 24 unremarkable gas pattern X-ray of the right hand October [address] of the head October 20 negative Assessment/Plan Assessment/Plan Impression: This is a 56-year-old man with a history of alcohol abuse admitted on October 20 after he was found unresponsive at home, with seizures, most likely secondary to alcohol withdrawal, and with evidence of a dog bite on his right hand, treated with Unasyn for cellulitis, requiring intubation for tongue laceration and edema , now with the development of a low-grade fever, hypotension, requiring pressors , and a slight increase in his oxygen requirements. His recent deterioration is concerning for sepsis, with possible sources including the right hand/forearm, perhaps secondary to a deeper infection related to the recent dog bite, the lungs, with bibasilar densities on chest x-ray, increasing oxygen requirements and isolation of isolation of Stenotrophomonas from the sputum culture, though this may represent colonization, the urinary tract, with a Uriarte catheter in place since admission, or an intra-abdominal process, with abdominal distention, constipation and fluctuating liver enzymes, though suspect these were secondary to alcohol. Suggestion: 1. Would image the right hand and forearm, perhaps with a CT scan, as he is already scheduled for a CT of the chest, abdomen and pelvis 2. Follow-up recent cultures 3. Discontinue Unasyn 4. Begin Levaquin 500 mg (via the OG tube) every 24 hours Consult Acknowledgment - Thank you for your consult request.
--- NOTE | 2016-10-24 12:35 | CT SCAN REPORT ---
EXAMINATION: CT UPPER EXTREMITY WITHOUT CONTRAST, RIGHT CLINICAL INFORMATION: 56-year-old male with history of dog bite of right hand. Septic shock despite being on antibiotic treatment. Increased swelling. COMPARISON: Radiographs of the hand from 10/20/2016. TECHNIQUE: Noncontrast multidetector CT imaging exam of the right upper extremity was performed with patient's arm position along the site of the body. Axial images are presented at 0.625 mm and 2.5 mm slice thickness. Coronal and sagittal reformatted images were generated and reviewed. DLP: 1538 mGy-cm FINDINGS: Findings of the chest, abdomen and pelvis are dictated separately. There is extensive subcutaneous tissue edema of the hand, wrist, forearm and examined upper arm. No focal, organized subcutaneous fluid collections are identified on these noncontrast images. Also, there is no evidence of an intramuscular or deep, intermuscular fluid collection. Intravenous line is seen in the antecubital fossa. No unexpected radiopaque foreign body or suspicious subcutaneous emphysema. The radius, ulna, carpal bones, metacarpals and phalanges are intact. Bones have normal alignment. No acute fracture, osseous erosion or periostitis. No evidence of wrist or elbow joint effusion. Also, there is no gross evidence of fluid distention of the tenosynovial sheaths in the hand or wrist. IMPRESSION: 1. There is extensive subcutaneous tissue edema of the right hand, wrist, forearm and examined arm; findings suggest presence of cellulitis. 2. No evidence of focal fluid collection/abscess. 3. No acute osseous injury in the examined extremity.
--- NOTE | 2016-10-24 12:56 | CT SCAN REPORT ---
EXAMINATION: CT CHEST WITHOUT CONTRAST CT ABDOMEN AND PELVIS WITHOUT CONTRAST CLINICAL INFORMATION: Presumptive Dx: ventilator associated pneumonia. Signs and symptoms: septic shock 4 days after intubation. On Unasyn IV. COMPARISON: Chest radiograph from the same date. TECHNIQUE: Multidetector volumetric imaging was performed from the thoracic inlet through the pubic symphysis without intravenous contrast material. Sagittal and coronal images were reformatted. DOSE: 1508.5 mGy-cm FINDINGS: -CHEST- LUNG: Dependent atelectasis is present within both lungs, primarily at the lower lobes with areas of segmental collapse of the medial and posterior basilar segments, right more than left. No separate consolidation identified. Secretions are present within the right mainstem bronchus dependently. Endotracheal tube terminates 6 cm from the karoline. Minimal interlobular septal thickening is present at the lung apices and lung bases. MEDIASTINUM: Left IJ central venous catheter terminates in the SVC superiorly. Gastric decompression tube terminates in the stomach. Side-port is present the diaphragmatic hiatus. Heart is normal in size. There is a small pericardial effusion. Pulmonary outflow tract is dilated to 4.7 cm. Calcific atherosclerosis is present in the thoracic aorta. Multiple mediastinal lymph nodes are identified. No adenopathy. PERICARDIUM/PLEURA: Small pericardial effusion and small bilateral pleural effusions. CHEST WALL/AXILLA: No adenopathy. Subcutaneous gas anterior to the right clavicle is likely related to attempts at right-sided central venous catheter placement. There is thickening of the right sternocleidomastoid muscle which may be due to edema or hematoma. -ABDOMEN/PELVIS- LIVER, GALLBLADDER, BILIARY TREE: The liver is normal in size, shape, and attenuation. Evaluation of the liver is somewhat limited by artifact from the adjacent right upper extremity as well as absence of intravenous contrast material. No focal hepatic lesion or biliary ductal dilatation is present. Gallbladder is hydropic, measuring 5.6 cm transversely. PANCREAS: Unremarkable. SPLEEN: Unremarkable. ADRENAL GLANDS: Unremarkable. KIDNEYS AND URETERS: The kidneys are normal in size, shape, and attenuation. No hydronephrosis, hydroureter, or calculi seen. No perinephric stranding. BLADDER: Uriarte catheter terminates in the decompressed bladder. Bladder wall thickening is likely related to the presence of the catheter. GASTROINTESTINAL TRACT: Gastric decompression tube terminates within the stomach. The stomach, small bowel, and colon are normal in caliber. Diverticulosis is present in the descending and sigmoid colon without evidence of acute diverticulitis. Appendix is not discretely identified, though no findings of acute appendicitis are appreciated in the right lower quadrant. Significant focal retroperitoneal fat stranding and a small amount of ill-defined fluid are present just inferior to the third portion of the duodenum, anterior to the IVC and aorta. There is fat stranding extends inferiorly within the anterior pararenal fascial plane. Small amount of retroperitoneal fluid is also present within the left lateroconal fascia. No intraperitoneal free air or free fluid. ABDOMINAL WALL: No significant hernia is appreciated. VASCULATURE: Calcific atherosclerosis is present in the abdominal aorta and iliac arteries. No aneurysmal dilatation. LYMPH NODES: No lymphadenopathy. . PELVIC VISCERA: The prostate and seminal vesicles are unremarkable. OSSEUS STRUCTURES: Mild multilevel degenerative disc disease is present in the thoracolumbar spine. No acute osseous abnormalities. Degenerative ankylosis is present at the right SI joint. IMPRESSION: Chest: 1. Dependent segmental atelectasis in the lower lobes with small adjacent bilateral dependent pleural effusions. No significant consolidation. 2. Small pericardial effusion 3. Dilated pulmonary outflow tract, suggesting increased pulmonary arterial pressures Abdomen pelvis: 1. Retroperitoneal fat stranding and a small amount of fluid, most notably around the inferior margin of the third segment of the duodenum. Possible explanations include peptic ulcer disease, duodenitis, or pancreatitis. 2. Anasarca. 3. Limited evaluation of the liver due to artifact from the adjacent right upper extremity and the absence of intravenous contrast material. 4. Hydropic gallbladder.
--- NOTE | 2016-10-24 15:00 | NUR ---
SHIFT NOTE [id number]: RECEIVED PT IN BED. D/A SAS 3 ON FENTANYL GTT @ 100MCG/HR, ATIVAN GTT @ 8MG/HR. SINUS YUE ON MONITOR, B/P 116/78 MANUALLY, PT ON LEVOPHED GTT @ 7MCG/KG/HR. TITRATED PER PROTOCOL SEE FLOW SHEET. CVP 18-18. #8 ETT TO THE LEFT AT 23CM, SETTINGS AC-16 550/35% PEEP 5, LUNGS CLEAR, NO SECRETIONS. ABDOMEN D/F HYPOACTIVE BOWEL SOUNDS. OGT AT 55CM, RESIDUAL 440ML AT 0830 AND 120ML AT 1245. NOTHING INSTILLED INTO OGT. TUBE FEEDS HAVE BEEN ON HOLD SINCE 4-5. OJEDA IN PLACE DRAINING LIGHT JOSE MARIA COLORED URINE. RIGHT HAND DOG BITE, NEW DRESSINGS PLACE, BACITRACIN, GAUZE AND PAPER TAPE. RIGHT FOREARM BLISTER, IV SITE, IV REMOVED AND DRESSING PLACED, LEFT FOREARM BLISTERS, OLD IV SITES, DRESSING PLACE. RUE EDEMA +3 RIGHT HAND EDEMA +4, LUE EDEMA +1. + PULSES, BOTTOM RED BUT BLANCHABLE, TURNED AND REPOSITIONED. NS @ 75ML/HR. PT RECEIVED IV VANCO, CIPRO AND FORTAZ TODAY. PT HAD ECHO, WENT FOR CT SCAN OF CHEST/ABD/PELVIS AND RIGHT HAND. RECEIVED 2G IV MAG FOR MG OF 1.7, LIJ TLC PLACED THIS MORNING, +BLOOD RETURN, BIOPATCH IN PLACE, SUTURED, DRESSING REINFORCED. WRIST RESTRAINTS REMAIN IN PLACE. TONGUE WNL, NO SWELLING NOTED AT THIS TIME. AFEBRILE DURING THE DAY, WILL MONITOR.
--- NOTE | 2016-10-24 15:34 | Cons- Gastroenterology ---
General Information and HPI Consulting Request Date of Consult: 10/24/16 Requested By: TAWNY ALVAREZ MD Reason for Consult: Abnormal ct scan showing a distended GB. Source of Information: old records Exam Limitations: unable to give history, physical impairment, pt intubated and sedated History of Present Illness: Mr. Amin is a 56-year-old male with a history of alcohol abuse who was admitted on 10/20/2016 after he was found unresponsive with seizure activity. He was admitted to the ICU with alcohol withdrawal seizures and shortly after being admitted he underwent an intubation in the OR for airway protection secondary to a lacerated/swollen tongue. He has been on antibiotics for empiric treatment of an aspiration pneumonia and he has been receiving benzodiazepines for withdrawal activity. This morning he became hypotensive requiring pressors. He was ray cultures and imaged which revealed a hydropic gallbladder which prompted GI consultation. He is currently intubated, but is responsive to verbal stimuli and he is denying any abdominal pain. He has not had any reports of angelica colored stool or dark urine. There have also not been any reports of diarrhea, rectal bleeding or melena. Allergies/Medications Allergies: Coded Allergies: NO KNOWN ALLERGIES (UNKNOWN 10/21/16) Home Med List: Amlodipine Besylate (Norvasc) 10 MG TABLET 1 TAB PO DAILY BLOOD PRESSURE Chlordiazepoxide HCl 5 MG CAPSULE 5 MG PO ONCE ALCOHOL WITHDRAWAL TAKE ONE TABLET FOR ONE DAY TO COMPLETE YOUR TAPER Fluoxetine HCl 40 MG CAPSULE 1 CAP PO QAM ANXIETY (Reported) Folic Acid 1 MG TABLET 1 MG PO DAILY Gabapentin 300 MG CAPSULE 2 CAP PO BID PERIPHERAL NEUROPATHY (Reported) Hydrochlorothiazide 25 MG TABLET 1 TAB PO DAILY BLOOD PRESSURE Hydroxyzine Pamoate 25 MG CAPSULE 1 CAP PO TIDPRN ANXIETY (Reported) Lisinopril 40 MG TABLET 1 TAB PO DAILY HIGH BLOOD PRESSURE (Reported) Thiamine HCl (Vitamin B-1) 100 MG TABLET 100 MG PO DAILY supplement Current Medications: Current Medications Sig/Nora Start time Last Medication Dose Route Stop Time Status Admin Acetaminophen 1,000 MG ONCE ONE 10/23 2214 DC 10/23 N/A 1 UNIT IV 10/23 2228 2259 Acetaminophen 500 MG Q24 PRN 10/20 0330 AC IV Amlodipine Besylate 10 MG DAILY 10/20 1000 AC 10/23 PO 1235 Ampicillin Sodium/ 3,000 MG Q6 10/20 0600 DC 10/24 Sulbactam Sodium IV 0636 Sodium Chloride 100 ML Ascorbic Acid 2,000 ML 10/24 0745 CAN IV Bisacodyl 10 MG ONCE ONE 10/24 1445 DC SC 10/24 1446 Ceftazidime 2,000 MG ONCE ONE 10/24 0715 DC 10/24 Dextrose/Water 50 ML IV 10/24 0744 0848 Ciprofloxacin 400 MG Q12H 10/24 1400 AC 10/24 Dextrose/Water 200 ML IV 1424 Diphenhydramine HCl 25 MG Q6P PRN 10/22 1054 AC 10/22 IV 1327 Fentanyl Citrate 1,000 MCG Q10H 10/24 0945 AC 10/24 Dextrose/Water 250 ML IV 0947 Fentanyl Citrate 1,000 MCG Q12H 10/23 1100 DC 10/23 Dextrose/Water 250 ML IV 10/24 0944 2257 Heparin Sodium 5,000 UNIT Q8 10/20 0600 AC 10/24 (Porcine) SC 1427 Levofloxacin 500 MG DAILY 10/24 1200 DC PO Lorazepam 100 MG Q12H 10/24 2100 AC Dextrose/Water 1,000 ML IV Lorazepam 100 MG Q6H 10/22 1530 AC 10/24 Dextrose/Water 1,000 ML IV 10/24 2059 0820 Magnesium Sulfate 1 GM Q2H 10/24 0815 DC 10/24 Dextrose/Water 100 ML IV 10/24 1214 1120 Magnesium Sulfate 1 GM Q2H / 1545 DC 10/23 Dextrose/Water 100 ML IV 10/23 1944 2000 Morphine Sulfate 2 MG Q4P PRN 10/20 0330 AC IV Norepinephrine 4 MG Q13H 10/24 0915 AC 10/24 Sodium Chloride 250 ML IV 0936 Norepinephrine 4 MG Q24H / 0330 DC 04 Sodium Chloride 250 ML IV 0349 Norepinephrine 4 MG .STK-MED ONE 10/24 0330 DC IV 10/24 0331 Pantoprazole Sodium 40 MG DAILY 10/20 1345 AC 04 IV 0956 Polyethylene Glycol 17 GM DAILY 04/ 1000 AC 04/ PO 1233 Propofol 1,000 MG Q12H 10/22 1530 DC 10/23 N/A 100 ML IV 1028 Sodium Chloride 1,000 ML BOLUS ONE 10/24 0245 DC 10/24 IV 10/24 0344 0240 Sodium Chloride 250 ML BOLUS ONE 10/24 0230 DC 04 IV 10/24 0329 0220 Sodium Chloride 1,000 ML Q13H 10/23 1100 AC 10/24 IV 1427 Vancomycin HCl 1,000 MG ONCE ONE 10/24 714 DC 10/24 Sodium Chloride 250 ML IV 10/2425 Past History Travel History Traveled to [place] past 21 day No Medical History Neurological: peripheral neuropathy EENT: NONE Cardiovascular: hypertension Respiratory: NONE Gastrointestinal: NONE Hepatic: NONE Renal: NONE Musculoskeletal: osteomyelitis of the left femur treated with 4 weeks of IV antibiotics four years prior to admission Psychiatric: anxiety Endocrine: NONE Blood Disorders: NONE Cancer(s): NONE ADMISSIONS EVALUATOR/Reproductive: NONE Surgical History Surgical History: status post left third toe amputation Family History Relations & Conditions If Any: Relation not specified for: *No pertinent family history Psychosocial History Where Do You Live? Home Services at Home: None Smoking Status: Current Everyday Smoker ETOH Use: heavy use Review of Systems Review of Systems: A full 12 point review of systems was unobtainable secondary to him being intubated and sedated. Exam & Diagnostic Data Vital Signs and I&O Vital Signs Date Time Temp Pulse Resp B/P Pulse O2 O2 Flow FiO2 Ox Delivery Rate 10/27 0857 88 Ventilator 35% 10/27 899 Ventilator 35% 10/27 0735 30 10/27 0602 30 10/27 0600 54 16 132/70 10/27 0400 98.5 66 19 118/66 10/27 0400 96 Ventilator 30% 10/27 0233 30 10/27 0200 55 16 133/64 10/27 0041 30 / 0000 97.9 58 16 140/82 10/27 0000 99 Ventilator 30% 10/26 2300 97.9 58 16 140/82 97 Ventilator 30% 10/26 2222 30 10/26 2200 65 16 139/74 /08 2000 30 10/26 2000 97.1 73 26 124/61 10/26 2000 94 Ventilator 30% 10/26 1721 30 10/26 1600 97 Ventilator 30% 10/26 1600 97.0 80 20 140/80 97 Ventilator 30% 10/26 1411 30 10/26 1200 97 Ventilator 30% 10/26 1100 30 Intake & Output 10/27 1600 10/27 0400 10/26 1600 10/26 0400 10/25 1600 10/25 0400 Intake Total 1387 1482 3117 941 3632 1657.7 Output Total 2270 1900 3700 960 2020 450 Balance -883 -418 -583 -19 1612 1207.7 Intake, IV 402 109 7688 740 3632 1657.7 Intake, Oral 0 Intake, Tube 502 582 454 51 Feeding Intake, Tube 150 300 450 150 Irrigant Number 0 0 1 3 1 Bowel Movements Output, 480 Gastric Drainage Output, Urine 2270 1900 3700 960 1540 450 Physical Exam General Appearance: well developed/nourished, no apparent distress, alert Head: atraumatic, intubated Eyes: Bilateral: normal appearance. Ears, Nose, Throat: intubated Neck: normal inspection, intubated Respiratory: chest non-tender, rhonchi Cardiovascular: regular rate/rhythm Gastrointestinal: normal bowel sounds, soft, non-tender Back: normal inspection Extremities: pedal edema Neurologic/Psych: awake, alert Skin: intact Results Pertinent Lab Results: Laboratory Tests 10/27 10/26 0430 1158 Blood Gas pH (7.35 - 7.45 PH) 7.39 pCO2 (35 - 45 TORR) 39 pO2 (80 - 100 TORR) 61 L HCO3 (21 - 28 MEQ/L) 23 ABG O2 Sat (Measured) (>96.0 %) 92.0 L P-50 (Temp Corrected) YES Carboxyhemoglobin (1.5 - 5.0 %) 0.6 L O2 Concentration % 30% Temperature (97.0 - 100.0 FARH) 97.5 O2 Delivery Method VENT Vent Mode CPAP Expiratory Pressure (CMH2O/P) 5 Pressure Support (CMH2O/P) 6 Chemistry Sodium (137 - 145 mmol/L) 134 L Potassium (3.5 - 5.1 mmol/L) 4.0 Chloride (98 - 107 mmol/L) 102 Carbon Dioxide (22 - 30 mmol/L) 27 Anion Gap (5 - 16) 6 BUN (9 - 20 mg/dL) 6 L Creatinine (0.7 - 1.2 mg/dL) 0.7 Estimated GFR (>60 ml/min) > 60 Glucose (65 - 99 mg/dL) 97 Calcium (8.4 - 10.2 mg/dL) 8.3 L Phosphorus (2.5 - 4.5 mg/dL) 3.6 Magnesium (1.6 - 2.3 mg/dL) 1.8 Total Bilirubin (0.2 - 1.3 mg/dL) 0.7 AST (17 - 59 U/L) 30 ALT (21 - 72 U/L) 38 Albumin (3.5 - 5.0 g/dL) 2.3 L Hematology CBC w Diff NO MAN DIFF REQ WBC (4.8 - 10.8 /CUMM) 4.7 L RBC (4.70 - 6.10 /CUMM) 2.85 L Hgb (14.0 - 18.0 G/DL) 10.1 L Hct (42 - 52 %) 30.3 L MCV (80.0 - 94.0 FL) 106.0 H MCH (27.0 - 31.0 PG) 35.3 H RDW (11.5 - 14.5 %) 15.1 H Plt Count (130 - 400 /CUMM) 190 MPV (7.4 - 10.4 FL) 9.6 Gran % (42.2 - 75.2 %) 61.0 Lymphocytes % (20.5 - 51.1 %) 18.1 L Monocytes % (1.7 - 9.3 %) 17.9 H Eosinophils % (0 - 5 %) 2.4 Basophils % (0.0 - 2.0 %) 0.6 Absolute Granulocytes (1.4 - 6.5 /CUMM) 2.9 Absolute Lymphocytes (1.2 - 3.4 /CUMM) 0.8 L Absolute Monocytes (0.10 - 0.60 /CUMM) 0.8 H Absolute Eosinophils (0.0 - 0.7 /CUMM) 0.1 Absolute Basophils (0.0 - 0.2 /CUMM) 0 PUBS MCHC (33.0 - 37.0 G/DL) 33.3 Miscellaneous Phlebotomy Draw Site LEFT RADIAL 10/26 10/25 7646 0400 Chemistry Sodium (137 - 145 mmol/L) 133 L 131 L Potassium (3.5 - 5.1 mmol/L) 3.7 4.0 Chloride (98 - 107 mmol/L) 104 102 Carbon Dioxide (22 - 30 mmol/L) 22 21 L Anion Gap (5 - 16) 7 8 BUN (9 - 20 mg/dL) 7 L 8 L Creatinine (0.7 - 1.2 mg/dL) 0.8 0.9 Estimated GFR (>60 ml/min) > 60 > 60 Glucose (65 - 99 mg/dL) 101 H 85 Calcium (8.4 - 10.2 mg/dL) 8.0 L 7.7 L Phosphorus (2.5 - 4.5 mg/dL) 3.0 3.5 Magnesium (1.6 - 2.3 mg/dL) 1.8 2.0 Total Bilirubin (0.2 - 1.3 mg/dL) 0.9 0.9 AST (17 - 59 U/L) 35 26 ALT (21 - 72 U/L) 37 40 Albumin (3.5 - 5.0 g/dL) 2.2 L 2.4 L Hematology CBC w Diff NO MAN DIFF REQ NO MAN DIFF REQ WBC (4.8 - 10.8 /CUMM) 5.2 7.8 RBC (4.70 - 6.10 /CUMM) 2.92 L 3.02 L Hgb (14.0 - 18.0 G/DL) 10.2 L 10.8 L Hct (42 - 52 %) 31.0 L 32.6 L MCV (80.0 - 94.0 FL) 106.4 H 107.9 H MCH (27.0 - 31.0 PG) 35.0 H 35.6 H RDW (11.5 - 14.5 %) 15.5 H 15.7 H Plt Count (130 - 400 /CUMM) 139 127 L MPV (7.4 - 10.4 FL) 9.8 9.8 Gran % (42.2 - 75.2 %) 61.4 65.7 Lymphocytes % (20.5 - 51.1 %) 16.8 L 11.8 L Monocytes % (1.7 - 9.3 %) 19.2 H 20.7 H Eosinophils % (0 - 5 %) 2.2 1.2 Basophils % (0.0 - 2.0 %) 0.4 0.6 Absolute Granulocytes (1.4 - 6.5 /CUMM) 3.2 5.1 Absolute Lymphocytes (1.2 - 3.4 /CUMM) 0.9 L 0.9 L Absolute Monocytes (0.10 - 0.60 /CUMM) 1.0 H 1.6 H Absolute Eosinophils (0.0 - 0.7 /CUMM) 0.1 0.1 Absolute Basophils (0.0 - 0.2 /CUMM) 0 0 PUBS MCHC (33.0 - 37.0 G/DL) 32.9 L 33.0 04/ 1521 Chemistry GGT (15 - 73 U/L) 155 H Alkaline Phosphatase (< 127 U/L) 79 Troponin I (<0.11 ng/ml) < 0.01 Imaging/Other Studies: EXAM TYPE: CAT - CT ABD & PELVIS W/O IV CONTRAS; CT CHEST WO IV CONTRAST EXAMINATION: CT CHEST WITHOUT CONTRAST CT ABDOMEN AND PELVIS WITHOUT CONTRAST CLINICAL INFORMATION: Presumptive Dx: ventilator associated pneumonia. Signs and symptoms: septic shock 4 days after intubation. On Unasyn IV. COMPARISON: Chest radiograph from the same date. TECHNIQUE: Multidetector volumetric imaging was performed from the thoracic inlet through the pubic symphysis without intravenous contrast material. Sagittal and coronal images were reformatted. DOSE: 1508.5 mGy-cm FINDINGS: -CHEST- LUNG: Dependent atelectasis is present within both lungs, primarily at the lower lobes with areas of segmental collapse of the medial and posterior basilar segments, right more than left. No separate consolidation identified. Secretions are present within the right mainstem bronchus dependently. Endotracheal tube terminates 6 cm from the karoline. Minimal interlobular septal thickening is present at the lung apices and lung bases. MEDIASTINUM: Left IJ central venous catheter terminates in the SVC superiorly. Gastric decompression tube terminates in the stomach. Side-port is present the diaphragmatic hiatus. Heart is normal in size. There is a small pericardial effusion. Pulmonary outflow tract is dilated to 4.7 cm. Calcific atherosclerosis is present in the thoracic aorta. Multiple mediastinal lymph nodes are identified. No adenopathy. PERICARDIUM/PLEURA: Small pericardial effusion and small bilateral pleural effusions. CHEST WALL/AXILLA: No adenopathy. Subcutaneous gas anterior to the right clavicle is likely related to attempts at right-sided central venous catheter placement. There is thickening of the right sternocleidomastoid muscle which may be due to edema or hematoma. -ABDOMEN/PELVIS- LIVER, GALLBLADDER, BILIARY TREE: The liver is normal in size, shape, and attenuation. Evaluation of the liver is somewhat limited by artifact from the adjacent right upper extremity as well as absence of intravenous contrast material. No focal hepatic lesion or biliary ductal dilatation is present. Gallbladder is hydropic, measuring 5.6 cm transversely. PANCREAS: Unremarkable. SPLEEN: Unremarkable. ADRENAL GLANDS: Unremarkable. KIDNEYS AND URETERS: The kidneys are normal in size, shape, and attenuation. No hydronephrosis, hydroureter, or calculi seen. No perinephric stranding. BLADDER: Uriarte catheter terminates in the decompressed bladder. Bladder wall thickening is likely related to the presence of the catheter. GASTROINTESTINAL TRACT: Gastric decompression tube terminates within the stomach. The stomach, small bowel, and colon are normal in caliber. Diverticulosis is present in the descending and sigmoid colon without evidence of acute diverticulitis. Appendix is not discretely identified, though no findings of acute appendicitis are appreciated in the right lower quadrant. Significant focal retroperitoneal fat stranding and a small amount of ill-defined fluid are present just inferior to the third portion of the duodenum, anterior to the IVC and aorta. There is fat stranding extends inferiorly within the anterior pararenal fascial plane. Small amount of retroperitoneal fluid is also present within the left lateroconal fascia. No intraperitoneal free air or free fluid. ABDOMINAL WALL: No significant hernia is appreciated. VASCULATURE: Calcific atherosclerosis is present in the abdominal aorta and iliac arteries. No aneurysmal dilatation. LYMPH NODES: No lymphadenopathy. . PELVIC VISCERA: The prostate and seminal vesicles are unremarkable. OSSEUS STRUCTURES: Mild multilevel degenerative disc disease is present in the thoracolumbar spine. No acute osseous abnormalities. Degenerative ankylosis is present at the right SI joint. IMPRESSION: Chest: 1. Dependent segmental atelectasis in the lower lobes with small adjacent bilateral dependent pleural effusions. No significant consolidation. 2. Small pericardial effusion 3. Dilated pulmonary outflow tract, suggesting increased pulmonary arterial pressures Abdomen pelvis: 1. Retroperitoneal fat stranding and a small amount of fluid, most notably around the inferior margin of the third segment of the duodenum. Possible explanations include peptic ulcer disease, duodenitis, or pancreatitis. 2. Anasarca. 3. Limited evaluation of the liver due to artifact from the adjacent right upper extremity and the absence of intravenous contrast material. 4. Hydropic gallbladder. Assessment/Plan Assessment/Recommendations: Assessment: Ms. Amin is a 56 year old male admitted with etoh withdrawal seizures who developed symptoms of septic shock over the past 24 hours without a clear source, but as he is without any abdominal pain on physical exam then it is unlikely that his mildly dilated GB on ct scan. Also he has normal LFTs and nothing to suggest biliary obstruction on his labs. If his US doesn't show obvious cholecystitis would suggest looking for alternative sources of infection (ie his lungs or arm). Recommendations: 1. Follow up US 2. If US negative for evidence of cholecystitis then would investigate for other sources of sepsis; and if US shows evidence of cholecystitis would then obtain a surgical consult and give consideration for a HIDA scan +/- cholecystostomy tube/CCY. 3. Continue supportive care with pressors as needed 4. Abx as per ID and critical care team 5. Treat etoh withdrawal symptoms with benzodiazepenes as needed. 6. Follow daily LFTs. Please recontact GI for any new GI issues (ie. increased LFTs or bleeding) or if US shows changes of cholecystitis. Problem List: 1. Alcohol withdrawal seizure 2. Community acquired pneumonia Consult Acknowledgment - Thank you for your consult request.
--- NOTE | 2016-10-24 16:30 | Patient Discharge Instructions ---
Discharge Instructions General Discharge Information You were seen/treated for: alcohol withdrawal and sepsis Special Instructions: please follow up with your PCP upon discharge. Please continue ot take your medications as prescribed. After rehab please follow up with Intensive outpatient therapy Diet Continue normal diet: No Recommended Diet: Heart Healthy Acute Coronary Syndrome Inclusion Criteria At DC or during hospital stay patient has or had the following: ACS DIAGNOSIS No Discharge Core Measures Meds if any: Prescribed or Continued at Discharge Meds if any: NOT Prescribed or Continued at Discharge Congestive Heart Failure Inclusion Criteria At DC or during hospital stay patient has or had the following: CHF DIAGNOSIS No Discharge Core Measures Meds if any: Prescribed or Continued at Discharge Meds if any: NOT Prescribed or Continued at Discharge Cerebrovascular accident Inclusion Criteria At DC or during hospital stay patient has or had the following: CVA/TIA Diagnosis No Discharge Core Measures Meds if any: Prescribed or Continued at Discharge Meds if any: NOT Prescribed or Continued at Discharge Venous thromboembolism Inclusion Criteria VTE Diagnosis No VTE Type NONE VTE Confirmed by (Test) NONE Discharge Core Measures - Per Current guidelines, there needs to be overlap - treatment for the first 5 days of Warfarin therapy. - If discharged on Warfarin prior to 5 days of - overlap therapy, the patient will need to be - assessed for post discharge needs including - *Post discharge parental anticoagulation - *Warfarin and/or parental anticoagulation education - *Follow up date to check INR post discharge At least 5 days overlap therapy as Inpatient No Meds if any: Prescribed or Continued at Discharge Note: Overlap Therapy is Warfarin and Anticoagulant Meds if any: NOT Prescribed or Continued at Discharge
--- NOTE | 2016-10-24 16:46 | ULTRASOUND REPORT ---
EXAMINATION: US ABDOMEN LIMITED CLINICAL INFORMATION: Septic shock. Gallbladder hydrops on abdomen CT.. COMPARISON: CT of the abdomen from 10/24/2016. TECHNIQUE: Real-time imaging of the right upper quadrant abdominal viscera. FINDINGS: PANCREAS: The visualized portions of the pancreatic head, neck and body are normal. LIVER: Liver echotexture appears diffusely hyperechoic, suggestive of mild steatosis. No focal hepatic lesion or intrahepatic bile duct dilatation. GALLBLADDER: The hydropic gallbladder measures 5.2 cm transverse diameter. No evidence of cholelithiasis, gallbladder sludge, polyps or wall edema. A small amount of pericholecystic fluid is seen. COMMON BILE DUCT: Normal in caliber measuring 4-5 mm in diameter. RIGHT KIDNEY: Normal. No hydronephrosis. No renal calculi or focal parenchymal lesions. The kidney measures 11.8 cm in maximum dimension. FREE FLUID: The trace amount of fluid within or since pouch observed on the recent CT exam is not shown of these ultrasound images. IMPRESSION: This septic patient was noted to have multiple findings in the recent CT exams, including anasarca and gallbladder hydrops. The hydropic gallbladder is distended to 5.2 cm diameter and a small amount of pericholecystic fluid is noted. There is no evidence of cholelithiasis or biliary tract obstruction.
--- NOTE | 2016-10-24 17:28 | NUR ---
STAT EKG AND TROP DONE, ABDOMINAL US COMPLETED, RECTAL SUPPOSITORY GIVEN. PT PLACED ON TOTAL CARE BED.
--- NOTE | 2016-10-24 20:48 | NUR ---
INTUBATED PT ON 35% FIO2, SAT 99-100%, SAS 3-4, AWAKENS TO NAME, FOLLOWS COMMANDS, +HAND GRASPS AND MOVES LOWER EXTREMETIES TO COMMAND, CONTINUE ATIVAN DRIP AT 8MG/HR AND FENTANYL AT 100MCG/HR. PT ON LEVOPHED AT 5MCG/MIN TITRATING PER PROTOCOL FOR MAP >65. HR SR 60'S TO 70'S NO ECTOPY. TUBE FEEDS ON HOLD DUE TO HIGH RESIDUAL, OGT CLAMPED AT THIS TIME. PT ABDOMEN DISTENDED, SOFT, HYPOACTIVE BS AUSCULTATED IN LEFT UPPER QUADRANT. OJEDA IN PLACE ADEQUATE CLEAR ORANGE URINE. PT REPOSITIONED.
[2016-10-25] VITALS (9 sets, daily range): BP systolic 96–122; BP diastolic 56–80
--- NOTE | 2016-10-25 | NUR ---
PATIENT AROUSABLE TO VERBAL STIMULI WITH ATIVAN DRIP AT 8 MG/HR AND FENTANYL DRIP AT 100 MCG/HR.ENDOTRACHEAL TUBE TO VENTILATOR AT 35%. MANUAL PJ=569/70. LEVOPHED INFUSING VIA TLC LIJ. RATE DECREASED TO 2 MCG/MIN.MONITOR SINUS RHYTHM AT RATE OF 78.OGT IN PLACE.CLAMPED AT PRESENT,TUBE FEED ON HOLD.DRESSINGS ON R AND L FOREARMS DRY AND INTACT.
[2016-10-25 05:39] LABS: ABSOLUTE BASOPHIL COUNT 0 /CUMM (0.0-0.2); ABSOLUTE EOSINOPHIL COUNT 0.1 /CUMM (0.0-0.7); ABSOLUTE GRANULOCYTE CT 5.1 /CUMM (1.4-6.5); ABSOLUTE LYMPH COUNT 0.9 /CUMM (1.2-3.4); ABSOLUTE MONOCYTE COUNT 1.6 /CUMM (0.10-0.60); BASOPHIL % 0.6 % (0.0-2.0); EOSINOPHIL % 1.2 % (0-5); GRANULOCYTE % 65.7 % (42.2-75.2); HEMATOCRIT 32.6 % (42-52); MEAN CORPUSCULAR HGB 35.6 PG (27.0-31.0); MEAN CORPUSCULAR VOLUME 107.9 FL (80.0-94.0); MEAN PLATELET VOLUME 9.8 FL (7.4-10.4); PLATELET COUNT 127 /CUMM (130-400); RBC DISTRIBUTION WIDTH 15.7 % (11.5-14.5); RED BLOOD CELL CT 3.02 /CUMM (4.70-6.10); WHITE BLOOD CELL COUNT 7.8 /CUMM (4.8-10.8)
--- NOTE | 2016-10-25 06:30 | NUR ---
PATIENT BECOMING RESTLESS. ATTEMPTING TO SIT UP IN BED.BP NOW 110/70. LEVOPHED DRIP DECREASED TO 2 MCG/MIN,ATIVAN DRIP INCREASED TO 9 MG/HR.
--- NOTE | 2016-10-25 07:48 | PN- Resident CRCU ---
Subjective HPI/CRCU Issues: 24 hour data: max temp 99.9 HR 60-80 RR 16-19 systolic bp 90-108 diastolic bp 51-69 CVP 12-18 +4475 -2330 Sedated with fentanyl at 100mcg/hr, ativan 9mg/hr. Vasopressor levophed 2mcg/ min. Spoke to radiologist regarding hydropic gallbladder. He said it can be a normal finding in someone who has not had PO intake. GI was consulted, verbally told the resident that there is nothing to do other than cholecystostomy depending on our suspicion of cholecystitis after the US. RUQ US again showed hydropic gallbladder measuring 5.2 cm with a small amount of pericholecystic fluid, without evidence of cholelithiasis, gallbladder sludge, polyps or wall edema. He seems to be improving clinically, has been afebrile with improvement in BP requiring less levophed now. wbc down from 10.3 to 7.8. 1Xsuppository given and he had 2 BM yesterday. Objective Vital Signs & I&O Last 8 Hrs of Vitals and I&O: Intake & Output 10/25 1600 10/25 0800 10/25 0000 Intake Total 1438 1657.7 Output Total 520 450 Balance 918 1207.7 Intake, IV 1438 1657.7 Intake, Oral 0 Number 1 1 Bowel Movements Output, Urine 520 450 Laboratory Tests 10/25 10/24 0400 1521 Chemistry Sodium (137 - 145 mmol/L) 131 L Potassium (3.5 - 5.1 mmol/L) 4.0 Chloride (98 - 107 mmol/L) 102 Carbon Dioxide (22 - 30 mmol/L) 21 L Anion Gap (5 - 16) 8 BUN (9 - 20 mg/dL) 8 L Creatinine (0.7 - 1.2 mg/dL) 0.9 Estimated GFR (>60 ml/min) > 60 Glucose (65 - 99 mg/dL) 85 Calcium (8.4 - 10.2 mg/dL) 7.7 L Phosphorus (2.5 - 4.5 mg/dL) 3.5 Magnesium (1.6 - 2.3 mg/dL) 2.0 Total Bilirubin (0.2 - 1.3 mg/dL) 0.9 GGT (15 - 73 U/L) 155 H AST (17 - 59 U/L) 26 ALT (21 - 72 U/L) 40 Alkaline Phosphatase (< 127 U/L) 79 Troponin I (<0.11 ng/ml) < 0.01 Albumin (3.5 - 5.0 g/dL) 2.4 L Hematology CBC w Diff NO MAN DIFF REQ WBC (4.8 - 10.8 /CUMM) 7.8 RBC (4.70 - 6.10 /CUMM) 3.02 L Hgb (14.0 - 18.0 G/DL) 10.8 L Hct (42 - 52 %) 32.6 L MCV (80.0 - 94.0 FL) 107.9 H MCH (27.0 - 31.0 PG) 35.6 H RDW (11.5 - 14.5 %) 15.7 H Plt Count (130 - 400 /CUMM) 127 L MPV (7.4 - 10.4 FL) 9.8 Gran % (42.2 - 75.2 %) 65.7 Lymphocytes % (20.5 - 51.1 %) 11.8 L Monocytes % (1.7 - 9.3 %) 20.7 H Eosinophils % (0 - 5 %) 1.2 Basophils % (0.0 - 2.0 %) 0.6 Absolute Granulocytes (1.4 - 6.5 /CUMM) 5.1 Absolute Lymphocytes (1.2 - 3.4 /CUMM) 0.9 L Absolute Monocytes (0.10 - 0.60 /CUMM) 1.6 H Absolute Eosinophils (0.0 - 0.7 /CUMM) 0.1 Absolute Basophils (0.0 - 0.2 /CUMM) 0 PUBS MCHC (33.0 - 37.0 G/DL) 33.0 Laboratory Tests 10/25/16 0400: Anion Gap 8, Estimated GFR > 60, Glucose 85, Calcium 7.7 L, Phosphorus 3.5, Magnesium 2.0, Total Bilirubin 0.9, AST 26, ALT 40, Albumin 2.4 L, CBC w Diff NO MAN DIFF REQ, RBC 3.02 L, MCV 107.9 H, MCH 35.6 H, RDW 15.7 H, MPV 9.8, Gran % 65.7, Lymphocytes % 11.8 L, Monocytes % 20.7 H, Eosinophils % 1.2, Basophils % 0.6, Absolute Granulocytes 5.1, Absolute Lymphocytes 0.9 L, Absolute Monocytes 1.6 H, Absolute Eosinophils 0.1, Absolute Basophils 0, PUBS MCHC 33.0 10/24/16 1521: GGT 155 H, Alkaline Phosphatase 79, Troponin I < 0.01 Vital Signs Date Time Temp Pulse Resp B/P Pulse O2 O2 Flow FiO2 Ox Delivery Rate / 0815 35 04/ 0600 71 16 98/62 04/07 0558 35 04/ 0400 98.7 82 16 110/70 04/07 0400 95 Ventilator 35% 04/07 0350 35 04/ 0200 77 16 98/64 04/07 0040 35 04/07 0000 99.9 78 17 110/70 04/07 0000 99.9 78 17 110/70 99 Ventilator 35% 04/07 0000 99 Ventilator 35% 04/06 2208 35 04/06 2200 98.0 84 16 90/55 04/06 2118 98.5 78 16 100/59 04/06 2007 35 04/06 2000 98.5 68 16 110/72 04/06 2000 100 Ventilator 35% 04/06 1627 35 04/06 1600 98.8 62 16 116/72 04/06 1600 99 Ventilator 35% 04/06 1600 98.8 62 16 116/72 99 Ventilator 35% 04/06 1400 60 16 103/62 04/06 1355 35 04/06 1200 64 16 106/60 04/06 1200 100 Ventilator 35% 04/06 1200 96.5 64 16 120/70 100 Ventilator 35% 04/06 1034 35 04/06 1000 96.5 64 16 120/70 04/06 0936 71 114/66 Exam General Appearance: sedated, intubated Respiratory: normal breath sounds, chest non-tender Cardiovascular: regular rate/rhythm Gastrointestinal: normal bowel sounds, soft, non-tender Extremities: anasarca Current Medications: Current Medications Sig/Nora Start time Last Medication Dose Route Stop Time Status Admin Acetaminophen 500 MG Q24 PRN 10/20 0330 AC IV Amlodipine Besylate 10 MG DAILY 10/20 1000 AC / PO 1235 Ampicillin Sodium/ 3,000 MG Q6 10/20 0600 DC 10/24 Sulbactam Sodium IV 0636 Sodium Chloride 100 ML Ascorbic Acid 2,000 ML 10/24 0745 CAN IV Bisacodyl 10 MG ONCE ONE 10/24 1445 DC 04/ MO 10/24 1446 1622 Ciprofloxacin 400 MG Q12H 10/24 1400 AC 10/25 Dextrose/Water 200 ML IV 0214 Diphenhydramine HCl 25 MG Q6P PRN 10/22 1054 AC 10/22 IV 1327 Fentanyl Citrate 1,000 MCG Q10H 10/24 0945 AC 10/25 Dextrose/Water 250 ML IV 0716 Fentanyl Citrate 1,000 MCG Q12H 10/23 1100 DC 10/23 Dextrose/Water 250 ML IV 10/24 0944 2257 Heparin Sodium 5,000 UNIT Q8 10/20 0600 AC 10/25 (Porcine) SC 0523 Levofloxacin 500 MG DAILY 10/24 1200 DC PO Lorazepam 100 MG Q12H 10/24 2100 AC 10/24 Dextrose/Water 1,000 ML IV 2238 Lorazepam 100 MG Q6H 10/22 1530 DC / Dextrose/Water 1,000 ML IV 10/24 2059 0820 Magnesium Sulfate 1 GM Q2H 10/24 0815 DC 10/24 Dextrose/Water 100 ML IV 10/24 1214 1120 Morphine Sulfate 2 MG Q4P PRN 10/20 0330 AC IV Norepinephrine 4 MG Q13H 10/24 0915 AC 10/24 Sodium Chloride 250 ML IV 2118 Norepinephrine 4 MG Q24H / 0330 DC 10/24 Sodium Chloride 250 ML IV 0349 Pantoprazole Sodium 40 MG DAILY 10/20 1345 AC 10/24 IV 0956 Polyethylene Glycol 17 GM DAILY / 1000 AC 10/23 PO 1233 Sodium Chloride 1,000 ML Q13H / 1100 AC 10/25 IV 0430 Impression/Plan Impression/Problem List Impression: 56-year-old male with PMH of alcoholism, hypertension, peripheral neuropathy, anxiety, recent osteomyelitis of left foot after a dog bite in March 2016, who is brought in by EMS after he was found unresponsive and seizing at home, drinks 1 pint vodka a day, last alcohol drink 48 hours prior to admission. Patient was having seizure in ER, followed by aggressive and combative behavior. Patient received 10 mg haloperidol, 6 mg Ativan. It was followed by another 2 mg of IV Ativan and 2 mg of IV midazolam for CT scan as patient was still combative. He was admitted to the ICU on ativan drip for close monitoring. Tongue was noted to be edematous with laceration most likely due to tongue biting during his seizure episode. ENT called and pt was subsequently intubated due to high risk of respiratory failure and challenging intubation if his swelling were to progress. Pt successfully intubated in the OR on 10/20/16 with consent obtained from his fiance Nancy. Post intubation, he was sedated with propofol, subsequently changed to ativan drip, however fentanyl had to be added due to inadequate sedation on ativan alone. On day #4, ENT re-evauated his tongue swelling and cleared him for extubation from their standpoint. Neurology also saw the patient and did not recommend EEG or putting the patient on antiepileptic as his seizure episodes were most likely due to alcohol withdrawal. He was recently bitten by his dog a couple days prior to admission, and was put on unasyn since admission. He was given vancomycin on day # 1 and 2 to cover for possible MRSA. On day #5 of admission, pt developed fever and hypotension, requiring placement of central line and pressor support with levophed. He was given 1X vancomycin and ceftazidimine, and was started on ciprofloxacin. Unasyn discontinued. CT chest/abd/pelvis done without contrast, were nonrevealing, other than retroperitoneal fat stranding that could be due to PUD or pancreatitis. Pt has been on IV PPI since he was intubated, and amylase and lipase were normal. There was also hydropic gallbladder found on CT, for which GI was consulted. Problem list: # Septic shock # Alcohol withdrawal seizure # Tongue laceration secondary to seizure # Hypertensive urgency # Right hand cellulitis due to dog bite # Hypokalemia # Hypophosphatemia # Hypomagnesiumia Left IJ day #2 Uriarte day #6 Intubated day #6 UE restrain day #6 OG tube day #4 Respiratory # Tongue laceration secondary to seizure, causing severe tongue swelling - Intubated on 10/20/2016 in the OR * ENT on board, will follow * IV ppi started * Benadryl PRN * GNR in sputum ID # Hypotension and febrile on day # 5 of admission - LRC from 10/20/16 (day#1 of intubation) grew stenotrophomonas maltophilia, other cx from 10/20/16 NGTD - Given 1time vanco and ceftaz 10/24/16 * Central line placed, levophed started, wean levo as tolerated * Follow CT chest/abd/pelvis * Watch for NIDHI closely * Follow up cx * Abx as per ID: [facility] Levaquin 500 mg (via the OG tube) every 24 hours on 10/24, but he seems to be having ileus, therefore we decided to give him cipro 400 q12 IV. Today is abx day #6 * f/u echo # Right hand cellulitis due to dog bite - Right hand laceration wound with secondary cellulitis, patient admits a dog bite happened couple of days back, but patient was altered and unreliable historian. The wounds look dirty. 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 - hand xray normal - CT right upper extremity 10/24/16: extensive subcutaneous tissue edema of the right hand, wrist, forearm and examined arm; findings suggest presence of cellulitis. * He was given 1X vancomycin 10/20/16 and 10/21/16 pending cx. Unasyn given for 4 days. * Plastic surgery consulted - [facility] moist dressing * F/U cultures * Wound irrigation and wound care consult Cardiovascular # Hypotension, most likely due to sepsis * As above # Hypertensive urgency on admission , hx of htn * Continue home amlodipine (hold if bp low) Heme # Thrombocytopenia (resolved) - Platelet 119-155 Metabolic # Hypokalemia # Hypophosphatemia # Hypomagnesiumia * Monitor electrolytes, replete as needed Alimentary * NPO, tube feeds # Constipation - Given 1Xsupp--> 2BM Neuro # Alcohol withdrawal seizure - CT of the head negative for acute intracranial pathology. - Work up in the ED showed slightly elevated WBC of 10.7 with left shift ( granulocyte 87%), MCV of 106, anion gap of 24, bicarbonate 20, total bilirubin 1.4, elevated AST 138 (>2 times AST), elevated alkaline phosphatase (152), urine analysis is positive for proteins and ketones, urine toxicology WNL, low serum alcohol level (last drink reportedly 48 hours prior to presentation) * Sedated with ativan and fentanyl * Neurology consulted * Given banana bag and thiamine * Replete electrolytes as needed * Aspiration precaution Diet: NPO (intubated) tube feed as per nutrition IVF: 75ml/hr NS DVT ppx: alps , heparin FULL CODE Problem List: 1. Dog bite 2. Alcohol withdrawal seizure 3. Hypotension Pain Ratin Tomorrow's Labs & Rationales: icu and cbc critically ill Plan DVT/Prophylaxis: mechanical, pharmacological
--- NOTE | 2016-10-25 08:11 | RADIOLOGY REPORT ---
EXAMINATION: XR PORTABLE CHEST CLINICAL INFORMATION: Intubated. Confirm placement. COMPARISON: 10/24/2016 TECHNIQUE: Portable AP view of the chest was obtained. FINDINGS: Endotracheal tube is in stable position at approximately 7 cm above the karoline. The enteric tube extends below the diaphragm and beyond the field of view. The left internal jugular central venous catheter remains in stable position in the mid superior vena cava. Persistent small pleural effusions and bibasilar opacities -- likely compressive atelectasis. No interstitial pulmonary edema, pneumothorax or other significant interval change. IMPRESSION: 1. Tubes/lines remain in stable position compared to 10/24/2016. No pneumothorax. 2. Persistent small bilateral pleural effusions and bibasilar atelectasis.
--- NOTE | 2016-10-25 08:44 | PN- CRCU ---
Subjective HPI/Critical Care Issues: The patient is much more awake today. He remains intubated and on both Ativan and fentanyl. His Ativan needed to be turned up this morning as he was agitated and pulling out his endotracheal tube. He remains on Levophed however it is down to 2 g/min. His oxygenation remains stable noting he is at 35% with saturations in the high 90s. He remains on IV Cipro for stenotrophomonas pneumonia. His MAXIMUM TEMPERATURE was 99.9. The patient responded to the duplex suppository and had 2 bowel movements. His residuals have been high but have not been checked yet today. Tube feeds remain on hold as a result. Objective Vital Signs & I&O Last 24 Hrs of Vitals and I&O: Vital Signs Date Time Temp Pulse Resp B/P Pulse O2 O2 Flow FiO2 Ox Delivery Rate / 0815 35 04/07 0600 71 16 98/62 04/07 0558 35 04/07 0400 98.7 82 16 110/70 04/07 0400 95 Ventilator 35% 04/07 0350 35 04/07 0200 77 16 98/64 04/07 0040 35 04/07 0000 99.9 78 17 110/70 04/07 0000 99.9 78 17 110/70 99 Ventilator 35% 04/07 0000 99 Ventilator 35% 04/06 2208 35 04/06 2200 98.0 84 16 90/55 04/06 2118 98.5 78 16 100/59 04/06 2007 35 04/06 2000 98.5 68 16 110/72 04/06 2000 100 Ventilator 35% 04/06 1627 35 04/06 1600 98.8 62 16 116/72 04/06 1600 99 Ventilator 35% 04/06 1600 98.8 62 16 116/72 99 Ventilator 35% 04/06 1400 60 16 103/62 04/06 1355 35 04/06 1200 64 16 106/60 04/06 1200 100 Ventilator 35% 04/06 1200 96.5 64 16 120/70 100 Ventilator 35% 04/06 1034 35 04/06 1000 96.5 64 16 120/70 04/06 0936 71 114/66 Intake & Output 04/ 1600 04/07 0800 04/07 0000 Intake Total 1438 1657.7 Output Total 520 450 Balance 918 1207.7 Intake, IV 1438 1657.7 Intake, Oral 0 Number 1 1 Bowel Movements Output, Urine 520 450 Physical Exam General Appearance intubated, sedated Skin warm and dry HEENT PERRLA Neck Supple, No JVD Cardiovascular Regular Rate, Normal S1, Normal S2, No Murmurs Lungs bilateral scattered ronchi Abdomen soft, nontender, non distended Extremities right hand swelling, no lower extremity swelling Results Last 24 Hrs of Lab Results: Laboratory Tests 10/25/16 0400: Anion Gap 8, Estimated GFR > 60, Glucose 85, Calcium 7.7 L, Phosphorus 3.5, Magnesium 2.0, Total Bilirubin 0.9, AST 26, ALT 40, Albumin 2.4 L, CBC w Diff NO MAN DIFF REQ, RBC 3.02 L, MCV 107.9 H, MCH 35.6 H, RDW 15.7 H, MPV 9.8, Gran % 65.7, Lymphocytes % 11.8 L, Monocytes % 20.7 H, Eosinophils % 1.2, Basophils % 0.6, Absolute Granulocytes 5.1, Absolute Lymphocytes 0.9 L, Absolute Monocytes 1.6 H, Absolute Eosinophils 0.1, Absolute Basophils 0, PUBS MCHC 33.0 10/24/16 1521: GGT 155 H, Alkaline Phosphatase 79, Troponin I < 0.01 Diagnostic Data CXR Findings: 1. Tubes/lines remain in stable position compared to 10/24/2016. No pneumothorax. 2. Persistent small bilateral pleural effusions and bibasilar atelectasis. Impression/Plan Impression/Plan Impression/Plan: 1. Alcohol withdrawal seizures - no current evidence of further seizures. 2. Hypotension, improving with IV fluids and Levophed. Levophed is being weaned down to off. No obvious source of sepsis has yet been identified. 3. Tongue laceration and severe swelling with airway compromise secondary to tongue biting. 4. Right hand cellulitis due to dog bite. Plastic surgery input appreciated. 5. Thrombocytopenia secondary to ETOH. 6. Acute hypoxemic respiratory failure secondary to aspiration pneumonia versus pneumonitis, with associated small bilateral pleural effusions and atelectasis. 7. Increased abdominal residuals, tube feeds on hold. 8. Hydropic gallbladder, without evidence of acute cholecystitis. 9. Metabolic encephalopathy, improving. Recommendations: * Aggressive electrolyte repletion to continue. * Attempt to minimize fentanyl and Ativan, keep SAS 3-4. * Continue current ventilator settings. * Attempt to wean Levophed down to off. * Will begin weaning trials once Levophed is off and the patient is more awake and alert. * Follow-up echocardiogram results. * Continue maintenance fluids at 75 ML per hour. Bolus as necessary for low urine output. * Monitor for seizures. * Continue Norvasc for blood pressure control. * Continue IV Cipro. * Continue multivitamin, thiamine and folate. * Will restart tube feeds once the patient's residuals are improved. * Start a trial of Reglan [id number] to determine if this helps with high residuals. * DVT/GI prophylaxis at all times - continue ventilator bundle. * Appreciate ID and GI input. We'll follow up recommendations. * The patient is critically ill and requires ongoing follow up. Continue all supportive care.
--- NOTE | 2016-10-25 10:48 | ECHOCARDIOGRAM REPORT ---
ALBA BURTON Age: 56 : 1960 Gender: M Exam Date: 10/24/2016 10:38 Exam Location: [facility] Ht (in): 72 Wt (lb): 185 BSA: 2.07 BP: 114 / 66 Ordering Physician: KARLENE STAHL MD Referring Physician: KARLENE STAHL MD Technologist: Kalpesh Campbell Room Number: Indications: HYPOTENSIVE Rhythm: Sinus Technical Quality: Fair, Very technically difficult study FINDINGS Left Ventricle Normal size left ventricle. No obvious regional wall motion abnormalities. Flattened septum in systole and diastole consistent with right ventricle pressure and volume overload. Abnormal septal motion. Normal left ventricular ejection fraction estimated at 55- 60%. Right Ventricle Mild right ventricular dilatation. Right Atrium Mild right atrial dilatation. Left Atrium Left atrial size at the upper limits of normal. Mitral Valve Mitral valve thickened. Trace to mild mitral regurgitation. Aortic Valve Trileaflet aortic valve. Diffuse thickening (sclerosis) of the aortic valve cusps without reduced excursion. No aortic stenosis. Trace to mild aortic regurgitation. Tricuspid Valve Tricuspid valve not well visualized, grossly normal. Trace to mild tricuspid regurgitation. Right ventricular systolic pressure estimated to be elevated at 40 mmHg. Pulmonic Valve Pulmonic valve not well visualized. Pericardium Small pericardial effusion. Left pleural effusion. Great Vessels Aortic root and proximal ascending aorta not well visualized, grossly normal. CONCLUSIONS 1. This was a technically difficult study. 2. Aortic sclerosis is present with no valvular stenosis. Aortic insufficiency is present which appears to be minimal to mild in severity. 3. Mitral leaflet thickening is present with minimal to mild mitral insufficiency. 4. A small pericardial effusion is present. 5. A relatively large left pleural effusion is present. 6. The left ventricular chamber size and systolic function appear normal. Accurate wall motion assessment was not possible. Abnormal septal motion is present. 7.Mild enlargement of the right heart chambers is present wtih minimal to mild tricuspid insufficiency and an estimated RV systolic pressure of 40 mmHg. Vickey Martínez M.D. (Electronically Signed) Final Date: 25 October 2016 10:47 MEASUREMENTS (Male / Female) Normal Values 2D ECHO LV Diastolic Diameter PLAX 4.5 cm 4.2 - 5.9 / 3.9 - 5.3 cm LV Systolic Diameter PLAX 3.5 cm 2.1 - 4.0 cm LV Fractional Shortening PLAX 22.2 % 25 - 46 % LV Ejection Fraction 2D Teich 45.0 % IVS Diastolic Thickness 0.9 cm LVPW Diastolic Thickness 1.0 cm LV Relative Wall Thickness 0.4 RV Internal Dim ED PLAX 3.7 cm 1.9 - 3.8 cm LVOT Diameter 2.1 cm LA Systolic Diameter LX 3.3 cm 3.0 - 4.0 / 2.7 - 3.8 cm LA Volume 70.0 cm 18 - 58 / 22 - 52 cm DOPPLER AV Peak Velocity 128.0 cm/s AV Peak Gradient 6.6 mmHg AV Mean Velocity 85.4 cm/s AV Mean Gradient 3.0 mmHg AV Velocity Time Integral 18.0 cm LVOT Peak Velocity 80.5 cm/s LVOT Peak Gradient 2.6 mmHg LVOT Mean Velocity 52.2 cm/s LVOT Mean Gradient 1.0 mmHg LVOT Velocity Time Integral 11.4 cm LVOT Stroke Volume 39.5 cm AV Area Cont Eq vti 2.2 cm AV Area Cont Eq pk 2.2 cm MV Peak Velocity 58.3 cm/s MV Peak Gradient 1.4 mmHg MV Mean Velocity 31.1 cm/s MV Mean Gradient 0.0 mmHg Mitral E Point Velocity 50.8 cm/s Mitral A Point Velocity 42.4 cm/s Mitral E to A Ratio 1.2 MV PHT Velocity 60.3 cm/s MV Deceleration Bleckley 192.0 cm/s MV Pressure Half Time 94.2 ms MV Area PHT 2.3 cm MV Deceleration Time 257.0 ms TR Peak Velocity 271.0 cm/s TR Peak Gradient 29.4 mmHg Right Atrial Pressure 10.0 mmHg Pulmonary Artery Systolic Pressu 39.4 mmHg Right Ventricular Systolic Press 39.4 mmHg LV E' Lateral Velocity 7.8 cm/s Mitral E to LV E' Lateral Ratio 6.5 LV E' Septal Velocity 6.2 cm/s Mitral E to LV E' Septal Ratio 8.1
--- NOTE | 2016-10-25 11:15 | PN- Infect Dx ---
Subjective Subjective: Afebrile. He remains on Levophed, though this is being tapered. He did have 2 bowel movements. He offers no complaints. Objective Last 24 Hrs of Vital Signs/I&O Vital Signs Date Time Temp Pulse Resp B/P Pulse O2 O2 Flow FiO2 Ox Delivery Rate 10/25 0815 35 / 0600 71 16 98/62 04/07 0558 35 04/ 0400 98.7 82 16 110/70 04/07 0400 95 Ventilator 35% 04/ 0350 35 04/ 0200 77 16 98/64 04/07 0040 35 04/07 0000 99.9 78 17 110/70 04/07 0000 99.9 78 17 110/70 99 Ventilator 35% 04/07 0000 99 Ventilator 35% 04/ 2208 35 04/06 2200 98.0 84 16 90/55 04/06 2118 98.5 78 16 100/59 04/06 2007 35 04/06 2000 98.5 68 16 110/72 04/06 2000 100 Ventilator 35% 04/06 1627 35 04/06 1600 98.8 62 16 116/72 04/06 1600 99 Ventilator 35% 04/06 1600 98.8 62 16 116/72 99 Ventilator 35% 04/06 1400 60 16 103/62 04/06 1355 35 04/06 1200 64 16 106/60 04/06 1200 100 Ventilator 35% 04/06 1200 96.5 64 16 120/70 100 Ventilator 35% Intake & Output / 1600 04/07 0800 04/07 0000 Intake Total 1438 1657.7 Output Total 520 450 Balance 918 1207.7 Intake, IV 1438 1657.7 Intake, Oral 0 Number 1 1 Bowel Movements Output, Urine 520 450 Physical Exam Other Physical Findings: He is easily arousable and appropriate on the ventilator Neck left IJ triple lumen catheter with no inflammation at the site Lungs bilateral rhonchi Heart regular rhythm with no murmur Abdomen is soft, nontender with positive bowel sounds Extremities right hand and forearm swelling persist, with no erythema, drainage or tenderness Uriarte catheter remains in place Results Last 24 Hours of Lab Results: Laboratory Tests 10/25 10/24 0400 1521 Chemistry Sodium (137 - 145 mmol/L) 131 L Potassium (3.5 - 5.1 mmol/L) 4.0 Chloride (98 - 107 mmol/L) 102 Carbon Dioxide (22 - 30 mmol/L) 21 L Anion Gap (5 - 16) 8 BUN (9 - 20 mg/dL) 8 L Creatinine (0.7 - 1.2 mg/dL) 0.9 Estimated GFR (>60 ml/min) > 60 Glucose (65 - 99 mg/dL) 85 Calcium (8.4 - 10.2 mg/dL) 7.7 L Phosphorus (2.5 - 4.5 mg/dL) 3.5 Magnesium (1.6 - 2.3 mg/dL) 2.0 Total Bilirubin (0.2 - 1.3 mg/dL) 0.9 GGT (15 - 73 U/L) 155 H AST (17 - 59 U/L) 26 ALT (21 - 72 U/L) 40 Alkaline Phosphatase (< 127 U/L) 79 Troponin I (<0.11 ng/ml) < 0.01 Albumin (3.5 - 5.0 g/dL) 2.4 L Hematology CBC w Diff NO MAN DIFF REQ WBC (4.8 - 10.8 /CUMM) 7.8 RBC (4.70 - 6.10 /CUMM) 3.02 L Hgb (14.0 - 18.0 G/DL) 10.8 L Hct (42 - 52 %) 32.6 L MCV (80.0 - 94.0 FL) 107.9 H MCH (27.0 - 31.0 PG) 35.6 H RDW (11.5 - 14.5 %) 15.7 H Plt Count (130 - 400 /CUMM) 127 L MPV (7.4 - 10.4 FL) 9.8 Gran % (42.2 - 75.2 %) 65.7 Lymphocytes % (20.5 - 51.1 %) 11.8 L Monocytes % (1.7 - 9.3 %) 20.7 H Eosinophils % (0 - 5 %) 1.2 Basophils % (0.0 - 2.0 %) 0.6 Absolute Granulocytes (1.4 - 6.5 /CUMM) 5.1 Absolute Lymphocytes (1.2 - 3.4 /CUMM) 0.9 L Absolute Monocytes (0.10 - 0.60 /CUMM) 1.6 H Absolute Eosinophils (0.0 - 0.7 /CUMM) 0.1 Absolute Basophils (0.0 - 0.2 /CUMM) 0 PUBS MCHC (33.0 - 37.0 G/DL) 33.0 Last 24 Hours of Edi Results: Sputum culture October 24 positive for gram-negative rods Urine culture October 24 negative Blood cultures 2 October 23 negative Recent Imaging Studies: CT of the chest, abdomen and pelvis October 24 reveals dependent segmental atelectasis in the lower lobes, small bilateral pleural effusions, with no significant consolidation; retroperitoneal fat stranding with a small amount of fluid most notably around the inferior margin of the third segment of duodenum; hydropic gallbladder CT of the right upper extremity October 24 reveals extensive subcutaneous tissue edema of the right hand, wrist and forearm with no evidence of fluid collection or abscess and no acute osseous injury Right upper quadrant ultrasound October 24 reveals a hydropic gallbladder with a small amount of pericholecystic fluid Chest x-ray October 25, personally reviewed, reveals persistent small bilateral pleural effusions and bibasilar atelectasis Assessment/Plan Impression: Improving with decreasing need for pressors, temperatures normal and white blood cell count decreased on Ciprofloxacin, begun yesterday for possible pneumonia, with Stenotrophomonas isolated from the sputum culture, though the CT of the chest only suggests atelectasis and small effusions. He was given Ciprofloxacin in place of the Levaquin as there was concern regarding his GI motility, though the CT scan did not reveal gastric distention. It did reveal findings along the duodenum which raised concern for peptic ulcer disease, duodenitis or pancreatitis, which could be secondary to alcohol abuse. His right upper extremity inflammation persists though with no overlying erythema or drainage and with no evidence of any collection or deeper infection on the CT scan. Suggestion: 1. Follow-up recent cultures 2. Would remove left IJ triple-lumen catheter once he is off pressors 3. Continue Ciprofloxacin
--- NOTE | 2016-10-25 11:30 | Event Note ---
Event Note Event Note: Around 1110, nurse called me into the room saying that patient might be seizing. I assessed the patient, he just had a bowel movement and was shaking all extremities for about 7 minutes. Eyes were wide open and responded to being called, despite being ativan drip (at 9mg/hr) and fentanyl. He is on bilateral UE restrains but looks like he is trying to reach up his hand to pull out the ET tube. His HR went as high as 133, and RR as high as 40. Systolic BP around 133. He was afebrile. After given 2 mg IV ativan push, his shaking stopped after about 3 minutes. Of note, he is now off vasopressor. Reglan has not been given. Attending, Dr. Oliveros, notified. Neurology has been reconsulted. EEG ordered. Assessment: Seizure like movements without loss of consciousness, alcohol withdrawal tremors ? Plan: Follow up neurology [facility] Follow up EEG results (although not reliable because he is sedated)
--- NOTE | 2016-10-25 12:49 | Cons- Ear,Nose&Throat ---
General Information and HPI Consulting Request Date of Consult: 10/20/16 Requested By: TAWNY ALVAREZ MD Reason for Consult: swollen tongue secondary to trauma Exam Limitations: unable to give history, confusion, intoxication History of Present Illness: Pt had alcoholic withdrawal seizure this morning, bit tongue. Medical staff concerned about airway.Here for evaluation and to determine if he needs intubation Allergies/Medications Allergies: Coded Allergies: NO KNOWN ALLERGIES (UNKNOWN 10/21/16) Home Med List: Amlodipine Besylate (Norvasc) 10 MG TABLET 1 TAB PO DAILY BLOOD PRESSURE Fluoxetine HCl 20 MG CAPSULE 1 CAP PO DAILY ANXIETY (Reported) Gabapentin 300 MG CAPSULE 2 CAP PO BID PERIPHERAL NEUROPATHY (Reported) Hydrochlorothiazide 25 MG TABLET 1 TAB PO DAILY BLOOD PRESSURE Hydroxyzine Pamoate 25 MG CAPSULE 1 CAP PO TIDPRN ANXIETY (Reported) Lisinopril 40 MG TABLET 1 TAB PO DAILY HIGH BLOOD PRESSURE (Reported) Past History Medical History Neurological: peripheral neuropathy EENT: NONE Cardiovascular: hypertension Respiratory: NONE Gastrointestinal: NONE Hepatic: NONE Renal: NONE Musculoskeletal: osteomyelitis of the left femur treated with 4 weeks of IV antibiotics four years prior to admission Psychiatric: anxiety Endocrine: NONE Blood Disorders: NONE Cancer(s): NONE ART THERAPIST/Reproductive: NONE Surgical History Pertinent Surgical History: status post left third toe amputation Family History Relations & Conditions If Any: Relation not specified for: *No pertinent family history Psychosocial History Where Do You Live? Home Services at Home: None Smoking Status: Current Everyday Smoker ETOH Use: heavy use Exam & Diagnostic Data Vital Signs and I&O Vital Signs Date Time Temp Pulse Resp B/P Pulse O2 O2 Flow FiO2 Ox Delivery Rate 10/25 1143 35 10/25 0815 35 10/25 0600 71 16 98/62 10/25 0558 35 10/25 0400 98.7 82 16 110/70 10/25 0400 95 Ventilator 35% 10/25 0350 35 10/25 0200 77 16 98/64 / 0040 35 04/ 0000 99.9 78 17 110/70 04/07 0000 99.9 78 17 110/70 99 Ventilator 35% 04/07 0000 99 Ventilator 35% / 2208 35 10/24 2200 98.0 84 16 90/55 10/24 2117 98.5 78 16 100/59 10/24 2006 35 10/25 1999 98.5 68 16 110/72 04/06 2000 100 Ventilator 35% 10/24 1627 35 10/24 1600 98.8 62 16 116/72 04/ 1600 99 Ventilator 35% / 1600 98.8 62 16 116/72 99 Ventilator 35% /06 1400 60 16 103/62 10/24 1355 35 Intake & Output 10/25 1600 10/25 0800 10/25 0000 10/24 1600 10/24 0800 10/24 0000 Intake Total 1438 1657.7 1649 3101 3001 Output Total 362 582 8018 402 645 Balance 918 1207.7 289 2699 2356 Intake, IV 1438 1657.7 1649 3101 2239 Intake, Oral 0 Intake, Other 300 Intake, Tube 462 Irrigant Number 1 1 Bowel Movements Output, 560 Gastric Drainage Output, Urine 520 450 800 402 645 Physical Exam: Swollen tongue and floor of mouth. Two bite dorman on undersurface of tongue, secondary to seizure. Pharynx could not be seen. Assessment/Plan Assessment/Plan Recommend direct laryngoscopy and intubation in the OR Consult Acknowledgment - Thank you for your consult request.
--- NOTE | 2016-10-25 12:57 | Operative Report ---
Operative/Inv Procedure Report Surgery Date: 10/20/16 Name of Procedure: Direct laryngoscopy and intubation Pre-Operative Diagnosis: swollen tongue Post-Operative Diagnosis: same, secondary to undersurface of tongue trauma, normal larynx Estimated Blood Loss: none Surgeon/Mounter: Gallo Tejada Anesthesia: general endotracheal tube Operative/Procedure Note Note: Pt noted to have swollen tongue in ICU. Brought to OR For intubation and laryngoscopy. Tracheotomy on standby. Laryngoscope intruduced into his mouth, anterior tongue very swollen. Base of tongue, epiglottis, larynx, and hypopharynx were normal. Anesthesia staff then intubated the patient easily. Findings: Enlarged swollen tongue, puncture dorman on undersurface of tongue. Base of tongue, larynx, and hypopharynx NORMAL. Ok to intubate.
--- NOTE | 2016-10-25 17:05 | NUR ---
PT REMAINS INTUBATED AND SEDATED. HE HAS TOLERATED A SEDATION REDUCTION TO 5 MG OF ATIVAN PER HOUR AND 25 MCG OF FENTANYL PER HOUR. HE DID EXPERIENCE AN EPISODE THIS AM OF ALL 4 EXTREMITIES TREMBLING STRONGLY, ? RIGORS. HE WAS ABLE TO FOCUS ON NURSING STAFF DURING THIS EPISODE AND APPEARED TO BE TRYING TO STOP THE TREMBLING. HIS SAS IS 3-4, HE FOLLOWS COMMANDS AND MOVES ALL EXTREMITIES. HE DID HAVE HIGH RESIDUAL FROM OGT AT 0800 (480MLS), REGLAN HAS BEEN STARTED AND RESIDUAL WAS 100ML AT 1600. TF WILL START AT 15 MLS PER HOUR. HE HAS HAD 2 LOOSE BOWEL MOVEMENTS.
--- NOTE | 2016-10-25 17:37 | ELECTROENCEPHALOGRAM REPORT ---
Electroencephalogram Report Electroencephalogram Results Date of service: 10/25/16 Attending MD: TAWNY ALVAREZ MD Reefer Engineer: Jabier EEG Number: [id number] Test Utilizes: Limited pedi EEG. Pertinent Hx/Physical/Neuro Findings/Clin Diagnosis: 56 year old who presented in alcohol withdrawal and suffered a seizure. Today had whole body tremors while alert and responsive. Inpatient Medications: Current Medications Sig/Nora Start time Last Medication Dose Route Stop Time Status Admin Acetaminophen 500 MG Q24 PRN 10/20 0330 AC IV Amlodipine Besylate 10 MG DAILY 10/20 1000 AC 04 PO 1235 Ciprofloxacin 400 MG Q12H 10/24 1400 AC 10/25 Dextrose/Water 200 ML IV 1517 Diphenhydramine HCl 25 MG Q6P PRN 10/22 1054 AC 10/22 IV 1327 Fentanyl Citrate 1,000 MCG Q10H 10/24 0945 AC 10/25 Dextrose/Water 250 ML IV 0716 Gabapentin 300 MG TID 10/25 1645 AC PO Heparin Sodium 5,000 UNIT Q8 10/20 0600 AC 10/25 (Porcine) SC 0523 Lorazepam 2 MG ONE ONE 10/25 1245 DC / IV 10/25 1246 1248 Lorazepam 100 MG Q12H / 2100 AC / Dextrose/Water 1,000 ML IV 2238 Lorazepam 100 MG Q6H / 1530 DC / Dextrose/Water 1,000 ML IV 10/24 2059 1214 Metoclopramide HCl 10 MG Q6 / 1200 AC 10/25 IV 1227 Morphine Sulfate 2 MG Q4P PRN 10/20 0330 AC IV Norepinephrine 4 MG Q13H / 0915 AC 10/24 Sodium Chloride 250 ML IV 2118 Pantoprazole Sodium 40 MG DAILY 10/20 1345 AC 10/25 IV 1426 Polyethylene Glycol 17 GM DAILY 10/23 1000 AC 04/ PO 1233 Sodium Chloride 1,000 ML Q13H 10/23 1100 AC / IV 0430 Interpretation: This limited lead EEG was completed while the patient was on Fentanyl and Ativan drips. With those limitations in mind, the reocrding a reduced frequency gradient. The predominant frequency is a medium amplitude alpha rhythm. There are no paroxysmal sharps or spikes. The posterior dominant rhythm is estimated at 7-8 hertz. Impression: Mildly abnormal EEG due to slight slowing of backgrounds. Otherwise there is no suggestion of any seizure activity.
--- NOTE | 2016-10-25 17:41 | PN- Neurology ---
Subjective Subjective: Asked to see patient after an episode of tremulousness earlier today. Of note the patient was responsive, holding eye contact and squeezing hands during this tremor of the all four limbs. Review of Systems: no change Objective Vital Signs and I&Os Vital Signs Date Time Temp Pulse Resp B/P Pulse O2 O2 Flow FiO2 Ox Delivery Rate 10/25 1607 35 10/25 1416 35 10/25 1200 96 Ventilator 35% 10/25 1143 35 10/25 0815 35 10/25 0800 96 Ventilator 35% 10/25 0800 97.0 72 16 104/70 96 Ventilator 35% 10/25 0600 71 16 98/62 04 0558 35 10/25 0400 98.7 82 16 110/70 10/25 0400 95 Ventilator 35% 10/25 0350 35 10/25 0200 77 16 98/64 04/ 0040 35 04/ 0000 99.9 78 17 110/70 04/ 0000 99.9 78 17 110/70 99 Ventilator 35% 10/25 0000 99 Ventilator 35% 10/24 2208 35 10/24 2200 98.0 84 16 90/55 10/24 2118 98.5 78 16 100/59 10/24 2006 35 /1999 98.5 68 16 110/72 10/25 1999 100 Ventilator 35% Intake & Output 10/25 1600 10/25 0810/25 0000 10/24 1600 10/24 0800 10/24 0000 Intake Total 2194 1438 1657.7 1649 3101 3001 Output Total 1500 521 446 5282 402 645 Balance 483 786 1637.7 289 2699 2356 Intake, IV 2194 1438 1657.7 1649 3101 2239 Intake, Oral 0 Intake, Other 300 Intake, Tube 462 Irrigant Number 2 1 1 Bowel Movements Output, 480 560 Gastric Drainage Output, Urine 1020 520 450 800 402 645 Physical Exam: Intubated on Ativan drip. Open eyes to tactile stimulation. EOMI, RAO, face symmetric. Squeezes hand to command. Toe downgoing. Current Medications: Current Medications Sig/Nora Start time Last Medication Dose Route Stop Time Status Admin Acetaminophen 500 MG Q24 PRN 10/20 0330 AC IV Amlodipine Besylate 10 MG DAILY 10/20 1000 AC 10/23 PO 1235 Ciprofloxacin 400 MG Q12H 10/24 1400 AC 10/25 Dextrose/Water 200 ML IV 1517 Diphenhydramine HCl 25 MG Q6P PRN 10/22 1054 AC 10/22 IV 1327 Fentanyl Citrate 1,000 MCG Q10H 10/24 0945 10/25 Dextrose/Water 250 ML IV 0716 Gabapentin 300 MG TID 10/25 1645 AC PO Heparin Sodium 5,000 UNIT Q8 10/20 0600 AC 10/25 (Porcine) SC 0523 Lorazepam 2 MG ONE ONE 10/25 1245 DC 10/25 IV 10/25 1246 1248 Lorazepam 100 MG Q12H 10/24 2100 AC 10/24 Dextrose/Water 1,000 ML IV 2238 Lorazepam 100 MG Q6H 10/22 1530 DC 10/25 Dextrose/Water 1,000 ML IV 10/24 2058 1214 Metoclopramide HCl 10 MG Q6 10/25 1200 AC 10/25 IV 1227 Morphine Sulfate 2 MG Q4P PRN 10/20 0330 AC IV Norepinephrine 4 MG Q13H 10/24 0915 10/24 Sodium Chloride 250 ML IV 2118 Pantoprazole Sodium 40 MG DAILY 10/20 1345 AC 10/25 IV 1426 Polyethylene Glycol 17 GM DAILY 10/23 1000 AC 10/23 PO 1233 Sodium Chloride 1,000 ML Q13H 10/23 1100 AC 10/25 IV 0430 Results Last 24 Hours of Lab Results: Laboratory Tests 10/25 0400 Chemistry Sodium (137 - 145 mmol/L) 131 L Potassium (3.5 - 5.1 mmol/L) 4.0 Chloride (98 - 107 mmol/L) 102 Carbon Dioxide (22 - 30 mmol/L) 21 L Anion Gap (5 - 16) 8 BUN (9 - 20 mg/dL) 8 L Creatinine (0.7 - 1.2 mg/dL) 0.9 Estimated GFR (>60 ml/min) > 60 Glucose (65 - 99 mg/dL) 85 Calcium (8.4 - 10.2 mg/dL) 7.7 L Phosphorus (2.5 - 4.5 mg/dL) 3.5 Magnesium (1.6 - 2.3 mg/dL) 2.0 Total Bilirubin (0.2 - 1.3 mg/dL) 0.9 AST (17 - 59 U/L) 26 ALT (21 - 72 U/L) 40 Albumin (3.5 - 5.0 g/dL) 2.4 L Hematology CBC w Diff NO MAN DIFF REQ WBC (4.8 - 10.8 /CUMM) 7.8 RBC (4.70 - 6.10 /CUMM) 3.02 L Hgb (14.0 - 18.0 G/DL) 10.8 L Hct (42 - 52 %) 32.6 L MCV (80.0 - 94.0 FL) 107.9 H MCH (27.0 - 31.0 PG) 35.6 H RDW (11.5 - 14.5 %) 15.7 H Plt Count (130 - 400 /CUMM) 127 L MPV (7.4 - 10.4 FL) 9.8 Gran % (42.2 - 75.2 %) 65.7 Lymphocytes % (20.5 - 51.1 %) 11.8 L Monocytes % (1.7 - 9.3 %) 20.7 H Eosinophils % (0 - 5 %) 1.2 Basophils % (0.0 - 2.0 %) 0.6 Absolute Granulocytes (1.4 - 6.5 /CUMM) 5.1 Absolute Lymphocytes (1.2 - 3.4 /CUMM) 0.9 L Absolute Monocytes (0.10 - 0.60 /CUMM) 1.6 H Absolute Eosinophils (0.0 - 0.7 /CUMM) 0.1 Absolute Basophils (0.0 - 0.2 /CUMM) 0 PUBS MCHC (33.0 - 37.0 G/DL) 33.0 Recent Imaging Studies: EEG -wnl. Assessment/Plan Assessment: 56 year old man in alcohol withdrawal with likely alcohol withdrawal seizures and withdrawal related or infection related rigors or tremors. Plan: Recommend placing the patient back on gabapentin 300 tid.
--- NOTE | 2016-10-25 20:05 | NUR ---
PT SEDATED, EASILY AROUSABLE TO VERBAL STIMULI, FOLLOWS COMMANDS, PUPILS EQUAL AND REACT BRISKLY TO LIGHT. NO SEIZURE ACTIVITY OR TREMORS NOTED AT PRESENT. ATIVAN GTT AT 5MG/HR, FENTANYL GTT AT 25MCG/HR. SEE FLOW SHEET FOR SAS SCORES-4 AT PRESENT. ORALLY INTUBATED AND VENTED. BREATH SOUNDS CLEAR WITH DIMINISHED BREATH SOUNDS AT BASES BILATERALLY. MINIMAL SUCTIONING AT PRESENT. NO SOB OR RESP DISTRESS NOTED AT PRESENT. SEE FLOW SHEET FOR VS, 02 SATS, I/O'S. MONITOR SHOWS NSR, NO ECTOPY NOTED AT PRESENT. BP STABLE AT PRESENT. ABD SOFT, NONTENDER, NONDISTENDED, POSITIVE BOWEL SOUNDS. OGT IN PLACE-PLACEMENT CONFIRMED BY AIR, ON TUBE FEEDS. OJEDA IN PLACE-DRAINING ADEQUATE AMT OF CLEAR YELLOW URINE AT PRESENT. 3-4+ EDEMA BILATERAL UPPER EXTREMITIES. SOFT BILATERAL WRIST RESTRAINTS ON. SKIN INTACT. BILATERAL FOREARMS WITH DRESSINIGS COVERING OPEN BLISTERS-C/D/I AT PRESENT
[2016-10-26] VITALS (8 sets, daily range): BP systolic 122–140; BP diastolic 61–82
[2016-10-26 03:43] LABS: ABSOLUTE BASOPHIL COUNT 0 /CUMM (0.0-0.2); ABSOLUTE EOSINOPHIL COUNT 0.1 /CUMM (0.0-0.7); ABSOLUTE GRANULOCYTE CT 3.2 /CUMM (1.4-6.5); ABSOLUTE LYMPH COUNT 0.9 /CUMM (1.2-3.4); BASOPHIL % 0.4 % (0.0-2.0); EOSINOPHIL % 2.2 % (0-5); MEAN CORPUSCULAR HGB CONC 32.9 G/DL (33.0-37.0); MEAN CORPUSCULAR VOLUME 106.4 FL (80.0-94.0); MEAN PLATELET VOLUME 9.8 FL (7.4-10.4); PLATELET COUNT 139 /CUMM (130-400); RBC DISTRIBUTION WIDTH 15.5 % (11.5-14.5); RED BLOOD CELL CT 2.92 /CUMM (4.70-6.10); WHITE BLOOD CELL COUNT 5.2 /CUMM (4.8-10.8)
[2016-10-26 04:17] LABS: GRANULOCYTE % 61.4 % (42.2-75.2)
--- NOTE | 2016-10-26 06:38 | RADIOLOGY REPORT ---
EXAMINATION: XR PORTABLE CHEST CLINICAL INFORMATION: Intubation. COMPARISON: Chest x-ray 10/25/2016 TECHNIQUE: Portable AP view of the chest was obtained. 6:17 AM FINDINGS: Endotracheal tube place. Catheter tip 7.6 cm above karoline in good position. Left IJ catheter tip in superior vena cava. Catheter tip about 5 cm from the cavoatrial junction. Hazy opacity at the right lung base due to a right pleural effusion and possible underlying infiltrate or atelectasis. No pulmonary vascular congestion. There is also retrocardiac density as well. Possible left lower lobe infiltrate or atelectasis. IMPRESSION: Catheter tip 7.6 cm above karoline good position. IJ catheter tip in superior vena cava. Bibasilar density right greater than left. Probable right pleural effusion and right basilar infiltrate/atelectasis. Consolidation in the retrocardiac area left lung base.
--- NOTE | 2016-10-26 07:36 | PN- Resident CRCU ---
Subjective HPI/CRCU Issues: Pt seen this morning, no further shaking/rigors noted after the episode yesterday morning at 11am. EEG done was not concerning for epilepsy. Neurontin restarted. 24hr data: max temp 99.2, hr 61-94, nsr, rr 12-16, systolic bp 96-130 diastolic bp 51-70 off levophed since about 1pm yesterday map 61-99 cvp 6-14 sas 3-4 ac/16/550/30%/5 +[phone] -9165 Pt remains sedated with ativan 5mg/hr, fentanyl 25mcg/hr. tube feeds at 30ml/hr. ns at 75ml/hr labs reviewed: wbc 7.8 to 5.2, hb 10.8 to 10.2, k 4 to 3.7, will replete. na 131 to 133. bun/cr7/0.8. mg 1.8 Spoke to his fiance, Nancy, yesterday, who said that at baseline he has intermittent tremors and mild twitches. He has been reportedly lightheaded when he gets up, most likely due to recent increase in his antihypertensives. Objective Vital Signs & I&O Last 8 Hrs of Vitals and I&O: Intake & Output 10/26 1600 10/26 0800 10/26 0000 Intake Total 1561 941 Output Total 2150 960 Balance -589 -19 Intake, IV 1227 740 Intake, Tube 184 51 Feeding Intake, Tube 150 150 Irrigant Number 0 1 Bowel Movements Output, Urine 2150 960 Laboratory Tests 10/26 0325 Chemistry Sodium (137 - 145 mmol/L) 133 L Potassium (3.5 - 5.1 mmol/L) 3.7 Chloride (98 - 107 mmol/L) 104 Carbon Dioxide (22 - 30 mmol/L) 22 Anion Gap (5 - 16) 7 BUN (9 - 20 mg/dL) 7 L Creatinine (0.7 - 1.2 mg/dL) 0.8 Estimated GFR (>60 ml/min) > 60 Glucose (65 - 99 mg/dL) 101 H Calcium (8.4 - 10.2 mg/dL) 8.0 L Phosphorus (2.5 - 4.5 mg/dL) 3.0 Magnesium (1.6 - 2.3 mg/dL) 1.8 Total Bilirubin (0.2 - 1.3 mg/dL) 0.9 AST (17 - 59 U/L) 35 ALT (21 - 72 U/L) 37 Albumin (3.5 - 5.0 g/dL) 2.2 L Hematology CBC w Diff NO MAN DIFF REQ WBC (4.8 - 10.8 /CUMM) 5.2 RBC (4.70 - 6.10 /CUMM) 2.92 L Hgb (14.0 - 18.0 G/DL) 10.2 L Hct (42 - 52 %) 31.0 L MCV (80.0 - 94.0 FL) 106.4 H MCH (27.0 - 31.0 PG) 35.0 H RDW (11.5 - 14.5 %) 15.5 H Plt Count (130 - 400 /CUMM) 139 MPV (7.4 - 10.4 FL) 9.8 Gran % (42.2 - 75.2 %) 61.4 Lymphocytes % (20.5 - 51.1 %) 16.8 L Monocytes % (1.7 - 9.3 %) 19.2 H Eosinophils % (0 - 5 %) 2.2 Basophils % (0.0 - 2.0 %) 0.4 Absolute Granulocytes (1.4 - 6.5 /CUMM) 3.2 Absolute Lymphocytes (1.2 - 3.4 /CUMM) 0.9 L Absolute Monocytes (0.10 - 0.60 /CUMM) 1.0 H Absolute Eosinophils (0.0 - 0.7 /CUMM) 0.1 Absolute Basophils (0.0 - 0.2 /CUMM) 0 PUBS MCHC (33.0 - 37.0 G/DL) 32.9 L Laboratory Tests 10/26/16 0325: Anion Gap 7, Estimated GFR > 60, Glucose 101 H, Calcium 8.0 L, Phosphorus 3.0, Magnesium 1.8, Total Bilirubin 0.9, AST 35, ALT 37, Albumin 2.2 L, CBC w Diff NO MAN DIFF REQ, RBC 2.92 L, MCV 106.4 H, MCH 35.0 H, RDW 15.5 H, MPV 9.8, Gran % 61.4, Lymphocytes % 16.8 L, Monocytes % 19.2 H, Eosinophils % 2.2, Basophils % 0.4, Absolute Granulocytes 3.2, Absolute Lymphocytes 0.9 L, Absolute Monocytes 1.0 H, Absolute Eosinophils 0.1, Absolute Basophils 0, PUBS MCHC 32.9 L Vital Signs Date Time Temp Pulse Resp B/P Pulse O2 O2 Flow FiO2 Ox Delivery Rate 10/26 0810 30 10/26 0800 98 Ventilator 30% 10/27 799 97.5 70 20 140/70 96 Ventilator 30% 10/26 0623 30 10/26 0600 83 16 125/67 10/26 0356 97.3 65 16 124/64 10/26 0356 100 Ventilator 30% 10/26 0350 30 10/26 0348 35 10/26 0013 35 / 0000 97.3 61 16 122/80 04/ 0000 100 Ventilator 35% 10/25 2300 97.3 61 16 122/80 100 Ventilator 35% 10/25 2200 63 16 102/56 10/25 2136 35 10/25 2000 97.3 83 19 120/63 10/25 2000 94 Ventilator 35% 10/25 1909 35 10/25 1607 35 10/25 1600 96 Ventilator 35% 10/25 1600 99.8 78 18 96/64 97 Ventilator 35% 10/25 1416 35 04 1200 96 Ventilator 35% 10/25 1143 35 Exam General Appearance: sedated, intubated Respiratory: normal breath sounds, chest non-tender, no respiratory distress Cardiovascular: regular rate/rhythm Gastrointestinal: normal bowel sounds, soft, non-tender Extremities: anasarca Current Medications: Current Medications Sig/Nora Start time Last Medication Dose Route Stop Time Status Admin Acetaminophen 500 MG Q24 PRN 10/20 0330 AC IV Amlodipine Besylate 10 MG DAILY 10/20 1000 AC 10/23 PO 1235 Ciprofloxacin 400 MG Q12H 10/24 1400 AC 10/26 Dextrose/Water 200 ML IV 0207 Diphenhydramine HCl 25 MG Q6P PRN 10/22 1054 AC 10/22 IV 1327 Fentanyl Citrate 1,000 MCG Q10H 10/24 0945 AC 10/25 Dextrose/Water 250 ML IV 2347 Gabapentin 300 MG TID 10/25 1645 AC 10/25 PO 2134 Heparin Sodium 5,000 UNIT Q8 10/20 0600 AC 10/26 (Porcine) SC 0547 Lorazepam 2 MG ONE ONE 10/25 1245 DC 04/07 IV 10/25 1246 1248 Lorazepam 100 MG Q12H 10/24 2100 AC 10/26 Dextrose/Water 1,000 ML IV 0514 Magnesium Sulfate 1 GM ONCE ONE 10/26 0745 AC Dextrose/Water 100 ML IV 10/26 1144 Metoclopramide HCl 10 MG Q6 10/25 1200 AC 10/26 IV 0543 Morphine Sulfate 2 MG Q4P PRN 10/20 0330 AC IV Norepinephrine 4 MG Q13H 10/24 0915 DC 10/24 Sodium Chloride 250 ML IV 2118 Pantoprazole Sodium 40 MG DAILY 10/20 1345 AC 10/25 IV 1426 Polyethylene Glycol 17 GM DAILY 10/23 1000 AC 10/23 PO 1233 Potassium Chloride 20 MEQ Q1H 10/26 0745 DC IV 10/26 0846 Sodium Chloride 1,000 ML Q13H 10/23 1100 AC 10/25 IV 1803 Impression/Plan Impression/Problem List Impression: 56-year-old male with PMH of alcoholism, hypertension, peripheral neuropathy, anxiety, recent osteomyelitis of left foot after a dog bite in March 2016, who is brought in by EMS after he was found unresponsive and seizing at home, drinks 1 pint vodka a day, last alcohol drink 48 hours prior to admission. Patient was having seizure in ER, followed by aggressive and combative behavior. Patient received 10 mg haloperidol, 6 mg Ativan. It was followed by another 2 mg of IV Ativan and 2 mg of IV midazolam for CT scan as patient was still combative. He was admitted to the ICU on ativan drip for close monitoring. Tongue was noted to be edematous with laceration most likely due to tongue biting during his seizure episode. ENT called and pt was subsequently intubated due to high risk of respiratory failure and challenging intubation if his swelling were to progress. Pt successfully intubated in the OR on 10/20/16 with consent obtained from his fianceNancy. Post intubation, he was sedated with propofol, subsequently changed to ativan drip, however fentanyl had to be added due to inadequate sedation on ativan alone. On day #4, ENT re-evauated his tongue swelling and cleared him for extubation from their standpoint. Neurology also saw the patient and did not recommend EEG or putting the patient on antiepileptic as his seizure episodes were most likely due to alcohol withdrawal. He was recently bitten by his dog a couple days prior to admission, and was put on unasyn since admission. He was given vancomycin on day # 1 and 2 to cover for possible MRSA. On day #5 of admission, pt developed fever and hypotension, requiring placement of central line and pressor support with levophed. He was given 1X vancomycin and ceftazidimine, and was started on ciprofloxacin. Unasyn discontinued. CT chest/abd/pelvis done without contrast, were nonrevealing, other than retroperitoneal fat stranding that could be due to PUD or pancreatitis. Pt has been on IV PPI since he was intubated, and amylase and lipase were normal. There was also hydropic gallbladder found on CT, for which GI was consulted. On day #6, he had a 7-minute episode of shaking (all 4 extremities)/rigors despite being sedated on ativan and fentanyl. He was awake, did not lose consciousness, and was following commands. His HR went as high as 130s and RR went as high as 40s (intubated). The episode resolved with additional one time 2 mg IV ativan. EEG was done and showed no epileptic activity. Neurology was reconsulted and thought it was due alcohol withdrawal tremors/ sepsis related rigors. The fiance also said the "seizure episode" that she described at home was similar to what we had described, he was conscious the entire time. Pt has been taking neurontin for neuropathy, so it was resumed. Problem list: # Septic shock # Alcohol withdrawal seizure # Tongue laceration secondary to seizure # Hypertensive urgency # Right hand cellulitis due to dog bite # Hypokalemia # Hypophosphatemia # Hypomagnesiumia Left IJ day #3 (would consider removing) Uriarte day #7 Intubated day #7 (would consider extubating) UE restrain day #7 OG tube day #5 Respiratory # Tongue laceration secondary to seizure, causing severe tongue swelling - Intubated on 10/20/2016 in the OR * ENT on board, will follow * IV PPI started * Benadryl PRN * GNR in sputum * Would start weaning trial today as he is now off levophed ID # Hypotension and febrile on day # 5 of admission - LRC from 10/20/16 (day#1 of intubation) grew stenotrophomonas maltophilia, other cx from 10/20/16 NGTD - Given 1time vanco and ceftaz 10/24/16 - Echo: The left ventricular chamber size and systolic function appear normal. Accurate wall motion assessment was not possible. Abnormal septal motion is present. Mild enlargement of the right heart chambers is present wtih minimal to mild tricuspid insufficiency and an estimated RV systolic pressure of 40 mmHg. A relatively large left pleural effusion is present. A small pericardial effusion is present. * Central line placed for levophed. Levophed now off. Would consider removing central line once we have peripheral IV * Follow up cx * Abx as per ID: Recc Levaquin 500 mg (via the OG tube) every 24 hours on 10/24, but he seems to be having ileus, therefore we decided to give him cipro 400 q12 IV. Today is abx day #7 # Right hand cellulitis due to dog bite - Right hand laceration wound with secondary cellulitis, patient admits a dog bite happened couple of days back, but patient was altered and unreliable historian. The wounds look dirty. 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 - hand xray normal - CT right upper extremity 10/24/16: extensive subcutaneous tissue edema of the right hand, wrist, forearm and examined arm; findings suggest presence of cellulitis. * He was given 1X vancomycin 10/20/16 and 10/21/16 pending cx. Unasyn given for 4 days. * Plastic surgery consulted - [facility] moist dressing * F/U cultures * Wound irrigation and wound care consult Cardiovascular # Hypotension, most likely due to sepsis * As above # Hypertensive urgency on admission , hx of htn * Continue home amlodipine (hold if bp low) * Would need to watch BP closely when pt restarted on home antihypertensives as mo reports pt has been more lightheaded since his BP regimen was changed Heme # Thrombocytopenia - Platelet 119-155 Metabolic # Hypokalemia # Hypophosphatemia # Hypomagnesiumia * Monitor electrolytes, replete as needed Alimentary * NPO, tube feeds * IV reglan # Constipation (resolved with supp) * Order as needed Neuro # Alcohol withdrawal seizure/tremors/rigors - CT of the head negative for acute intracranial pathology. - Work up in the ED showed slightly elevated WBC of 10.7 with left shift ( granulocyte 87%), MCV of 106, anion gap of 24, bicarbonate 20, total bilirubin 1.4, elevated AST 138 (>2 times AST), elevated alkaline phosphatase (152), urine analysis is positive for proteins and ketones, urine toxicology WNL, low serum alcohol level (last drink reportedly 48 hours prior to presentation) * Sedated with ativan and fentanyl * Neurology consulted * Given banana bag and thiamine * Replete electrolytes as needed * Aspiration precaution * Order dantrolene if has further rigors Diet: NPO (intubated) tube feed as per nutrition IVF: 75ml/hr NS DVT ppx: alps , heparin FULL CODE Problem List: 1. Alcohol withdrawal seizure 2. Dog bite Pain Ratin Tomorrow's Labs & Rationales: ICU cbc critically ill Plan DVT/Prophylaxis: mechanical, pharmacological
--- NOTE | 2016-10-26 07:36 | NUR ---
PT REMAINS ON ATIVAN AT 5MG/HR AND FENTANYL AT 25MCG/HR-REMAINS EASILY AROUSABLE TO VERBAL STIMULI, FOLLOWING COMMANDS. BILATERAL SOFT RESTRAINTS REMAIN ON. NO SEIZURE ACTIVITY NOTED THOUGHOUT SHIFT. MINIMAL SUCTIONING OF THIN CLEAR-WHITE SECREATIONS VIA ETT. NSR, NO ECTOPY NOTED THOUGHOUT SHIFT. BP STABLE. LARGE URINE OUTPUT OF CLEAR YELLOW URINE. NO OTHER CHANGE IN PT ASSESSMENTS THOUGHOUT SHIFT. TOLERATED TUBE FEEDS WELL-MINIMAL RESIDUALS
--- NOTE | 2016-10-26 10:38 | PN- CRCU ---
Subjective HPI/Critical Care Issues: pt seen and examined off levophed since about 1am still with triple lumen, awaiting peripheral access upper and lower extremity edema sedated with ativan 5/hr and fentanyl 25/hr afebrile normotensive 30% fio2 arousable, follows commands Objective Current Medications: Current Medications Sig/Nora Start time Last Medication Dose Route Stop Time Status Admin Acetaminophen 500 MG Q24 PRN 10/20 0330 AC IV Amlodipine Besylate 10 MG DAILY 10/20 1000 AC 10/23 PO 1235 Ciprofloxacin 400 MG Q12H 10/24 1400 AC 10/26 Dextrose/Water 200 ML IV 0207 Diphenhydramine HCl 25 MG Q6P PRN 10/22 1054 AC 10/22 IV 1327 Fentanyl Citrate 1,000 MCG Q10H 10/24 0945 AC 10/25 Dextrose/Water 250 ML IV 2347 Gabapentin 300 MG TID 10/25 1645 AC 10/25 PO 2134 Heparin Sodium 5,000 UNIT Q8 10/20 0600 AC 10/26 (Porcine) SC 0547 Lorazepam 2 MG ONE ONE 10/25 1245 DC 10/25 IV 10/25 1246 1248 Lorazepam 100 MG Q12H 10/24 2100 AC 10/26 Dextrose/Water 1,000 ML IV 0514 Magnesium Sulfate 1 GM ONCE ONE 10/26 0745 AC Dextrose/Water 100 ML IV 10/26 1144 Metoclopramide HCl 10 MG Q6 10/25 1200 AC 10/26 IV 0543 Morphine Sulfate 2 MG Q4P PRN 10/20 0330 AC IV Norepinephrine 4 MG Q13H 10/24 0915 DC 10/24 Sodium Chloride 250 ML IV 2118 Pantoprazole Sodium 40 MG DAILY 10/20 1345 AC 10/25 IV 1426 Polyethylene Glycol 17 GM DAILY 10/23 1000 AC 10/23 PO 1233 Potassium Chloride 20 MEQ Q1H 10/26 0745 DC 10/26 IV 10/26 0846 1016 Sodium Chloride 1,000 ML Q13H 10/23 1100 AC 10/26 IV 1015 Vital Signs & I&O Last 24 Hrs of Vitals and I&O: Vital Signs Date Time Temp Pulse Resp B/P Pulse O2 O2 Flow FiO2 Ox Delivery Rate 10/26 809 30 10/27 799 98 Ventilator 30% 10/27 799 97.5 70 20 140/70 96 Ventilator 30% 10/26 622 30 10/26 0600 83 16 125/67 04/ 0356 97.3 65 16 124/64 04/ 0356 100 Ventilator 30% / 0350 30 10/26 0348 35 10/26 0013 35 04/ 0000 97.3 61 16 122/80 04/08 0000 100 Ventilator 35% 10/25 2300 97.3 61 16 122/80 100 Ventilator 35% 10/25 2200 63 16 102/56 / 2136 35 10/26 1999 97.3 83 19 120/63 041999 94 Ventilator 35% 10/25 1909 35 10/25 1607 35 10/25 1600 96 Ventilator 35% 10/25 1600 99.8 78 18 96/64 97 Ventilator 35% 10/25 1416 35 10/25 1200 96 Ventilator 35% 10/25 1143 35 Intake & Output 10/26 1600 10/26 0800 04 0000 Intake Total 1561 941 Output Total 2150 960 Balance -589 -19 Intake, IV 1227 740 Intake, Tube 184 51 Feeding Intake, Tube 150 150 Irrigant Number 0 1 Bowel Movements Output, Urine 2150 960 Exam Other Physical Findings: gen - arousable heent - ett, left IJ cvs s1, s2, no murmurs lungs - transmitted abd - soft, bs+ ext - edematous bilateral LE and UE, healing right hand wound Results Last 24 Hrs of Lab Results: Laboratory Tests 10/26/16 0325: Anion Gap 7, Estimated GFR > 60, Glucose 101 H, Calcium 8.0 L, Phosphorus 3.0, Magnesium 1.8, Total Bilirubin 0.9, AST 35, ALT 37, Albumin 2.2 L, CBC w Diff NO MAN DIFF REQ, RBC 2.92 L, MCV 106.4 H, MCH 35.0 H, RDW 15.5 H, MPV 9.8, Gran % 61.4, Lymphocytes % 16.8 L, Monocytes % 19.2 H, Eosinophils % 2.2, Basophils % 0.4, Absolute Granulocytes 3.2, Absolute Lymphocytes 0.9 L, Absolute Monocytes 1.0 H, Absolute Eosinophils 0.1, Absolute Basophils 0, PUBS MCHC 32.9 L Impression/Plan Impression/Plan Impression/Plan: Impression 56 year old man * Resolved shock unclear etiology, likely secondary to Stenotrophomonas sputum/ possible aspiration pna vs right hand cellulitis * EtOH dependence and withdrawal * Anasarca/malnutrition * Gallbladder hydrops * Improved hypoxemic respiratory failure * Stable and resolving tongue laceration Plan Respiratory - vent settings - AC 550/16/30%/5 - attempt to reduce sedation, ABG today, CPAP trials - CXR with ETT 7.6cm above the lelo - ETT advance 2 cm - f/u ENT recommendations ID - f/u ID consultation, continue ciprofloxacin, monitor wbc, fevers CVS - off levophed, continue to monitor hemodynamics Heme - monitor cbc, coags, thrombocytopenia resolved Metabolic - ins/outs, monitor creatinine, monitor electrolytes - normal lactic acid Alimentary - hold tube feeds during CPAP trials Neuro - on ativan and fentanyl for sedation - will attempt to reduce - will add librium 50mg po q6h DVT prophylaxis at all times - heparin TID TTS 40 min
--- NOTE | 2016-10-26 19:58 | NUR ---
PT REMAINS INTUBATED AND HAS HAD 2 TRIALS OF CPAP TODAY. HE HAS BEEN WEANED OFF IV ATIVAN AND FENTANYL. HE IS TOLERATING HIS TUBE FEEDS. HE REMAINS SLEEPY BUT WAKES TO VERBAL.
--- NOTE | 2016-10-26 20:53 | NUR ---
PT DROWSY EASILY AROUSABLE TO VERBAL STIMULI, FOLLOWS COMMANDS, OFF ALL SEDATION. ORALLY INTBATED AND SEDATED. BREATH SOUNDS CLEAR WITH DIMINISHED BREATH SOUNDS AT BASES BILATERALLY. MINIMAL SUCTIONING OF CLEAR-WHITE THIN SSECREATIONS. NO SOB OR RESP DISTRESS NOTED AT PRESENT. SEE FLOW SHEET FOR VS, 02 SATS, I/O'S. MONITOR SHOWS NSR, NO ECTOPY. BP STABLE AT PRESENT. OGT IN PLACE-PLACEMENT CONFIRMED BY AIR-ON TUBE FEEDS-TOLERATING WELL AT PRESENT. OJEDA IN PLACE-DRAINING GOOD AMT OF CLEAR YELLOW URINE AT PRESENT. SKIN ON BACK INTACT. BILATERAL FOREARMS WITH OPEN BLISTERS COVERED WITH DSD-C/D/I. 3+ EDEMA BILATERAL UPPER EXTREMITES.
[2016-10-27] VITALS (8 sets, daily range): BP systolic 118–190; BP diastolic 64–90
[2016-10-27 05:17] LABS: ABSOLUTE BASOPHIL COUNT 0 /CUMM (0.0-0.2); ABSOLUTE EOSINOPHIL COUNT 0.1 /CUMM (0.0-0.7); ABSOLUTE GRANULOCYTE CT 2.9 /CUMM (1.4-6.5); ABSOLUTE LYMPH COUNT 0.8 /CUMM (1.2-3.4); ABSOLUTE MONOCYTE COUNT 0.8 /CUMM (0.10-0.60); BASOPHIL % 0.6 % (0.0-2.0); EOSINOPHIL % 2.4 % (0-5); HEMATOCRIT 30.3 % (42-52); MEAN CORPUSCULAR HGB 35.3 PG (27.0-31.0); MEAN CORPUSCULAR HGB CONC 33.3 G/DL (33.0-37.0); MEAN PLATELET VOLUME 9.6 FL (7.4-10.4); PLATELET COUNT 190 /CUMM (130-400); RBC DISTRIBUTION WIDTH 15.1 % (11.5-14.5); RED BLOOD CELL CT 2.85 /CUMM (4.70-6.10); WHITE BLOOD CELL COUNT 4.7 /CUMM (4.8-10.8)
--- NOTE | 2016-10-27 07:26 | NUR ---
PT REMAINS DROWSY, EASILY AROUSABLE TO VERBAL STIMULI, FOLLOWING COMMANDS. BREATH SOUNDS CLEAR, DIMINISHED BREATH SOUNDS AT BASES. MINIMAL SUCTIONING FROM ETT. SB-NSR FOR SHIFT. LARGE URINE OUTPUT. TOLERATING TUBE FEEDS WELL. NO OTHER CHANGE IN PT ASSESSMENTS THOUGHOUT SHIFT
--- NOTE | 2016-10-27 07:58 | PN- Infect Dx ---
Subjective Subjective: Afebrile. His blood pressure has improved, now off pressors. He offers no complaints. Objective Last 24 Hrs of Vital Signs/I&O Vital Signs Date Time Temp Pulse Resp B/P Pulse O2 O2 Flow FiO2 Ox Delivery Rate 10/27 0735 30 10/27 0602 30 10/27 0600 54 16 132/70 10/27 0400 98.5 66 19 118/66 10/27 0400 96 Ventilator 30% 10/27 0233 30 10/27 0200 55 16 133/64 / 0041 30 04 0000 97.9 58 16 140/82 04/ 0000 99 Ventilator 30% 10/26 2300 97.9 58 16 140/82 97 Ventilator 30% 10/26 2222 30 10/26 2200 65 16 139/74 10/26 2000 30 10/26 2000 97.1 73 26 124/61 10/27 1999 94 Ventilator 30% 10/26 1721 30 10/26 1600 97 Ventilator 30% 10/26 1600 97.0 80 20 140/80 97 Ventilator 30% 10/26 1411 30 10/26 1200 97 Ventilator 30% 10/26 1100 30 08 1028 80 132/90 /08 0810 30 / 0800 98 Ventilator 30% 10/26 0800 97.5 70 20 140/70 96 Ventilator 30% Intake & Output 10/27 0800 04/ 0000 10/26 1600 Intake Total 1387 1482 1556 Output Total 2270 1900 1550 Balance -883 -418 6 Intake, IV 735 600 986 Intake, Tube 502 582 270 Feeding Intake, Tube 150 300 300 Irrigant Number 0 Bowel Movements Output, Urine 2270 1900 1550 Physical Exam Other Physical Findings: He appears awake and alert in no acute distress on the ventilator Neck left IJ triple-lumen catheter with no inflammation at the site Lungs bilateral rhonchi Heart regular rhythm with no murmur Extremities decreased right upper extremity swelling Uriarte catheter remains in place Results Last 24 Hours of Lab Results: Laboratory Tests 10/27 10/26 0430 1158 Blood Gas pH (7.35 - 7.45 PH) 7.39 pCO2 (35 - 45 TORR) 39 pO2 (80 - 100 TORR) 61 L HCO3 (21 - 28 MEQ/L) 23 ABG O2 Sat (Measured) (>96.0 %) 92.0 L P-50 (Temp Corrected) YES Carboxyhemoglobin (1.5 - 5.0 %) 0.6 L O2 Concentration % 30% Temperature (97.0 - 100.0 FARH) 97.5 O2 Delivery Method VENT Vent Mode CPAP Expiratory Pressure (CMH2O/P) 5 Pressure Support (CMH2O/P) 6 Chemistry Sodium (137 - 145 mmol/L) 134 L Potassium (3.5 - 5.1 mmol/L) 4.0 Chloride (98 - 107 mmol/L) 102 Carbon Dioxide (22 - 30 mmol/L) 27 Anion Gap (5 - 16) 6 BUN (9 - 20 mg/dL) 6 L Creatinine (0.7 - 1.2 mg/dL) 0.7 Estimated GFR (>60 ml/min) > 60 Glucose (65 - 99 mg/dL) 97 Calcium (8.4 - 10.2 mg/dL) 8.3 L Phosphorus (2.5 - 4.5 mg/dL) 3.6 Magnesium (1.6 - 2.3 mg/dL) 1.8 Total Bilirubin (0.2 - 1.3 mg/dL) 0.7 AST (17 - 59 U/L) 30 ALT (21 - 72 U/L) 38 Albumin (3.5 - 5.0 g/dL) 2.3 L Hematology CBC w Diff NO MAN DIFF REQ WBC (4.8 - 10.8 /CUMM) 4.7 L RBC (4.70 - 6.10 /CUMM) 2.85 L Hgb (14.0 - 18.0 G/DL) 10.1 L Hct (42 - 52 %) 30.3 L MCV (80.0 - 94.0 FL) 106.0 H MCH (27.0 - 31.0 PG) 35.3 H RDW (11.5 - 14.5 %) 15.1 H Plt Count (130 - 400 /CUMM) 190 MPV (7.4 - 10.4 FL) 9.6 Gran % (42.2 - 75.2 %) 61.0 Lymphocytes % (20.5 - 51.1 %) 18.1 L Monocytes % (1.7 - 9.3 %) 17.9 H Eosinophils % (0 - 5 %) 2.4 Basophils % (0.0 - 2.0 %) 0.6 Absolute Granulocytes (1.4 - 6.5 /CUMM) 2.9 Absolute Lymphocytes (1.2 - 3.4 /CUMM) 0.8 L Absolute Monocytes (0.10 - 0.60 /CUMM) 0.8 H Absolute Eosinophils (0.0 - 0.7 /CUMM) 0.1 Absolute Basophils (0.0 - 0.2 /CUMM) 0 PUBS MCHC (33.0 - 37.0 G/DL) 33.3 Miscellaneous Phlebotomy Draw Site LEFT RADIAL Last 24 Hours of Edi Results: Sputum culture October 24 positive for Enterobacter cloacae sensitive to Ciprofloxacin and Stenotrophomonas maltophilia sensitive to Bactrim and Levaquin Recent Imaging Studies: Chest x-ray October 27, personally reviewed, reveals decreased left lower lobe density; right lower lobe not well visualized Assessment/Plan Impression: Improved, now off pressors, with temperatures and white blood cell count remaining normal on Ciprofloxacin, now Day 3 of treatment for possible pneumonia , with Stenotrophomonas and Enterobacter isolated from the most recent sputum culture, though the CT of the chest only suggests atelectasis and small effusions. His right upper extremity swelling has improved, with no evidence of any collection or deeper infection on the recent CT scan. Suggestion: 1. Would remove the left IJ triple-lumen catheter if able to obtain peripheral access 2. Continue Ciprofloxacin
--- NOTE | 2016-10-27 08:12 | RADIOLOGY REPORT ---
EXAMINATION: XR PORTABLE CHEST CLINICAL INFORMATION: Intubated patient. Orogastric tube placement COMPARISON: Chest x-ray 10/26/2016 TECHNIQUE: Portable AP view of the chest was obtained. FINDINGS: The study is technically limited. Right lower lateral hemithorax and left costophrenic sulcus are not included on the exam. There is an endotracheal tube positioned approximately 7 cm above the karoline. There is a left IJ central line in the superior vena cava unchanged. The reportedly placed orogastric tube is not well delineated on this film and position cannot be assessed. Cardiomegaly is unchanged. Pulmonary vascularity is within normal limits. There is continued opacity at the left lung base with probable small left pleural effusion. The right lung base is not fully assessed. No pneumothorax IMPRESSION: Technically limited film as described. The reported orogastric tube is not optimally delineated and the position cannot be assessed The right lung base is not fully included on the film. There is persisting consolidation or atelectasis in the left lung base with small left pleural effusion. Endotracheal tube and IJ central line in place
--- NOTE | 2016-10-27 09:41 | PN- CRCU ---
Subjective HPI/Critical Care Issues: pt seen and examined remained intubated overnight due to excessive sedation 30% fio2 arousable, follows commands, still lethargic no other events, ROS limited given intubated state Objective Current Medications: Current Medications Sig/Nora Start time Last Medication Dose Route Stop Time Status Admin Acetaminophen 500 MG Q24 PRN 10/20 0330 AC IV Albuterol Sulfate 3 ML BID 10/27 1000 AC INH Amlodipine Besylate 10 MG DAILY 10/20 1000 AC 10/23 PO 1235 Chlordiazepoxide HCl 50 MG Q6 10/26 1200 AC 10/27 PO 0631 Ciprofloxacin 400 MG Q12H 10/24 1400 AC 10/27 Dextrose/Water 200 ML IV 0210 Diphenhydramine HCl 25 MG Q6P PRN 10/22 1054 AC 10/22 IV 1327 Fentanyl Citrate 1,000 MCG Q24H 10/25 2200 AC Dextrose/Water 250 ML IV Fentanyl Citrate 1,000 MCG Q10H 10/24 0945 DC 10/25 Dextrose/Water 250 ML IV 2347 Gabapentin 300 MG TID 10/25 1645 AC 10/26 PO 2205 Heparin Sodium 5,000 UNIT Q8 10/20 0600 AC 10/27 (Porcine) SC 0631 Lorazepam 100 MG Q20H 10/26 0000 AC Dextrose/Water 1,000 ML IV Lorazepam 100 MG Q12H 10/24 2100 DC 10/26 Dextrose/Water 1,000 ML IV 0514 Magnesium Oxide 400 MG ONCE ONE 10/27 0845 DC PO 10/27 0846 Magnesium Sulfate 1 GM ONCE ONE 10/26 0745 DC 10/26 Dextrose/Water 100 ML IV 10/26 1144 1026 Metoclopramide HCl 10 MG Q6 10/25 1200 AC 10/27 IV 0706 Morphine Sulfate 2 MG Q4P PRN 10/20 0330 AC IV Pantoprazole Sodium 40 MG DAILY 10/20 1345 AC 10/26 IV 1028 Phosphate 250 MG PC AND AT BEDTIME 10/27 0900 AC PO 10/27 1301 Polyethylene Glycol 17 GM DAILY 10/23 1000 AC 10/26 PO 1027 Sodium Chloride 1,000 ML Q13H 10/23 1100 DC 10/26 IV 2202 Vital Signs & I&O Last 24 Hrs of Vitals and I&O: Vital Signs Date Time Temp Pulse Resp B/P Pulse O2 O2 Flow FiO2 Ox Delivery Rate 10/27 0735 30 10/27 0602 30 10/27 0600 54 16 132/70 10/27 0400 98.5 66 19 118/66 10/27 0400 96 Ventilator 30% 10/27 0233 30 10/27 0200 55 16 133/64 04/ 0041 30 04/ 0000 97.9 58 16 140/82 04/ 0000 99 Ventilator 30% 10/26 2300 97.9 58 16 140/82 97 Ventilator 30% 10/26 2222 30 10/26 2200 65 16 139/74 04/ 2000 30 10/26 2000 97.1 73 26 124/61 10/27 1999 94 Ventilator 30% 10/26 1721 30 10/26 1600 97 Ventilator 30% 10/26 1600 97.0 80 20 140/80 97 Ventilator 30% 10/26 1411 30 10/26 1200 97 Ventilator 30% 10/26 1100 30 10/26 1028 80 132/90 Intake & Output 10/27 1600 10/27 0800 04/ 0000 Intake Total 1387 1482 Output Total 2270 1900 Balance -883 -418 Intake, IV 735 600 Intake, Tube 502 582 Feeding Intake, Tube 150 300 Irrigant Number 0 Bowel Movements Output, Urine 2270 1900 Exam Other Physical Findings: gen - arousable, intubated heent - ett, left IJ cvs s1, s2, no murmurs lungs - transmitted abd - soft, bs+ ext - edematous bilateral LE and UE, healing right hand wound Results Last 24 Hrs of Lab Results: Laboratory Tests 10/27/16 0430: Anion Gap 6, Estimated GFR > 60, Glucose 97, Calcium 8.3 L, Phosphorus 3.6, Magnesium 1.8, Total Bilirubin 0.7, AST 30, ALT 38, Albumin 2.3 L, CBC w Diff NO MAN DIFF REQ, RBC 2.85 L, MCV 106.0 H, MCH 35.3 H, RDW 15.1 H, MPV 9.6, Gran % 61.0, Lymphocytes % 18.1 L, Monocytes % 17.9 H, Eosinophils % 2.4, Basophils % 0.6, Absolute Granulocytes 2.9, Absolute Lymphocytes 0.8 L, Absolute Monocytes 0.8 H, Absolute Eosinophils 0.1, Absolute Basophils 0, PUBS MCHC 33.3 10/26/16 1158: pH 7.39, pCO2 39, pO2 61 L, HCO3 23, ABG O2 Sat (Measured) 92.0 L, P-50 (Temp Corrected) YES, Carboxyhemoglobin 0.6 L, O2 Concentration % 30%, Temperature 97.5, O2 Delivery Method VENT, Vent Mode CPAP, Expiratory Pressure 5, Pressure Support 6, Phlebotomy Draw Site LEFT RADIAL Impression/Plan Impression/Plan Impression/Plan: Impression 56 year old man * Resolved shock unclear etiology, likely secondary to Stenotrophomonas sputum/ possible aspiration pna vs right hand cellulitis * EtOH dependence and withdrawal * Anasarca/malnutrition * Gallbladder hydrops * Improved hypoxemic respiratory failure * Stable and resolving tongue laceration Plan Respiratory - vent settings - AC 550/16/40%/5 - hold cpap trials, desaturated this am - ETT in place - f/u ENT recommendations ID - f/u ID consultation, continue ciprofloxacin, monitor wbc, fevers, obtain peripheral access with goal of removing triple lumen catheter CVS - off levophed, continue to monitor hemodynamics Heme - monitor cbc, coags, thrombocytopenia resolved Metabolic - ins/outs, monitor creatinine, monitor electrolytes - normal lactic acid Alimentary - hold tube feeds during CPAP trials when appropriate Neuro - off ativan/fentanyl - change librium 50mg po q8h DVT prophylaxis at all times - heparin TID TTS 40 min
--- NOTE | 2016-10-27 10:33 | NUR ---
PERIPHERAL IV ACCESS ESTABLISHED 0800. ICU [facility] OR [address] HUERTA NOTIFIED. TLC LIJ CAN BE DISCONTINUED REQUESTED BY ICU TEAM.
--- NOTE | 2016-10-27 11:47 | PN- Resident CRCU ---
Subjective HPI/CRCU Issues: Pt seen this morning, lying in bed in no acute distress, remains intubated, sedated but arousable. Over night AFebrile,HR 60-70, nsr, rr 16-20, systolic bp 120-140 AC 550/16/40%/5, CPAP trials held today as patient desaturated Off of levophed. Pt remains sedated with ativan 5mg/hr, fentanyl 25mcg/hr. tube feeds at 30ml/hr. ns at 75ml/hr Objective Vital Signs & I&O Last 8 Hrs of Vitals and I&O: Laboratory Tests 10/27/16 1140: pH 7.41, pCO2 45, pO2 72 L, HCO3 28, ABG O2 Sat (Measured) 94.0 L, Carboxyhemoglobin 0.3 L, O2 Concentration % 40, Respiration Rate 16, O2 Delivery Method VENT, Vent Mode AC, Expiratory Pressure 5, Tidal Volume 550, Phlebotomy Draw Site LEFT RADIAL 10/27/16 0430: Anion Gap 6, Estimated GFR > 60, Glucose 97, Calcium 8.3 L, Phosphorus 3.6, Magnesium 1.8, Total Bilirubin 0.7, AST 30, ALT 38, Albumin 2.3 L, CBC w Diff NO MAN DIFF REQ, RBC 2.85 L, MCV 106.0 H, MCH 35.3 H, RDW 15.1 H, MPV 9.6, Gran % 61.0, Lymphocytes % 18.1 L, Monocytes % 17.9 H, Eosinophils % 2.4, Basophils % 0.6, Absolute Granulocytes 2.9, Absolute Lymphocytes 0.8 L, Absolute Monocytes 0.8 H, Absolute Eosinophils 0.1, Absolute Basophils 0, PUBS MCHC 33.3 Vital Signs Date Time Temp Pulse Resp B/P Pulse O2 O2 Flow FiO2 Ox Delivery Rate 10/27 956 88 Ventilator 35% 10/27 899 Ventilator 35% 10/28 799 88 Ventilator 30% 10/28 799 98.0 58 18 140/80 88 Ventilator 30% 10/27 0735 30 10/27 0602 30 10/27 0600 54 16 132/70 10/27 0400 98.5 66 19 118/66 10/27 0400 96 Ventilator 30% 10/27 0233 30 10/27 0200 55 16 133/64 10/27 0041 30 10/27 0000 97.9 58 16 140/82 10/27 0000 99 Ventilator 30% 10/26 2300 97.9 58 16 140/82 97 Ventilator 30% 10/26 2222 30 10/26 2200 65 16 139/74 10/26 2000 30 10/27 1999 97.1 73 26 124/61 10/27 1999 94 Ventilator 30% 10/26 1721 30 10/26 1600 97 Ventilator 30% 10/26 1600 97.0 80 20 140/80 97 Ventilator 30% 10/26 1411 30 10/26 1200 97 Ventilator 30% Intake & Output 10/27 1600 10/27 0800 10/27 0000 Intake Total 1387 1482 Output Total 2270 1900 Balance -883 -418 Intake, IV 735 600 Intake, Tube 502 582 Feeding Intake, Tube 150 300 Irrigant Number 0 Bowel Movements Output, Urine 2270 1900 Exam General Appearance: well developed/nourished, no apparent distress, intubated, lethargic Respiratory: normal breath sounds Cardiovascular: regular rate/rhythm Gastrointestinal: normal bowel sounds, soft, non-tender Extremities: anasarca Weaning Parameters NIF: 21 Minute Volume: 2.80 Resp rate: 12 Vt: 235 Heart Rate: 85 Weaning Schedule Start Time: 1815 Minute Volume: 8.25 Resp Rate: 18 Vt: 450 Heart Rate: 83 End Time: 2000 Minute Volume: 9.15 Resp Rate: 24 Vt: 380 Heart Rate: 72 Current Medications: Current Medications Sig/Nora Start time Last Medication Dose Route Stop Time Status Admin Acetaminophen 500 MG Q24 PRN 10/20 0330 AC IV Albuterol Sulfate 3 ML BID 10/27 1000 AC INH Amlodipine Besylate 10 MG DAILY 10/20 1000 AC 10/23 PO 1235 Chlordiazepoxide HCl 50 MG Q8 10/27 1400 AC PO Chlordiazepoxide HCl 50 MG Q6 10/26 1200 DC 10/27 PO 0631 Ciprofloxacin 400 MG Q12H 10/24 1400 AC 10/27 Dextrose/Water 200 ML IV 0210 Diphenhydramine HCl 25 MG Q6P PRN 10/22 1054 AC 10/22 IV 1327 Fentanyl Citrate 1,000 MCG Q24H 10/25 2200 AC Dextrose/Water 250 ML IV Fentanyl Citrate 1,000 MCG Q10H 10/24 0945 DC 10/25 Dextrose/Water 250 ML IV 2347 Gabapentin 300 MG TID 10/25 1645 AC 10/27 PO 1153 Heparin Sodium 5,000 UNIT Q8 10/20 0600 AC 10/27 (Porcine) SC 0631 Lorazepam 100 MG Q20H 10/26 0000 AC Dextrose/Water 1,000 ML IV Lorazepam 100 MG Q12H 10/24 2100 DC 10/26 Dextrose/Water 1,000 ML IV 0514 Magnesium Oxide 400 MG ONCE ONE 10/27 0845 DC 10/27 PO 10/27 0846 1153 Metoclopramide HCl 10 MG Q6 10/25 1200 AC 10/27 IV 1154 Morphine Sulfate 2 MG Q4P PRN 10/20 0330 AC IV Pantoprazole Sodium 40 MG DAILY 10/20 1345 AC 10/27 IV 1153 Phosphate 250 MG PC AND AT BEDTIME 10/27 0900 AC 10/27 PO 10/27 1301 1153 Polyethylene Glycol 17 GM DAILY 10/23 1000 AC 10/27 PO 1153 Sodium Chloride 1,000 ML Q13H 10/23 1100 DC 10/26 IV 2202 Impression/Plan Impression/Problem List Impression: 56-year-old male with PMH of alcoholism, hypertension, peripheral neuropathy, anxiety, recent osteomyelitis of left foot after a dog bite in March 2016, who is brought in by EMS after he was found unresponsive and seizing at home, drinks 1 pint vodka a day, last alcohol drink 48 hours prior to admission. Patient was having seizure in ER, followed by aggressive and combative behavior. Patient received 10 mg haloperidol, 6 mg Ativan. It was followed by another 2 mg of IV Ativan and 2 mg of IV midazolam for CT scan as patient was still combative. He was admitted to the ICU on ativan drip for close monitoring. Tongue was noted to be edematous with laceration most likely due to tongue biting during his seizure episode. ENT called and pt was subsequently intubated due to high risk of respiratory failure and challenging intubation if his swelling were to progress. Pt successfully intubated in the OR on 10/20/16 with consent obtained from his fianceNancy. Post intubation, he was sedated with propofol, subsequently changed to ativan drip, however fentanyl had to be added due to inadequate sedation on ativan alone. On day #4, ENT re-evauated his tongue swelling and cleared him for extubation from their standpoint. Neurology also saw the patient and did not recommend EEG or putting the patient on antiepileptic as his seizure episodes were most likely due to alcohol withdrawal. He was recently bitten by his dog a couple days prior to admission, and was put on unasyn since admission. He was given vancomycin on day # 1 and 2 to cover for possible MRSA. On day #5 of admission, pt developed fever and hypotension, requiring placement of central line and pressor support with levophed. He was given 1X vancomycin and ceftazidimine, and was started on ciprofloxacin. Unasyn discontinued. CT chest/abd/pelvis done without contrast, were nonrevealing, other than retroperitoneal fat stranding that could be due to PUD or pancreatitis. Pt has been on IV PPI since he was intubated, and amylase and lipase were normal. There was also hydropic gallbladder found on CT, for which GI was consulted. On day #6, he had a 7-minute episode of shaking (all 4 extremities)/rigors despite being sedated on ativan and fentanyl. He was awake, did not lose consciousness, and was following commands. His HR went as high as 130s and RR went as high as 40s (intubated). The episode resolved with additional one time 2 mg IV ativan. EEG was done and showed no epileptic activity. Neurology was reconsulted and thought it was due alcohol withdrawal tremors/ sepsis related rigors. The fiance also said the "seizure episode" that she described at home was similar to what we had described, he was conscious the entire time. Pt has been taking neurontin for neuropathy, so it was resumed. Problem list: # Septic shock # Alcohol withdrawal seizure # Tongue laceration secondary to seizure # Hypertensive urgency # Right hand cellulitis due to dog bite # Hypokalemia # Hypophosphatemia # Hypomagnesiumia Left IJ day #3 (would consider removing) Uriarte day #7 Intubated day #7 (would consider extubating) UE restrain day #7 OG tube day #5 Respiratory # Tongue laceration secondary to seizure, causing severe tongue swelling - Intubated on 10/20/2016 in the OR * ENT on board, will follow * IV PPI started * Benadryl PRN * GNR in sputum * Would start weaning trial today as he is now off levophed ID # Hypotension and febrile on day # 5 of admission - LRC from 10/20/16 (day#1 of intubation) grew stenotrophomonas maltophilia, other cx from 10/20/16 NGTD - Given 1time vanco and ceftaz 10/24/16 - Echo: The left ventricular chamber size and systolic function appear normal. Accurate wall motion assessment was not possible. Abnormal septal motion is present. Mild enlargement of the right heart chambers is present wtih minimal to mild tricuspid insufficiency and an estimated RV systolic pressure of 40 mmHg. A relatively large left pleural effusion is present. A small pericardial effusion is present. * Central line placed for levophed. Levophed now off. Would consider removing central line once we have peripheral IV * Follow up cx * Abx as per ID: Recc Levaquin 500 mg (via the OG tube) every 24 hours on 10/24, but he seems to be having ileus, therefore we decided to give him cipro 400 q12 IV. Today is abx day #8 # Right hand cellulitis due to dog bite - Right hand laceration wound with secondary cellulitis, patient admits a dog bite happened couple of days back, but patient was altered and unreliable historian. The wounds look dirty. 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 - hand xray normal - CT right upper extremity 10/24/16: extensive subcutaneous tissue edema of the right hand, wrist, forearm and examined arm; findings suggest presence of cellulitis. * He was given 1X vancomycin 10/20/16 and 10/21/16 pending cx. Unasyn given for 4 days. * Plastic surgery consulted - [facility] moist dressing * F/U cultures * Wound irrigation and wound care consult Cardiovascular # Hypotension, most likely due to sepsis * As above # Hypertensive urgency on admission , hx of htn * Continue home amlodipine (hold if bp low) * Would need to watch BP closely when pt restarted on home antihypertensives as mo reports pt has been more lightheaded since his BP regimen was changed Heme # Thrombocytopenia - Platelet 119-155 Metabolic # Hypokalemia # Hypophosphatemia # Hypomagnesiumia * Monitor electrolytes, replete as needed Alimentary * NPO, tube feeds * IV reglan # Constipation (resolved with supp) * Order as needed Neuro # Alcohol withdrawal seizure/tremors/rigors - CT of the head negative for acute intracranial pathology. - Work up in the ED showed slightly elevated WBC of 10.7 with left shift ( granulocyte 87%), MCV of 106, anion gap of 24, bicarbonate 20, total bilirubin 1.4, elevated AST 138 (>2 times AST), elevated alkaline phosphatase (152), urine analysis is positive for proteins and ketones, urine toxicology WNL, low serum alcohol level (last drink reportedly 48 hours prior to presentation) * Sedated with ativan and fentanyl * Neurology consulted * Given banana bag and thiamine * Replete electrolytes as needed * Aspiration precaution * Order dantrolene if has further rigors Diet: NPO (intubated) tube feed as per nutrition IVF: 75ml/hr NS DVT ppx: alps , heparin FULL CODE Problem List: 1. Dog bite 2. Alcohol withdrawal seizure Pain Ratin Tomorrow's Labs & Rationales: ICU cbc critically ill Plan DVT/Prophylaxis: mechanical, pharmacological
--- NOTE | 2016-10-27 20:26 | NUR ---
TLC D/C/D BY CLINICAL EVALUATOR. OCCLUSIVE DSG APPLIED AND SITE IS INTACT. PT WAKES EASILY TODAY AND IS SOMEWHAT RESTLESS IN THE BED, HE DOES FOLLOW COMMANDS. HIS O2 REQUIREMENTS INCREASED TODAY. CURRENTLY AT 40%. SUCTIONING IS MINIMAL. TF CONTINUES TO INFUSE AT MAX AND ARE TOLERATED WELL.
[2016-10-28] VITALS (7 sets, daily range): BP systolic 114–170; BP diastolic 64–90
--- NOTE | 2016-10-28 | NUR ---
PATIENT WILL FOLLOW COMMANDS.MONITOR SINUS RHYTHM TO SINUS BRADYCARDIA AT RATE OF 57. RP=240/90.TUBE FEEDING AT GOAL RATE OF 60 ML/HR. NO RESIDUAL OBTAINED.
--- NOTE | 2016-10-28 03:44 | NUR ---
PATIENT CONTINUES TO HAVE INCREASED URINE OUTPUT,240 ML/HR TO 500 ML/HR.REPORTED TO .
[2016-10-28 04:51] LABS: ABSOLUTE BASOPHIL COUNT 0 /CUMM (0.0-0.2); ABSOLUTE EOSINOPHIL COUNT 0.1 /CUMM (0.0-0.7); ABSOLUTE GRANULOCYTE CT 3.4 /CUMM (1.4-6.5); ABSOLUTE LYMPH COUNT 1.1 /CUMM (1.2-3.4); ABSOLUTE MONOCYTE COUNT 0.8 /CUMM (0.10-0.60); BASOPHIL % 0.7 % (0.0-2.0); EOSINOPHIL % 2.2 % (0-5); GRANULOCYTE % 62.2 % (42.2-75.2); HEMATOCRIT 32.8 % (42-52); MEAN CORPUSCULAR HGB CONC 33.3 G/DL (33.0-37.0); MEAN CORPUSCULAR VOLUME 105.1 FL (80.0-94.0); MEAN PLATELET VOLUME 10.2 FL (7.4-10.4); PLATELET COUNT 189 /CUMM (130-400); RBC DISTRIBUTION WIDTH 15.2 % (11.5-14.5); RED BLOOD CELL CT 3.12 /CUMM (4.70-6.10); WHITE BLOOD CELL COUNT 5.4 /CUMM (4.8-10.8)
--- NOTE | 2016-10-28 07:03 | RADIOLOGY REPORT ---
EXAMINATION: CHEST 1 VIEW CLINICAL INFORMATION: Intubated. COMPARISON: Multiple prior exams are reviewed. The most recent is from 10/27/2016. TECHNIQUE: An AP view of the chest is provided. FINDINGS: The cardiac silhouette is stable. Endotracheal tube is in place. The tip is approximately 5 cm above the karoline. Since the prior exam, the left central venous line has been removed. The mediastinal and hilar contours are unremarkable. There are neither pleural effusions nor pneumothoraces. There is persistent retrocardiac opacification. There are small bilateral pleural effusions. The osseous structures are unremarkable. IMPRESSION: Endotracheal tube in place. Persistent retrocardiac airspace disease and small bilateral pleural effusions.
--- NOTE | 2016-10-28 08:21 | PN- Resident CRCU ---
Subjective HPI/CRCU Issues: 24 hour data: max temp 100.5 hr 54-65 sb sr systolic bp 143-190 diastolic bp 74-92 +2677 - 6040 tele events: iva down to 49 labs reviewed: wbc 4.7 to 5.4, hb 10.1 to 10.9, platelet 189, sodium 134 to 137. k 4 to 4.2 Pt was seen this morning, he remained intubated because apparently he desat on weaning trial. current vent settings 16/550/40%/5. Central line has been removed yesterday. His anasarca has improved. He was awake, alert, off sedation, on librium for alcohol detox. he was requesting water to wet his mouth, his nurse notified. he is currently on tube feeds at 60ml/hr. he is off ivf. Will plan to extubate him today if able. and continue to taper librium as tolerated. Objective Vital Signs & I&O Last 8 Hrs of Vitals and I&O: Intake & Output 10/28 1600 10/28 0800 10/28 0000 Intake Total 940 682 Output Total 2770 1770 Balance -1830 -1088 Intake, IV 210 Intake, Tube 430 382 Feeding Intake, Tube 300 300 Irrigant Output, Urine 2770 1770 Laboratory Tests 10/28 04 0400 1140 Blood Gas pH (7.35 - 7.45 PH) 7.41 pCO2 (35 - 45 TORR) 45 pO2 (80 - 100 TORR) 72 L HCO3 (21 - 28 MEQ/L) 28 ABG O2 Sat (Measured) (>96.0 %) 94.0 L Carboxyhemoglobin (1.5 - 5.0 %) 0.3 L O2 Concentration % 40 Respiration Rate (BPM) 16 O2 Delivery Method VENT Vent Mode AC Expiratory Pressure (CMH2O/P) 5 Tidal Volume (CC) 550 Chemistry Sodium (137 - 145 mmol/L) 137 Potassium (3.5 - 5.1 mmol/L) 4.2 Chloride (98 - 107 mmol/L) 99 Carbon Dioxide (22 - 30 mmol/L) 29 Anion Gap (5 - 16) 9 BUN (9 - 20 mg/dL) 6 L Creatinine (0.7 - 1.2 mg/dL) 0.7 Estimated GFR (>60 ml/min) > 60 Glucose (65 - 99 mg/dL) 115 H Calcium (8.4 - 10.2 mg/dL) 9.1 Phosphorus (2.5 - 4.5 mg/dL) 4.3 Magnesium (1.6 - 2.3 mg/dL) 1.9 Total Bilirubin (0.2 - 1.3 mg/dL) 0.7 AST (17 - 59 U/L) 29 ALT (21 - 72 U/L) 32 Albumin (3.5 - 5.0 g/dL) 2.8 L Hematology CBC w Diff NO MAN DIFF REQ WBC (4.8 - 10.8 /CUMM) 5.4 RBC (4.70 - 6.10 /CUMM) 3.12 L Hgb (14.0 - 18.0 G/DL) 10.9 L Hct (42 - 52 %) 32.8 L MCV (80.0 - 94.0 FL) 105.1 H MCH (27.0 - 31.0 PG) 35.0 H RDW (11.5 - 14.5 %) 15.2 H Plt Count (130 - 400 /CUMM) 189 MPV (7.4 - 10.4 FL) 10.2 Gran % (42.2 - 75.2 %) 62.2 Lymphocytes % (20.5 - 51.1 %) 20.7 Monocytes % (1.7 - 9.3 %) 14.2 H Eosinophils % (0 - 5 %) 2.2 Basophils % (0.0 - 2.0 %) 0.7 Absolute Granulocytes (1.4 - 6.5 /CUMM) 3.4 Absolute Lymphocytes (1.2 - 3.4 /CUMM) 1.1 L Absolute Monocytes (0.10 - 0.60 /CUMM) 0.8 H Absolute Eosinophils (0.0 - 0.7 /CUMM) 0.1 Absolute Basophils (0.0 - 0.2 /CUMM) 0 PUBS MCHC (33.0 - 37.0 G/DL) 33.3 Miscellaneous Phlebotomy Draw Site LEFT RADIAL Laboratory Tests 10/28/16 0400: Anion Gap 9, Estimated GFR > 60, Glucose 115 H, Calcium 9.1, Phosphorus 4.3, Magnesium 1.9, Total Bilirubin 0.7, AST 29, ALT 32, Albumin 2.8 L, CBC w Diff NO MAN DIFF REQ, RBC 3.12 L, MCV 105.1 H, MCH 35.0 H, RDW 15.2 H, MPV 10.2, Gran % 62.2, Lymphocytes % 20.7, Monocytes % 14.2 H, Eosinophils % 2.2, Basophils % 0.7, Absolute Granulocytes 3.4, Absolute Lymphocytes 1.1 L, Absolute Monocytes 0.8 H, Absolute Eosinophils 0.1, Absolute Basophils 0, PUBS MCHC 33.3 10/27/16 1140: pH 7.41, pCO2 45, pO2 72 L, HCO3 28, ABG O2 Sat (Measured) 94.0 L, Carboxyhemoglobin 0.3 L, O2 Concentration % 40, Respiration Rate 16, O2 Delivery Method VENT, Vent Mode AC, Expiratory Pressure 5, Tidal Volume 550, Phlebotomy Draw Site LEFT RADIAL Vital Signs Date Time Temp Pulse Resp B/P Pulse O2 O2 Flow FiO2 Ox Delivery Rate 10/28 0802 35 10/28 0800 98.2 70 21 140/74 10/28 0800 92 Ventilator 40% 10/28 0800 98.2 70 21 140/74 92 Ventilator 40% 10/28 0556 40 10/28 0400 97.7 62 16 150/80 04/ 0230 40 04 0002 40 04/ 0000 98.1 57 16 150/90 04/ 0000 97 Ventilator 40% 10/28 0000 98.1 57 16 150/90 97 Ventilator 40% 10/27 2215 40 04 2200 61 16 154/75 04/09 2000 61 16 158/90 04/ 2000 97 Ventilator 40% 10/27 1926 40 04 1600 40 10/27 1600 98.0 80 18 190/80 93 Ventilator 40% 10/27 1600 93 Ventilator 40% 10/27 1440 40 04/ 1200 62 180/90 04/ 1200 90 Ventilator 40% 10/27 1130 40 10/27 0957 88 Ventilator 35% Exam General Appearance: alert, awake, comfortable, on UE restraints Head: atraumatic, normal appearance Respiratory: normal breath sounds, chest non-tender, no respiratory distress Cardiovascular: regular rate/rhythm Extremities: anasarca improved Weaning Parameters NIF: 21 Minute Volume: 2.80 Resp rate: 12 Vt: 235 Heart Rate: 85 Weaning Schedule Start Time: 1815 Minute Volume: 8.25 Resp Rate: 18 Vt: 450 Heart Rate: 83 End Time: 1999 Minute Volume: 9.15 Resp Rate: 24 Vt: 380 Heart Rate: 72 Current Medications: Current Medications Sig/Nora Start time Last Medication Dose Route Stop Time Status Admin Acetaminophen 500 MG Q24 PRN 10/20 0330 AC IV Albuterol Sulfate 3 ML BID 10/27 1000 AC 10/28 INH 0816 Amlodipine Besylate 10 MG DAILY 10/20 1000 AC 10/27 PO 1200 Chlordiazepoxide HCl 50 MG Q8 10/27 1400 AC 10/28 PO 0528 Chlordiazepoxide HCl 50 MG Q6 10/26 1200 DC 10/27 PO 0631 Ciprofloxacin 400 MG Q12H 10/24 1400 AC 10/28 Dextrose/Water 200 ML IV 0153 Diphenhydramine HCl 25 MG Q6P PRN 10/22 1054 AC 10/22 IV 1327 Fentanyl Citrate 1,000 MCG Q24H 10/25 2200 DC Dextrose/Water 250 ML IV Gabapentin 300 MG TID 10/25 1645 AC 10/27 PO 2145 Heparin Sodium 5,000 UNIT Q8 10/20 0600 AC 10/28 (Porcine) SC 0521 Lorazepam 100 MG Q20H 10/26 0000 DC Dextrose/Water 1,000 ML IV Metoclopramide HCl 10 MG Q6 10/25 1200 AC 10/28 IV 0524 Morphine Sulfate 2 MG Q4P PRN 10/20 0330 AC IV Pantoprazole Sodium 40 MG DAILY 10/20 1345 AC 10/27 IV 1153 Phosphate 250 MG PC AND AT BEDTIME 10/27 0900 DC 10/27 PO 10/27 1301 1804 Polyethylene Glycol 17 GM DAILY 10/23 1000 AC 10/27 PO 1153 Sodium Chloride 1,000 ML Q13H 10/23 1100 DC 10/26 IV 2202 Impression/Plan Impression/Problem List Impression: 56-year-old male with PMH of alcoholism, hypertension, peripheral neuropathy, anxiety, recent osteomyelitis of left foot after a dog bite in March 2016, who is brought in by EMS after he was found unresponsive and seizing at home, drinks 1 pint vodka a day, last alcohol drink 48 hours prior to admission. Patient was having seizure in ER, followed by aggressive and combative behavior. Patient received 10 mg haloperidol, 6 mg Ativan. It was followed by another 2 mg of IV Ativan and 2 mg of IV midazolam for CT scan as patient was still combative. He was admitted to the ICU on ativan drip for close monitoring. Tongue was noted to be edematous with laceration most likely due to tongue biting during his seizure episode. ENT called and pt was subsequently intubated due to high risk of respiratory failure and challenging intubation if his swelling were to progress. Pt successfully intubated in the OR on 10/20/16 with consent obtained from his fianceNancy. Post intubation, he was sedated with propofol, subsequently changed to ativan drip, however fentanyl had to be added due to inadequate sedation on ativan alone. On day #4, ENT re-evauated his tongue swelling and cleared him for extubation from their standpoint. Neurology also saw the patient and did not recommend EEG or putting the patient on antiepileptic as his seizure episodes were most likely due to alcohol withdrawal. He was recently bitten by his dog a couple days prior to admission, and was put on unasyn since admission. He was given vancomycin on day # 1 and 2 to cover for possible MRSA. On day #5 of admission, pt developed fever and hypotension, requiring placement of central line and pressor support with levophed. He was given 1X vancomycin and ceftazidimine, and was started on ciprofloxacin. Unasyn discontinued. CT chest/abd/pelvis done without contrast, were nonrevealing, other than retroperitoneal fat stranding that could be due to PUD or pancreatitis. Pt has been on IV PPI since he was intubated, and amylase and lipase were normal. There was also hydropic gallbladder found on CT, for which GI was consulted. He continued to spike fever up to 100.5 on the cipro, although WBC remains normal, with blood pressure on the higher side. On day #6, he had a 7-minute episode of shaking (all 4 extremities)/rigors despite being sedated on ativan and fentanyl. He was awake, did not lose consciousness, and was following commands. His HR went as high as 130s and RR went as high as 40s (intubated). The episode resolved with additional one time 2 mg IV ativan. EEG was done and showed no epileptic activity. Neurology was reconsulted and thought it was due alcohol withdrawal tremors/ sepsis related rigors. The fiance also said the "seizure episode" that she described at home was similar to what we had described, he was conscious the entire time. Pt has been taking neurontin for neuropathy, so it was resumed. No repeat episodes. Problem list: # Septic shock # Alcohol withdrawal seizure # Tongue laceration secondary to seizure # Hypertensive urgency # Right hand cellulitis due to dog bite # Hypokalemia # Hypophosphatemia # Hypomagnesiumia Left IJ removed after 4 days Uriarte day #9 (would remove once pt extubated) Intubated day #9 (would consider extubating) UE restrain day #9 (would remove once pt extubated) OG tube day #7 (would remove once pt extubated) Respiratory # Tongue laceration secondary to seizure, causing severe tongue swelling - Intubated on 10/20/2016 in the OR * ENT on board, has reassessed and cleared him for extubation * IV PPI started * Benadryl PRN * Weaning trial ID # Hypotension and febrile on day # 5 of admission - LRC from 10/20/16 (day#1 of intubation) grew stenotrophomonas maltophilia, other cx from 10/20/16 NGTD - Given 1time vanco and ceftaz 10/24/16 - Echo: The left ventricular chamber size and systolic function appear normal. Accurate wall motion assessment was not possible. Abnormal septal motion is present. Mild enlargement of the right heart chambers is present wtih minimal to mild tricuspid insufficiency and an estimated RV systolic pressure of 40 mmHg. A relatively large left pleural effusion is present. A small pericardial effusion is present. * Central line placed for levophed. Levophed off on 10/25/16. Central line removed 10/27/16. * Follow up cx * Abx as per ID: [facility] Levaquin 500 mg (via the OG tube) every 24 hours on 10/24, but he seems to be having ileus, therefore we decided to give him cipro 400 q12 IV. Today is abx day #9 # Right hand cellulitis due to dog bite - Right hand laceration wound with secondary cellulitis, patient admits a dog bite happened couple of days back, but patient was altered and unreliable historian. The wounds look dirty. 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 - hand xray normal - CT right upper extremity 10/24/16: extensive subcutaneous tissue edema of the right hand, wrist, forearm and examined arm; findings suggest presence of cellulitis. * He was given 1X vancomycin 10/20/16 and 10/21/16 pending cx. Unasyn given for 4 days. * Plastic surgery consulted - recc moist dressing * F/U cultures * Wound irrigation and wound care consult Cardiovascular # Hypotension, most likely due to sepsis * As above # Hypertensive urgency on admission , hx of htn * Continue home amlodipine (hold if bp low) * Would need to watch BP closely when pt restarted on home antihypertensives as mo reports pt has been more lightheaded since his BP regimen was changed Heme # Thrombocytopenia - Platelet 119-189 Metabolic # Hypokalemia # Hypophosphatemia # Hypomagnesiumia * Monitor electrolytes, replete as needed Alimentary * NPO, tube feeds * IV reglan * Would advance diet once extubated # Constipation (resolved with supp) * Please order bowel regimen as needed Neuro # Alcohol withdrawal seizure/tremors/rigors - CT of the head negative for acute intracranial pathology. - Work up in the ED showed slightly elevated WBC of 10.7 with left shift ( granulocyte 87%), MCV of 106, anion gap of 24, bicarbonate 20, total bilirubin 1.4, elevated AST 138 (>2 times AST), elevated alkaline phosphatase (152), urine analysis is positive for proteins and ketones, urine toxicology WNL, low serum alcohol level (last drink reportedly 48 hours prior to presentation) * Off sedation. * Neurology consulted * Given banana bag and thiamine * Replete electrolytes as needed * Aspiration precaution * Order dantrolene if has further rigors * On librium 50 q6. Taper as tolerated. Diet: NPO (intubated) tube feed as per nutrition IVF: off DVT ppx: alps , heparin sc FULL CODE Problem List: 1. Alcohol withdrawal seizure 2. Dog bite Pain Ratin Tomorrow's Labs & Rationales: icu and cbc critically ill Plan DVT/Prophylaxis: mechanical, pharmacological
--- NOTE | 2016-10-28 08:59 | Transfer of Care Summary ---
Hospital Course Course Hospital Course: 56-year-old male with PMH of alcoholism, hypertension, peripheral neuropathy, anxiety, recent osteomyelitis of left foot after a dog bite in March 2016, who is brought in by EMS after he was found unresponsive and seizing at home, drinks 1 pint vodka a day, last alcohol drink 48 hours prior to admission. Patient was having seizure in ER, followed by aggressive and combative behavior. Patient received 10 mg haloperidol, 6 mg Ativan. It was followed by another 2 mg of IV Ativan and 2 mg of IV midazolam for CT scan as patient was still combative. He was admitted to the ICU on ativan drip for close monitoring. Tongue was noted to be edematous with laceration most likely due to tongue biting during his seizure episode. ENT called and pt was subsequently intubated due to high risk of respiratory failure and challenging intubation if his swelling were to progress. Pt successfully intubated in the OR on 10/20/16 with consent obtained from his fiance, Nancy, over the phone. Post intubation, he was sedated with propofol, subsequently changed to ativan drip, however fentanyl had to be added due to inadequate sedation on ativan alone. Currently he is off sedation. On day #4, ENT re-evauated his tongue swelling and cleared him for extubation from their standpoint. Neurology also saw the patient and did not recommend EEG or putting the patient on antiepileptic as his seizure episodes were most likely due to alcohol withdrawal. He was recently bitten by his dog a couple days prior to admission, and was put on unasyn since admission. He was given vancomycin on day # 1 and 2 to cover for possible MRSA. On day #5 of admission, pt developed fever and hypotension, requiring placement of central line and pressor support with levophed. He was given 1X vancomycin and ceftazidimine, and was started on ciprofloxacin. Unasyn discontinued. CT chest/abd/pelvis done without contrast, were nonrevealing, other than retroperitoneal fat stranding that could be due to PUD or pancreatitis. Pt has been on IV PPI since he was intubated, and amylase and lipase were normal. There was also hydropic gallbladder found on CT, for which GI was consulted. He continued to spike fever up to 100.5 on the cipro, although WBC remains normal, with blood pressure on the higher side. He has been off pressors since 10/25/16 and central line has been removed. On day #6, he had a 7-minute episode of shaking (all 4 extremities)/rigors despite being sedated on ativan and fentanyl. He was awake, did not lose consciousness, and was following commands. His HR went as high as 130s and RR went as high as 40s (intubated). The episode resolved with additional one time 2 mg IV ativan. EEG was done and showed no epileptic activity. Neurology was reconsulted and thought it was due alcohol withdrawal tremors/ sepsis related rigors. The fiance also said the "seizure episode" that she described at home was similar to what we had described, i.e. he was conscious the entire time. Pt has been taking neurontin for neuropathy, so it was resumed. No repeat episodes. Pt was started on librium 50q6 on 10/26/16. Has been off ativan and fentanyl since then. We have been trying to extubate him but he desat and also noted to be apneic while he is asleep. So most likely, won't be able to extubate him today. He continues to have UE restrains as he is at high risk of extubating himself prematurely. He is getting tube feeds via OG tube. Assessment/Plan: Problem list: # Septic shock # Alcohol withdrawal seizure # Tongue laceration secondary to seizure # Hypertensive urgency # Right hand cellulitis due to dog bite # Hypokalemia # Hypophosphatemia # Hypomagnesiumia Intubated day #9 (would consider extubating) Uriarte day #9 (would remove once pt extubated) UE restrain day #9 (would remove once pt extubated) OG tube day #7 (would remove once pt extubated) Left IJ removed after 4 days Respiratory # Tongue laceration secondary to seizure, causing severe tongue swelling - Intubated on 10/20/2016 in the OR * ENT on board, has reassessed and cleared him for extubation from their standpoint. Weaning trial in progress * IV PPI started * Benadryl PRN ID # Hypotension and febrile on day # 5 (10/24/16) of admission - LRC from 10/20/16 (day#1 of intubation) grew stenotrophomonas maltophilia, LRC from 10/24/16 grew enterbacter and stenotrophomonas maltophilia. Other cx from 10/20 and 10/24/16 NGTD. - Given 1 time vanco and ceftaz 10/24/16 - Echo: The left ventricular chamber size and systolic function appear normal. Accurate wall motion assessment was not possible. Abnormal septal motion is present. Mild enlargement of the right heart chambers is present wtih minimal to mild tricuspid insufficiency and an estimated RV systolic pressure of 40 mmHg. A relatively large left pleural effusion is present. A small pericardial effusion is present. - Central line placed for levophed. Levophed off on 10/25/16. Central line removed 10/27/16. * Follow up cx * Abx as per ID: [facility] Levaquin 500 mg (via the OG tube) every 24 hours on 10/24, but he seems to be having ileus, therefore we decided to give him cipro 400 q12 IV. Today is abx day #9 # Right hand cellulitis due to dog bite - Right hand laceration wound with secondary cellulitis, patient admits a dog bite happened couple of days back, but patient was altered and unreliable historian. The wounds look dirty. 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 - hand xray normal - CT right upper extremity 10/24/16: extensive subcutaneous tissue edema of the right hand, wrist, forearm and examined arm; findings suggest presence of cellulitis. * He was given 1X vancomycin 10/20/16 and 10/21/16 pending cx. Unasyn given for 4 days. * Plastic surgery consulted - [facility] moist dressing * F/U cultures * Wound irrigation and wound care consult Cardiovascular # Hypotension, most likely due to sepsis (resolved) * As above # Hypertensive urgency on admission, hx of htn * Continue home amlodipine (hold if bp low) * Would need to watch BP closely when pt restarted on home antihypertensives as mo reports pt has been more lightheaded since his BP regimen was changed Heme # Thrombocytopenia - Platelet 119-189 Metabolic # Hypokalemia # Hypophosphatemia # Hypomagnesiumia * Monitor electrolytes, replete as needed Alimentary * NPO, tube feeds * IV reglan * Would advance diet once extubated # Constipation (resolved with supp) * Please order bowel regimen as needed Neuro # Alcohol withdrawal seizure/tremors/rigors - CT of the head negative for acute intracranial pathology. - Work up in the ED showed slightly elevated WBC of 10.7 with left shift ( granulocyte 87%), MCV of 106, anion gap of 24, bicarbonate 20, total bilirubin 1.4, elevated AST 138 (>2 times AST), elevated alkaline phosphatase (152), urine analysis is positive for proteins and ketones, urine toxicology WNL, low serum alcohol level (last drink reportedly 48 hours prior to presentation) * Off sedation * Neurology consulted * Given banana bag and thiamine * Replete electrolytes as needed * Aspiration precaution * Order dantrolene if has further rigors * On librium 50 q6. Taper as tolerated. Diet: NPO (intubated) tube feed as per nutrition IVF: off DVT ppx: alps , heparin sc FULL CODE Attending Review Statement Documenting Attending: Bernabe RAMIREZ MD
--- NOTE | 2016-10-28 10:45 | PN- CRCU ---
Subjective HPI/Critical Care Issues: The patient is awake and remains on mechanical ventilation. He is off sedation. He is intermittently agitated. He is apneic on weaning trials. He is now tolerating tube feeds without issue. There were no overnight events. He has been grabbing at his ETT and trying to pull it out. Objective Current Medications: Current Medications Sig/Nora Start time Last Medication Dose Route Stop Time Status Admin Acetaminophen 500 MG Q24 PRN 10/20 0330 AC IV Albuterol Sulfate 3 ML BID 10/27 1000 AC 10/28 INH 0816 Amlodipine Besylate 10 MG DAILY 10/20 1000 AC 10/27 PO 1200 Chlordiazepoxide HCl 50 MG Q8 10/27 1400 AC 10/28 PO 0528 Ciprofloxacin 400 MG Q12H 10/24 1400 AC 10/28 Dextrose/Water 200 ML IV 0153 Diphenhydramine HCl 25 MG Q6P PRN 10/22 1054 AC 10/22 IV 1327 Fentanyl Citrate 1,000 MCG Q24H 10/25 2200 DC Dextrose/Water 250 ML IV Gabapentin 300 MG TID 10/25 1645 AC 10/28 PO 0943 Heparin Sodium 5,000 UNIT Q8 10/20 0600 AC 10/28 (Porcine) SC 0521 Lorazepam 100 MG Q20H 10/26 0000 DC Dextrose/Water 1,000 ML IV Metoclopramide HCl 10 MG Q6 10/25 1200 AC 10/28 IV 0524 Morphine Sulfate 2 MG Q4P PRN 10/20 0330 AC IV Pantoprazole Sodium 40 MG DAILY 10/20 1345 AC 10/28 IV 0943 Phosphate 250 MG PC AND AT BEDTIME 10/27 0900 DC 10/27 PO 10/27 1301 1804 Polyethylene Glycol 17 GM DAILY 10/23 1000 AC 10/28 PO 0943 Vital Signs & I&O Last 24 Hrs of Vitals and I&O: Vital Signs Date Time Temp Pulse Resp B/P Pulse O2 O2 Flow FiO2 Ox Delivery Rate 10/28 1000 98.3 79 22 170/87 10/28 0802 35 10/28 08 98.2 70 21 140/74 10/28 08 92 Ventilator 40% 10/28 08 98.2 70 21 140/74 92 Ventilator 40% 10/28 0556 40 10/28 0400 97.7 62 16 150/80 10/28 0230 40 10/28 0002 40 10/28 0000 98.1 57 16 150/90 10/28 0000 97 Ventilator 40% 10/28 0000 98.1 57 16 150/90 97 Ventilator 40% 10/27 2215 40 10/27 2200 61 16 154/75 10/28 1999 61 16 158/90 10/28 1999 97 Ventilator 40% 10/27 1926 40 10/27 1600 40 10/27 1600 98.0 80 18 190/80 93 Ventilator 40% 10/27 1600 93 Ventilator 40% 10/27 1440 40 10/27 1200 62 180/90 10/27 1200 90 Ventilator 40% 10/27 1130 40 Intake & Output 10/28 1600 10/28 0800 10/28 0000 Intake Total 940 682 Output Total 2770 1770 Balance -1830 -1088 Intake, IV 210 Intake, Tube 430 382 Feeding Intake, Tube 300 300 Irrigant Output, Urine 2770 1770 Physical Exam General Appearance intubated, sedated Skin warm and dry HEENT PERRLA Neck Supple, No JVD Cardiovascular Regular Rate, Normal S1, Normal S2, No Murmurs Lungs bilateral scattered ronchi Abdomen soft, nontender, non distended Extremities right hand swelling, no lower extremity swelling Results Last 24 Hrs of Lab Results: Laboratory Tests 10/28/16 0400: Anion Gap 9, Estimated GFR > 60, Glucose 115 H, Calcium 9.1, Phosphorus 4.3, Magnesium 1.9, Total Bilirubin 0.7, AST 29, ALT 32, Albumin 2.8 L, CBC w Diff NO MAN DIFF REQ, RBC 3.12 L, MCV 105.1 H, MCH 35.0 H, RDW 15.2 H, MPV 10.2, Gran % 62.2, Lymphocytes % 20.7, Monocytes % 14.2 H, Eosinophils % 2.2, Basophils % 0.7, Absolute Granulocytes 3.4, Absolute Lymphocytes 1.1 L, Absolute Monocytes 0.8 H, Absolute Eosinophils 0.1, Absolute Basophils 0, PUBS MCHC 33.3 10/27/16 1140: pH 7.41, pCO2 45, pO2 72 L, HCO3 28, ABG O2 Sat (Measured) 94.0 L, Carboxyhemoglobin 0.3 L, O2 Concentration % 40, Respiration Rate 16, O2 Delivery Method VENT, Vent Mode AC, Expiratory Pressure 5, Tidal Volume 550, Phlebotomy Draw Site LEFT RADIAL Impression/Plan Impression/Plan Impression/Plan: 1. Alcohol withdrawal seizures - no current evidence of further seizures. 2. Hypotension, improved off pressors. 3. Tongue laceration and severe swelling with airway compromise secondary to tongue biting. The swelling has significantly improved. 4. Right hand cellulitis due to dog bite. 5. Respiratory failure secondary to aspiration pneumonia, on cipro. Recommendations: * Continue weaning trials. Will extubate if parameters are acceptable. * Continue tube feeds at goal. * Monitor for seizures. * Continue Norvasc for blood pressure control. * Continue Cipro. * Continue multivitamin, thiamine and folate. * DVT/GI prophylaxis at all times - continue ventilator bundle. * Hold Librium if the patient is too sedated. * Continue Reglan. * Continue all supportive care.
--- NOTE | 2016-10-28 10:49 | PN- Infect Dx ---
Subjective Subjective: MAXIMUM TEMPERATURE 100.5. He offers no complaints Objective Last 24 Hrs of Vital Signs/I&O Vital Signs Date Time Temp Pulse Resp B/P Pulse O2 O2 Flow FiO2 Ox Delivery Rate 10/28 1000 98.3 79 22 170/87 10/28 0802 35 10/28 0800 98.2 70 21 140/74 10/28 0800 92 Ventilator 40% 10/28 0800 98.2 70 21 140/74 92 Ventilator 40% 10/28 0556 40 10/28 0400 97.7 62 16 150/80 04/ 0230 40 04 0002 40 04 0000 98.1 57 16 150/90 04 0000 97 Ventilator 40% 10/28 0000 98.1 57 16 150/90 97 Ventilator 40% 10/27 2215 40 10/27 2200 61 16 154/75 10/28 1999 61 16 158/90 10/28 1999 97 Ventilator 40% 10/27 1926 40 10/27 1600 40 10/27 1600 98.0 80 18 190/80 93 Ventilator 40% 10/27 1600 93 Ventilator 40% 10/27 1440 40 04 1200 62 180/90 10/27 1200 90 Ventilator 40% 10/27 1130 40 Intake & Output 10/28 1600 10/28 0800 04 0000 Intake Total 940 682 Output Total 2770 1770 Balance -1830 -1088 Intake, IV 210 Intake, Tube 430 382 Feeding Intake, Tube 300 300 Irrigant Output, Urine 2770 1770 Physical Exam Other Physical Findings: He appears comfortable on the ventilator in no acute distress Lungs bilateral rhonchi Heart regular rhythm with no murmur Abdomen is soft, nontender with positive bowel sounds Extremities decreased right upper extremity edema Uriarte catheter remains in place Results Last 24 Hours of Lab Results: Laboratory Tests 10/28 10/27 0400 1140 Blood Gas pH (7.35 - 7.45 PH) 7.41 pCO2 (35 - 45 TORR) 45 pO2 (80 - 100 TORR) 72 L HCO3 (21 - 28 MEQ/L) 28 ABG O2 Sat (Measured) (>96.0 %) 94.0 L Carboxyhemoglobin (1.5 - 5.0 %) 0.3 L O2 Concentration % 40 Respiration Rate (BPM) 16 O2 Delivery Method VENT Vent Mode AC Expiratory Pressure (CMH2O/P) 5 Tidal Volume (CC) 550 Chemistry Sodium (137 - 145 mmol/L) 137 Potassium (3.5 - 5.1 mmol/L) 4.2 Chloride (98 - 107 mmol/L) 99 Carbon Dioxide (22 - 30 mmol/L) 29 Anion Gap (5 - 16) 9 BUN (9 - 20 mg/dL) 6 L Creatinine (0.7 - 1.2 mg/dL) 0.7 Estimated GFR (>60 ml/min) > 60 Glucose (65 - 99 mg/dL) 115 H Calcium (8.4 - 10.2 mg/dL) 9.1 Phosphorus (2.5 - 4.5 mg/dL) 4.3 Magnesium (1.6 - 2.3 mg/dL) 1.9 Total Bilirubin (0.2 - 1.3 mg/dL) 0.7 AST (17 - 59 U/L) 29 ALT (21 - 72 U/L) 32 Albumin (3.5 - 5.0 g/dL) 2.8 L Hematology CBC w Diff NO MAN DIFF REQ WBC (4.8 - 10.8 /CUMM) 5.4 RBC (4.70 - 6.10 /CUMM) 3.12 L Hgb (14.0 - 18.0 G/DL) 10.9 L Hct (42 - 52 %) 32.8 L MCV (80.0 - 94.0 FL) 105.1 H MCH (27.0 - 31.0 PG) 35.0 H RDW (11.5 - 14.5 %) 15.2 H Plt Count (130 - 400 /CUMM) 189 MPV (7.4 - 10.4 FL) 10.2 Gran % (42.2 - 75.2 %) 62.2 Lymphocytes % (20.5 - 51.1 %) 20.7 Monocytes % (1.7 - 9.3 %) 14.2 H Eosinophils % (0 - 5 %) 2.2 Basophils % (0.0 - 2.0 %) 0.7 Absolute Granulocytes (1.4 - 6.5 /CUMM) 3.4 Absolute Lymphocytes (1.2 - 3.4 /CUMM) 1.1 L Absolute Monocytes (0.10 - 0.60 /CUMM) 0.8 H Absolute Eosinophils (0.0 - 0.7 /CUMM) 0.1 Absolute Basophils (0.0 - 0.2 /CUMM) 0 PUBS MCHC (33.0 - 37.0 G/DL) 33.3 Miscellaneous Phlebotomy Draw Site LEFT RADIAL Last 24 Hours of Edi Results: No new cultures Recent Imaging Studies: Chest x-ray October 28, personally reviewed, reveals persistent retrocardiac airspace disease and small bilateral pleural effusions Assessment/Plan Impression: Low-grade fever of unclear significance with white blood cell count remaining normal on Ciprofloxacin, now Day 4 of treatment for possible pneumonia, with Stenotrophomonas and Enterobacter isolated from the most recent sputum culture, though the CT of the chest only suggests atelectasis and small effusions. His right upper extremity swelling has improved, with no evidence of any collection or deeper infection on the recent CT scan. Suggestion: 1. Continue Ciprofloxacin
--- NOTE | 2016-10-28 21:45 | RADIOLOGY REPORT ---
EXAMINATION: XR PORTABLE CHEST CLINICAL INFORMATION: NG tube placement. COMPARISON: Chest x-ray 10/28/2016, 6:21 AM TECHNIQUE: Portable AP view of the chest was obtained. 9:05 PM FINDINGS: There are G-tube catheter tip in the stomach. Endotracheal tube catheter approximate 5 cm above karoline good position. Dense left lung base in the retrocardiac area similar prior study. The bilateral pleural effusion seen on prior chest x-ray are less apparent on today's study. IMPRESSION: 1. G-tube catheter in stomach. 2. Endotracheal tube catheter 5 cm above karoline. 3. Continued dense consolidation left lung base. 4. Bilateral pleural effusions less apparent on this exam than prior study.
[2016-10-29] VITALS (8 sets, daily range): BP systolic 113–178; BP diastolic 63–119
--- NOTE | 2016-10-29 00:39 | NUR ---
@AROUND 2030 PT WAS FOUND ATTEMPTING TO PULL OUT ET TUBE DESPITE BUE RESTRAINTS, PT WAS ABLE TO REMOVE OGT. PT CONSTANTLY BEING REPOSITIONED IN BED. NOTIFIED MD STAHL, OGT REPLACED AND STAT CXRAY ORDERED TO CONFIRM PLACEMENT.
--- NOTE | 2016-10-29 01:51 | NUR ---
PT CONTINUES TO BE RESTLESS DESPITE FREQUENT REPOSITIONING AND MORPHINE FOR C/O BACK PAIN. PT FRUSTRATED AND TRYING TO TALK OVER TUBE. GAVE PT WRITING BOARD BUT WRITING IS NOT LEGIBLE, POINTS AT TUBE. EXPLAINED TO PT PLAN OF CARE AND DISCUSSED NEED FOR TUBE, PT SHAKING HEAD. MEDICATED WITH 1MG IV ATIVAN X 1 FOR AGITATION. WILL CONTINUE TO MONITOR.
[2016-10-29 04:21] LABS: ABSOLUTE BASOPHIL COUNT 0.1 /CUMM (0.0-0.2); ABSOLUTE EOSINOPHIL COUNT 0.1 /CUMM (0.0-0.7); ABSOLUTE GRANULOCYTE CT 3.6 /CUMM (1.4-6.5); ABSOLUTE LYMPH COUNT 1.5 /CUMM (1.2-3.4); ABSOLUTE MONOCYTE COUNT 0.9 /CUMM (0.10-0.60); BASOPHIL % 1.3 % (0.0-2.0); GRANULOCYTE % 58.5 % (42.2-75.2); HEMATOCRIT 34.6 % (42-52); MEAN CORPUSCULAR HGB 34.9 PG (27.0-31.0); MEAN CORPUSCULAR VOLUME 105.9 FL (80.0-94.0); MEAN PLATELET VOLUME 10.6 FL (7.4-10.4); PLATELET COUNT 200 /CUMM (130-400); RBC DISTRIBUTION WIDTH 15.7 % (11.5-14.5); RED BLOOD CELL CT 3.27 /CUMM (4.70-6.10); WHITE BLOOD CELL COUNT 6.2 /CUMM (4.8-10.8)
--- NOTE | 2016-10-29 06:51 | PN- Resident CRCU ---
Subjective HPI/CRCU Issues: 1. Alcohol withdrawal seizures on admission, currently resolved evidence of further seizures 2. Hypotension, required central line placement, resolved - currently off pressors 3. Tongue swelling due to bites, respiratory failure due to aspiration PNA, intubated, ongoing weaning trials . 4. Right hand cellulitis due to dog bite 24 hour data: max temp 97.2 hr 50-68 sb sr systolic bp 116-154 diastolic bp 64-66 +2649 - 3750 Overnight events: iva down to 46 this morning at 7:30 am. Pt was seen this morning, he is sitted up for a weaning trial, is awake and responds with moving eyes and the head, current vent settings 16/550/40%/5. Central line has been removed on 10/27/16. His anasarca has improved. Still on librium for alcohol detox, will try to taper down librium as well. He is currently on tube feeds at 60ml/hr. He is off ivf. Objective Vital Signs & I&O Last 8 Hrs of Vitals and I&O: Intake & Output 10/29 1600 10/29 0800 10/29 0000 Intake Total 1059 570 Output Total 700 1400 Balance 359 -830 Intake, IV 230 Intake, Oral 0 0 Intake, Other 420 270 Intake, Tube 409 300 Feeding Number 2 1 Bowel Movements Output, Urine 700 1400 Laboratory Tests 10/29 0332 Chemistry Sodium (137 - 145 mmol/L) 137 Potassium (3.5 - 5.1 mmol/L) 4.4 Chloride (98 - 107 mmol/L) 98 Carbon Dioxide (22 - 30 mmol/L) 27 Anion Gap (5 - 16) 11 BUN (9 - 20 mg/dL) 8 L Creatinine (0.7 - 1.2 mg/dL) 0.8 Estimated GFR (>60 ml/min) > 60 Glucose (65 - 99 mg/dL) 95 Calcium (8.4 - 10.2 mg/dL) 8.9 Phosphorus (2.5 - 4.5 mg/dL) 4.6 H Magnesium (1.6 - 2.3 mg/dL) 2.0 Total Bilirubin (0.2 - 1.3 mg/dL) 0.8 AST (17 - 59 U/L) 27 ALT (21 - 72 U/L) 35 Albumin (3.5 - 5.0 g/dL) 3.2 L Hematology CBC w Diff NO MAN DIFF REQ WBC (4.8 - 10.8 /CUMM) 6.2 RBC (4.70 - 6.10 /CUMM) 3.27 L Hgb (14.0 - 18.0 G/DL) 11.4 L Hct (42 - 52 %) 34.6 L MCV (80.0 - 94.0 FL) 105.9 H MCH (27.0 - 31.0 PG) 34.9 H RDW (11.5 - 14.5 %) 15.7 H Plt Count (130 - 400 /CUMM) 200 MPV (7.4 - 10.4 FL) 10.6 H Gran % (42.2 - 75.2 %) 58.5 Lymphocytes % (20.5 - 51.1 %) 24.2 Monocytes % (1.7 - 9.3 %) 14.0 H Eosinophils % (0 - 5 %) 2.0 Basophils % (0.0 - 2.0 %) 1.3 Absolute Granulocytes (1.4 - 6.5 /CUMM) 3.6 Absolute Lymphocytes (1.2 - 3.4 /CUMM) 1.5 Absolute Monocytes (0.10 - 0.60 /CUMM) 0.9 H Absolute Eosinophils (0.0 - 0.7 /CUMM) 0.1 Absolute Basophils (0.0 - 0.2 /CUMM) 0.1 PUBS MCHC (33.0 - 37.0 G/DL) 33.0 Exam General Appearance: well developed/nourished, no apparent distress, alert, intubated, thin Head: atraumatic Ears, Nose, Throat: normal ENT inspection Neck: trachea mid line Respiratory: normal breath sounds, chest non-tender, no respiratory distress Cardiovascular: regular rate/rhythm Gastrointestinal: soft, non-tender Extremities: no edema, right middle toe amputation Cranial Nerves: normal hearing, PERRL Skin: intact, normal color, warm/dry Weaning Parameters NIF: 35 Minute Volume: 3.28 Resp rate: 9 Vt: 420 Heart Rate: 63 Weaning Schedule Start Time: 1830 Minute Volume: 6.77 Resp Rate: 10 Vt: 650 Heart Rate: 63 End Time: 2000 Minute Volume: 7.00 Resp Rate: 22 Vt: 320 Heart Rate: 62 Current Medications: Current Medications Sig/Nora Start time Last Medication Dose Route Stop Time Status Admin Acetaminophen 500 MG Q24 PRN 10/20 0330 AC IV Albuterol Sulfate 3 ML BID 10/27 1000 AC 10/29 INH 0817 Amlodipine Besylate 10 MG DAILY 10/20 1000 AC 10/28 PO 1237 Chlordiazepoxide HCl 50 MG Q8 10/27 1400 AC 10/29 PO 0600 Ciprofloxacin 400 MG Q12H 10/24 1400 AC 10/29 Dextrose/Water 200 ML IV 0139 Diphenhydramine HCl 25 MG Q6P PRN 10/22 1054 AC 10/22 IV 1327 Gabapentin 300 MG TID 10/25 1645 AC 10/28 PO 2217 Heparin Sodium 5,000 UNIT Q8 10/20 0600 AC 10/29 (Porcine) SC 0600 Lorazepam 2 MG .STK-MED ONE 10/29 0136 DC IM 10/29 0137 Lorazepam 1 MG ONCE ONE 10/28 2245 DC 10/29 IV 10/28 2246 0138 Metoclopramide HCl 10 MG Q6 10/25 1200 AC 10/29 IV 0600 Morphine Sulfate 2 MG Q4P PRN 10/20 0330 AC 10/29 IV 0600 Pantoprazole Sodium 40 MG DAILY 10/20 1345 AC 10/28 IV 0943 Polyethylene Glycol 17 GM DAILY 10/23 1000 AC 10/28 PO 0943 Impression/Plan Impression/Problem List Impression: 56-year-old male with PMH of alcoholism, hypertension, peripheral neuropathy, anxiety, recent osteomyelitis of left foot after a dog bite in March 2016, who is brought in by EMS after he was found unresponsive and seizing at home, drinks 1 pint vodka a day, last alcohol drink 48 hours prior to admission. Patient was having seizure in ER, followed by aggressive and combative behavior. Patient received 10 mg haloperidol, 6 mg Ativan. It was followed by another 2 mg of IV Ativan and 2 mg of IV midazolam for CT scan as patient was still combative. He was admitted to the ICU on ativan drip for close monitoring. Tongue was noted to be edematous with laceration most likely due to tongue biting during his seizure episode. ENT called and pt was subsequently intubated due to high risk of respiratory failure and challenging intubation if his swelling were to progress. Pt successfully intubated in the OR on 10/20/16 with consent obtained from his Nancy hassan. Post intubation, he was sedated with propofol, subsequently changed to ativan drip, however fentanyl had to be added due to inadequate sedation on ativan alone. On day #4 of admission ENT re-evauated his tongue swelling and cleared him for extubation from their standpoint. Neurology also saw the patient and did not recommend EEG or putting the patient on antiepileptic as his seizure episodes were most likely due to alcohol withdrawal. He was recently bitten by his dog a couple days prior to admission, and was put on unasyn since admission. He was given vancomycin on day # 1 and 2 to cover for possible MRSA. On day #5 of admission, pt developed fever and hypotension, requiring placement of central line and pressor support with levophed. He was given 1X vancomycin and ceftazidimine, and was started on ciprofloxacin. Unasyn discontinued. CT chest/abd/pelvis done without contrast, were nonrevealing, other than retroperitoneal fat stranding that could be due to PUD or pancreatitis. Pt has been on IV PPI since he was intubated, and amylase and lipase were normal. There was also hydropic gallbladder found on CT, for which GI was consulted. He continued to spike fever up to 100.5 on the cipro, although WBC remains normal, with blood pressure on the higher side. On day #6, he had a 7-minute episode of shaking (all 4 extremities)/rigors despite being sedated on ativan and fentanyl. He was awake, did not lose consciousness, and was following commands. His HR went as high as 130s and RR went as high as 40s (intubated). The episode resolved with additional one time 2 mg IV ativan. EEG was done and showed no epileptic activity. Neurology was reconsulted and thought it was due alcohol withdrawal tremors/ sepsis related rigors. The fiance also said the "seizure episode" that she described at home was similar to what we had described, he was conscious the entire time. Pt has been taking neurontin for neuropathy, so it was resumed. No repeat episodes. Problem list: # Septic shock - resolved # Alcohol withdrawal seizure # Tongue laceration secondary to seizure # Hypertensive urgency # Right hand cellulitis due to dog bite # Hypokalemia # Hypophosphatemia # Hypomagnesiumia Left IJ removed after 4 days Uriarte day #10 (would remove once pt extubated) Intubated day #10 (would consider extubating) UE restrain day #10 (would remove once pt extubated) OG tube day #8 (would remove once pt extubated) Respiratory Tongue laceration secondary to seizure, causing severe tongue swelling - Intubated on 10/20/2016 in the OR * ENT on board, has reassessed and cleared him for extubation * IV PPI started * Benadryl PRN * Weaning trial ID Hypotension and febrile on day # 6 of admission - LRC from 10/20/16 (day#1 of intubation) grew stenotrophomonas maltophilia, other cx from 10/20/16 NGTD - Given 1time vanco and ceftaz 10/24/16 - Echo: The left ventricular chamber size and systolic function appear normal. Accurate wall motion assessment was not possible. Abnormal septal motion is present. Mild enlargement of the right heart chambers is present wtih minimal to mild tricuspid insufficiency and an estimated RV systolic pressure of 40 mmHg. A relatively large left pleural effusion is present. A small pericardial effusion is present. * Central line placed for levophed. Levophed off on 10/25/16. Central line removed 10/27/16. * Follow up cx * Abx as per ID: Recc Levaquin 500 mg (via the OG tube) every 24 hours on 10/24, but he seems to be having ileus, therefore we decided to give him cipro 400 q12 IV. Today is abx day #10 Right hand cellulitis due to dog bite - Right hand laceration wound with secondary cellulitis, patient admits a dog bite happened couple of days back, but patient was altered and unreliable historian. The wounds looked dirty. 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 - hand xray normal - CT right upper extremity 10/24/16: extensive subcutaneous tissue edema of the right hand, wrist, forearm and examined arm; findings suggest presence of cellulitis. * He was given 1X vancomycin 10/20/16 and 10/21/16 pending cx. Unasyn given for 4 days. * Plastic surgery consulted - recc moist dressing * F/U cultures * Wound irrigation and wound care consult Cardiovascular Hypotension, most likely due to sepsis * As above - resolved Hypertensive urgency on admission , hx of htn * Continue home amlodipine (hold if bp low) * Would need to watch BP closely when pt restarted on home antihypertensives as mo reports pt has been more lightheaded since his BP regimen was changed Heme Thrombocytopenia - Platelet going up: today is 200 from 189 yesterday Metabolic Hypokalemia Hypophosphatemia Hypomagnesiumia * Monitor electrolytes, replete as needed Alimentary * NPO, tube feeds * IV reglan * Would advance diet once extubated Constipation (resolved with supp) * Please order bowel regimen as needed Neuro Alcohol withdrawal seizure/tremors/rigors - CT of the head negative for acute intracranial pathology. - Work up in the ED showed slightly elevated WBC of 10.7 with left shift ( granulocyte 87%), MCV of 106, anion gap of 24, bicarbonate 20, total bilirubin 1.4, elevated AST 138 (>2 times AST), elevated alkaline phosphatase (152), urine analysis is positive for proteins and ketones, urine toxicology WNL, low serum alcohol level (last drink reportedly 48 hours prior to presentation) * Off sedation. * Neurology consulted * Given banana bag and thiamine * Continue to Replete electrolytes as needed * Aspiration precaution * Order dantrolene if has further rigors * On librium 50 q6. Will hold Librium today. Diet: NPO (intubated) tube feed as per nutrition IVF: off DVT ppx: alps , heparin sc FULL CODE Problem List: 1. Dog bite 2. Alcohol withdrawal seizure 3. Hypotension Pain Ratin Pain Location: no pain Tomorrow's Labs & Rationales: CBC (anemia, left hand infection, pneumonia) ICU bundle (on tube feeding) Plan DVT/Prophylaxis: mechanical, pharmacological
--- NOTE | 2016-10-29 08:05 | PN- CRCU ---
Subjective HPI/Critical Care Issues: The patient remains intubated, on mechanical ventilation. Overnight he was agitated and required Ativan and morphine for sedation. At present, he is comfortable and arousable. The patient remains afebrile and hemodynamically stable. He has excellent urine output. The patient tolerated 90 minutes of CPAP last evening, but did have 2 apneas reported. Objective Current Medications: Current Medications Sig/Nora Start time Last Medication Dose Route Stop Time Status Admin Acetaminophen 500 MG Q24 PRN 10/20 0330 AC IV Albuterol Sulfate 3 ML BID 10/27 1000 AC 10/28 INH 0816 Amlodipine Besylate 10 MG DAILY 10/20 1000 AC 10/28 PO 1237 Chlordiazepoxide HCl 50 MG Q8 10/27 1400 AC 10/29 PO 0600 Ciprofloxacin 400 MG Q12H 10/24 1400 AC 10/29 Dextrose/Water 200 ML IV 0139 Diphenhydramine HCl 25 MG Q6P PRN 10/22 1054 AC 10/22 IV 1327 Gabapentin 300 MG TID 10/25 1645 AC 10/28 PO 2217 Heparin Sodium 5,000 UNIT Q8 10/20 0600 AC 10/29 (Porcine) SC 0600 Lorazepam 1 MG ONCE ONE 10/28 2245 DC 10/29 IV 10/28 2246 0138 Metoclopramide HCl 10 MG Q6 10/25 1200 AC 10/29 IV 0600 Morphine Sulfate 2 MG Q4P PRN 10/20 0330 AC 10/29 IV 0600 Pantoprazole Sodium 40 MG DAILY 10/20 1345 AC 10/28 IV 0943 Polyethylene Glycol 17 GM DAILY 10/23 1000 AC 10/28 PO 0943 Vital Signs & I&O Last 24 Hrs of Vitals and I&O: Vital Signs Date Time Temp Pulse Resp B/P Pulse O2 O2 Flow FiO2 Ox Delivery Rate 10/29 06 97.2 62 16 178/119 10/29 0546 35 10/29 0400 97.2 62 16 116/64 10/29 0400 98 Ventilator 35% 10/29 0332 35 10/29 0045 35 10/29 0000 97.6 57 16 159/86 10/29 0000 97 Ventilator 35% 10/29 0000 97.6 57 16 154/86 97 Ventilator 35% 10/28 2226 35 10/28 2200 98.0 72 18 138/71 10/29 1999 97.0 56 16 114/69 04/10 2000 96 Ventilator 35% 10/28 1916 35 /10 1600 35 /10 1600 97.1 55 20 120/64 /10 1600 96 Ventilator 35% /10 1600 97.1 55 20 120/64 96 Ventilator 35% 04/10 1336 35 /10 1200 96 Ventilator 35% 10/28 1134 35 10/28 1000 98.3 79 22 170/87 10/28 0802 35 10/28 0800 98.2 70 21 140/74 10/28 0800 92 Ventilator 40% 10/28 0800 98.2 70 21 140/74 92 Ventilator 40% Intake & Output 10/29 0800 10/29 0000 10/28 1600 Intake Total 1059 570 900 Output Total 700 1400 1650 Balance 359 -830 -750 Intake, IV 230 60 Intake, Oral 0 0 Intake, Other 420 270 Intake, Tube 409 300 480 Feeding Intake, Tube 360 Irrigant Number 2 1 0 Bowel Movements Output, Urine 700 1400 1650 Physical Exam General Appearance intubated, sedated Skin warm and dry HEENT PERRLA Neck Supple, No JVD Cardiovascular Regular Rate, Normal S1, Normal S2, No Murmurs Lungs bilateral scattered ronchi Abdomen soft, nontender, non distended Extremities right hand swelling, no lower extremity swelling Results Last 24 Hrs of Lab Results: Laboratory Tests 10/29/16 0332: Anion Gap 11, Estimated GFR > 60, Glucose 95, Calcium 8.9, Phosphorus 4.6 H, Magnesium 2.0, Total Bilirubin 0.8, AST 27, ALT 35, Albumin 3.2 L, CBC w Diff NO MAN DIFF REQ, RBC 3.27 L, MCV 105.9 H, MCH 34.9 H, RDW 15.7 H, MPV 10.6 H, Gran % 58.5, Lymphocytes % 24.2, Monocytes % 14.0 H, Eosinophils % 2.0, Basophils % 1.3, Absolute Granulocytes 3.6, Absolute Lymphocytes 1.5, Absolute Monocytes 0.9 H, Absolute Eosinophils 0.1, Absolute Basophils 0.1, PUBS MCHC 33.0 Last 24 Hrs of Micro Results: Enterobacter and stenotrophomonas identified in sputum culture from 10/24/2016. Diagnostic Data CXR Findings: Pending. Impression/Plan Impression/Plan Impression/Plan: 1. Alcohol withdrawal seizures - no current evidence of further seizures. 2. Respiratory failure secondary to aspiration pneumonia, on cipro. 3. Tongue laceration and severe swelling secondary to tongue biting, improved. 4. Right hand cellulitis due to dog bite - no evidence of fluid collection on CAT scan. Recommendations: * Continue weaning trials. Will extubate if parameters are acceptable. * Continue tube feeds. * Monitor for seizures. * Continue Norvasc for blood pressure control. * Continue Cipro - appreciate ID input. * Continue multivitamin, thiamine and folate. * DVT/GI prophylaxis at all times - continue ventilator bundle. * Hold Librium if the patient is too sedated. * Continue Reglan. * Continue all supportive care.
--- NOTE | 2016-10-29 08:09 | RADIOLOGY REPORT ---
EXAMINATION: XR PORTABLE CHEST CLINICAL INFORMATION: Intubated. COMPARISON: 10/28/2016 TECHNIQUE: Portable AP view of the chest was obtained. FINDINGS: Endotracheal tube is approximately 6 cm above the karoline. Enteric tube extends below the diaphragm, into the stomach and beyond the [id number]. Hazy opacities at the lung bases, likely combination of small pleural effusions and atelectasis/infiltrates, similar in appearance compared to the prior chest radiograph of 10/28/2016 at 6:21 AM. No pneumothorax, pneumomediastinum or other significant interval change. IMPRESSION: 1. Endotracheal tube is approximately 6 cm above the karoline. 2. Persistent bibasilar opacities -- likely combination of small pleural effusions and bibasilar atelectasis and/or infiltrates 3. No significant interval change compared to 10/28/2016 at 6:21 AM.
--- NOTE | 2016-10-29 09:39 | PN- Infect Dx ---
Subjective Subjective: Afebrile without complaints Objective Last 24 Hrs of Vital Signs/I&O Vital Signs Date Time Temp Pulse Resp B/P Pulse O2 O2 Flow FiO2 Ox Delivery Rate 10/29 08 35 10/30 799 97 Ventilator 35% 10/30 799 97.8 46 18 132/71 97 Ventilator 35% 10/29 0600 97.2 62 16 178/119 10/29 0546 35 10/29 0400 97.2 62 16 116/64 10/29 0400 98 Ventilator 35% 10/29 0332 35 10/29 0045 35 10/29 0000 97.6 57 16 159/86 10/29 0000 97 Ventilator 35% 10/29 0000 97.6 57 16 154/86 97 Ventilator 35% 10/28 2226 35 10/28 2200 98.0 72 18 138/71 10/29 1999 97.0 56 16 114/69 10/29 1999 96 Ventilator 35% 10/28 1916 35 10/28 1600 35 10/28 1600 97.1 55 20 120/64 10/28 1600 96 Ventilator 35% 10/28 1600 97.1 55 20 120/64 96 Ventilator 35% 10/28 1336 35 10/28 1200 96 Ventilator 35% 10/28 1134 35 10/28 1000 98.3 79 22 170/87 Intake & Output 10/29 1600 10/29 0800 10/29 0000 Intake Total 1059 570 Output Total 700 1400 Balance 359 -830 Intake, IV 230 Intake, Oral 0 0 Intake, Other 420 270 Intake, Tube 409 300 Feeding Number 2 1 Bowel Movements Output, Urine 700 1400 Physical Exam Other Physical Findings: He appears comfortable on the ventilator Lungs occasional rhonchi Heart regular rhythm with no murmur Extremities decreased right upper extremity swelling; no cyanosis, clubbing or edema of the lower extremities Uriarte catheter remains in place Results Last 24 Hours of Lab Results: Laboratory Tests 10/30 331 Chemistry Sodium (137 - 145 mmol/L) 137 Potassium (3.5 - 5.1 mmol/L) 4.4 Chloride (98 - 107 mmol/L) 98 Carbon Dioxide (22 - 30 mmol/L) 27 Anion Gap (5 - 16) 11 BUN (9 - 20 mg/dL) 8 L Creatinine (0.7 - 1.2 mg/dL) 0.8 Estimated GFR (>60 ml/min) > 60 Glucose (65 - 99 mg/dL) 95 Calcium (8.4 - 10.2 mg/dL) 8.9 Phosphorus (2.5 - 4.5 mg/dL) 4.6 H Magnesium (1.6 - 2.3 mg/dL) 2.0 Total Bilirubin (0.2 - 1.3 mg/dL) 0.8 AST (17 - 59 U/L) 27 ALT (21 - 72 U/L) 35 Albumin (3.5 - 5.0 g/dL) 3.2 L Hematology CBC w Diff NO MAN DIFF REQ WBC (4.8 - 10.8 /CUMM) 6.2 RBC (4.70 - 6.10 /CUMM) 3.27 L Hgb (14.0 - 18.0 G/DL) 11.4 L Hct (42 - 52 %) 34.6 L MCV (80.0 - 94.0 FL) 105.9 H MCH (27.0 - 31.0 PG) 34.9 H RDW (11.5 - 14.5 %) 15.7 H Plt Count (130 - 400 /CUMM) 200 MPV (7.4 - 10.4 FL) 10.6 H Gran % (42.2 - 75.2 %) 58.5 Lymphocytes % (20.5 - 51.1 %) 24.2 Monocytes % (1.7 - 9.3 %) 14.0 H Eosinophils % (0 - 5 %) 2.0 Basophils % (0.0 - 2.0 %) 1.3 Absolute Granulocytes (1.4 - 6.5 /CUMM) 3.6 Absolute Lymphocytes (1.2 - 3.4 /CUMM) 1.5 Absolute Monocytes (0.10 - 0.60 /CUMM) 0.9 H Absolute Eosinophils (0.0 - 0.7 /CUMM) 0.1 Absolute Basophils (0.0 - 0.2 /CUMM) 0.1 PUBS MCHC (33.0 - 37.0 G/DL) 33.0 Last 24 Hours of Edi Results: No recent cultures Recent Imaging Studies: Chest x-ray October 29, personally reviewed, reveals persistent bibasilar densities Assessment/Plan Impression: Stable with temperatures and white blood cell count normal on Ciprofloxacin, now Day 5 of treatment for possible pneumonia, with Stenotrophomonas and Enterobacter isolated from the most recent sputum culture, though the CT of the chest only suggests atelectasis and small effusions. Suggestion: 1. Further efforts at weaning per Pulmonary 2. Would remove Uriarte catheter 3. Continue Ciprofloxacin
--- NOTE | 2016-10-29 20:51 | NUR ---
PT AWAKE BUT CONFUSED, REORIENTED PT TO SITUATION AND SURROUNDING, PT VERBALIZED UNDERSTANDING. PT PLACED ON 4LNC SAT 95%, NO DISTRESS NOTED. PT REMAINS NPO AFTER EXTUBATION PENDING A SWALLOW EVAL. BLOOD SUGAR 104, PER MD ERSHADI WILL START D51/2NS AT 100ML FOR MAINTANENCE FLUIDS UNTIL SWALLOW EVAL. PT CONTINUES TO ASK TO SMOKE, NOTIFIED MD AND NICOTINE PATCH ORDERED.
--- NOTE | 2016-10-29 23:04 | NUR ---
PT ATTEMPTING MULTIPLE TIMES TO GET OUT OF BED, PULLING AT OJEDA, AND IV TUBING. ATTEMPTED TO REDIRECT PT ABOUT SITUATION BUT UNSUCESSFUL. NOTIFIED MD STAHL OF ABOVE. PT PLACED IN JOSUE VEST AND BUE RESTRAINTS REMAIN IN PLACE. WILL MONITOR.
[2016-10-30] VITALS: BP 128/88
[2016-10-30 04:00] VITALS: BP 156/90
[2016-10-30 05:58] LABS: ABSOLUTE BASOPHIL COUNT 0.1 /CUMM (0.0-0.2); ABSOLUTE EOSINOPHIL COUNT 0.2 /CUMM (0.0-0.7); ABSOLUTE GRANULOCYTE CT 7.9 /CUMM (1.4-6.5); ABSOLUTE LYMPH COUNT 1.7 /CUMM (1.2-3.4); BASOPHIL % 0.7 % (0.0-2.0); EOSINOPHIL % 1.6 % (0-5); HEMATOCRIT 34.5 % (42-52); MEAN CORPUSCULAR HGB 34.7 PG (27.0-31.0); MEAN CORPUSCULAR HGB CONC 32.6 G/DL (33.0-37.0); MEAN CORPUSCULAR VOLUME 106.5 FL (80.0-94.0); MEAN PLATELET VOLUME 10.3 FL (7.4-10.4); PLATELET COUNT 250 /CUMM (130-400); RBC DISTRIBUTION WIDTH 15.4 % (11.5-14.5); RED BLOOD CELL CT 3.24 /CUMM (4.70-6.10)
[2016-10-30 06:07] LABS: WHITE BLOOD CELL COUNT 10.9 /CUMM (4.8-10.8)
--- NOTE | 2016-10-30 07:46 | PN- Resident CRCU ---
Subjective HPI/CRCU Issues: 1. Alcohol withdrawal seizures on admission, currently resolved evidence of further seizures 2. Hypotension, required central line placement, resolved - currently off pressors 3. Tongue swelling due to bites, respiratory failure due to aspiration PNA, intubated, ongoing weaning trials . 4. Right hand cellulitis due to dog bite Pt was seen this morning, he is awake and alert, in no distress, extubated yesterday. also the OT tube was DC'd yesterday, started on regular diet after a swallow eval today. Uriarte cath. is DC'd today. Central line has been removed on 10/27/16. BP has been stable. 24 Hour Events: Laboratory Tests 10/30 0358 Chemistry Sodium (137 - 145 mmol/L) 137 Potassium (3.5 - 5.1 mmol/L) 4.3 Chloride (98 - 107 mmol/L) 98 Carbon Dioxide (22 - 30 mmol/L) 29 Anion Gap (5 - 16) 9 BUN (9 - 20 mg/dL) 8 L Creatinine (0.7 - 1.2 mg/dL) 0.7 Estimated GFR (>60 ml/min) > 60 Glucose (65 - 99 mg/dL) 80 Calcium (8.4 - 10.2 mg/dL) 9.2 Phosphorus (2.5 - 4.5 mg/dL) 4.8 H Magnesium (1.6 - 2.3 mg/dL) 2.1 Total Bilirubin (0.2 - 1.3 mg/dL) 0.7 AST (17 - 59 U/L) 28 ALT (21 - 72 U/L) 34 Albumin (3.5 - 5.0 g/dL) 3.2 L Hematology CBC w Diff NO MAN DIFF REQ WBC (4.8 - 10.8 /CUMM) 10.9 H RBC (4.70 - 6.10 /CUMM) 3.24 L Hgb (14.0 - 18.0 G/DL) 11.2 L Hct (42 - 52 %) 34.5 L MCV (80.0 - 94.0 FL) 106.5 H MCH (27.0 - 31.0 PG) 34.7 H RDW (11.5 - 14.5 %) 15.4 H Plt Count (130 - 400 /CUMM) 250 MPV (7.4 - 10.4 FL) 10.3 Gran % (42.2 - 75.2 %) 73.0 Lymphocytes % (20.5 - 51.1 %) 15.5 L Monocytes % (1.7 - 9.3 %) 9.2 Eosinophils % (0 - 5 %) 1.6 Basophils % (0.0 - 2.0 %) 0.7 Absolute Granulocytes (1.4 - 6.5 /CUMM) 7.9 H Absolute Lymphocytes (1.2 - 3.4 /CUMM) 1.7 Absolute Monocytes (0.10 - 0.60 /CUMM) 1.0 H Absolute Eosinophils (0.0 - 0.7 /CUMM) 0.2 Absolute Basophils (0.0 - 0.2 /CUMM) 0.1 PUBS MCHC (33.0 - 37.0 G/DL) 32.6 L Microbiology Date/Time Procedure - Status Source Growth 10/30 926 Clostridium difficile Toxin A & B - COLB STOOL Vital Signs Date Time Temp Pulse Resp B/P Pulse O2 O2 Flow FiO2 Ox Delivery Rate 10/30 1121 76 140/71 10/30 0844 97 Nasal 2.0L Cannula 10/30 0400 97.4 66 24 156/90 10/30 0400 99 Nasal 3.0L Cannula 10/30 0000 97.3 66 20 128/88 10/30 0000 96 Nasal 3.0L Cannula 10/29 2345 97.3 66 20 128/88 94 Nasal 3.0L Cannula 10/29 2200 98.0 62 23 115/63 10/29 2000 98.1 66 22 113/67 10/29 2000 96 Nasal 4.0L Cannula 10/29 1600 97 Ventilator 35% 10/29 1600 97.1 84 24 130/70 97 CPAP 35% 10/29 1556 35 10/29 1410 35 Intake & Output 10/30 1600 10/30 0800 10/30 0000 Intake Total 870 223.6 Output Total 1550 450 Balance -680 -226.4 Intake, IV 870 223.6 Intake, Oral 0 0 Number 3 4 Bowel Movements Output, Urine 1550 450 Objective Vital Signs & I&O Last 8 Hrs of Vitals and I&O: max temp 98.1 hr 50-75 sb sr systolic bp 132-149 diastolic bp 66-75 +1984 -2600 Exam General Appearance: well developed/nourished, no apparent distress, alert, awake , comfortable Head: normal appearance, there are remaining sutures at the site of the IJ line on the right side of the neck, slightly tender, non-erythematous Ears, Nose, Throat: normal pharynx, normal ENT inspection Neck: supple, full range of motion Respiratory: normal breath sounds, chest non-tender, no respiratory distress Cardiovascular: regular rate/rhythm Gastrointestinal: normal bowel sounds, soft, non-tender Extremities: normal capillary refill, normal range of motion, there is left third toe amputation s/p osteomyelitis after a dog bite months ago Cranial Nerves: normal hearing, normal speech, PERRL Skin: intact, normal color, warm/dry Weaning Parameters NIF: 49 Minute Volume: 8 Resp rate: 10 Vt: 587 Heart Rate: 73 Weaning Schedule Start Time: 1550 Minute Volume: 8 Resp Rate: 10 Vt: 587 Heart Rate: 73 End Time: 1650 Minute Volume: 10 Resp Rate: 11 Vt: 550 Heart Rate: 79 Current Medications: Current Medications Sig/Nora Start time Last Medication Dose Route Stop Time Status Admin Acetaminophen 1,000 MG .STK-MED ONE 10/29 2133 DC IV 10/29 213 Acetaminophen 500 MG Q24 PRN 10/20 0330 AC 10/29 IV 2135 Albuterol Sulfate 3 ML BID 10/27 1000 AC 10/30 INH 1930 Amlodipine Besylate 10 MG DAILY 10/20 1000 AC 10/30 PO 1121 Chlordiazepoxide HCl 25 MG Q8 10/30 1400 AC 10/30 PO 1400 Chlordiazepoxide HCl 50 MG Q8 10/27 1400 DC 10/29 PO 0600 Ciprofloxacin 500 MG BID 10/30 1114 AC 10/30 PO 11/03 1113 1312 Ciprofloxacin 400 MG Q12H 10/24 1400 DC 10/30 Dextrose/Water 200 ML IV 0212 Dextrose/Sodium 1,000 ML Q10H 10/29 2000 DC 10/30 Chloride IV 0536 Diphenhydramine HCl 25 MG Q6P PRN 10/22 1054 AC 10/22 IV 1327 Fluoxetine HCl 40 MG DAILY 10/30 1634 AC 04 PO 1902 Folic Acid 1 MG DAILY 10/30 1718 AC 04 PO 1835 Gabapentin 300 MG TID 10/25 1645 AC 10/30 PO 1638 Heparin Sodium 5,000 UNIT Q8 10/20 0600 AC 10/30 (Porcine) SC 1400 Ibuprofen 600 MG Q8P PRN 10/30 1045 AC PO Ibuprofen 400 MG ONCE ONE 10/30 1015 CAN PO 10/30 1016 Lidocaine 1 PAT Q24H 10/30 1045 AC 10/30 EXT 1122 Metoclopramide HCl 10 MG Q6 10/25 1200 DC 10/29 IV 1700 Morphine Sulfate 2 MG Q4P PRN 10/20 0330 AC 10/30 IV 0401 Multivitamins 1 TAB DAILY 10/30 1718 AC 10/30 PO 1835 Nicotine 21 MG DAILY 10/29 1957 AC 10/29 TOP 2127 Omeprazole 40 MG DAILY AC 10/30 1114 AC 10/30 PO 1121 Pantoprazole Sodium 40 MG DAILY 10/20 1345 DC 10/29 IV 1021 Polyethylene Glycol 17 GM DAILY 10/23 1000 DC 10/29 PO 1021 Thiamine HCl 100 MG DAILY 10/30 1718 AC 10/30 PO 1835 Impression/Plan Impression/Problem List Impression: 56-year-old male with PMH of alcoholism, hypertension, peripheral neuropathy, anxiety, recent osteomyelitis of left foot after a dog bite in March 2016, who is brought in by EMS after he was found unresponsive and seizing at home, drinks 1 pint vodka a day, last alcohol drink 48 hours prior to admission. Patient was having seizure in ER, followed by aggressive and combative behavior. Patient received 10 mg haloperidol, 6 mg Ativan. It was followed by another 2 mg of IV Ativan and 2 mg of IV midazolam for CT scan as patient was still combative. He was admitted to the ICU on ativan drip for close monitoring. Tongue was noted to be edematous with laceration most likely due to tongue biting during his seizure episode. ENT called and pt was subsequently intubated due to high risk of respiratory failure and challenging intubation if his swelling were to progress. Pt successfully intubated in the OR on 10/20/16 with consent obtained from his fianceNancy. Post intubation, he was sedated with propofol, subsequently changed to ativan drip, however fentanyl had to be added due to inadequate sedation on ativan alone. On day #4 of admission ENT re-evaluated his tongue swelling and cleared him for extubation from their standpoint. Neurology also saw the patient and did not recommend EEG or putting the patient on antiepileptic as his seizure episodes were most likely due to alcohol withdrawal. He was recently bitten by his dog a couple days prior to admission, and was put on unasyn since admission. He was given vancomycin on day # 1 and 2 to cover for possible MRSA. On day #5 of admission, pt developed fever and hypotension, requiring placement of central line and pressor support with levophed. He was given 1X vancomycin and ceftazidime, and was started on ciprofloxacin. Unasyn discontinued. CT chest/abd/pelvis done without contrast, were nonrevealing, other than retroperitoneal fat stranding that could be due to PUD or pancreatitis. Pt has been on IV PPI since he was intubated, and amylase and lipase were normal. There was also hydropic gallbladder found on CT, for which GI was consulted. He continued to spike fever up to 100.5 on the cipro, although WBC remains normal, with blood pressure on the higher side. On day #6, he had a 7-minute episode of shaking (all 4 extremities)/rigors despite being sedated on ativan and fentanyl. He was awake, did not lose consciousness, and was following commands. His HR went as high as 130s and RR went as high as 40s (intubated). The episode resolved with additional one time 2 mg IV ativan. EEG was done and showed no epileptic activity. Neurology was reconsulted and thought it was due alcohol withdrawal tremors/ sepsis related rigors. The fiance also said the "seizure episode" that she described at home was similar to what we had described, he was conscious the entire time. Pt has been taking neurontin for neuropathy, so it was resumed. No repeat episodes. Problem list: # Septic shock - resolved # Alcohol withdrawal seizure # Tongue laceration secondary to seizure # Hypertensive urgency # Right hand cellulitis due to dog bite # Hypokalemia # Hypophosphatemia # Hypomagnesemia Left IJ removed after 4 days Uriarte removed today #11 (would remove once pt extubated) Extubated yesterday (#10) UE restrain day DC'd today #11 OG tube DC's yesterday #8 (would remove once pt extubated) Neuro/Psychiatry -Alcohol withdrawal seizure/tremors/rigors * CT of the head negative for acute intracranial pathology. * received thiamine, banana bag, IV ativan, librium, currently off ativan * Continue to Replete electrolytes as needed * On librium, decreased from 50 q6 to 25 mg Q8 * patient states that he takes fluoxetine 40 mg daily at home, we restarted today Respiratory/ID -Tongue laceration secondary to seizure, causing severe tongue swelling * Intubated on 10/20/2016 in the OR * ENT on board, has reassessed and cleared him for extubation * IV PPI started * Benadryl PRN * Weaning trial -possible aspiration pneumonia * today CXR shows Interval decrease in the pleural effusions, and interval improvement in the opacities at the lung bases. * on ciprofloxacin, will continue to finish a 7 day course (switched to PO today ) -Hypotension and febrile on day # 6 of admission * LRC from 10/20/16 (day#1 of intubation) grew stenotrophomonas maltophilia, other cx from 10/20/16 NGTD * Given 1time vanco and ceftaz 10/24/16 * Echo: The left ventricular chamber size and systolic function appear normal. Accurate wall motion assessment was not possible. Abnormal septal motion is present. Mild enlargement of the right heart chambers is present with minimal to mild tricuspid insufficiency and an estimated RV systolic pressure of 40 mmHg. A relatively large left pleural effusion is present. A small pericardial effusion is present. * Central line placed for levophed. Levophed off on 10/25/16. Central line removed 10/27/16. * Follow up cx * Abx as per ID: Recc Levaquin 500 mg (via the OG tube) every 24 hours on 10/24, but he seems to be having ileus, therefore we decided to give him cipro 400 q12 IV. Today switched to PO 55 mg BID, will finish 7 day course tomorrow. -Right hand cellulitis due to dog bite * Right hand laceration wound with secondary cellulitis due to a dog bite 2 days prior to the incident. wounds looked dirty. Dog vaccinated against rabies, pt received tetanus vaccination in Mar 2016. 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 Mar 2016, he grew MSSA, and pasteurella multocida. * hand xray normal * CT right upper extremity 10/24/16: extensive subcutaneous tissue edema of the right hand, wrist, forearm and examined arm; findings suggest presence of cellulitis. * He was given 1X vancomycin 10/20/16 and 10/21/16 pending cx. Unasyn given for 4 days. * Plastic surgery consulted - recc moist dressing * Wound irrigation and wound care consult is in place * Today wound appears dry with a small scar 1x1 cm remaining on the radial and palmar aspects of the wrist. Cardiovascular Hypotension, most likely due to sepsis * As above - resolved Hypertensive urgency on admission , hx of htn * Continue home amlodipine (hold if bp low) * Would need to watch BP closely when pt restarted on home antihypertensives as mo reports pt has been more lightheaded since his BP regimen was changed Heme Thrombocytopenia - Platelet trending up: today is 250 from 200 yesterday Metabolic Hypokalemia Hypophosphatemia Hypomagnesemia * Monitor electrolytes, replete as needed Alimentary * started regular diet today after swallow eval * DC'd fluids today as he is taking liquids PO Constipation (resolved with supp) * since yesterday patient has had multiple episodes of soft stools * DC'd miralax Diet: Regular diet starting today after swallow eval IVF: off DVT ppx: alps , heparin sc FULL CODE Problem List: 1. Dog bite 2. Alcohol withdrawal seizure 3. Delirium tremens 4. Hypotension 5. Neck pain Pain Ratin Pain Location: back of the neck Tomorrow's Labs & Rationales: CBC (monitor WBC), BEP and Mg (monitor electrolytes) Plan DVT/Prophylaxis: mechanical, pharmacological
[2016-10-30 08:00] VITALS: BP 148/80
--- NOTE | 2016-10-30 08:12 | RADIOLOGY REPORT ---
EXAMINATION: XR PORTABLE CHEST CLINICAL INFORMATION: Sedated and intubated. COMPARISON: Chest x-ray 10/29/2016. TECHNIQUE: Portable AP 80 degree semiupright view of the chest was obtained. FINDINGS: The endotracheal and enteric tubes have been removed since prior study. There are multiple monitor leads overlying the chest. The lung haley are well-expanded. The cardiac silhouette is slightly prominent. There has be interval decrease in the small bilateral pleural effusions. There are mild opacities in the lower zones bilaterally, improved compared to prior study. The central pulmonary vasculature is normal. There are no acute osseous findings. IMPRESSION 1. 2. The enteric and nasogastric tubes have been removed since the prior study. 2. Interval decrease in the pleural effusions, and interval improvement in the opacities at the lung bases.
--- NOTE | 2016-10-30 08:22 | PN- CRCU ---
Subjective HPI/Critical Care Issues: The patient is awake but remains confused. His respiratory status is stable post extubation. The patient is afebrile. The patient was not able to offer complaints. Objective Current Medications: Current Medications Sig/Nora Start time Last Medication Dose Route Stop Time Status Admin Acetaminophen 1,000 MG .STK-MED ONE 10/29 2133 DC IV 10/29 2134 Acetaminophen 500 MG Q24 PRN 10/20 0330 AC 10/29 IV 2135 Albuterol Sulfate 3 ML BID 10/27 1000 AC 10/29 INH 2032 Amlodipine Besylate 10 MG DAILY 10/20 1000 AC 10/29 PO 1021 Chlordiazepoxide HCl 50 MG Q8 10/27 1400 AC 10/29 PO 0600 Ciprofloxacin 400 MG Q12H 10/24 1400 AC 10/30 Dextrose/Water 200 ML IV 0212 Dextrose/Sodium 1,000 ML Q10H 10/29 2000 AC 10/30 Chloride IV 0536 Diphenhydramine HCl 25 MG Q6P PRN 10/22 1054 AC 10/22 IV 1327 Gabapentin 300 MG TID 10/25 1645 AC 10/29 PO 1700 Heparin Sodium 5,000 UNIT Q8 10/20 0600 AC 10/30 (Porcine) SC 0536 Metoclopramide HCl 10 MG Q6 10/25 1200 DC 10/29 IV 1700 Morphine Sulfate 2 MG Q4P PRN 10/20 0330 AC 10/30 IV 0401 Nicotine 21 MG DAILY 10/29 1957 AC 10/29 TOP 2127 Pantoprazole Sodium 40 MG DAILY 10/20 1345 AC 10/29 IV 1021 Polyethylene Glycol 17 GM DAILY 10/23 1000 AC 10/29 PO 1021 Vital Signs & I&O Last 24 Hrs of Vitals and I&O: Vital Signs Date Time Temp Pulse Resp B/P Pulse O2 O2 Flow FiO2 Ox Delivery Rate 10/30 0400 97.4 66 24 156/90 10/30 0400 99 Nasal 3.0L Cannula 10/30 0000 97.3 66 20 128/88 10/30 0000 96 Nasal 3.0L Cannula 10/29 2345 97.3 66 20 128/88 94 Nasal 3.0L Cannula 10/29 2200 98.0 62 23 115/63 10/30 1999 98.1 66 22 113/67 10/30 1999 96 Nasal 4.0L Cannula 10/29 1600 97 Ventilator 35% 10/29 1600 97.1 84 24 130/70 97 CPAP 35% 10/29 1556 35 10/29 1410 35 10/29 1200 97 Ventilator 35% 10/29 1106 35 10/29 0823 35 Intake & Output 10/30 1600 10/30 0800 10/30 0000 Intake Total 870 223.6 Output Total 1550 450 Balance -680 -226.4 Intake, IV 870 223.6 Intake, Oral 0 0 Number 3 4 Bowel Movements Output, Urine 1550 450 Physical Exam General Appearance intubated, sedated Skin warm and dry HEENT PERRLA Neck Supple, No JVD Cardiovascular Regular Rate, Normal S1, Normal S2, No Murmurs Lungs bilateral scattered ronchi Abdomen soft, nontender, non distended Extremities right hand swelling, no lower extremity swelling Results Last 24 Hrs of Lab Results: Laboratory Tests 10/30/16 0358: Anion Gap 9, Estimated GFR > 60, Glucose 80, Calcium 9.2, Phosphorus 4.8 H, Magnesium 2.1, Total Bilirubin 0.7, AST 28, ALT 34, Albumin 3.2 L, CBC w Diff NO MAN DIFF REQ, RBC 3.24 L, MCV 106.5 H, MCH 34.7 H, RDW 15.4 H, MPV 10.3, Gran % 73.0, Lymphocytes % 15.5 L, Monocytes % 9.2, Eosinophils % 1.6, Basophils % 0.7, Absolute Granulocytes 7.9 H, Absolute Lymphocytes 1.7, Absolute Monocytes 1.0 H, Absolute Eosinophils 0.2, Absolute Basophils 0.1, PUBS MCHC 32.6 L 10/29/16 1125: pH 7.45, pCO2 40, pO2 97, HCO3 27, ABG O2 Sat (Measured) 97.0, P-50 (Temp Corrected) N, Carboxyhemoglobin 0.3 L, O2 Concentration % 35, Temperature 97.8, O2 Delivery Method VENT, Vent Mode CPAP, Expiratory Pressure 5, Pressure Support 6, Phlebotomy Draw Site LEFT RADIAL Diagnostic Data CXR Findings: The enteric and nasogastric tubes have been removed since the prior study. Interval decrease in the pleural effusions, and interval improvement in the opacities at the lung bases. Impression/Plan Impression/Plan Impression/Plan: 1. Alcohol withdrawal seizures - no current evidence of further seizures. 2. Respiratory failure secondary to aspiration pneumonia, on cipro. Stable respiratory status post extubation. 3. Tongue laceration and severe swelling secondary to tongue biting, resolved. 4. Right hand cellulitis due to dog bite - no evidence of fluid collection on CAT scan. Tetanus vaccine is up-to-date and the dog has been vaccinated against rabies. Recommendations: * Follow-up speech therapy's recommendations regarding the swallowing evaluation. * Advance diet as tolerated. * If the patient has adequate oral intake, discontinue IV fluids. * Check stool for C. difficile. * Stop MiraLAX. * Monitor for seizures. * Continue Norvasc for blood pressure control. * Complete course of ciprofloxacin. * Continue multivitamin, thiamine and folate. * DVT prophylaxis at all times. * Decrease Librium to 25 mg every 8 hours. Hold Librium if the patient is too sedated. * Physical therapy consult, out of bed to chair. * Downgrade to GEN med today. * Continue all supportive care.
[2016-10-30] MEDS ORDERED: FLUOXETINE HCL40 M1 PO (10:37)
--- NOTE | 2016-10-30 11:01 | PN- Infect Dx ---
Subjective Subjective: Afebrile. He complains of back pain. Objective Last 24 Hrs of Vital Signs/I&O Vital Signs Date Time Temp Pulse Resp B/P Pulse O2 O2 Flow FiO2 Ox Delivery Rate 10/30 0844 97 Nasal 2.0L Cannula 10/30 0400 97.4 66 24 156/90 10/30 0400 99 Nasal 3.0L Cannula 10/30 0000 97.3 66 20 128/88 10/30 0000 96 Nasal 3.0L Cannula 10/29 2345 97.3 66 20 128/88 94 Nasal 3.0L Cannula 10/29 2200 98.0 62 23 115/63 10/30 1999 98.1 66 22 113/67 10/30 1999 96 Nasal 4.0L Cannula 10/29 1600 97 Ventilator 35% 10/29 1600 97.1 84 24 130/70 97 CPAP 35% 10/29 1556 35 10/29 1410 35 10/29 1200 97 Ventilator 35% 10/29 1106 35 Intake & Output 10/30 1600 10/30 0800 10/30 0000 Intake Total 870 223.6 Output Total 1550 450 Balance -680 -226.4 Intake, IV 870 223.6 Intake, Oral 0 0 Number 3 4 Bowel Movements Output, Urine 1550 450 Physical Exam Other Physical Findings: He appears comfortable status post extubation yesterday in no acute distress Lungs decreased breath sounds at both bases Heart regular rhythm with no murmur Extremities resolution of the right hand and right upper extremity edema Uriarte catheter remains in place Results Last 24 Hours of Lab Results: Laboratory Tests 10/30 10/29 0358 1125 Blood Gas pH (7.35 - 7.45 PH) 7.45 pCO2 (35 - 45 TORR) 40 pO2 (80 - 100 TORR) 97 HCO3 (21 - 28 MEQ/L) 27 ABG O2 Sat (Measured) (>96.0 %) 97.0 P-50 (Temp Corrected) N Carboxyhemoglobin (1.5 - 5.0 %) 0.3 L O2 Concentration % 35 Temperature (97.0 - 100.0 FARH) 97.8 O2 Delivery Method VENT Vent Mode CPAP Expiratory Pressure (CMH2O/P) 5 Pressure Support (CMH2O/P) 6 Chemistry Sodium (137 - 145 mmol/L) 137 Potassium (3.5 - 5.1 mmol/L) 4.3 Chloride (98 - 107 mmol/L) 98 Carbon Dioxide (22 - 30 mmol/L) 29 Anion Gap (5 - 16) 9 BUN (9 - 20 mg/dL) 8 L Creatinine (0.7 - 1.2 mg/dL) 0.7 Estimated GFR (>60 ml/min) > 60 Glucose (65 - 99 mg/dL) 80 Calcium (8.4 - 10.2 mg/dL) 9.2 Phosphorus (2.5 - 4.5 mg/dL) 4.8 H Magnesium (1.6 - 2.3 mg/dL) 2.1 Total Bilirubin (0.2 - 1.3 mg/dL) 0.7 AST (17 - 59 U/L) 28 ALT (21 - 72 U/L) 34 Albumin (3.5 - 5.0 g/dL) 3.2 L Hematology CBC w Diff NO MAN DIFF REQ WBC (4.8 - 10.8 /CUMM) 10.9 H RBC (4.70 - 6.10 /CUMM) 3.24 L Hgb (14.0 - 18.0 G/DL) 11.2 L Hct (42 - 52 %) 34.5 L MCV (80.0 - 94.0 FL) 106.5 H MCH (27.0 - 31.0 PG) 34.7 H RDW (11.5 - 14.5 %) 15.4 H Plt Count (130 - 400 /CUMM) 250 MPV (7.4 - 10.4 FL) 10.3 Gran % (42.2 - 75.2 %) 73.0 Lymphocytes % (20.5 - 51.1 %) 15.5 L Monocytes % (1.7 - 9.3 %) 9.2 Eosinophils % (0 - 5 %) 1.6 Basophils % (0.0 - 2.0 %) 0.7 Absolute Granulocytes (1.4 - 6.5 /CUMM) 7.9 H Absolute Lymphocytes (1.2 - 3.4 /CUMM) 1.7 Absolute Monocytes (0.10 - 0.60 /CUMM) 1.0 H Absolute Eosinophils (0.0 - 0.7 /CUMM) 0.2 Absolute Basophils (0.0 - 0.2 /CUMM) 0.1 PUBS MCHC (33.0 - 37.0 G/DL) 32.6 L Miscellaneous Phlebotomy Draw Site LEFT RADIAL Last 24 Hours of Edi Results: No recent cultures Recent Imaging Studies: Chest x-ray October 30, personally reviewed, reveals improvement in both bibasilar opacities Assessment/Plan Impression: Doing well status post successful extubation yesterday with temperatures remaining normal on Ciprofloxacin, now Day 6 of treatment for possible pneumonia , with Stenotrophomonas and Enterobacter isolated from the most recent sputum culture. His white blood cell count is increased today of unclear etiology. Suggestion: 1. Remove Uriarte catheter 2. Change Ciprofloxacin to 500 mg po every 12 hours
--- NOTE | 2016-10-30 11:18 | NUR ---
PER MD ORDER B/L WRIST REST. DC'ED PATIENT ON 3L NC O2SAT 96%, REMOVING NC DESATS TO 88%
--- NOTE | 2016-10-30 12:55 | NUR ---
PER DR. ERIC AM ORDERS B/L WRIST REST. DC'ED, JOSUE REMAINS IN PLACE, PATIENT CONTINUES TRYING TO CLIMB OOB, PATIENT DOWNGRADED TO GM, EQUIPMENT REMOVED, PATIENT OFTEN REMOVING NC AT REMOVAL DESATS TO THE 80'S, [address] TINAJERO SUGGESTION 1:1 SITTER ORDERED
[2016-10-30 16:00] VITALS: BP 135/61
[2016-10-30 17:00] VITALS: BP 130/70
--- NOTE | 2016-10-30 17:00 | NUR ---
AT THIS TIME PT TRANSFERRED TO ROOM 216-01 FROM ICU, PT ACCOMPANIED BY SITTER AND . PT CALM AND ORIENTED TO PERSON AND TIME, O2 SAT 96% ON 3LNC, PT DENIES CP AND SOB, PT ORIENTED TO ROOM AND CALL LOAIZA, SEE MAHIT ASSESSMENT, WILL CONT TO MONITOR
--- NOTE | 2016-10-30 19:13 | NUR ---
Aware of patients transfer to the general medicine service. Will follow to better assess aftercare needs.
--- NOTE | 2016-10-30 20:08 | Transfer of Care Summary ---
Hospital Course Course Hospital Course: Mr. Amin is a 56-year-old male with PMH of alcoholism, hypertension, peripheral neuropathy, anxiety, recent osteomyelitis of left foot after a dog bite in March 2016, who was brought in by EMS after he was found unresponsive and seizing at home, drinks 1 pint vodka a day, last alcohol consumption was 48 hours prior to admission. Patient was having seizure in the ED, followed by aggressive and combative behavior. Patient received 10 mg haloperidol, 6 mg Ativan. It was followed by another 2 mg of IV Ativan and 2 mg of IV midazolam for CT scan as patient was still combative. He was admitted to the ICU on ativan drip for close monitoring. Patient's tongue was noted to be edematous with laceration most likely due to tongue biting during his seizure episode. ENT were called and pt was subsequently intubated due to high risk of respiratory failure and challenging intubation if his swelling were to progress. Pt successfully intubated in the OR on 10/20/16. Post intubation, he was sedated with propofol, subsequently changed to ativan drip, however fentanyl had to be added due to inadequate sedation on ativan alone. Currently he is off sedation. On day #4, ENT re-evaluated his tongue swelling and cleared him for extubation from their standpoint. Neurology also saw the patient and did not recommend EEG or putting the patient on antiepileptic as his seizure episodes were most likely due to alcohol withdrawal. He was recently bitten by his dog on the right hand a couple days prior to admission, and was put on unasyn since admission. He was given vancomycin on day # 1 and 2 to cover for possible MRSA. On day #5 of admission, pt developed fever and hypotension, requiring placement of central line and pressor support with levophed. He was given 1X vancomycin and ceftazidime, and was started on ciprofloxacin. Unasyn discontinued. CT chest/abd/pelvis done without contrast, were nonrevealing, other than retroperitoneal fat stranding that could be due to PUD or pancreatitis. Pt was kept on IV PPI, and amylase and lipase were normal. There was also hydropic gallbladder found on CT, for which GI was consulted. He continued to spike fever up to 100.5 on the cipro, although WBC remained normal, with blood pressure on the higher side. He has been off pressors since 10/25/16 and central line has been removed. Source of the infection is believed to be an aspiration pneumonia. On day #6, he had a 7-minute episode of shaking (all 4 extremities)/rigors despite being sedated on ativan and fentanyl. He was awake, did not lose consciousness, and was following commands. His HR went as high as 130s and RR went as high as 40s (intubated). The episode resolved with additional one time 2 mg IV ativan. EEG was done and showed no epileptic activity. Neurology was reconsulted and thought it was due alcohol withdrawal tremors/ sepsis related rigors. The fiance also said the "seizure episode" that she described at home was similar to what we had described, i.e. he was conscious the entire time. Pt has been taking neurontin for neuropathy, so it was resumed. No repeat episodes. Pt was started on librium 50q6 on 10/26/16. Has been off ativan and fentanyl since then. His librium is further tapered down to 25 mg Q8. Central was removed on . Patient was extubated on 10/29/16. also the OT tube was discontinued on 10/29/16, started on regular diet after a swallow eval on 10/30/16. Uriarte catheter is discontinued on 10/30/16. Left IJ removed after 4 days Uriarte removed today, day #11 Extubated yesterday, day #10 UE restrain day removed today, day #11 OG tube removed yesterday, day #8 Assessment/Plan: Problem list: 1. Alcohol withdrawal seizures on admission, currently resolved evidence of further seizures 2. Hypotension, required central line placement, resolved - currently off pressors 3. Tongue swelling due to bites, respiratory failure due to aspiration PNA, intubated, ongoing weaning trials . 4. Right hand cellulitis due to dog bite Neuro/Psychiatry -Alcohol withdrawal seizure/tremors/rigors * CT of the head negative for acute intracranial pathology. * received thiamine, banana bag, IV ativan, librium, currently off ativan * Continue to Replete electrolytes as needed * Continue folic acid, thiamine, multivitamin * On librium, decreased from 50 q6 to 25 mg Q8 * patient states that he takes fluoxetine 40 mg daily at home, we restarted today Respiratory/ID -Tongue laceration secondary to seizure, causing severe tongue swelling * Intubated on 10/20/2016 in the OR, extubated on * ENT on board, has reassessed and cleared him for extubation * IV PPI started * Benadryl PRN * Weaning trial -possible aspiration pneumonia * today CXR shows Interval decrease in the pleural effusions, and interval improvement in the opacities at the lung bases. * on ciprofloxacin, will continue to finish a 7 day course (switched to PO today ) -Hypotension and febrile on day # 6 of admission * LRC from 10/20/16 (day#1 of intubation) grew stenotrophomonas maltophilia, other cx from 10/20/16 NGTD * Given 1time vanco and ceftaz 10/24/16 * Echo: The left ventricular chamber size and systolic function appear normal. Accurate wall motion assessment was not possible. Abnormal septal motion is present. Mild enlargement of the right heart chambers is present with minimal to mild tricuspid insufficiency and an estimated RV systolic pressure of 40 mmHg. A relatively large left pleural effusion is present. A small pericardial effusion is present. * Central line placed for levophed. Levophed off on 10/25/16. Central line removed 10/27/16. * Follow up cx * Abx as per ID: Recc Levaquin 500 mg (via the OG tube) every 24 hours on 10/24, but he seems to be having ileus, therefore we decided to give him cipro 400 q12 IV. Today switched to PO 55 mg BID, will finish 7 day course tomorrow. -Right hand cellulitis due to dog bite * Right hand laceration wound with secondary cellulitis due to a dog bite 2 days prior to the incident. wounds looked dirty. Dog vaccinated against rabies, pt received tetanus vaccination in Mar 2016. 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 Mar 2016, he grew MSSA, and pasteurella multocida. * hand xray normal * CT right upper extremity 10/24/16: extensive subcutaneous tissue edema of the right hand, wrist, forearm and examined arm; findings suggest presence of cellulitis. * He was given 1X vancomycin 10/20/16 and 10/21/16 pending cx. Unasyn given for 4 days. * Plastic surgery consulted - [facility] moist dressing * Wound irrigation and wound care consult is in place * Today wound appears dry with a small scar 1x1 cm remaining on the radial and palmar aspects of the wrist. Cardiovascular Hypotension, most likely due to sepsis * As above - resolved Hypertensive urgency on admission , hx of htn * Continue home amlodipine (hold if bp low) * Would need to watch BP closely when pt restarted on home antihypertensives as fiance reports pt has been more lightheaded since his BP regimen was changed Heme Thrombocytopenia Platelet trending up: today is 250 from 200 yesterday Metabolic Hypokalemia Hypophosphatemia Hypomagnesemia * Monitor electrolytes, replete as needed Alimentary * started regular diet after swallow eval * DC'd fluids as he is taking liquids PO Constipation (resolved with supp) * since yesterday patient has had multiple episodes of soft stools * DC'd miralax Diet: Regular diet starting today after swallow eval IVF: off DVT ppx: alps , heparin sc Diet: regular diet IVF: off DVT ppx: alps , heparin sc FULL CODE - Dog vaccinated against rabies, pt received tetanus vaccination in Mar 2016 - 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 - hand xray normal - CT right upper extremity 10/24/16: extensive subcutaneous tissue edema of the right hand, wrist, forearm and examined arm; findings suggest presence of cellulitis. * He was given 1X vancomycin 10/20/16 and 10/21/16 pending cx. Unasyn given for 4 days. * Plastic surgery consulted - recc moist dressing * F/U cultures * Wound irrigation and wound care consult Cardiovascular # Hypotension, most likely due to sepsis (resolved) * As above # Hypertensive urgency on admission, hx of htn * Continue home amlodipine (hold if bp low) * Would need to watch BP closely when pt restarted on home antihypertensives as fiance reports pt has been more lightheaded since his BP regimen was changed Heme # Thrombocytopenia - Platelet 119-189 Metabolic # Hypokalemia # Hypophosphatemia # Hypomagnesiumia * Monitor electrolytes, replete as needed Alimentary * NPO, tube feeds * IV reglan * Would advance diet once extubated # Constipation (resolved with supp) * Please order bowel regimen as needed Neuro # Alcohol withdrawal seizure/tremors/rigors - CT of the head negative for acute intracranial pathology. - Work up in the ED showed slightly elevated WBC of 10.7 with left shift ( granulocyte 87%), MCV of 106, anion gap of 24, bicarbonate 20, total bilirubin 1.4, elevated AST 138 (>2 times AST), elevated alkaline phosphatase (152), urine analysis is positive for proteins and ketones, urine toxicology WNL, low serum alcohol level (last drink reportedly 48 hours prior to presentation) * Off sedation * Neurology consulted * Given banana bag and thiamine * Replete electrolytes as needed * Aspiration precaution * Order dantrolene if has further rigors * On librium 50 q6. Taper as tolerated. Diet: NPO (intubated) tube feed as per nutrition IVF: off DVT ppx: alps , heparin sc FULL CODE
[2016-10-30 23:05] VITALS: BP 122/70
[2016-10-31] VITALS (7 sets, daily range): BP systolic 102–128; BP diastolic 53–74
--- NOTE | 2016-10-31 06:43 | PN- Housestaff ---
ROSITA CAMPOS 10/31/16 0643: Subjective Follow-up For: Alcohol withdrawal complicated by seizures Sepsis now resolved Cellulitis Subjective: Seen and examined patient. He is offering no complaints, states that he's feeling better and that his breathing is improved. Denies chest pain, fever, chills, shortness of breath. Encouraged him to use spirometry. Worked well with PT today as well Review of Systems Constitutional: Denies: chills, diaphoresis, fever, malaise, weakness, unexplained weight loss. Cardiovascular: Denies: chest pain, edema, orthopena, palpitations, peripheral edema, syncope. Respiratory: Denies: cough, hemoptysis, orthopnea, short of breath, sputum production, stridor, wheezing. Objective Last 24 Hrs of Vital Signs/I&O Vital Signs Date Time Temp Pulse Resp B/P Pulse O2 O2 Flow FiO2 Ox Delivery Rate 10/31 0847 91 Nasal 2.5L Cannula 10/31 0639 98.0 59 18 102/53 93 Room Air 10/31 0000 Nasal 3.0L Cannula 10/30 2352 97 Nasal 3.0L Cannula 10/30 2305 97.9 63 18 122/70 97 Room Air 10/30 1930 94 Nasal 3.0L Cannula 10/30 1700 96 Nasal 3.0L Cannula 10/30 1700 97.4 62 20 130/70 96 Nasal 3.0L Cannula 10/30 1600 97.1 60 22 135/61 10/30 1600 97 Nasal 3.0L Cannula 10/30 1600 97.1 60 20 135/61 97 Nasal 3.0L Cannula Intake & Output 10/31 1600 10/31 0800 10/31 0000 Intake Total 240 800 Output Total Balance 240 800 Intake, Oral 240 800 Physical Exam General Appearance: Alert, Oriented X3, Cooperative, No Acute Distress Cardiovascular: Regular Rate, Normal S1, Normal S2 Lungs: b/l rhonchi, scattered wheeze Abdomen: Normal Bowel Sounds, Soft Extremities: No Edema Current Medications: Current Medications Sig/Nora Start time Last Medication Dose Route Stop Time Status Admin Acetaminophen 500 MG Q24 PRN 10/20 0330 AC 10/29 IV 2135 Albuterol Sulfate 3 ML BID 10/27 1000 AC 10/31 INH 0845 Amlodipine Besylate 10 MG DAILY 10/20 1000 AC 10/31 PO 0926 Chlordiazepoxide HCl 5 MG Q8 11/01 0600 UNVr PO Chlordiazepoxide HCl 10 MG Q8 10/31 1400 r PO 11/01 0000 Chlordiazepoxide HCl 25 MG Q8 10/30 1400 DC 10/31 PO 0632 Ciprofloxacin 500 MG BID 10/30 1114 AC 10/31 PO 11/03 1113 0926 Dextrose/Sodium 1,000 ML Q10H 10/29 2000 DC 10/30 Chloride IV 0536 Diphenhydramine HCl 25 MG Q6P PRN 10/22 1054 AC 10/22 IV 1327 Fluoxetine HCl 40 MG DAILY 10/30 1634 AC 10/30 PO 1902 Folic Acid 1 MG DAILY 10/30 1718 AC 10/31 PO 0926 Gabapentin 300 MG TID 10/25 1645 AC 10/31 PO 0926 Heparin Sodium 5,000 UNIT Q8 10/20 0600 AC 10/31 (Porcine) SC 0631 Ibuprofen 600 MG Q8P PRN 10/30 1045 AC 10/31 PO 0931 Lidocaine 1 PAT Q24H 10/30 1045 AC 10/31 EXT 0924 Morphine Sulfate 2 MG Q4P PRN 10/20 0330 AC 10/30 IV 0401 Multivitamins 1 TAB DAILY 10/30 1718 AC 10/31 PO 0926 Nicotine 21 MG DAILY 10/29 1957 AC 10/31 TOP 0924 Omeprazole 40 MG DAILY AC 10/30 1114 AC 10/31 PO 0632 Thiamine HCl 100 MG DAILY 10/30 1718 AC 10/31 PO 0926 Last 24 Hrs of Lab/Edi Results Last 24 Hrs of Labs/Mics: Laboratory Tests 10/31/16 0730: Anion Gap 9, Estimated GFR > 60, BUN/Creatinine Ratio 14.3, Magnesium 2.0, CBC w Diff NO MAN DIFF REQ, RBC 3.20 L, MCV 104.8 H, MCH 35.2 H, RDW 15.8 H, MPV 10.1, Gran % 66.6, Lymphocytes % 21.7, Monocytes % 7.4, Eosinophils % 2.6, Basophils % 1.7, Absolute Granulocytes 5.6, Absolute Lymphocytes 1.8, Absolute Monocytes 0.6, Absolute Eosinophils 0.2, Absolute Basophils 0.1, PUBS MCHC 33.6 Assessment/Plan Assessment: 56-year-old gentleman with PMH of alcoholism, hypertension, peripheral neuropathy, anxiety, recent osteomyelitis of left foot after a dog bite in March 2016, was admitted the ICU on October 20 after being found unresponsive and episode of alcohol-induced seizures was noted while at home. In ICU he received Ativan drip and had to be intubated secondary to respiratory compromise due to tongue swelling and hypoxic respiratory failure. His course was complicated by hypotension secondary to sepsis requiring central line and IV pressors. He was extubated on 10/29/16. He was transferred to the general medicine floor yesterday once he became hemodynamically stable and to continue his Librium taper. Problem list Hypoxic respiratory failure-now resolved Sepsis-now resolved Alcohol withdrawal Right hand cellulitis Hypertension Plan CIWA scoring 3,0,0 0,0 Will continue taper his Librium 10mg q8 today and 5mg q8 tommorrow Remains afebrile with no increase in white count, we'll be discontinuing his ciprofloxacin and will follow him off of antibiotics ID on board and recommendations appreciated Continue to taper supplement oxygen Blood pressure 102/53, repeat BP 128/68, continue amlodipine PT is recommending STR after which arrangements will be made for him to attend IOP DVT prophylaxis: Subcutaneous heparin Regular diet Full code Problem List: 1. Alcohol withdrawal seizure 2. Cellulitis 3. Hypertension Pain Ratin Pain Location: not applicable Pain Goal: Pain 4 or less Pain Plan: current regimen Tomorrow's Labs & Rationales: none required JESUSITA ZAMUDIO MD 10/31/16 1601: Attending MD Review Statement Attending Statement Attending MD Statement: examined this patient, discuss w/resident/PA/[employer]OP HAMMER MECHANIC, agreed w/resident/PA/DROP HAMMER MECHANIC, reviewed EMR data (avail), discussed with nursing, discussed with case mgmt, amended to note Attending Assessment/Plan: Patient seen and examined. Resting comfortably and not in any distress. He was transferred out of the ICU yesterday. He is clinically stable. He is not agitated or tremors on examination. He has evidence of ongoing infection at present. We will continue tapering his Librium slowly with anticipate discharge in the next 48 hours. We will hold off antibiotic therapy as recommended by the ID service. Patient has been encouraged to ambulate around the unit to prevent further deconditioning. He is interested in following up with the intensive outpatient program.
[2016-10-31 08:21] LABS: ABSOLUTE BASOPHIL COUNT 0.1 /CUMM (0.0-0.2); ABSOLUTE EOSINOPHIL COUNT 0.2 /CUMM (0.0-0.7); ABSOLUTE GRANULOCYTE CT 5.6 /CUMM (1.4-6.5); ABSOLUTE LYMPH COUNT 1.8 /CUMM (1.2-3.4); ABSOLUTE MONOCYTE COUNT 0.6 /CUMM (0.10-0.60); BASOPHIL % 1.7 % (0.0-2.0); EOSINOPHIL % 2.6 % (0-5); GRANULOCYTE % 66.6 % (42.2-75.2); HEMATOCRIT 33.5 % (42-52); MEAN CORPUSCULAR HGB 35.2 PG (27.0-31.0); MEAN CORPUSCULAR HGB CONC 33.6 G/DL (33.0-37.0); MEAN CORPUSCULAR VOLUME 104.8 FL (80.0-94.0); MEAN PLATELET VOLUME 10.1 FL (7.4-10.4); PLATELET COUNT 298 /CUMM (130-400); RBC DISTRIBUTION WIDTH 15.8 % (11.5-14.5); WHITE BLOOD CELL COUNT 8.3 /CUMM (4.8-10.8)
--- NOTE | 2016-10-31 10:53 | Discharge Summary ---
See Addendum Visit Information Visit Dates Admission Date: 10/20/16 Discharge Date: 11/02/16 Hospital Course Course Attending Physician: Bernabe RAMIREZ MD Primary Care Physician: AVA MOHAN,[facility] [place] Course: Ramakrishna is a 56-year-old man with a history of alcoholism hypertension peripheral neuropathy anxiety response to modest the left foot after a dog bite in March 2016 was hospitalized in the ICU for alcohol withdrawal requiring continuous Ativan drip. Doppler caused a hand cellulitis resulting in septic shock requiring ICU monitoring and intravenous antibiotics. He was treated with vancomycin and ceftazidime in, that was known to [facility]. Subsequently he is transitioned to oral ciprofloxacin. He did require a central line and pressure support while in the ICU. He did experience alcohol withdrawal seizure, resulting in a tongue bite. He was also intubated. ENT evaluation was obtained. Neurology consultation was obtained and they were of the opinion that the episode of seizure was likely due to alcohol withdrawal and not epilepsy and did not recommend EEG or seizure prophylaxis going forward. Since the patient's ICU at admission, he was stabilized and improved clinically. He was downgraded to general medicine floor, and was started on a Librium taper. At present he is on 10 mg every 8 of Librium and remains on ciprofloxacin. Problems: Septic shock secondary to cellulitis caused by dog bite to the right hand Alcohol withdrawal Alcohol withdrawal seizure Lingual laceration secondary to seizure Allergies: Coded Allergies: NO KNOWN ALLERGIES (UNKNOWN 10/21/16) Pertinent Lab Results: Vital Signs Date Time Temp Pulse Resp B/P Pulse O2 O2 Flow FiO2 Ox Delivery Rate 10/31 0847 91 Nasal 2.5L Cannula 10/31 0639 98.0 59 18 102/53 93 Room Air 10/31 0000 Nasal 3.0L Cannula 10/30 2352 97 Nasal 3.0L Cannula 10/30 2305 97.9 63 18 122/70 97 Room Air 10/30 1930 94 Nasal 3.0L Cannula 10/30 1700 96 Nasal 3.0L Cannula 10/30 1700 97.4 62 20 130/70 96 Nasal 3.0L Cannula 10/30 1600 97.1 60 22 135/61 10/30 1600 97 Nasal 3.0L Cannula 10/30 1600 97.1 60 20 135/61 97 Nasal 3.0L Cannula 10/30 1121 76 140/71 10/30 0844 97 Nasal 2.0L Cannula 10/30 0800 96.1 65 20 148/80 04/12 0800 96.1 65 20 148/80 96 Nasal 3.0L Cannula 10/30 0800 96 Nasal 3.0L Cannula 10/30 0400 97.4 66 24 156/90 04/ 0400 99 Nasal 3.0L Cannula 04 0000 97.3 66 20 128/88 04/12 0000 96 Nasal 3.0L Cannula 10/29 2345 97.3 66 20 128/88 94 Nasal 3.0L Cannula 10/29 2200 98.0 62 23 115/63 041999 98.1 66 22 113/67 10/30 1999 96 Nasal 4.0L Cannula 10/29 1600 97 Ventilator 35% 04/11 1600 97.1 84 24 130/70 97 CPAP 35% 04/11 1556 35 04/11 1410 35 04/11 1200 97 Ventilator 35% / 1106 35 04/11 0823 35 04/ 0800 97 Ventilator 35% 10/29 0800 97.8 46 18 132/71 97 Ventilator 35% 04/11 0600 97.2 62 16 178/119 04/11 0546 35 04/11 0400 97.2 62 16 116/64 04/11 0400 98 Ventilator 35% 04/11 0332 35 04/11 0045 35 04/11 0000 97.6 57 16 159/86 04/11 0000 97 Ventilator 35% 04/11 0000 97.6 57 16 154/86 97 Ventilator 35% 04/10 2226 35 04/10 2200 98.0 72 18 138/71 04/10 1999 97.0 56 16 114/69 04/10 1999 96 Ventilator 35% 04/10 1916 35 04/10 1600 35 04/10 1600 97.1 55 20 120/64 04/10 1600 96 Ventilator 35% 04/10 1600 97.1 55 20 120/64 96 Ventilator 35% 04/10 1336 35 04/10 1200 96 Ventilator 35% 04/10 1134 35 04/10 1000 98.3 79 22 170/87 04/10 0802 35 04/10 0800 98.2 70 21 140/74 04/10 0800 92 Ventilator 40% 04/10 0800 98.2 70 21 140/74 92 Ventilator 40% 04/10 0556 40 04/10 0400 97.7 62 16 150/80 04/10 0230 40 04/10 0002 40 04/10 0000 98.1 57 16 150/90 04/10 0000 97 Ventilator 40% 04/10 0000 98.1 57 16 150/90 97 Ventilator 40% 04/09 2215 40 04/09 2200 61 16 154/75 04/1999 61 16 158/90 04/1999 97 Ventilator 40% 04/09 1926 40 04/ 1600 40 04/ 1600 98.0 80 18 190/80 93 Ventilator 40% 04/09 1600 93 Ventilator 40% 04/ 1440 40 04/ 1200 62 180/90 04/ 1200 90 Ventilator 40% 04/ 1130 40 04/ 0957 88 Ventilator 35% 04/ 0900 Ventilator 35% 04/ 0800 88 Ventilator 30% 04/ 0800 98.0 58 18 140/80 88 Ventilator 30% 04/ 0735 30 04/09 0602 30 04/09 0600 54 16 132/70 04/ 0400 98.5 66 19 118/66 04/09 0400 96 Ventilator 30% 04/09 0233 30 04/09 0200 55 16 133/64 04/09 0041 30 04/09 0000 97.9 58 16 140/82 04/09 0000 99 Ventilator 30% 04/08 2300 97.9 58 16 140/82 97 Ventilator 30% 04/08 2222 30 04/08 2200 65 16 139/74 04/08 1999 30 04/08 1999 97.1 73 26 124/61 04/08 1999 94 Ventilator 30% 04/08 1721 30 04/08 1600 97 Ventilator 30% 04/08 1600 97.0 80 20 140/80 97 Ventilator 30% 04/08 1411 30 04/08 1200 97 Ventilator 30% 04/08 1100 30 04/08 1028 80 132/90 04/08 0810 30 04/08 0800 98 Ventilator 30% 04/08 0800 97.5 70 20 140/70 96 Ventilator 30% 04/08 0623 30 04/08 0600 83 16 125/67 04/08 0356 97.3 65 16 124/64 04/08 0356 100 Ventilator 30% 04/08 0350 30 04/08 0348 35 04/08 0013 35 04/08 0000 97.3 61 16 122/80 04/08 0000 100 Ventilator 35% 04/07 2300 97.3 61 16 122/80 100 Ventilator 35% 04/07 2200 63 16 102/56 04/07 2136 35 04/07 1999 97.3 83 19 120/63 04/07 1999 94 Ventilator 35% 04/07 1909 35 04/07 1607 35 04/07 1600 96 Ventilator 35% 04/07 1600 99.8 78 18 96/64 97 Ventilator 35% 04/07 1416 35 04/07 1200 96 Ventilator 35% 04/07 1143 35 04/07 0815 35 04/07 0800 96 Ventilator 35% 04/07 0800 97.0 72 16 104/70 96 Ventilator 35% 04/07 0600 71 16 98/62 04/07 0558 35 04/07 0400 98.7 82 16 110/70 04/07 0400 95 Ventilator 35% 04/07 0350 35 04/07 0200 77 16 98/64 04/07 0040 35 04/07 0000 99.9 78 17 110/70 04/07 0000 99.9 78 17 110/70 99 Ventilator 35% 04/07 0000 99 Ventilator 35% 04/06 2208 35 04/06 2200 98.0 84 16 90/55 04/06 2118 98.5 78 16 100/59 04/06 2007 35 04/06 2000 98.5 68 16 110/72 04/06 1999 100 Ventilator 35% 04/06 1627 35 04/06 1600 98.8 62 16 116/72 04/06 1600 99 Ventilator 35% 04/06 1600 98.8 62 16 116/72 99 Ventilator 35% 04/06 1400 60 16 103/62 04/06 1355 35 04/06 1200 64 16 106/60 04/06 1200 100 Ventilator 35% 04/06 1200 96.5 64 16 120/70 100 Ventilator 35% 04/06 1034 35 04/06 1000 96.5 64 16 120/70 04/06 0936 71 114/66 04/06 0816 35 04/06 0800 97.6 68 16 116/78 04/06 0800 99 Ventilator 35% 04/06 0800 97.6 16 16 116/78 99 Ventilator 35% 04/06 0605 35 04/06 0600 66 16 106/70 04/06 0400 98.8 70 16 101/70 04/06 0400 98 Ventilator 35% 04/06 0349 98.8 70 16 75/57 04/06 0307 35 04/06 0200 71 71 94/60 04/06 0013 35 04/06 0000 98.1 85 18 100/60 04/06 0000 98.1 85 18 100/60 92 Ventilator 35% 04/06 0000 98.1 85 18 100/60 92 Ventilator 35% 04/05 2259 100.5 04/05 2210 30 04/05 2200 100.5 88 18 110/60 04/05 2009 30 04/05 2000 97.9 80 16 109/68 04/05 1800 77 23 110/60 04/05 1600 96.9 53 16 132/70 04/05 1600 96 Ventilator 30% 04/05 1600 96.9 53 16 132/70 96 Ventilator 30% 04/05 1559 30 04/05 1345 30 04/05 1235 60 130/75 04/05 1200 70 20 138/71 04/05 1200 98 Ventilator 30% 04/05 1111 30 04/05 1000 62 16 149/75 04/05 0846 30 04/05 0800 97.1 54 16 142/80 04/05 0800 97.1 54 16 142/80 98 Ventilator 30% 04/05 0800 99 Ventilator 30% 04/05 0600 63 20 138/103 04/05 0535 30 04/05 0400 97.7 55 16 130/80 04/05 0400 100 Ventilator 30% 04/05 0342 30 04/05 0200 66 16 159/76 04/05 0122 30 04/05 0000 97.1 53 16 148/90 04/05 0000 98 Ventilator 30% 04/05 0000 97.1 53 16 148/90 98 Ventilator 30% 04/04 2228 30 04/04 2200 52 16 143/80 04/04 1999 98.5 94 24 140/80 04/04 2000 96 Ventilator 30% 04/04 1900 30 04/04 1800 50 16 154/86 04/04 1610 54 145/87 04/04 1600 30 04/04 1600 98.1 56 16 145/87 04/04 1600 98 Ventilator 30% 04/04 1600 98.1 56 16 147/84 98 Ventilator 30% 04/04 1440 30 04/04 1400 66 20 155/97 04/04 1200 98.3 72 22 152/104 04/04 1200 98 Ventilator 30% 04/04 1125 30 04/04 1000 55 16 144/81 04/04 0911 55 155/82 04/04 0800 30 04/04 0800 98.1 54 16 144/82 04/04 0800 95 Ventilator 30% 04/04 0800 98.1 54 16 144/82 95 Ventilator 30% 04/04 0600 97.5 57 16 134/76 04/04 0556 30 04/04 0400 97.5 84 16 124/86 04/04 0400 97 Ventilator 30% 04/04 0227 30 04/04 0031 30 04/04 0000 97.7 85 22 140/76 04/04 0000 97.7 85 22 140/90 96 Ventilator 30% 04/04 0000 96 Ventilator 30% 04/03 2229 30 04/03 2200 63 17 134/79 04/03 1999 97.1 56 17 140/90 04/03 1999 98 Ventilator 30% 04/03 1930 30 04/03 1800 64 18 141/85 04/03 1615 30 04/03 1600 97.8 53 16 148/90 04/03 1600 97.8 53 16 148/90 98 Ventilator 30% 04/03 1600 98 Ventilator 30% 04/03 1400 56 18 142/91 04/03 1356 30 04/03 1200 97.4 60 18 138/84 04/03 1200 98 Ventilator 30% 04/03 1155 30 04/03 1000 68 18 138/84 04/03 0805 30 04/03 0800 97.1 52 16 144/90 04/03 0800 97.1 52 16 144/90 99 Ventilator 30% 04/03 0800 99 Ventilator 30% 04/03 0600 97.5 55 16 151/87 04/03 0550 30 04/03 0400 97.5 53 16 130/52 04/03 0400 97 Ventilator 30% 04/03 0327 30 04/03 0324 40 04/03 0200 98.1 58 16 131/73 04/03 0130 40 04/03 0000 98.1 58 16 121/70 04/03 0000 100 Ventilator 40% 04/03 0000 98.1 58 16 121/70 100 Ventilator 40% 04/02 2200 40 04/02 2200 98.6 68 16 115/75 04/02 2043 40 04/02 1999 98.6 64 16 120/80 04/02 1999 99 Ventilator 40% 04/02 1604 40 04/02 1600 98.1 76 16 136/90 04/02 1600 97 Ventilator 40% 04/02 1600 98.1 76 16 136/90 97 Ventilator 40% 04/02 1419 40 04/02 1400 88 16 129/82 04/02 1200 98.2 120 16 140/90 04/02 1200 98 Ventilator 40% 04/02 1114 40 04/02 1000 98.3 98 16 72/50 04/02 0800 Nasal 2.0L Cannula 04 0800 97.4 102 26 180/110 04/02 0800 97.4 102 26 180/110 97 Nasal 2.0L Cannula 10/20 0514 100 190/107 04/02 0439 97.7 90 20 161/97 04/02 0438 97.7 90 20 161/97 98 Nasal 4.0L Cannula 10/20 0436 86 162/98 04/ 0434 84 158/96 04/ 0432 83 156/107 04/ 0422 97.2 89 20 164/108 99 Nasal 4.0L Cannula 10/20 0242 96.8 93 20 146/86 99 Nasal 4.0L Cannula 10/20 0123 96.6 108 20 153/99 94 Nasal 4.0L Cannula 10/20 0055 110 20 159/93 97 Nasal 2.0L Cannula 10/20 0018 96.6 152 24 212/122 98 Nasal 5.0L Cannula 10/20 0007 98 Nasal 4.0L Cannula 10/20 0006 99 Nasal 4.0L Cannula Last 24 Hours I&Os 10/31 1600 10/31 0800 10/31 0000 Intake Total 240 800 Output Total Balance 240 800 Intake, Oral 240 800 Laboratory Tests 10/31/16 0730: Anion Gap 9, Estimated GFR > 60, BUN/Creatinine Ratio 14.3, Magnesium 2.0, CBC w Diff NO MAN DIFF REQ, RBC 3.20 L, MCV 104.8 H, MCH 35.2 H, RDW 15.8 H, MPV 10.1, Gran % 66.6, Lymphocytes % 21.7, Monocytes % 7.4, Eosinophils % 2.6, Basophils % 1.7, Absolute Granulocytes 5.6, Absolute Lymphocytes 1.8, Absolute Monocytes 0.6, Absolute Eosinophils 0.2, Absolute Basophils 0.1, PUBS MCHC 33.6 Microbiology Date/Time Procedure - Status Source Growth 10/30 0927 Clostridium difficile Toxin A & B - COLB STOOL Orders Procedure Date/time Status Change service to 10/31 0821 Active MAGNESIUM 10/31 0500 Complete CBC WITHOUT DIFFERENTIAL 10/31 0500 Complete BASIC ELECTROLYTES PLUS BUN&CR 10/31 0500 Complete THERAPIST ORDERS 10/31 UNK Complete MISSING MEDICATION FORM 10/31 UNK Active Regular Diet 10/30 B Active Transfer Disposition 10/30 2126 Active MISSING MEDICATION FORM 10/30 1740 Active Patient Safety Monitor 10/30 1213 Complete Pathway - chart 10/30 1036 Active Transfer patient to 10/30 0940 Active C.DIFFICILE 10/30 0927 Active THERAPIST ORDERS 10/30 0845 Complete Restraint- Medical 10/30 0823 Complete Uriarte, Insertion/Removal/Asses 10/30 0823 Complete ICU LAB BUNDLE 10/30 0500 Complete CBC WITHOUT DIFFERENTIAL 10/30 0500 Complete SWALLOW EVALUATION 10/30 UNK Active Evaluate Swallowing 10/30 UNK Complete OXYGEN SETUP CHG 10/30 UNK Complete INCENTIVE SPIROMETRY TRX CHG 10/30 UNK Complete CHEST PHYSICAL THERAPY CHG 10/30 UNK Complete AEROSOL CHG 10/30 UNK Complete OXYGEN 10/30 UNK Complete OXYGEN TRANSPORT 10/30 UNK Complete OXYGEN DAILY CHARGE 10/30 UNK Complete THERAPIST ORDERS 10/30 UNK Complete PT Evaluate & Treat 10/30 UNK Active PT EVAL MOD COMPLEX 30 MIN 10/30 UNK Complete Gait Training 10/30 UNK Complete Restraint- Medical 10/30 UNK Complete Nursing Misc 10/30 UNK Active Nothing by Mouth 10/29 D Complete RT: Reevaluation 10/29 203 Active EXTUBATE 10/29 1645 Complete ARTERIAL BLOOD GAS (GEN) 10/29 1106 Complete Change service to 10/29 0959 Active Restraint- Medical 10/29 0959 Complete Uriarte, Insertion/Removal/Asses 10/29 0959 Complete INCENTIVE SPIROMETRY TRX CHG 10/29 UNK Complete CHEST PHYSICAL THERAPY CHG 10/29 UNK Complete AEROSOL CHG 10/29 UNK Complete OXYGEN 10/29 UNK Complete OXYGEN DAILY CHARGE 10/29 UNK Complete CONTINUOUS VENTILATOR 10/29 UNK Complete VENTILATOR WEANING PARAMETERS 10/29 UNK Complete THERAPIST ORDERS 10/29 UNK Complete Restraint- Medical 10/29 UNK Complete CHEST PHYSICAL THERAPY CHG 10/28 UNK Complete AEROSOL CHG 10/28 UNK Complete OXYGEN 10/28 UNK Complete OXYGEN DAILY CHARGE 10/28 UNK Complete CONTINUOUS VENTILATOR 10/28 UNK Complete Disposition Summary Disposition Principal Diagnosis: Summary Additional Diagnosis: Summary Discharge Disposition: acute rehabilitation Discharge Instructions General Discharge Information Code Status: Full Code Patient's Diet: Regular Patient's Activity: Self-limited Follow-Up Instructions/Appts: Follow-up with primary care doctor Medications at Discharge Discharge Medications: Stop taking the following medications: Fluoxetine HCl (Fluoxetine HCl) 20 MG CAPSULE ORAL DAILY Qty = 90 Continue taking these medications: Lisinopril (Lisinopril) 40 MG TABLET 1 Tablet ORAL DAILY Qty = 30 Comments: DID NOT RECEIVE WHILE IN HOSPITAL Hydroxyzine Pamoate (Hydroxyzine Pamoate) 25 MG CAPSULE 1 Capsule ORAL THREE TIMES A DAY NEEDED Qty = 60 Comments: Last Taken:04/06/16 Time:09:30 Gabapentin (Gabapentin) 300 MG CAPSULE 2 Capsule ORAL TWICE DAILY Qty = 180 Comments: Last Taken: 11/02/16 Time: 10:00 AM Amlodipine Besylate (Norvasc) 10 MG TABLET 1 Tablet ORAL DAILY Days = 30 Comments: Last Taken: 11/02/16 Time: 10:00 AM Hydrochlorothiazide (Hydrochlorothiazide) 25 MG TABLET 1 Tablet ORAL DAILY Days = 30 Comments: DID NOT RECEIVE WHILE IN HOSPITAL Fluoxetine HCl (Fluoxetine HCl) 40 MG CAPSULE 1 Capsule ORAL Every Morning Comments: Last Taken: 11/02/16 Time: 10:00 AM Start taking the following new medications: Folic Acid (Folic Acid) 1 MG TABLET 1 Milligram ORAL DAILY Qty = 30 No Refills Thiamine HCl (Vitamin B-1) 100 MG TABLET 100 Milligram ORAL DAILY Qty = 30 No Refills Comments: Last Taken: 11/02/16 Time: 10:00 AM Chlordiazepoxide HCl (Chlordiazepoxide HCl) 5 MG CAPSULE 5 Milligram ORAL GIVE ONCE Qty = 1 No Refills Instructions: TAKE ONE TABLET FOR ONE DAY TO COMPLETE YOUR TAPER Comments: TAKE 11/03/16 IN THE MORNING Copies To: KANDICE ZAMUDIO M.D, MD, SANGEETHA Attending MD Review Statement Documenting Attending: JESUSITA ZAMUDIO M.D
--- NOTE | 2016-10-31 12:57 | PN- Infect Dx ---
Subjective Subjective: Afebrile without complaints Objective Last 24 Hrs of Vital Signs/I&O Vital Signs Date Time Temp Pulse Resp B/P Pulse O2 O2 Flow FiO2 Ox Delivery Rate 10/31 0847 91 Nasal 2.5L Cannula 10/31 0639 98.0 59 18 102/53 93 Room Air 10/31 0000 Nasal 3.0L Cannula 10/30 2352 97 Nasal 3.0L Cannula 10/30 2305 97.9 63 18 122/70 97 Room Air 10/30 1930 94 Nasal 3.0L Cannula 10/30 1700 96 Nasal 3.0L Cannula 10/30 1700 97.4 62 20 130/70 96 Nasal 3.0L Cannula 10/30 1600 97.1 60 22 135/61 10/30 1600 97 Nasal 3.0L Cannula 10/30 1600 97.1 60 20 135/61 97 Nasal 3.0L Cannula Intake & Output 10/31 1600 10/31 0800 10/31 0000 Intake Total 240 800 Output Total Balance 240 800 Intake, Oral 240 800 Physical Exam Other Physical Findings: He appears comfortable in no acute distress Lungs decreased breath sounds at the left base Heart regular rhythm with no murmur Extremities resolution of the right upper extremity swelling Results Last 24 Hours of Lab Results: Laboratory Tests 10/31 0730 Chemistry Sodium (137 - 145 mmol/L) 139 Potassium (3.5 - 5.1 mmol/L) 4.3 Chloride (98 - 107 mmol/L) 100 Carbon Dioxide (22 - 30 mmol/L) 30 Anion Gap (5 - 16) 9 BUN (9 - 20 mg/dL) 10 Creatinine (0.7 - 1.2 mg/dL) 0.7 Estimated GFR (>60 ml/min) > 60 BUN/Creatinine Ratio (7 - 25 %) 14.3 Magnesium (1.6 - 2.3 mg/dL) 2.0 Hematology CBC w Diff NO MAN DIFF REQ WBC (4.8 - 10.8 /CUMM) 8.3 RBC (4.70 - 6.10 /CUMM) 3.20 L Hgb (14.0 - 18.0 G/DL) 11.3 L Hct (42 - 52 %) 33.5 L MCV (80.0 - 94.0 FL) 104.8 H MCH (27.0 - 31.0 PG) 35.2 H RDW (11.5 - 14.5 %) 15.8 H Plt Count (130 - 400 /CUMM) 298 MPV (7.4 - 10.4 FL) 10.1 Gran % (42.2 - 75.2 %) 66.6 Lymphocytes % (20.5 - 51.1 %) 21.7 Monocytes % (1.7 - 9.3 %) 7.4 Eosinophils % (0 - 5 %) 2.6 Basophils % (0.0 - 2.0 %) 1.7 Absolute Granulocytes (1.4 - 6.5 /CUMM) 5.6 Absolute Lymphocytes (1.2 - 3.4 /CUMM) 1.8 Absolute Monocytes (0.10 - 0.60 /CUMM) 0.6 Absolute Eosinophils (0.0 - 0.7 /CUMM) 0.2 Absolute Basophils (0.0 - 0.2 /CUMM) 0.1 PUBS MCHC (33.0 - 37.0 G/DL) 33.6 Last 24 Hours of Edi Results: No recent cultures Assessment/Plan Impression: Overall improved with temperatures and white blood cell count normal on Ciprofloxacin, now Day 7 of treatment for possible pneumonia secondary to Stenotrophomonas and Enterobacter. Suggestion: 1. Discontinue Ciprofloxacin and follow off antibiotics
--- NOTE | 2016-11-01 07:05 | PN- Housestaff ---
ROSITA CAMPOS 11/01/16 0704: Subjective Follow-up For: Alcohol withdrawal complicated by seizures Sepsis now resolved Cellulitis Subjective: Seen and examined patient. Denies fever, chills, chest pain. Reports having some mild itching around the site of the Tegaderm. Would like to walk around more. Discussed with him the discharge plan going to rehabilitation and then from there making arrangements to attend [facility]. Review of Systems Constitutional: Denies: chills, diaphoresis, fever, malaise, weakness, unexplained weight loss. Cardiovascular: Denies: chest pain, edema, orthopena, palpitations, peripheral edema, syncope. Respiratory: Denies: cough, hemoptysis, orthopnea, short of breath, sputum production, stridor, wheezing. Objective Last 24 Hrs of Vital Signs/I&O Vital Signs Date Time Temp Pulse Resp B/P Pulse O2 O2 Flow FiO2 Ox Delivery Rate 10/31 2199 97.7 60 18 128/74 10/31 2200 97.8 66 18 124/73 92 Room Air 11/01 2019 97.4 76 20 121/72 93 Room Air 10/31 2000 97.7 60 18 128/74 10/31 1915 97 Nasal 2.0L Cannula 10/31 1800 97.7 60 18 128/74 10/31 1610 Nasal 2.5L Cannula 10/31 1600 Nasal 2.0L Cannula 10/31 1600 97.7 60 18 128/74 10/31 1437 97.7 60 18 128/74 93 10/31 0847 91 Nasal 2.5L Cannula 10/31 0800 93 Nasal 2.0L Cannula Intake & Output 11/01 0800 11/01 0000 10/31 1600 Intake Total 450 480 Output Total 1000 601 300 Balance -1000 -151 180 Intake, Oral 450 480 Output, Stool 1 Output, Urine 1000 600 300 Physical Exam General Appearance: Alert, Oriented X3, Cooperative Skin: erythematous leisons around site of tegaderm Cardiovascular: Normal S1, Normal S2 Lungs: Clear to Auscultation, Normal Air Movement Abdomen: Normal Bowel Sounds, Soft Extremities: No Edema Current Medications: Current Medications Sig/Nora Start time Last Medication Dose Route Stop Time Status Admin Acetaminophen 500 MG Q24 PRN 10/20 0330 AC 10/29 IV 2135 Albuterol Sulfate 3 ML BID 10/27 1000 AC 10/31 INH 1915 Amlodipine Besylate 10 MG DAILY 10/20 1000 AC 10/31 PO 0926 Chlordiazepoxide HCl 5 MG Q8 11/01 0600 AC 11/01 PO 0506 Chlordiazepoxide HCl 10 MG Q8 10/31 1400 DC 10/31 PO 11/01 0000 2131 Chlordiazepoxide HCl 25 MG Q8 10/30 1400 DC 10/31 PO 0632 Ciprofloxacin 500 MG BID 10/30 1114 DC 10/31 PO 11/03 1113 0926 Diphenhydramine HCl 1 ISABELA BID 11/01 0800 UNVr TOP Diphenhydramine HCl 25 MG Q6P PRN 10/22 1054 AC 10/22 IV 1327 Fluoxetine HCl 40 MG DAILY 10/30 1634 AC 10/31 PO 1418 Folic Acid 1 MG DAILY 10/30 1718 AC 10/31 PO 0926 Gabapentin 300 MG TID 10/25 1645 AC 10/31 PO 2131 Heparin Sodium 5,000 UNIT Q8 10/20 0600 AC 11/01 (Porcine) SC 0506 Ibuprofen 600 MG Q8P PRN 10/30 1045 AC 10/31 PO 0931 Lidocaine 1 PAT Q24H 10/30 1045 AC 10/31 EXT 0924 Morphine Sulfate 2 MG Q4P PRN 10/20 0330 AC 11/01 IV 0511 Multivitamins 1 TAB DAILY 10/30 1718 AC 10/31 PO 0926 Nicotine 21 MG DAILY 10/29 1957 AC 10/31 TOP 0924 Omeprazole 40 MG DAILY AC 10/30 1114 AC 11/01 PO 0505 Thiamine HCl 100 MG DAILY 10/30 1718 AC 10/31 PO 0926 Assessment/Plan Assessment: 56-year-old gentleman with PMH of alcoholism, hypertension, peripheral neuropathy, anxiety, recent osteomyelitis of left foot after a dog bite in March 2016, was admitted the ICU on October 20 after being found unresponsive and episode of alcohol-induced seizures was noted while at home. In ICU he received Ativan drip and had to be intubated secondary to respiratory compromise due to tongue swelling and hypoxic respiratory failure. His course was complicated by hypotension secondary to sepsis requiring central line and IV pressors. He was extubated on 10/29/16. He was transferred to the general medicine floor yesterday once he became hemodynamically stable and to continue his Librium taper. Currently clinical improvement is noted. Saturating well on room air Problem list Hypoxic respiratory failure-now resolved Sepsis-now resolved Alcohol withdrawal Right hand cellulitis Hypertension Plan CIWA scoring 1, 1, 1, 1,3 Will continue taper his Librium ,5mg q8 today Completed course for his cellulitis, will continue follow him off antibiotics ID on board and recommendations appreciated Continue to taper supplement oxygen Blood pressure stable, continue amlodipine PT now recommending discharge to home. Christen from [employer] [facility] has made appt for him at [facility] for fridayNovember 08. DVT prophylaxis: Subcutaneous heparin Regular diet Full code Problem List: 1. Cellulitis 2. Alcohol withdrawal seizure Pain Ratin Pain Location: na Pain Goal: Pain 4 or less Pain Plan: Current regimen Tomorrow's Labs & Rationales: None required JESUSITA ZAMUDIO MD 11/01/16 0954: Attending MD Review Statement Attending Statement Attending MD Statement: examined this patient, discuss w/resident/PA/QUOTER, agreed w/resident/PA/QUOTER, reviewed EMR data (avail), discussed with nursing, discussed with case mgmt, amended to note Attending Assessment/Plan: She has seen and examined. Resting comfortably and not in any distress. No issues overnight. No new complaints this morning. He feels stronger and feels that he is able to ambulate more independently today. He remains afebrile and hemodynamically stable. Recommendations: -He is scheduled to receive his Librium 3 times a day today. -Posterior be decreased to 5 mg twice daily tomorrow. He may be discharged home after tomorrow morning's dose with a prescription for 1 more dose of Librium to take later on in the day. His benzodiazepine taper can be discontinued after this. -Recommend reevaluation by the physical therapy service today. If cleared by the physical therapist he'll be discharged home rather than to a detention facility.
[2016-11-01 07:37] VITALS: BP 133/77
--- NOTE | 2016-11-01 10:30 | NUR ---
NURSING NOTE: PT FOUND TO BE AMBULATING IN THE HALLWAY INDEPENDENTLY. PT STATED THAT "THE DOCTOR SAID I DIDN'T NEED THE BED ALARM ANY MORE SO HE UNPLUGED IT" THIS NURSE VERIFIED THAT DR. ZAMUDIO DID UNPLUG THE ALARM. PT AMBULATING WITH STEADY GAIT AT THIS TIME. WILL CONTINUE TO MONITOR.
[2016-11-01] MEDS ORDERED: CHLORDIAZEPOXIDE5 M1 PO (13:26)
[2016-11-01] MEDS ORDERED: FOLIC ACID1 M1 PO (13:35)
[2016-11-01] MEDS ORDERED: VITAMIN B-1100 MG PO (13:35)
--- NOTE | 2016-11-01 14:20 | Discharge Summary ---
Hospital Course Allergies: Coded Allergies: NO KNOWN ALLERGIES (UNKNOWN 10/21/16) Discharge Instructions General Discharge Information Code Status: Full Code Medications at Discharge Discharge Medications: Stop taking the following medications: Fluoxetine HCl (Fluoxetine HCl) 20 MG CAPSULE ORAL DAILY Qty = 90 Continue taking these medications: Lisinopril (Lisinopril) 40 MG TABLET 1 Tablet ORAL DAILY Qty = 30 Comments: DID NOT RECEIVE WHILE IN HOSPITAL Hydroxyzine Pamoate (Hydroxyzine Pamoate) 25 MG CAPSULE 1 Capsule ORAL THREE TIMES A DAY NEEDED Qty = 60 Comments: Last Taken:04/06/16 Time:09:30 Gabapentin (Gabapentin) 300 MG CAPSULE 2 Capsule ORAL TWICE DAILY Qty = 180 Comments: Last Taken: 11/02/16 Time: 10:00 AM Amlodipine Besylate (Norvasc) 10 MG TABLET 1 Tablet ORAL DAILY Days = 30 Comments: Last Taken: 11/02/16 Time: 10:00 AM Hydrochlorothiazide (Hydrochlorothiazide) 25 MG TABLET 1 Tablet ORAL DAILY Days = 30 Comments: DID NOT RECEIVE WHILE IN HOSPITAL Fluoxetine HCl (Fluoxetine HCl) 40 MG CAPSULE 1 Capsule ORAL Every Morning Comments: Last Taken: 11/02/16 Time: 10:00 AM Start taking the following new medications: Folic Acid (Folic Acid) 1 MG TABLET 1 Milligram ORAL DAILY Qty = 30 No Refills Thiamine HCl (Vitamin B-1) 100 MG TABLET 100 Milligram ORAL DAILY Qty = 30 No Refills Comments: Last Taken: 11/02/16 Time: 10:00 AM Chlordiazepoxide HCl (Chlordiazepoxide HCl) 5 MG CAPSULE 5 Milligram ORAL GIVE ONCE Qty = 1 No Refills Instructions: TAKE ONE TABLET FOR ONE DAY TO COMPLETE YOUR TAPER Comments: TAKE 11/03/16 IN THE MORNING
[2016-11-01 14:28] VITALS: BP 116/69
--- NOTE | 2016-11-01 14:55 | NUR ---
Continue to follow patients progress as it relates to his detox. Patient has had a remarkable recovery with noted improvement in mental status and physical functioning, such that Physical Therapy has cleared him for discharge home. Ramakrishna is very pleased with this and is willing to participate in the IOP because he admits to regular excessive drinking. Case discussed at [facility]'s this AM, and then again with Dr. Sparrow who is in agreement with IOP. Intake secured for next 11/08/16 at 10:30am. This information has been provided to patient in written format and it has also been included on discharge instructions.
[2016-11-01 22:32] VITALS: BP 120/70
[2016-11-02 07:29] VITALS: BP 112/74
--- NOTE | 2016-11-02 08:42 | PN- Housestaff ---
WENDY MOHAN,STEFAN 11/02/16 0841: Subjective Follow-up For: Alcohol withdrawal complicated by seizures Sepsis now resolved Cellulitis Subjective: Patient seen and examined. He is seen sitting upright in bed resting comfortably. He appears to be in no acute distress. He reports feeling well and is eager to be discharged home today. Denies any new subjective complaints. He reports eating/drinking well with no difficulty and using the bathroom. Additionally he denies any headache, fever, chills, chest pain, palpitations, shortness breath, cough, nausea, vomiting, diarrhea. No overnight events reported. Review of Systems Constitutional: Reports: see HPI. Objective Last 24 Hrs of Vital Signs/I&O Vital Signs Date Time Temp Pulse Resp B/P Pulse O2 O2 Flow FiO2 Ox Delivery Rate 11/02 0959 60 118/72 11/02 0855 94 Room Air 11/02 0729 97.6 49 18 112/74 93 Room Air 11/01 2232 97.9 67 20 120/70 94 Room Air 11/01 1428 97.8 67 20 116/69 93 Room Air 11/01 1229 95 Room Air Room Air Intake & Output 11/02 1600 11/02 0800 11/02 0000 Intake Total 400 1000 Output Total 225 Balance 400 775 Intake, Oral 400 1000 Output, Urine 225 Physical Exam General Appearance: Alert, Oriented X3, Cooperative, No Acute Distress Other Physical Findings: General -well-developed, well-nourished middle-aged man in no acute distress HEENT - NCAT, PERRL, EOMI, anicteric sclera, gauze with Tegaderm on right side of neck Cardio - S1, S2 w/o murmurs/gallops/rubs Resp - CTA bilaterally w/o wheezing/rhochi/crackles GI - soft, nontender, nondistended, bowel sounds present Neuro - Awake and alert, CN II - XII grossly intact Extremities - no edema, pulses intact Current Medications: Current Medications Sig/Nora Start time Last Medication Dose Route Stop Time Status Admin Acetaminophen 500 MG Q24 PRN 10/20 0330 AC 10/29 IV 2135 Albuterol Sulfate 3 ML BID 10/27 1000 AC 11/02 INH 0854 Amlodipine Besylate 10 MG DAILY 10/20 1000 AC 11/02 PO 0959 Chlordiazepoxide HCl 5 MG BID 11/02 1000 AC 11/02 PO 0959 Chlordiazepoxide HCl 5 MG Q8 11/01 0600 DC 11/01 PO 11/02 0000 2117 Diphenhydramine HCl 1 ISABELA BID 11/01 0800 AC 11/02 TOP 0958 Diphenhydramine HCl 25 MG Q6P PRN 04 1054 AC 04 IV 1327 Fluoxetine HCl 40 MG DAILY 10/30 1634 AC 11/02 PO 0959 Folic Acid 1 MG DAILY 10/30 1718 AC 11/02 PO 0959 Gabapentin 300 MG TID 10/25 1645 AC 11/02 PO 0959 Heparin Sodium 5,000 UNIT Q8 10/20 0600 AC 11/02 (Porcine) SC 0607 Ibuprofen 600 MG Q8P PRN 10/30 1045 AC 11/01 PO 1032 Lidocaine 1 PAT Q24H 10/30 1045 AC 11/02 EXT 1000 Morphine Sulfate 2 MG Q4P PRN 10/20 0330 DC 11/01 IV 0511 Multivitamins 1 TAB DAILY 10/30 1718 AC 11/02 PO 0959 Nicotine 21 MG DAILY 10/29 1957 AC 11/01 TOP 1025 Omeprazole 40 MG DAILY AC 10/30 1114 AC 11/02 PO 0607 Thiamine HCl 100 MG DAILY 10/30 1718 AC 11/02 PO 0959 Assessment/Plan Assessment: Patient continues to do well and is tolerating his Librium taper. CIWA scores overnight range 0-3. Patient is eager to be discharged home today and is aware of his outpatient follow-up plan. He is provided a prescription for 1 additional pill of Librium to be taken as directed after discharge. Problem list: -Hypoxic respiratory failure-now resolved -Sepsis-now resolved -Alcohol withdrawal -Right hand cellulitis -Hypertension Plan: -Gen. medicine -CIWA protocol -Librium taper -Follow off antibiotics, cellulitis resolved -Continue home medications -PT evaluation -Social work consult -regular diet -DVT prophylaxis -Full code Problem List: 1. Cellulitis Pain Ratin Pain Location: See assessment Pain Goal: Remain pain free Pain Plan: See assessment Tomorrow's Labs & Rationales: None LORI CACERES 11/02/16 0944: Attending MD Review Statement Attending Statement Attending MD Statement: examined this patient, discuss w/resident/PA/TRANSPORTATION MAINTENANCE WORKER, agreed w/resident/PA/TRANSPORTATION MAINTENANCE WORKER, discussed with family, reviewed EMR data (avail), discussed with nursing, discussed with case mgmt, reviewed images Attending Assessment/Plan: Patient vitally stable for discharged and discharged in stable condition.
[2016-11-02 09:59] VITALS: BP 118/72
--- NOTE | 2016-11-02 12:50 | NUR ---
Dressing to right neck taken off, noted sutures to skin. Notified Dr Kitchen #[id number]. RIJ discontinued on 10/27/16. Supervisor [place] [employer] in to take sutures out without incident.
== END 2016-11-02 12:57 | DRG 775 ==
LOC: ENRESERVTM → ENRESERVDT → ERH 00:04 → ENPENDDIS 02:46 → 2NB 02:46 → CRI 02:46 → ERHI 02:46 → 2NB 02:46 → CRI 06:15 → 2NB 10-30 17:02
PROVIDERS: Emergency Medicine; Internal Medicine; Internal Medicine Hematology & Oncology; Ophthalmology; Radiology Diagnostic Radiology; Student in an Organized Health Care Education/Training Program; ADMIT Internal Medicine
PROC: 5A1955Z Respiratory Ventilation, Greater than 96 Consecutive Hours (ICD-10-PCS; principal; 2016-10-20)
PROC: 0BH17EZ Insertion of Endotracheal Airway into Trachea, Via Natural or Artificial Opening (ICD-10-PCS; principal; 2016-10-20)
PROC: 0CJS8ZZ Inspection of Larynx, Via Natural or Artificial Opening Endoscopic (ICD-10-PCS; 2016-10-20)
PROC: 05HM33Z Insertion of Infusion Device into Right Internal Jugular Vein, Percutaneous Approach (ICD-10-PCS; 2016-10-24)
PROC: B543ZZA Ultrasonography of Right Jugular Veins, Guidance (ICD-10-PCS; 2016-10-24)
DX: F10.231 Alcohol dependence with withdrawal delirium (principal); R65.21 Severe sepsis with septic shock; J96.01 Acute respiratory failure with hypoxia; J69.0 Pneumonitis due to inhalation of food and vomit; R56.9 Unspecified convulsions; G93.40 Encephalopathy, unspecified; A41.9 Sepsis, unspecified organism; E88.89 Other specified metabolic disorders; E87.2 Acidosis; G62.9 Polyneuropathy, unspecified; Y90.0 Blood alcohol level of less than 20 mg/100 ml; L03.113 Cellulitis of right upper limb; I10 Essential (primary) hypertension; R74.0 Nonspecific elevation of levels of transaminase and lactic acid dehydrogenase [LDH]; S01.512A Laceration without foreign body of oral cavity, initial encounter; F17.200 Nicotine dependence, unspecified, uncomplicated
CPT/HCPCS: 2NBSP; CCU; 36415; 73120-RT; 74000; 74176; 80307; 81001; 82436; 87040; 87070; 87086; 93005; 93010; 93306; 95816; 96372; 96374; 96375; 96376; 97110-GO; 97116-GO; 97162-GP; 97530-GO; 99291; G0480; J0131; J0360; J0713; J0744; J1200; J1630; J1644; J1940; J2060; J2765; J3010; J3370; J3490; J7040; J7042; J7060